=== PATIENT | female | born 1955 | race Caucasian/White ===

== ENCOUNTER → 2016-12-02 | Day surgery (SDC) | payer MEDICARE ==
[~2016-12-02] VITALS: Ht 160 cm; Wt 137.0 kg
[~2016-12-02] MED LIST: AMPICILLIN SOD 2 GM in D5W MINI-BAG PLUS 100 ML IV ONE; ASPI81TA85 PO; CARV12.5 PO; D5W IV ONE; DESFLURANE 240 ML INHALANT As Ordered ONE; DRIS50002 PO; FURO40TA2 PO; GENTAMICIN SULFATE IV ONE; HYDR200T3 PO; LEVO112T2 PO; LIDOCAINE 2% INJ 100 MG/5 ML SDV (FOR ANES.) As Ordered ONE; LOSA50TA20 PO; LR 1,000 ML IV SCH; MAGN1TAB25 PO; METF1000 PO; METOCLOPRAMIDE INJ 10MG/2ML VIAL (J2765) As Ordered ONE; MIDAZOLAM INJ 2 MG/2 ML VIAL (J2250) As Ordered ONE; NOVO70IN SC; ONDANSETRON 4MG/2ML VIAL (J2405) As Ordered ONE; ONDANSETRON 4MG/2ML VIAL (J2405) IV PRN; PERCOCET 5MG/325MG TAB PO PRN; PROPOFOL 200 MG/20 ML VIAL As Ordered ONE; SEVOFLURANE INHAL SOLN 250 ML BTL As Ordered ONE; SPIR25TA2 PO; TRAM50TA2 PO; TYLE500T78 PO; ZOCO20TA PO; fentaNYL 100 MCG/2 ML INJECTION (J3010) As Ordered ONE; fentaNYL 100 MCG/2 ML INJECTION (J3010) IV PRN
--- NOTE | 2016-12-02 09:10 | RO ---
DATE OF PROCEDURE: 12/02/2016 PREOPERATIVE DIAGNOSIS: Postmenopausal bleeding with thickened endometrium by ultrasound. POSTOPERATIVE DIAGNOSIS: Postmenopausal bleeding with thickened endometrium by ultrasound. Several endometrial polyps. PROCEDURE: Dilation and curettage (D and C), hysteroscopy, MyoSure. SURGEON: Dr. Gabbie Carrasco CAMP MANAGER: ANESTHESIA: Spinal. BRIEF DESCRIPTION OF PROCEDURE AND FINDINGS: Cori was brought to the operating room where sufficient spinal anesthesia was induced and she was prepped, draped and positioned in the usual sterile fashion. The Geovanna retractor was used, not the weighted, in this patient with somewhat fragile postmenopausal atrophic tissues. It was difficult to visualize the cervix due to the patient's anatomy and so the cervix was grasped using the single tooth tenaculum under palpation and then brought down adequately so that we could then readjust the tenaculum and see the cervix well. There were no cervical lesions. The cervix was carefully dilated and the hysteroscope placed. Using the hysteroscope as documented in the pictures, we were able to see several endometrial polyps, the largest of which was still under a centimeter in size. Using the MyoSure LITE, we were able to completely resect these and resect the endometrial wall and some of the endocervical wall as well. After resecting in a circumferential fashion as is documented on the operative photos, we then also curettaged and both samples were sent together and the procedure was then ended. Estimated blood loss for the procedure was less than 5 mL. Fluid replacement was crystalloid. Complications: None. Condition and Disposition: Cori tolerated the procedure well and was recovering in the recovery room in good condition.
[2016-12-02 10:38] VITALS: BP 182/82
== END | disposition home or self-care (01) ==
LOC: M SDC 06:21
PROVIDERS: ATTEND Obstetrics & Gynecology
DX: N85.00 Endometrial hyperplasia, unspecified (principal); N85.8 Other specified noninflammatory disorders of uterus; N95.0 Postmenopausal bleeding; I11.0 Hypertensive heart disease with heart failure; E11.9 Type 2 diabetes mellitus without complications; G47.33 Obstructive sleep apnea (adult) (pediatric); Z95.3 Presence of xenogenic heart valve; I35.0 Nonrheumatic aortic (valve) stenosis; I50.32 Chronic diastolic (congestive) heart failure; E78.00 Pure hypercholesterolemia, unspecified; I87.2 Venous insufficiency (chronic) (peripheral); E03.9 Hypothyroidism, unspecified; I25.10 Atherosclerotic heart disease of native coronary artery without angina pectoris; Z95.5 Presence of coronary angioplasty implant and graft; I25.2 Old myocardial infarction; K44.9 Diaphragmatic hernia without obstruction or gangrene; R06.02 Shortness of breath; F32.9 Major depressive disorder, single episode, unspecified; F41.9 Anxiety disorder, unspecified; R60.9 Edema, unspecified; E66.8 Other obesity; I45.0 Right fascicular block; R94.31 Abnormal electrocardiogram [ECG] [EKG]; I31.8 Other specified diseases of pericardium; M19.90 Unspecified osteoarthritis, unspecified site; Z79.899 Other long term (current) drug therapy; Z79.82 Long term (current) use of aspirin; Z79.84 Long term (current) use of oral hypoglycemic drugs; Z79.4 Long term (current) use of insulin
CPT/HCPCS: 58558; 88304; J1580; J2250; J2405; J2765; J3010

== ENCOUNTER → 2017-03-10 | Outpatient (REF) | payer MEDICARE ==
[~2017-03-10] MED LIST changes: -AMPICILLIN SOD 2 GM in D5W MINI-BAG PLUS 100 ML IV ONE; -D5W IV ONE; -DESFLURANE 240 ML INHALANT As Ordered ONE; -GENTAMICIN SULFATE IV ONE; -LIDOCAINE 2% INJ 100 MG/5 ML SDV (FOR ANES.) As Ordered ONE; -LR 1,000 ML IV SCH; -METOCLOPRAMIDE INJ 10MG/2ML VIAL (J2765) As Ordered ONE; -MIDAZOLAM INJ 2 MG/2 ML VIAL (J2250) As Ordered ONE; -ONDANSETRON 4MG/2ML VIAL (J2405) As Ordered ONE; -ONDANSETRON 4MG/2ML VIAL (J2405) IV PRN; -PERCOCET 5MG/325MG TAB PO PRN; -PROPOFOL 200 MG/20 ML VIAL As Ordered ONE; -SEVOFLURANE INHAL SOLN 250 ML BTL As Ordered ONE; -fentaNYL 100 MCG/2 ML INJECTION (J3010) As Ordered ONE; -fentaNYL 100 MCG/2 ML INJECTION (J3010) IV PRN
== END ==
LOC: M LAB REF 16:36
PROVIDERS: ATTEND Internal Medicine
DX: Z01.89 Encounter for other specified special examinations (principal)

== ENCOUNTER → 2018-04-08 | Outpatient (REF) | payer MEDICARE ==
[2018-04-08 19:01] LABS: C REACTIVE PROTEIN QUANTITATIV 1.35 MG/DL (0.00-0.30)
== END ==
LOC: M LAB REF 17:02
DX: Z79.899 Other long term (current) drug therapy (principal)
CPT/HCPCS: 86140

== ENCOUNTER → 2018-11-12 | Outpatient (REF) | payer MEDICARE ==
[~2018-11-12] MED LIST changes: -DRIS50002 PO; +DRIS50003 PO; -LOSA50TA20 PO; +LOSA50TA88 PO; -METF1000 PO; +METF10004 PO; +NOVO1INJ4 SC; -NOVO70IN SC; +SPIR-10 PO; -SPIR25TA2 PO
== END ==
LOC: M LAB REF 15:54
PROVIDERS: ATTEND Internal Medicine
DX: I48.1 Persistent atrial fibrillation (principal)

== ENCOUNTER 2019-01-01 14:28 | Inpatient (IN) | payer MEDICARE ==
[~2019-01-01] VITALS: Ht 160 cm; Wt 125.0 kg
[2019-01-01] MEDS ORDERED: CHLO125TA PO (14:44)
[2019-01-01] MEDS ORDERED: DIGO0.25 PO (14:44)
[2019-01-01] MEDS ORDERED: ASPI325T25 PO (14:44)
[2019-01-01 17:03] LABS: BASO # 0.1 10^3/uL (0.0-0.2); BASO % 0.7 % (0.0-1.0); EOS # 0.1 10^3/uL (0.0-0.50); EOS % 0.9 % (0.0-3.0); HEMATOCRIT 40.1 % (36.0-47.0); LYMPH # 2.4 10^3/uL (1.5-4.5); LYMPH % 20.4 % (24.0-44.0); MEAN CORPUSCULAR HEMOGLOBIN 28.1 pg (27.0-33.0); MEAN CORPUSCULAR HGB CONC 32.4 g/dl (32.0-36.5); MEAN CORPUSCULAR VOLUME 86.6 fl (80.0-96.0); MONO # 0.6 10^3/uL (0.0-0.8); MONO % 5.4 % (0.0-5.0); NEUTROPHILS # 8.4 10^3/uL (1.8-7.7); NEUTROPHILS % 71.8 % (36.0-66.0); PLATELET COUNT, AUTOMATED 238 10^3/uL (150-450); RED BLOOD COUNT 4.63 10^6/uL (4.00-5.40); WHITE BLOOD COUNT 11.7 10^3/uL (4.0-10.0)
[2019-01-01 17:33] LABS: CALCIUM LEVEL 9.2 MG/DL (8.8-10.2); CREATININE FOR GFR 1.2 MG/DL (0.55-1.30); GLOMERULAR FILTRATION RATE 48.3 (>45)
[2019-01-01] MEDS ORDERED: PHENYLEPHRINE 2.5% OPHTH SOL 2ML OU ONE (20:00)
[2019-01-01] MEDS ORDERED: TETRACAINE 0.5% OPHTH SOLN 4ML OU ONE (20:00)
[2019-01-01] MEDS ORDERED: TROPICAMIDE 1% OPHTH SOLN 2ML OU ONE (20:00)
[2019-01-01 20:05] LABS: INR 0.97
[2019-01-01] MEDS ORDERED: methylPREDNISolone 1,000 MG, VIAL MATE ADAPTER 1 EACH in D5W 250 ML IV ONE (21:15)
[2019-01-01 21:25] LABS: C REACTIVE PROTEIN QUANTITATIV 2.19 MG/DL (0.00-0.30)
[2019-01-01] MEDS ORDERED: CHLO25TA PO (21:34)
[2019-01-01] MEDS ORDERED: VITA100066 PO (21:39)
[2019-01-01] MEDS ORDERED: TRAM50TA2 PO (21:39)
[2019-01-01] MEDS ORDERED: MAGN500T14 PO (21:39)
[2019-01-01] MEDS ORDERED: CARV25TA PO (21:39)
[2019-01-01] MEDS ORDERED: NITR4TASL SL (21:40)
[2019-01-01 21:48] LABS: ERYTHROCYTE SEDIMENTATION RATE 24 mm/hr (0-30)
[2019-01-01] MEDS ORDERED: niCARdipine IV 40 MG in APPROPRIATE DILUENT 1 EA IV SCH (22:00)
[2019-01-01] MEDS ORDERED: GLUCOSE 4 GM CHEW TABLET PO PRN (22:15)
[2019-01-01] MEDS ORDERED: GLUCAGON FOR INJ 1 MG VIAL (J1610) SC PRN (22:15)
[2019-01-01] MEDS ORDERED: NITROGLYCERIN 0.4 MG SUBL TABLET SL PRN (22:15)
[2019-01-01] MEDS ORDERED: DEXTROSE 50% 50 ML SYRINGE IV PRN (22:15)
[2019-01-01] MEDS: ENOXAPARIN 150 MG/ML SYR (J1650) SC SCH (22:34)
[2019-01-01] MEDS: LEVOTHYROXINE 112MCG TABLET (0.112MG) PO SCH (22:34)
[2019-01-01 23:38] VITALS: BP 143/63
[2019-01-01] MEDS: MAGNESIUM OXIDE 400 MG TAB (MAG-OX) PO SCH (23:40)
[2019-01-01] MEDS: SIMVASTATIN 20 MG TAB PO SCH (23:40)
[2019-01-02] VITALS (23 sets, daily range): BP systolic 136–168; BP diastolic 62–109
--- NOTE | 2019-01-02 00:15 | REPVR ---
EXAM: US Bilateral Duplex Bilateral Extracranial Arteries EXAM DATE/TIME: 01/01/2019 11:05 PM CLINICAL HISTORY: 63 years old, female; Signs and symptoms; Other: Vision loss; Additional info: Vision loss mono-occular TECHNIQUE: Bilateral Real-time Duplex ultrasound scan of the carotid and vertebral arteries combining de luna scale, color Doppler and spectral waveform analysis. COMPARISON: No relevant prior studies available. FINDINGS: Waveforms: There are intermittent arrhythmia on waveforms. Right common carotid artery: No occlusion or stenosis. PSV is 94 cm/s. Right internal carotid artery: No occlusion or stenosis. PSV is 59 cm/s. Tortuous ICA. Right ICA/CCA ratio: Right ICA/CCA ratio is 0.63. Right external carotid artery: No stenosis in the origin. Right vertebral artery: Unremarkable. Antegrade flow Left common carotid artery: No occlusion or stenosis. PSV is 105 cm/s. Left internal carotid artery: No occlusion or stenosis. PSV is 73 cm/s. Tortuous ICA. Left ICA/CCA ratio: Left ICA/CCA ratio 0.70. Left external carotid artery: No stenosis in the origin. Left vertebral artery: Unremarkable. Antegrade flow. IMPRESSION: No carotid artery stenosis. COMMENT: Carotid Stenosis Reference using SRU criteria: Mild: <50% stenosis. ICA PSV is less than 125 cm/second and plaque or intimal thickening is visible. Moderate: 50-69% stenosis. ICA PSV is 125 to 230 cm/second and plaque is visible. Severe: 70-94% stenosis. ICA PSV is more than 230 cm/second and visible plaque and lumen narrowing are seen. Near occlusion: 95-99% stenosis. ICA PSV is variable and significant plaque and luminal narrowing are seen. Occluded: 100% stenosis. No flow identified. Electronically signed by: Cris Plata On 01/02/2019 00:15:20 AM
[2019-01-02] MEDS: LOSARTAN 50 MG TAB PO SCH ×2 (04:50→21:29)
[2019-01-02 06:58] LABS: HEMOGLOBIN 13.1 g/dl (12.0-15.5); MEAN CORPUSCULAR HEMOGLOBIN 27.6 pg (27.0-33.0); MEAN CORPUSCULAR VOLUME 86.5 fl (80.0-96.0); PLATELET COUNT, AUTOMATED 222 10^3/uL (150-450); RED BLOOD COUNT 4.74 10^6/uL (4.00-5.40); WHITE BLOOD COUNT 9.9 10^3/uL (4.0-10.0)
[2019-01-02 07:43] LABS: C REACTIVE PROTEIN QUANTITATIV 2.09 MG/DL (0.00-0.30); CALCIUM LEVEL 8.9 MG/DL (8.8-10.2); CREATININE FOR GFR 1.26 MG/DL (0.55-1.30); GLOMERULAR FILTRATION RATE 45.7 (>45); POTASSIUM SERUM 4.9 MEQ/L (3.5-5.1); THYROID STIMULATING HORMONE 0.645 uIU/ML (0.358-3.740)
[2019-01-02] MEDS: VITAMIN D 1,000 INTERNATIONAL UNITS TABLET PO SCH (07:58)
[2019-01-02] MEDS: MAGNESIUM OXIDE 400 MG TAB (MAG-OX) PO SCH ×2 (07:58→21:31)
[2019-01-02] MEDS: HumaLOG INSULIN (NovoLOG) PER UNIT SC SCH ×4 (07:58→21:32)
[2019-01-02] MEDS: traMADol 50 MG TAB PO PRN ×2 (07:59→23:43)
[2019-01-02] MEDS: DIGOXIN 0.25 MG TAB PO SCH (08:00)
--- NOTE | 2019-01-02 08:10 | REP ---
CT BRAIN WITHOUT CONTRAST: 01/01/2019. CLINICAL HISTORY: Rule out CVA. FINDINGS: There are no prior studies. Soft tissue and bone windows reviewed for each slice level. Lateral ventricles are midline symmetric, mildly dilated but in proportion to the diffuse cerebral atrophy. That atrophy is slightly greater than I would expect but is proportionate to ventricular size. Third and fourth ventricles also proportionate. Basal ganglia symmetric and normal. Wang white junction differentiation is maintained, but there is some heterogeneous low attenuation white matter change bilaterally suggesting some mild small vessel ischemic disease. Cortical stripe is preserved though atrophic. There is no vascular territory infarct, intracranial hemorrhage, mass, mass effect, or edema. No extra-axial fluid collection. Atrophy greatest in the temporal and frontal lobes. The brainstem is intact. The cerebellum shows some atrophy in a symmetric fashion. No posterior fossa hemorrhage. Bone windows show the mastoids and visualized sinuses at the skull base intact. Skull base and calvarium show no fracture or focal lesion. There were a few calcifications in the carotid siphons. IMPRESSION: 1. Mild ventriculomegaly with proportionate cerebral atrophy, this is greater than I would expect for age. Some cerebellar atrophy noted as well. 2. No intracranial hemorrhage or acute infarct. No mass, mass effect, or edema. 3. Some chronic small vessel white matter ischemic changes are noted. The skull base, calvarium, sinuses, and mastoids clear. Electronically Signed by Norman Chaidez MD 01/02/2019 08:25 A
[2019-01-02] MEDS ORDERED: methylPREDNISolone 1,000 MG, VIAL MATE ADAPTER 1 EACH in D5W 250 ML IV SCH (09:00)
[2019-01-02] MEDS ORDERED: LEVEMIR (INSULIN DETEMIR) 1 UNITS/0.01ML SC SCH ×3 (09:00→21:00)
[2019-01-02] MEDS: ASPIRIN 81 MG ENTERIC TAB PO SCH (09:00)
--- NOTE | 2019-01-02 09:06 | ECGEPIP ---
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
[2019-01-02] MEDS ORDERED: methylPREDNISolone INJ 125 MG/2 ML VIAL (J2930) IV SCH (10:00)
[2019-01-02] MEDS ORDERED: PROHANCE 279.3MG/ML 15ML VIAL (A9576) As Ordered ONE (10:19)
[2019-01-02] MEDS: ENOXAPARIN 150 MG/ML SYR (J1650) SC SCH ×2 (13:43→22:49)
--- NOTE | 2019-01-02 14:29 | REP ---
MRI BRAIN WITHOUT AND WITH CONTRAST: 01/02/2019. CLINICAL HISTORY: Monocular vision loss. Pressure when moving left eye. She states she only sees de luna with that eye. Technique: Precontrast axial T1, fat-suppressed T2, FLAIR, gradient-echo, diffusion-weighted images and ADC mapping sequences, sagittal T1 images and following infusion of 12 mL of ProHance (one-half dose), axial and coronal T1 postinjection sequences provided. COMPARISON: CT brain 10/31/2019. FINDINGS: Lateral ventricles are midline, symmetric, mildly prominent and proportionate to the mild diffuse cerebral atrophy. Third and fourth ventricles are unremarkable. Basal ganglia appear symmetric and intact. There are a few dilated spaces of Virchow as a benign normal finding seen on both sides. In the periventricular and centrum semiovale adjacent to the lateral ventricles in the posterior frontal and anterior parietal lobe on the left and in the anterior parietal lobe on the right, there are punctate hyperintense signal foci. There are other periventricular changes in the white matter tracts adjacent to the atria of the lateral ventricles. I do not see subcortical white matter changes. On the gradient-echo images, I see no evidence of hemorrhage. The diffusion-weighted images and the ADC mapping sequences show no restricted water diffusion or acute ischemia. Brainstem, cerebellum, and white matter tracts in the cerebral hemispheres show no acute finding. There is no vascular territory infarct, intracranial hemorrhage, mass, or mass effect. No extra-axial fluid collection. The corpus callosum, optic chiasm, and pituitary are intact. There is no cerebellar tonsillar ectopia. Ample subarachnoid space is noted at the craniocervical junction. Visualized sinuses show only minor anterior ethmoid sinus mucosal thickening in a few air cells, and these are otherwise clear. The orbits and contents show conjugate gaze with the optic nerves symmetric in size, and the extraocular muscles show no acute finding. Seventh/eighth cranial nerve complexes and mastoids are grossly intact. After infusion of gadolinium, there was no evidence of abnormal enhancement of the meninges, in the areas in the brain including the white matter tracts nor the brainstem. Please see the MRI orbits report for discussion of that area. IMPRESSION: 1. Some chronic small vessel ischemic changes in the white matter tracts of the periventricular and centrum semiovale deep white matter in the posterior frontal lobe on the right and anterior parietal lobes bilaterally extending also back to the periatrial region of both lateral ventricles. This is a nonspecific finding that may be gliosis or chronic small vessel ischemic change. 2. No abnormal enhancement in the brainstem or white matter tracts. The globes and orbits are grossly symmetric without abnormal enhancement. Please see the dedicated MRI orbit study for discussion of that area. 3. There is no evidence of acute ischemia, intracranial bleed or other acute finding. Electronically Signed by Norman Chaidez MD 01/02/2019 07:18 P
--- NOTE | 2019-01-02 14:35 | REP ---
MRI OF THE ORBITS WITHOUT AND WITH CONTRAST: 01/02/2019. CLINICAL HISTORY: Monocular vision loss. States she sees all de luna in that eye and pain when moving the eye on the left side. Feels pressure deep to the eye. TECHNIQUE: Precontrast whole brain T2, coronal thin section fat-suppressed T2 through the orbits and high-resolution axial T1 and T2 images through the orbits obtained. After infusion of 12 mL of ProHance (one-half dose), fat suppressed T1 sagittal, axial, and coronal images were obtained through the orbits. COMPARISON: MRI brain this date, CT brain without contrast 01/01/2019. FINDINGS: The whole brain images demonstrate periventricular and centrum semiovale deep white matter tract hyperintense foci in both hemispheres and extending into the periatrial regions as well. There is no vascular territory infarct, hemorrhage, mass, or mass effect. Some mild ventriculomegaly with proportionate atrophy. Dedicated orbit images show globes symmetric. There is conjugate gaze and no evidence of fluid-fluid level in either orbit. The optic nerves are symmetric and without signal abnormality on the precontrast images. The extraocular muscles are also symmetric in appearance and without abnormal thickening. I see no proptosis. There is no evidence of intraconal mass or edema on either side. The brainstem and white matter tracts anteriorly are unremarkable. Basal ganglia unremarkable. That portion of corpus callosum included, pituitary, and infundibulum are unremarkable. Optic chiasm also intact. It is better seen on the T2 precontrast images with slight motion artifact on the post gadolinium coronal images. There is no abnormal signal within the cavernous sinuses on pre- or postcontrast images. After contrast administration, the optic nerves show symmetric, normal pattern of enhancement. There is no abnormal enhancement of the intraconal fat. Optic pathways show no mass or abnormal enhancement. IMPRESSION: 1. Negative pre- and postcontrast MRI of the orbits for any acute finding. There is no evidence of intraconal mass, abnormal enhancement or edema of the optic nerves, hyphema or other abnormalities of the globe. 2. There is some periventricular and centrum semiovale white matter hyperintense signal change in the bilateral anterior to posterior parietal lobes and the posterior left frontal lobe. This does not appear acute, and there is no enhancement of the visible white matter lesions on this study. Brainstem images are all unremarkable. Electronically Signed by Norman Chaidez MD 01/02/2019 07:19 P
[2019-01-02] MEDS: CARVedilol 12.5 MG TAB PO SCH ×2 (14:47→21:32)
--- NOTE | 2019-01-02 16:36 | ECGEPIP ---
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
--- NOTE | 2019-01-02 17:22 | IPNPDOC ---
Text Note Date of Service The patient was seen on 01/02/19. NOTE Subjective: Patient is a 63-year-old female with a PMHx of A. fib (on ASA), HTN, IDDM2, DLP, Hypothyroidism who presented to the ER with platelets of complete vision loss in the left eye. Patient was seen by ophthalmology, Dr. Romero, in the emergency room. Patient was suspected of having optic neuritis and was started on Solu-Medrol. . She was admitted to the hospitalist service for further evaluation and treatment. Patient was seen and examined at the bedside. Patient notes that she is now seeing shadows out of her left eye. . He denies chest pain, shortness of breath or palpitations. Denies nausea, vomiting, abdominal pain, constipation, diarrhea or discomfort with urination. 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 Romero - CRP mildly elevated; ESR not significantly elevated - MRI orbit 01/02: 1. Negative pre- and postcontrast MRI of the orbits for any acute finding. There is no evidence of intraconal mass, abnormal enhancement, or edema of the optic nerves, hyphema, or other abnormalities of the globe. 2. There is some periventricular and centrum semiovale white matter hyperintense si gnal change in the bilateral anterior to posterior parietal lobes and the posterior left frontal lobe. This does not appear acute, and there is no enhancement of the visible white matter lesions on this study. Brainstem images are all unremarkable. - MRI brain 01/02: 1. Some chronic small vessel ischemic changes in the white matter tracts of the periventricular and centrum semiovale deep white matter in the posterior parietal frontal lobe on the right and anterior parietal bilaterally extending also back to the periatrial region of both lateral ventricles. This is a nonspecific finding that may be gliosis or chronic small vessel ischemic change. 2. No abnormal enhancement in the brainstem or white matter tracts. The globes and orbits are grossly symmetric without abnormal enhancement. Please see the dedicated MRI orbit study for discussion of that area. 3. There is no evidence of acute ischemia, intracranial bleed, or other acute finding. - c/w Solumedrol; will reduce to [id number] - Discussed cause with Ophthalmology; Dr. Romero; Reported imaging findings; Advised to continue Solumedrol 1000mg q24h for 3 days; then taper to steroids and have outpatient follow up HTN s/p Urgency / Emergency - Blood pressure has improved over last 24 hours - s/p Nicardipine drip - Resumed oral medications; c/w Carvedilol A. fib - Patient has been advised to be on full anticoagulation in the past, however, was reluctant to start it given her hemorrhoids - c/w rate / rhythm control with Digoxin - c/w full anticoagulation with Lovenox; will likely transition to Warfarin - Dose of Aspirin has been reduced to 81 IDDM2 with Hyperglycemia - c/w ISS and increase Levemir from 5 BID to 15 BID - Will likely have to increase dose of Levemir while on corticosteroids DLP - c/w Simvastatin Hypothyroidism - c/w Levothyroxine Hx of Hemorrhoids GI prophylaxis - Will start Protonix DVT prophylaxis - Currently on full anticoagulation with Lovenox VS,Fishbone, I+O VS, Fishbone, I+O Laboratory Tests 01/02/19 05:30 Red Blood Count 4.74, Mean Corpuscular Volume 86.5, Mean Corpuscular Hemoglobin 27.6, Mean Corpuscular Hemoglobin Concent 32.0, Red Cell Distribution Width 13.3 Vital Signs Date Time Temp Pulse Resp B/P (MAP) Pulse Ox O2 Delivery O2 Flow Rate FiO2 01/02/19 14:47 144/70 01/02/19 12:00 99 01/02/19 08:58 16 01/02/19 04:00 98.7 98 01/01/19 23:00 Room Air I&O- Last 24 Hours up to 6 AM 01/02/19 06:00 Intake Total 366 ml Output Total 1000 ml Balance -634 ml ELIDA DICKSON MD Jan 02, 2019 17:22
[2019-01-02] MEDS: PANTOPRAZOLE 40MG TAB (PROTONIX) PO ONE ×2 (17:30→18:01)
[2019-01-02] MEDS ORDERED: HumaLOG INSULIN (NovoLOG) PER UNIT SC ONE ×2 (18:00→23:15)
--- NOTE | 2019-01-02 21:06 | HPE ---
DATE OF ADMISSION: 01/01/2019 CHIEF COMPLAINT: Monolocular loss of vision for the past 36 hours. HISTORY OF PRESENT ILLNESS: The patient is a 63-year-old female. She has a significant past medical history of hypertension, rheumatoid arthritis (RA) was previously on Plaquenil, which was recently discontinued about a month and a half ago, insulin-dependent diabetes, hypothyroidism, hyperlipidemia and atrial fibrillation, not on anticoagulation. She uses aspirin 326 mg despite she has a CHADs-VASc greater than 2. She actually has a CHADs-VASc score of 3. However, she choose aspirin 325 mg because of fear cause she has internal and external hemorrhoid. She presents to the emergency room with 36 hour painless monolocular visual loss that started around noon yesterday. The patient states she woke up and she felt as though a de luna curtain was over her eyes. There is no pain. She has no headache. She has no other focal deficits. No weakness, numbness, paresthesias. No cough, chest pain, shortness of breath, urinary symptoms, abdominal pain, constipation or diarrhea. On presentation to the emergency room, systolic blood pressures in the 200s. When I evaluated the patient, it was high as 213 to 230. Denies any scalp tenderness. She was evaluated by the field crop farmer, Dr. Romero in the emergency room, who I believe performed a funduscopic exam and does not believe that this is retinal vein or artery occlusion, do not believe this is retinal detachment, believes that the patient has optic neuritis and believes that she should ruled out for multiple sclerosis (MS) and placed on high dose Solu-Medrol with a Magnetic Resonance Imaging (MRI) of the brain with and without gadolinium to assess for any demyelinating plaques. PAST MEDICAL HISTORY: See history of present illness. PAST SURGICAL HISTORY: She has vein ablation, cholecystectomy, mitral valve repair with a porcine valve, tubal ligation and eye corrective surgery for presbyopia. PAST MEDICATIONS INCLUDE: - vitamin D - Zocor - magnesium - Synthroid - digoxin - aspirin 325 mg - Coreg - chlortalidone - insulin sliding scale - losartan - metformin - spironolactone. SOCIAL HISTORY: Denies tobacco, alcohol or illicit drug use. FAMILY HISTORY: Heart disease REVIEW OF SYSTEMS: A 12-point review of systems was completed, all of which were except those listed in the history of present illness. VITAL SIGNS ON ADMISSION: Temperature 99.6, pulse of 69, respirations of 18, blood pressure 187/90, saturating at 95% on room air. When I did see the patient, her blood pressure systolic was in the 200s. She states her blood pressures usually were not controlled at home. PHYSICAL EXAMINATION: GENERAL: She is well nourished, in no apparent distress. Head is normocephalic, atraumatic. Eyes: The extraocular movements are actually intact. Pupils are reactive to light. Visual acuity is diminished in the left eye. Neck is supple. No jugular venous pressure. Cardiovascular appears to be regular rate and rhythm. Grade 2 out of 6 systolic murmur heard best in the right second intercostal space. It appears to be normal sinus rhythm. She does not appear to be in atrial fibrillation, though the electrocardiogram (EKG) at baseline may be a coarse atrial fibrillation. Abdomen: Soft, nontender, nondistended, positive bowel sounds. No rebound or guarding. Lungs are clear to auscultation. Extremities: Multiple abrasions. Trace edema. No calf tenderness. Neurological exam: She is alert and oriented times 3. No focal deficits. Power, sensation, coordination all are intact. LABORATORY AND IMAGING COMPLETED IN THE EMERGENCY ROOM: White count 11, hemoglobin and hematocrit of 13/40, platelet count of 238. Coags within normal limits. Chemistry shows a BUN, creatinine of 18/1.2. CT of the head showed no acute disease. ASSESSMENT AND PLAN: 1. Monolocular visual loss. Again, the patient has been seen by opthalmology in the emergency room, evaluated by Dr. Romero, who does not believe that this is retinal vein or retinal artery occlusion, no retinal detachment on the funduscopic exam, believe this is due to optic neuritis, to rule out demyelinating disease. So, differential diagnosis includes optic neuritis primary on the list, rule out demyelinating disease versus embolic phenomenon, stroke, retinal vein, retinal artery occlusion very less likely, versus hypertensive emergency in the setting of possible cerebrovascular accident (CVA), with this type of blood pressure systolic in the 200s and very less likely to be PRES syndrome, as it is unilocular and not biocular visual loss. However, will admit the patient to the intensive care unit (ICU). Will treat as hypertensive emergency with nicardipine; the goal is drop the MAP by 15 go 20% in the first few hours and 25% in the first 24 hours. Will get a Magnetic Resonance Imaging (MRI) of the head with and without to assess demyelinating disease, as well as to assess for cerebrovascular accident (CVA) stroke. Will get Magnetic Resonance Imaging (MRI) of the orbits with and without as well. Will also get echocardiogram and carotid Dopplers to complete the stroke work up. Erythrocyte sedimentation rate and C-reactive protein (CRP) sent to also rule out giant cell arteritis, which is very unlikely in this case with no scalp tenderness and no headaches, which would also improved with steroids. As per opthalmology recommendations, Solu-Medrol 1 gram daily for three to five days, insulin sliding with high dose steroids. Will look hard for steroid-induced psychosis, as well as neuropathy and elevation of sugars while on high dose steroids. 2. For atrial fibrillation, the patient appears to be in sinus at this point. Continue with digoxin, Coreg would be held if the patient is on nicardipine drip. She is CHADs-VASc 3. The aspirin 325 would be held and she will be placed on anticoagulation, starting with Lovenox. She likely can be discharged on Coumadin. She is not a candidate for NOACS_because she has underlying valvular disorder. 3. For mitral repair with porcine valve, stable, echocardiogram to be completed. 4. Hypertension. All antihypertensives held while the patient is on nicardipine drip. 5. Hyperlipidemia. Continue Zocor for now. She may need high intensity statin. This is shown to be an embolic event. 6. Hypothyroidism. Continue Synthroid. Check thyroid simulating hormone (TSH). 7. Rheumatoid arthritis. No longer on Plaquenil, Tylenol as needed. Also continue with digoxin for the atrial fibrillation. 8. Supportive deep vein thrombosis (DVT) prophylaxis, she is on Lovenox therapeutically. 9. Gastrointestinal (GI) prophylaxis, Protonix while on high dose steroids. 10. Diet: Cardiac diabetic diet. The patient to be admitted to the intensive care unit (ICU). 11. Will also perform neuro checks every 4 hours. MTDD
[2019-01-02] MEDS: LEVOTHYROXINE 112MCG TABLET (0.112MG) PO SCH (21:29)
[2019-01-02] MEDS: SIMVASTATIN 20 MG TAB PO SCH (21:30)
[2019-01-02] MEDS: ACETAMINOPHEN 500 MG TAB PO PRN (23:43)
[2019-01-03] VITALS (8 sets, daily range): BP systolic 138–158; BP diastolic 72–96
[2019-01-03] MEDS: traMADol 50 MG TAB PO PRN ×4 (00:13→22:08)
[2019-01-03 04:17] LABS: HEMATOCRIT 35.7 % (36.0-47.0); HEMOGLOBIN 11.7 g/dl (12.0-15.5); MEAN CORPUSCULAR HEMOGLOBIN 27.7 pg (27.0-33.0); MEAN CORPUSCULAR HGB CONC 32.8 g/dl (32.0-36.5); MEAN CORPUSCULAR VOLUME 84.4 fl (80.0-96.0); PLATELET COUNT, AUTOMATED 221 10^3/uL (150-450); RED BLOOD COUNT 4.23 10^6/uL (4.00-5.40); WHITE BLOOD COUNT 12.5 10^3/uL (4.0-10.0)
[2019-01-03 04:41] LABS: C REACTIVE PROTEIN QUANTITATIV 2.39 MG/DL (0.00-0.30); CALCIUM LEVEL 8.2 MG/DL (8.8-10.2); CREATININE FOR GFR 1.3 MG/DL (0.55-1.30); POTASSIUM SERUM 4.3 MEQ/L (3.5-5.1)
[2019-01-03] MEDS ORDERED: LEVEMIR (INSULIN DETEMIR) 1 UNITS/0.01ML SC SCH (09:00)
[2019-01-03] MEDS ORDERED: methylPREDNISolone 1,000 MG, VIAL MATE ADAPTER 1 EACH in D5W 250 ML IV SCH (09:00)
[2019-01-03] MEDS: PANTOPRAZOLE 40MG TAB (PROTONIX) PO SCH ×2 (09:00→09:13)
[2019-01-03] MEDS: HumaLOG INSULIN (NovoLOG) PER UNIT SC SCH ×4 (09:12→21:12)
[2019-01-03] MEDS: MAGNESIUM OXIDE 400 MG TAB (MAG-OX) PO SCH ×2 (09:13→21:00)
[2019-01-03] MEDS: CARVedilol 12.5 MG TAB PO SCH ×2 (09:13→21:01)
[2019-01-03] MEDS: LOSARTAN 50 MG TAB PO SCH ×2 (09:14→21:00)
[2019-01-03] MEDS: ASPIRIN 81 MG ENTERIC TAB PO SCH (09:14)
[2019-01-03] MEDS: DIGOXIN 0.25 MG TAB PO SCH (09:14)
[2019-01-03] MEDS: VITAMIN D 1,000 INTERNATIONAL UNITS TABLET PO SCH (09:15)
[2019-01-03] MEDS: ACETAMINOPHEN 500 MG TAB PO PRN ×2 (09:19→21:01)
--- NOTE | 2019-01-03 10:11 | IPNPDOC ---
Text Note Date of Service The patient was seen on 01/03/19. NOTE Subjective: Patient is a 63-year-old female with a PMHx of A. fib (on ASA), HTN, IDDM2, DLP, Hypothyroidism who presented to the ER with platelets of complete vision loss in the left eye. Patient was seen by ophthalmology, Dr. Romero, in the emergency room. Patient was suspected of having optic neuritis and was started on Solu-Medrol. She was admitted to the hospitalist service for further evaluation and treatment. Patient was seen and examined at the bedside in the ICU. She states that her eyesight is about the same as it was yesterday. She states that she can see parts of her TV and her family and with her left eye, however it is more like s eeing puzzle pieces instead of the whole image. She denies chest pain, shortness of breath or palpitations. Denies nausea, vomiting, abdominal pain, constipation, diarrhea or discomfort with urination. Objective: Vitals (See below) General: Middle-aged, female, sitting in bed in the ICU. No acute distress, comfortable. HEENT: Atraumatic, normocephalic. Pupils are equal round and reactive to light. Visual acuity is diminished in the left eye. Mucous membranes are moist. HEART: Irregular rhythm, rate controlled. Holosystolic murmur heard best at the right second intercostal space. Lungs: Clear to auscultation bilaterally; no wheezes, rhonchi, or rales Abdomen: Normoactive bowel sounds, soft, no pain to palpation Extremities: No lower extremity edema bilaterally. Assessment and plan: 1. Visual loss of left - possibly 2/2 anterior ischemic optic neuropathy, no evidence of acute cerebrovascular accident or multiple sclerosis - Presented to emergency room with complete loss of vision for left eye - Was evaluated by ophthalmology the emergency room; has been discussed with Dr. Romero - CRP mildly elevated; ESR not significantly elevated - MRI orbit 01/02: 1. Negative pre- and postcontrast MRI of the orbits for any acute finding. There is no evidence of intraconal mass, abnormal enhancement, or edema of the optic nerves, hyphema, or other abnormalities of the globe. 2. There is some periventricular and centrum semiovale white matter hyperintense signal change in the bilateral anterior to posterior parietal lobes and the posterior left frontal lobe. This does not appear acute, and there is no enhancement of the visible white matter lesions on this study. Brainstem images are all unremarkable. - MRI brain 01/02: 1. Some chronic small vessel ischemic changes in the white matter tracts of the periventricular and centrum semiovale deep white matter in the posterior parietal frontal lobe on the right and anterior parietal bilaterally extending also back to the periatrial region of both lateral ventricles. This is a nonspecific finding that may be gliosis or chronic small vessel ischemic change. 2. No abnormal enhancement in the brainstem or white matter tracts. The globes and orbits are grossly symmetric without abnormal enhancement. Please see the dedicated MRI orbit study for discussion of that area. 3. There is no evidence of acute ischemia, intracranial bleed, or other acute finding. - Discussed cause with Ophthalmology; Dr. Romero; Reported imaging findings; Advised to continue Solumedrol 1000mg q24h for 3 days; then taper to steroids and have outpatient follow up - Day #2 of steroids, patient will receive her third dose of Solumedrol tonight; will start taper tomorrow, Dr. Romero had recommended Prednisone 60mg, 40mg, then 20mg per day/rapid taper. - OT evaluation pending 2. HTN s/p Urgency / Emergency - s/p Nicardipine drip (dc'ed 01/02/19) - Currently on home doses of losartan 50 mg twice a day, Coreg 25 mg twice a day, and today we will resume home dose of chlorthalidone 12.5 mg twice a day 3. A. fib - Patient has been advised to be on full anticoagulation in the past, however, was reluctant to start it given her hemorrhoids - c/w rate / rhythm control with Digoxin - c/w full anticoagulation with Lovenox; will likely transition to Warfarin - Dose of Aspirin has been reduced to 81 4. IDDM2 with Hyperglycemia - c/w ISS, Levemir has been increased to 40 units BID - Will likely have to adjust dose of Levemir while on corticosteroids 5. DLP - c/w Simvastatin 6. Hypothyroidism - c/w Levothyroxine 7. Hx of Hemorrhoids 8. GI prophylaxis - On Protonix 9. DVT prophylaxis - Currently on Lovenox DISPOSITION: Pending clinical improvement, potential discharge tomorrow pending OT recommendations, control of HTN with outpatient meds. VS,Fishbone, I+O VS, [place], I+O Laboratory Tests 01/03/19 04:02 Red Blood Count 4.23, Mean Corpuscular Volume 84.4, Mean Corpuscular Hemoglobin 27.7, Mean Corpuscular Hemoglobin Concent 32.8, Red Cell Distribution Width 13.2, Calcium Level 8.2 L Vital Signs Date Time Temp Pulse Resp B/P (MAP) Pulse Ox O2 Delivery O2 Flow Rate FiO2 01/03/19 09:18 15 01/03/19 09:14 66 01/03/19 09:13 158/96 01/03/19 08:00 98.1 96 01/01/19 23:00 Room Air I&O- Last 24 Hours up to 6 AM 01/03/19 06:00 Intake Total 1560 ml Output Total 2800 ml Balance -1240 ml GME ATTESTATION GME ATTESTATION My faculty preceptor for this patient encounter was physically present during the encounter and was fully available. All aspects of the patient interview, exa mination, medical decision making process, and medical care plan development were reviewed and approved by the faculty preceptor. The faculty preceptor is aware and concurs with the plan as stated in the body of this note and will attest to such by his/her cosignature. ATTENDING NOTE I, Lance Dickson, have both independently examined this patient as well as reviewed the documentation. I have discussed in detail with the resident the findings and plan of treatment as documented in the residents documentation. I will continue to follow the patient and offer further guidance to the patients care as necessary during this hospital stay. DOREEN SHELTON DO Jan 03, 2019 10:11 LANCE DICKSON MD Jan 03, 2019 11:58
[2019-01-03] MEDS: CHLORTHALIDONE 12.5MG PER 1/2 TABLET PO SCH ×2 (12:14→18:26)
[2019-01-03] MEDS: ENOXAPARIN 150 MG/ML SYR (J1650) SC SCH ×2 (12:14→21:02)
[2019-01-03] MEDS ORDERED: HumaLOG INSULIN (NovoLOG) PER UNIT SC ONE ×2 (12:45→17:30)
--- NOTE | 2019-01-03 17:37 | REP ---
MRA BRAIN WITHOUT CONTRAST: HISTORY: Optic neuritis. 3D [id number] MR angiography was performed at the level of the [place]. There is no aneurysm or arteriovenous malformation. Mild atherosclerotic disease involves the cavernous internal carotid arteries. The A1 segment of the right anterior cerebral artery is hypoplastic. Major intracranial vessels are patent. The vertebral arteries are equal in size. IMPRESSION: 1. There is no aneurysm or arteriovenous malformation. 2. Atherosclerotic disease as described above. Electronically Signed by Ap Faustin MD 01/03/2019 05:40 P
[2019-01-03] MEDS: SIMVASTATIN 20 MG TAB PO SCH (20:59)
[2019-01-03] MEDS: LEVOTHYROXINE 112MCG TABLET (0.112MG) PO SCH (21:00)
[2019-01-03] MEDS: LEVEMIR (INSULIN DETEMIR) 1 UNITS/0.01ML SC SCH (21:13)
[2019-01-04 04:00] VITALS: BP 124/86
[2019-01-04 05:45] LABS: HEMATOCRIT 35.4 % (36.0-47.0); HEMOGLOBIN 11.6 g/dl (12.0-15.5); MEAN CORPUSCULAR HEMOGLOBIN 27.8 pg (27.0-33.0); MEAN CORPUSCULAR HGB CONC 32.8 g/dl (32.0-36.5); MEAN CORPUSCULAR VOLUME 84.7 fl (80.0-96.0); PLATELET COUNT, AUTOMATED 212 10^3/uL (150-450); RED BLOOD COUNT 4.18 10^6/uL (4.00-5.40); WHITE BLOOD COUNT 11.8 10^3/uL (4.0-10.0)
[2019-01-04 05:57] LABS: C REACTIVE PROTEIN QUANTITATIV 1.34 MG/DL (0.00-0.30); CALCIUM LEVEL 7.9 MG/DL (8.8-10.2); CREATININE FOR GFR 1.24 MG/DL (0.55-1.30); GLOMERULAR FILTRATION RATE 46.5 (>45)
[2019-01-04 08:00] VITALS: BP 144/80
[2019-01-04] MEDS: CARVedilol 12.5 MG TAB PO SCH ×2 (08:45→20:58)
[2019-01-04] MEDS: PANTOPRAZOLE 40MG TAB (PROTONIX) PO SCH (08:48)
[2019-01-04] MEDS: CHLORTHALIDONE 12.5MG PER 1/2 TABLET PO SCH ×2 (08:48→17:36)
[2019-01-04] MEDS: LOSARTAN 50 MG TAB PO SCH ×2 (08:48→20:59)
[2019-01-04] MEDS: VITAMIN D 1,000 INTERNATIONAL UNITS TABLET PO SCH (08:49)
[2019-01-04] MEDS: MAGNESIUM OXIDE 400 MG TAB (MAG-OX) PO SCH ×2 (08:49→20:59)
[2019-01-04] MEDS: ASPIRIN 81 MG ENTERIC TAB PO SCH (08:49)
[2019-01-04] MEDS: DIGOXIN 0.25 MG TAB PO SCH (08:49)
[2019-01-04] MEDS: HumaLOG INSULIN (NovoLOG) PER UNIT SC SCH ×4 (08:50→21:00)
[2019-01-04] MEDS: LEVEMIR (INSULIN DETEMIR) 1 UNITS/0.01ML SC SCH ×2 (08:51→21:15)
[2019-01-04] MEDS ORDERED: predniSONE 20 MG TAB PO SCH (09:00)
[2019-01-04] MEDS: traMADol 50 MG TAB PO PRN (09:02)
[2019-01-04] MEDS: ACETAMINOPHEN 500 MG TAB PO PRN (09:02)
[2019-01-04] MEDS ORDERED: ENOXAPARIN 120 MG/0.8 ML SYR (J1650) SC SCH (10:00)
[2019-01-04] MEDS: SPIRONOLACTONE 25 MG TAB PO SCH (10:12)
[2019-01-04] MEDS ORDERED: ELIQ2.5T PO (10:46)
[2019-01-04 12:00] VITALS: BP 124/64
[2019-01-04] MEDS ORDERED: SLF 3 ML SYR IV PRN (12:15)
--- NOTE | 2019-01-04 12:27 | IPNPDOC ---
Text Note Date of Service The patient was seen on 01/04/19. NOTE Subjective: Patient is a 63-year-old female with a PMHx of A. fib (on ASA), HTN, IDDM2, DLP, Hypothyroidism who presented to the ER with platelets of complete vision loss in the left eye. Patient was seen by ophthalmology, Dr. Romero, in the emergency room. Patient was suspected of having optic neuritis and was started on Solu-Medrol. She was admitted to the hospitalist service for further evaluation and treatment. Patient was seen and examined at the bedside in the PCU. She states that her eyesight is about the same as it was yesterday. She denies chest pain, shortness of breath or palpitations. Denies nausea, vomiting, abdominal pain, consti pation, diarrhea or discomfort with urination. She is concerned about her diabetes being uncontrolled with steroids. Objective: Vitals (See below) General: Middle-aged, female, sitting upright on the edge of her bed. No acute distress, comfortable. HEENT: Atraumatic, normocephalic. Pupils are equal round and reactive to light. Visual acuity is diminished in the left eye. Mucous membranes are moist. HEART: Irregular rhythm, rate controlled. Holosystolic murmur heard best at the right second intercostal space. Lungs: Clear to auscultation bilaterally; no wheezes, rhonchi, or rales Abdomen: Normoactive bowel sounds, soft, no pain to palpation Extremities: No lower extremity edema bilaterally. Assessment and plan: 1. Visual loss of left - possibly 2/2 anterior ischemic optic neuropathy, no evidence of acute cerebrovascular accident or multiple sclerosis - Presented to emergency room with complete loss of vision for left eye - Was evaluated by ophthalmology the emergency room; has been discussed with Dr. Romero - CRP mildly elevated; ESR not significantly elevated - MRI orbit 01/02: 1. Negative pre- and postcontrast MRI of the orbits for any acute finding. There is no evidence of intraconal mass, abnormal enhancement, or edema of the optic nerves, hyphema, or other abnormalities of the globe. 2. There is some periventricular and centrum semiovale white matter hyperintense signal change in the bilateral anterior to posterior parietal lobes and the posterior left frontal lobe. This does not appear acute, and there is no enhancement of the visible white matter lesions on this study. Brainstem images are all unremarkable. - MRI brain 01/02: 1. Some chronic small vessel ischemic changes in the white matter tracts of the periventricular and centrum semiovale deep white matter in the posterior parietal frontal lobe on the right and anterior parietal bilaterally extending also back to the periatrial region of both lateral ventricles. This is a nonspecific finding that may be gliosis or chronic small vessel ischemic change. 2. No abnormal enhancement in the brainstem or white matter tracts. The globes and orbits are grossly symmetric without abnormal enhancement. Please see the dedicated MRI orbit study for discussion of that area. 3. There is no evidence of acute ischemia, intracranial bleed, or other acute finding. - Discussed cause with Ophthalmology; Dr. Romero; Reported imaging findings; Advised to continue Solumedrol 1000mg q24h for 3 days; then taper to steroids and have outpatient follow up - Day #4 of steroids, patient 3 doses of high-dose IV Solumedrol; will start taper recommended by Dr. Romero Prednisone 60mg, 40mg, then 20mg per day/rapid taper. 60 mg given today. - PT/OT evaluation pending 2. HTN s/p Urgency / Emergency - s/p Nicardipine drip (dc'ed 01/02/19) - Currently on home doses of losartan 50 mg twice a day, Coreg 25 mg twice a day, and chlorthalidone 12.5 mg twice a day. Resuming her home dose of spironolactone today to make sure that she is controlled on her home doses of blood pressure medications. 3. A. fib - Patient has been advised to be on full anticoagulation in the past, however, was reluctant to start it given her hemorrhoids - c/w rate / rhythm control with Digoxin - c/w full anticoagulation with Lovenox; will likely transition to Eliquis. PFS consultation for prior authorization. - Dose of Aspirin has been reduced to 81 4. IDDM2 with Hyperglycemia - c/w ISS, Levemir has been increased to 60 units BID - Will likely have to adjust dose of Levemir while on corticosteroids 5. DLP - c/w Simvastatin 6. Hypothyroidism - c/w Levothyroxine 7. Hx of Hemorrhoids 8. GI prophylaxis - On Protonix 9. DVT prophylaxis - Currently on Lovenox, will likely transition to Eliquis if covered by insurance DISPOSITION: Pending clinical improvement, tentative discharge in the next 24-48 hours pending PT/OT recommendations, control of HTN with outpatient meds. VS,Fishbone, I+O VS, Fishbone, I+O Laboratory Tests 01/04/19 05:13 Red Blood Count 4.18, Mean Corpuscular Volume 84.7, Mean Corpuscular Hemoglobin 27.8, Mean Corpuscular Hemoglobin Concent 32.8, Red Cell Distribution Width 13.3, Calcium Level 7.9 L Vital Signs Date Time Temp Pulse Resp B/P (MAP) Pulse Ox O2 Delivery O2 Flow Rate FiO2 01/04/19 12:00 97.4 62 18 124/64 (84) 95 01/01/19 23:00 Room Air I&O- Last 24 Hours up to 6 AM 01/04/19 05:59 Intake Total 1526 ml Output Total 2240 ml Balance -714 ml GME ATTESTATION GME ATTESTATION My faculty preceptor for this patient encounter was physically present during the encounter and was fully available. All aspects of the patient interview, examination, medical decision making process, and medical care plan development were reviewed and approved by the faculty preceptor. The faculty preceptor is aware and concurs with the plan as stated in the body of this note and will attest to such by his/her cosignature. DOREEN SHELTON DO Jan 04, 2019 12:27
[2019-01-04] MEDS: SLF 3 ML SYR IV SCH ×2 (13:02→21:30)
[2019-01-04] MEDS: ENOXAPARIN 150 MG/ML SYR (J1650) SC SCH (14:15)
[2019-01-04 16:00] VITALS: BP 142/70
[2019-01-04 20:00] VITALS: BP 162/76
[2019-01-04] MEDS ORDERED: predniSONE 20 MG TAB PO ONE (20:00)
[2019-01-04] MEDS: LEVOTHYROXINE 112MCG TABLET (0.112MG) PO SCH (20:58)
[2019-01-04] MEDS: SIMVASTATIN 20 MG TAB PO SCH (20:58)
[2019-01-04] MEDS ORDERED: HumaLOG INSULIN (NovoLOG) PER UNIT SC ONE (22:00)
[2019-01-04] MEDS ORDERED: MIRALAX *UNIT DOSE* 17GM PACKET PO PRN (23:00)
[2019-01-05] VITALS: BP 152/78
[2019-01-05] MEDS: ENOXAPARIN 150 MG/ML SYR (J1650) SC SCH ×2 (03:46→12:25)
[2019-01-05] MEDS: SLF 3 ML SYR IV SCH ×2 (03:48→12:26)
[2019-01-05 04:00] VITALS: BP 164/88
[2019-01-05] MEDS: traMADol 50 MG TAB PO PRN (04:35)
[2019-01-05] MEDS: ACETAMINOPHEN 500 MG TAB PO PRN (04:35)
[2019-01-05 05:09] LABS: HEMATOCRIT 37.5 % (36.0-47.0); HEMOGLOBIN 12.4 g/dl (12.0-15.5); MEAN CORPUSCULAR HEMOGLOBIN 27.6 pg (27.0-33.0); MEAN CORPUSCULAR HGB CONC 33.1 g/dl (32.0-36.5); MEAN CORPUSCULAR VOLUME 83.5 fl (80.0-96.0); PLATELET COUNT, AUTOMATED 224 10^3/uL (150-450); RED BLOOD COUNT 4.49 10^6/uL (4.00-5.40)
[2019-01-05 05:34] LABS: C REACTIVE PROTEIN QUANTITATIV 0.77 MG/DL (0.00-0.30); CALCIUM LEVEL 8.3 MG/DL (8.8-10.2); CREATININE FOR GFR 1.16 MG/DL (0.55-1.30); GLOMERULAR FILTRATION RATE 50.2 (>45); POTASSIUM SERUM 3.7 MEQ/L (3.5-5.1)
[2019-01-05] MEDS: CHLORTHALIDONE 12.5MG PER 1/2 TABLET PO SCH (08:01)
[2019-01-05] MEDS: CARVedilol 12.5 MG TAB PO SCH (08:01)
[2019-01-05 08:02] VITALS: BP 158/90
[2019-01-05] MEDS: LOSARTAN 50 MG TAB PO SCH (08:02)
[2019-01-05] MEDS: VITAMIN D 1,000 INTERNATIONAL UNITS TABLET PO SCH (08:02)
[2019-01-05] MEDS: MAGNESIUM OXIDE 400 MG TAB (MAG-OX) PO SCH (08:03)
[2019-01-05] MEDS: PANTOPRAZOLE 40MG TAB (PROTONIX) PO SCH (08:03)
[2019-01-05] MEDS: SPIRONOLACTONE 25 MG TAB PO SCH (08:03)
[2019-01-05] MEDS: ASPIRIN 81 MG ENTERIC TAB PO SCH (08:03)
[2019-01-05] MEDS: LEVEMIR (INSULIN DETEMIR) 1 UNITS/0.01ML SC SCH (08:04)
[2019-01-05] MEDS: HumaLOG INSULIN (NovoLOG) PER UNIT SC SCH ×2 (08:04→12:26)
[2019-01-05] MEDS: DIGOXIN 0.25 MG TAB PO SCH (08:05)
[2019-01-05 08:08] VITALS: BP 158/90
[2019-01-05] MEDS ORDERED: predniSONE 20 MG TAB PO SCH (09:00)
[2019-01-05] MEDS ORDERED: PRED20TA PO (11:00)
[2019-01-05] MEDS ORDERED: BLOOKIT21 XX (11:01)
[2019-01-05] MEDS ORDERED: LANC30MI XX (11:01)
[2019-01-05] MEDS ORDERED: ALCOPAD17 TOP (11:01)
[2019-01-05] MEDS ORDERED: GLUC1TES2 XX (11:01)
[2019-01-05 12:10] VITALS: BP 130/72
--- NOTE | 2019-01-06 10:45 | DSES ---
DATE OF ADMISSION: 01/01/2019 DATE OF DISCHARGE: 01/05/2019 DISCHARGE DIAGNOSIS: Anterior ischemic optic neuropathy. SECONDARY DIAGNOSES: 1. Steroid induced hyperglycemia. 2. Hypertension. 3. Atrial fibrillation. 4. Insulin-dependent diabetes mellitus. 5. Dyslipidemia. 6. Hypothyroidism. 7. History of hemorrhoids. HOSPITAL COURSE: The patient is a 63-year-old female who presented with left sided visual loss and was seen by ophthalmology, Dr. Romero, who felt that it was either acute CVA or multiple sclerosis. MRI was unrevealing for either of these etiologies and so it was felt to be related to acute anterior ischemic optic neuropathy. She was treated with 3 days of Solu-Medrol 1 gram and then a quick taper of 60 mg to 40 mg and is being discharged home to complete 20 mg, last dose tomorrow. During this time, her fingersticks were fairly poorly controlled secondary to the steroids. During her stay, we did have a lengthy discussion with her over numerous days regarding her atrial fibrillation and her lack of anticoagulation despite her hypertension and diabetes. She did elect for anticoagulation with Eliquis after lengthy discussions and all of her questions answered to her satisfaction and doing her own very thorough research regarding risks and benefits of it, including bleeding, intracranial bleeding, and compared with the risk of stroke. She did have significant concerns regarding the [place] of medications and her insurance. Rakesh Atkinson from patient and family services ([facility]) was of great service in terms of getting her medications at an affordable rate. SUBJECTIVE: This morning the patient tells me that she feels well. She has been cleared by physical therapy (PT) and occupational therapy (OT) at this time. She has no complaints. OBJECTIVE: VITAL SIGNS: Temperature 97.8, pulse 55, respiratory rate 18, blood pressure 158/99, oxygen saturation 97% on room air. GENERAL: She is a morbidly obese, female sitting up in her bed. She is in no distress. HEENT: Moist mucous membranes. No elevation in central venous pressure. CARDIOVASCULAR EXAM: S1, S2 regular. RESPIRATORY EXAM: Clear. ABDOMINAL EXAM: Obese. EXTREMITIES: No clubbing, cyanosis or edema. LABORATORY STUDIES: WBC 13.0, hemoglobin 12.4, platelet count 224. Chemistry panel: Sodium 136, potassium 3.7, chloride 100, bicarbonate 29, BUN 39, creatinine 1.1. Her C-reactive protein is 0.77 and was most elevated at 2.39. She had a TSH within normal limits. She had an ESR within normal limits as well. MRA of the brain revealed no aneurysm, AV malformation. The A1 segment of the right anterior cerebral artery was hypoplastic with mild atherosclerotic disease involving the cavernous internal carotid arteries. She also did have a MRI of the brain that revealed some chronic small vessel ischemic changes in the white matter. She has findings nonspecific for gliosis. No abnormal enhancements. No evidence of acute ischemia. She also had a head, face, and neck MRI but negative pre and post contrast MRI of the orbits. She did have a carotic duplex that revealed no carotid artery stenosis, there was severe 70 to 94% stenosis, 100% occluded. ASSESSMENT AND PLAN: This is a 63-year-old female with left sided vision loss secondary to anterior ischemic optic neuropathy. 1. Anterior ischemic optic neuropathy, status post high dose Solu-Medrol with taper, finishing up tomorrow. Her vision does appear to be improving at this time. Opthalmology help is greatly appreciated. She will require close followup with Dr. Romero in the outpatient setting as well. Physical therapy (PT) and occupational therapy (OT) have seen and evaluated the patient, who feel that she is safe for discharge home. 2. Hypertensive urgency. She was briefly on nicardipine drip. She is on her home medications at this time and appears to be doing quite well and has her blood pressure controlled on this regimen. She is on a fairly significant regimen of spironolactone, chlorthalidone, Carvedilol. I suspect that she may have some secondary causes for her hypertension. Given her body habitus, she could certainly have sleep apnea. I recommend further workup and evaluation in the outpatient setting with her primary care provider. 3. Insulin-dependent diabetes mellitus. We will continue with sliding scale, as I advised her that her fingersticks may be difficult to control and she may require additional dosing over the next 2 to 3 days while the steroids metabolize through her body when she completes her taper. She did demonstrate good understanding of this. I have ensured that she will be able to get new Glucometer, lancets and strips, as she had not been checking her blood sugar previously due to the lack of the ability to get equipment. 4. Dyslipidemia. She was continued on simvastatin. 5. Hypothyroidism. She was continued on levothyroxine. She had a TSH within normal limits during this stay. 6. History of hemorrhoids. No active bleeding. 7. 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 She does not require anticoagulation for this, but I feel she would tolerate Eliquis quite well. The only indication for her anticoagulation is her atrial fibrillation. 8. Atrial fibrillation. We have started her on anticoagulation during this hospitalization. Authorizations have been obtained. She is rate controlled with Coreg and digoxin. We are discontinuing her aspirin. 9. Deep vein thrombosis (DVT) prophylaxis. Therapeutic Lovenox at this time. DISPOSITION: She is being discharged home. She is independent of her activities of daily living. She is at her functional baseline. She has been cleared by physical therapy (PT) and occupational therapy (OT). She is to followup with her primary care provider within 7 days, Dr. Romero within 2 weeks. Her diet is as prior to admission. Her activity is as tolerated. MEDICATIONS: At the time of discharge: - Eliquis 2.5 mg twice a day - glucose test strips - prednisone 20 mg for one more day - extra strength Tylenol 1 gram twice a day as needed for pain - Carvedilol 25 mg twice a day - chlorthalidone 12.5 mg twice a day - vitamin D 1000 units daily - digoxin 250 mcg daily - insulin 70/30, 74 units subcutaneously twice a day - levothyroxine 112 mcg at night - losartan 50 mg twice a day - magnesium oxide 1000 mg twice a day - metformin 1000 mg twice a day - Nitrostat 0.4 mg sublingually every 5 minutes as needed for chest pain - simvastatin 20 mg at night - spironolactone 25 mg daily - tramadol 50 mg every morning and 100 mg at bedtime Greater than 30 minutes was spent organizing disposition.
== END 2019-01-05 16:03 | disposition home or self-care (01) | DRG 123 ==
LOC: M ED 14:28 → M ED INP 22:07 → M ICU 23:27 → M PCU 01-03 21:20
PROVIDERS: ADMIT Internal Medicine; ATTEND Internal Medicine
DX: H47.012 Ischemic optic neuropathy, left eye (principal); I16.0 Hypertensive urgency; I10 Essential (primary) hypertension; M06.9 Rheumatoid arthritis, unspecified; E11.65 Type 2 diabetes mellitus with hyperglycemia; E66.01 Morbid (severe) obesity due to excess calories; E03.9 Hypothyroidism, unspecified; E78.5 Hyperlipidemia, unspecified; I48.91 Unspecified atrial fibrillation; Z90.49 Acquired absence of other specified parts of digestive tract; Z95.3 Presence of xenogenic heart valve; Z79.4 Long term (current) use of insulin; Z79.82 Long term (current) use of aspirin; Z79.899 Other long term (current) drug therapy

== ENCOUNTER → 2019-05-11 | Outpatient (REF) | payer MEDICARE ==
[~2019-05-11] MED LIST changes: +ALCOPAD17 TOP; +ASPI-255 PO; +BLOOKIT21 XX; +CARV25TA PO; +CHLO125TA PO; +CHLO25TA PO; +DIGO0.25 PO; +ELIQ2.5T PO; +GLUC1TES2 XX; +LANC30MI XX; -MAGN1TAB25 PO; +MAGN1TAB26 PO; +MAGN500T14 PO; +NITR4TASL SL; +PRED20TA PO; +VITA100066 PO
== END ==
LOC: M LAB REF 12:29
PROVIDERS: ATTEND Internal Medicine
DX: I48.1 Persistent atrial fibrillation (principal)

== ENCOUNTER → 2019-08-11 | Outpatient (REF) | payer MEDICARE | LOC: M LAB REF 16:59 | PROVIDERS: ATTEND Internal Medicine | DX: I48.1 Persistent atrial fibrillation (principal) ==

== ENCOUNTER → 2019-09-15 | Outpatient (REF) | payer MEDICARE | LOC: M LAB REF 17:18 | PROVIDERS: ATTEND Registered Nurse | DX: L03.116 Cellulitis of left lower limb (principal) ==

== ENCOUNTER → 2019-12-06 | Outpatient (REF) | payer MEDICARE ==
[~2019-12-06] MED LIST changes: -DIGO0.25 PO; +DIGO0.253 PO
[2019-12-07 13:08] LABS: PERCENT SATURATION 9.9 % (13.2-45.0)
== END ==
LOC: M LAB REF 12:18
PROVIDERS: ATTEND Internal Medicine
DX: D64.9 Anemia, unspecified (principal)

== ENCOUNTER → 2019-12-06 | Outpatient (REF) | payer MEDICARE | LOC: M LAB REF 16:45 | PROVIDERS: ATTEND Internal Medicine | DX: I48.0 Paroxysmal atrial fibrillation (principal) ==

== ENCOUNTER → 2020-06-27 | Outpatient (REF) | payer MEDICARE ==
[~2020-06-27] MED LIST changes: -ASPI81TA85 PO; +ASPI81TA86 PO
[2020-08-11 07:05] LABS: C REACTIVE PROTEIN QUANTITATIV 1.58 MG/DL (0.00-0.30); DIGOXIN LEVEL 1.3 NG/ML (0.5-2.0)
== END ==
LOC: M LAB REF 17:17
PROVIDERS: ATTEND Internal Medicine
DX: M06.09 Rheumatoid arthritis without rheumatoid factor, multiple sites (principal); I48.0 Paroxysmal atrial fibrillation

== ENCOUNTER → 2021-01-03 | Outpatient (REF) | payer MEDICARE | LOC: M LAB REF 16:26 | PROVIDERS: ATTEND Internal Medicine | DX: I48.0 Paroxysmal atrial fibrillation (principal) ==

== ENCOUNTER → 2021-04-18 | Outpatient (CLI) | payer MEDICARE ==
--- NOTE | 2021-04-18 13:20 | REP ---
INDICATION: PAIN IN RIGHT COMPARISON: None. TECHNIQUE: Internal rotation, external rotation, and Y view right and left shoulder. FINDINGS: Right shoulder demonstrates cortical irregularity and inferior osteophyte formation at the acromioclavicular joint and distal acromion. There is increased sclerosis and blunting to the ossified glenoid rim with subtle inferior small osteophyte formation. No acute fracture or dislocation. Left shoulder demonstrates cortical irregularity and inferior osteophyte formation at the acromioclavicular joint and distal acromion. There is increased sclerosis and blunting to the ossified glenoid rim. IMPRESSION: Mild bilateral degenerative changes (right greater than left). <Electronically signed by Jefferson Mccord > 04/18/21 [id number]
== END ==
LOC: M RAD 12:29
PROVIDERS: ATTEND Internal Medicine Rheumatology
DX: M19.011 Primary osteoarthritis, right shoulder (principal); M19.012 Primary osteoarthritis, left shoulder; N80.9 Endometriosis, unspecified

== ENCOUNTER → 2021-04-18 | Outpatient (CLI) | payer MEDICARE ==
--- NOTE | 2021-04-18 13:12 | REP ---
INDICATION: ENDOMETRIAL THICKENING/XRAY AFTER (DIFF ACCT) COMPARISON: 12/09/2019 TECHNIQUE: Transabdominal pelvic ultrasound followed by transvaginal examination for better evaluation of the endometrium and adnexa with color Doppler evaluation of the ovaries. FINDINGS: Bladder is unremarkable and measures 12.6 x 8.1 x 5.8 cm. Heterogeneous anteverted uterus measures 8.2 x 4.4 x 3.6 cm. The endometrial complex measures 9 mm thickness. There is a complex structure in the cervix measuring 2.1 x 2.0 x 1.7 cm which cannot be further characterized by ultrasound. Bilateral ovaries are not identified due to excessive pelvic bowel gas. No pelvic fluid or adnexal mass lesion. IMPRESSION: Endometrial complex measures 9 mm thickness. Complex lesion in the cervix measuring 2.1 cm maximal diameter cannot be further characterized by ultrasound. Consider pelvic MRI for further investigation. <Electronically signed by Jefferson Mccord > 04/18/21 [id number]
== END ==
LOC: M RAD 12:33
PROVIDERS: ATTEND Internal Medicine
DX: N80.9 Endometriosis, unspecified (principal)

== ENCOUNTER → 2021-04-19 | Outpatient (CLI) | payer MEDICARE | LOC: M LABSMTC 12:33 | PROVIDERS: ATTEND Anesthesiology | DX: Z01.812 Encounter for preprocedural laboratory examination (principal); Z20.822 Contact with and (suspected) exposure to COVID-19 ==

== ENCOUNTER 2021-04-24 11:22 | Day surgery (SDC) | payer MEDICARE ==
[~2021-04-24] VITALS: Ht 157.5 cm; Wt 109.3 kg
[~2021-04-24 11:22] MED LIST changes: +NS 1,000 ML IV SCH
[2021-04-24] MEDS ORDERED: propofoL 200 MG/20 ML VIAL As Ordered ONE (12:01)
[2021-04-24] MEDS ORDERED: LIDOCAINE 2% 100MG/5ML SDV (FOR ANES.) As Ordered ONE (12:02)
--- NOTE | 2021-04-24 13:46 | ROOR ---
Patient Name: Cori oH Procedure Date: 04/24/2021 1:26 PM Date of : 1955 Age: 65 Room: [facility] Gender: Female Note Status: Finalized Procedure: Total Colonoscopy to Cecum + Cold Snare Polypectomy + Hemoclip Indications: Screening for colorectal malignant neoplasm Providers: Keyshawn Ramsey MD Referring MD: Gabriella RESENDEZ MD Requesting Provider: Medicines: Monitored Anesthesia Care Complications: No immediate complications. Procedure: Pre-Anesthesia Assessment: - The heart rate, respiratory rate, oxygen saturations, blood pressure, adequacy of pulmonary ventilation, and response to care were monitored throughout the procedure. The Colonoscope was introduced through the anus and advanced to the cecum, identified by appendiceal orifice and ileocecal valve. The colonoscopy was performed without difficulty. The patient tolerated the procedure well. The quality of the bowel preparation was excellent. Findings: The perianal and digital rectal examinations were normal. Non-bleeding internal hemorrhoids were found during retroflexion. The hemorrhoids were small and Grade I (internal hemorrhoids that do not prolapse). Scattered small-mouthed diverticula were found in the recto-sigmoid colon, sigmoid colon and descending colon. A small polyp was found in the cecum. The polyp was carpet-like. The polyp was removed with a cold snare. Resection and retrieval were complete. To prevent bleeding after the polypectomy, one hemostatic clip was successfully placed. There was no bleeding at the end of the procedure. The exam was otherwise without abnormality on direct and retroflexion views. Impression: - Non-bleeding internal hemorrhoids. - Diverticulosis in the recto-sigmoid colon, in the sigmoid colon and in the descending colon. - One small polyp in the cecum, removed with a cold snare. Resected and retrieved. Clip was placed. - The examination was otherwise normal on direct and retroflexion views. - The exam was otherwise normal to the cecum. Recommendation: - Patient has a contact number available for emergencies. The signs and symptoms of potential delayed complications were discussed with the patient. Return to normal activities tomorrow. Written discharge instructions were provided to the patient. - High fiber diet. - Discharge patient to home. - Continue present medications. - Await pathology results. - Telephone GI clinic for pathology results in 1 week. - Repeat colonoscopy in 5 years for surveillance based on pathology results. - Return to referring physician. - The findings and recommendations were discussed with the patient's family. Procedure Code(s): --- Professional --- 17479, Colonoscopy, flexible; with removal of tumor(s), polyp(s), or other lesion(s) by snare technique Diagnosis Code(s): --- Professional --- Z12.11, Encounter for screening for malignant neoplasm of colon K64.0, First degree hemorrhoids K63.5, Polyp of colon K57.30, Diverticulosis of large intestine without perforation or abscess without bleeding CPT copyright 2019 [employer]. All rights reserved. The codes documented in this report are preliminary and upon showroom sales assistant review may be revised to meet current compliance requirements. Keyshawn Ramsey MD Keyshawn Ramsey MD 04/24/2021 1:46:18 PM Electronically signed by Keyshawn Ramsey MD Number of Addenda: 0 Note Initiated On: 04/24/2021 1:26 PM Estimated Blood Loss: Estimated blood loss: none.
[2021-04-24 14:25] VITALS: BP 190/78
== END 2021-04-24 14:40 | disposition home or self-care (01) ==
LOC: M OPP 11:22
PROVIDERS: ATTEND Internal Medicine Gastroenterology
DX: Z12.11 Encounter for screening for malignant neoplasm of colon (principal); D12.0 Benign neoplasm of cecum; K57.30 Diverticulosis of large intestine without perforation or abscess without bleeding; K64.0 First degree hemorrhoids; I48.91 Unspecified atrial fibrillation; E11.9 Type 2 diabetes mellitus without complications; I50.9 Heart failure, unspecified; Z79.4 Long term (current) use of insulin; Z79.82 Long term (current) use of aspirin; Z79.891 Long term (current) use of opiate analgesic; Z79.899 Other long term (current) drug therapy

== ENCOUNTER → 2021-06-03 | Outpatient (CLI) | payer MEDICARE ==
[~2021-06-03] MED LIST changes: -NS 1,000 ML IV SCH; +PROHANCE 279.3MG/ML 5ML VIAL As Ordered ONE
--- NOTE | 2021-06-03 12:16 | REP ---
INDICATION: CERVICAL LESION SEEN ON PELVIC U/S. COMPARISON: Ultrasound 04/18/2021. TECHNIQUE: Multiple sequences obtained in the axial, coronal and sagittal planes prior to and following the intravenous administration of 10 cc ProHance. FINDINGS: Uterine length is approximately 9.3 cm. The endometrial thickness is approximately 7 mm. The junctional zone is ill-defined with diffuse heterogeneous mildly increased signal on T2 weighted images. No focal myometrial abnormality is seen. Scattered cystic structures are seen in the cervix. The largest is 1 cm in diameter. In addition, there are scattered nodular areas of more intermediate increased signal on T2 weighted images in the cervical stroma suggestive of cervical carcinoma. This is fairly circumferential but is seen more so the right side. The largest area of nodular abnormal signal is approximately 2 cm in diameter inferiorly and anteriorly on the right. There is no extension into the vagina. The peripheral rim is intact. The ovaries are normal in appearance. There is no adnexal mass or free fluid. No adenopathy is seen in the pelvis. IMPRESSION: Nodular signal abnormality in the cervix as discussed above most compatible with cervical carcinoma. This is fairly circumferential but is seen predominantly anteriorly and inferiorly on the right. At that location the maximum diameter is 2 cm. The peripheral rim is intact and there is no extension into the vagina. Somewhat prominent endometrial thickness at 7 mm. Endometrial hyperplasia or neoplasm cannot be excluded. The junctional zone is increased in signal and not well-defined. This could indicate adenomyosis. No adenopathy or adnexal mass. <Electronically signed by Elmer Wang > 06/03/21 0728
== END ==
LOC: M RAD 09:11
PROVIDERS: ATTEND Internal Medicine
DX: D48.5 Neoplasm of uncertain behavior of skin (principal)
CPT/HCPCS: 72197; A9576

== ENCOUNTER → 2021-07-15 | Outpatient (REF) | payer MEDICARE ==
[~2021-07-15] MED LIST changes: -PROHANCE 279.3MG/ML 5ML VIAL As Ordered ONE
[2021-07-15 13:00] LABS: DIGOXIN LEVEL 1.2 NG/ML (0.5-2.0)
[2021-07-16 13:01] LABS: PERCENT SATURATION 6.9 % (13.2-45.0)
== END ==
LOC: M LAB REF 11:16
PROVIDERS: ATTEND Internal Medicine
DX: I48.0 Paroxysmal atrial fibrillation (principal)

== ENCOUNTER → 2021-08-20 | Outpatient (REF) | payer MEDICARE | LOC: M LAB REF 16:48 | PROVIDERS: ATTEND Internal Medicine | DX: I48.0 Paroxysmal atrial fibrillation (principal) ==

== ENCOUNTER → 2021-09-25 | Outpatient (REF) | payer MEDICARE ==
[~2021-09-25] MED LIST changes: +ASPI81TA26 PO; +ELIQ5TAB PO; +ROSU10TA6 PO
== END ==
LOC: M LAB REF 12:06
PROVIDERS: ATTEND Internal Medicine
DX: I48.0 Paroxysmal atrial fibrillation (principal)

== ENCOUNTER → 2021-09-28 | Outpatient (CLI) | payer MEDICARE | LOC: M LABSMTC 10:24 | PROVIDERS: ATTEND Anesthesiology | DX: Z01.818 Encounter for other preprocedural examination (principal); Z11.52 Encounter for screening for COVID-19 ==

== ENCOUNTER 2021-10-03 12:29 | Day surgery (SDC) | payer MEDICARE ==
[~2021-10-03] VITALS: Ht 160 cm; Wt 108.0 kg
[~2021-10-03 12:29] MED LIST changes: +LR 1,000 ML IV ONE; +ceFAZolin SOD 2 GM in IV 1 EA IV ONE
--- OUTSIDE RECORDS SUMMARY | 2021-10-03 12:36 | CCD | Continuity of Care Document ---
Author Author Cori [place] Organization Unknown Address [address] [place] [id number] Phone [phone] Care Team Providers Care Tax Associate Attorney Name Role Phone Gabriella Schaefer MD AUTM [phone] Armando Paulino MD - Comprehensive Car Worker pc AUTM [phone] Problems Active Problems Provider Date Hypertensive disorder Gabbie Ny MD Onset: 07/03/2016 Social History Type Date Description Comments Sex Unknown Tobacco Use Start: Unknown Non-smoker, Non-drinker, Non-eyad g User Tobacco Use Start: Unknown Patient has never smoked Smoking Status Reviewed: 09/09/21 Patient has never smoked Exercise Type/Frequency Does not exercise Allergies and adverse reactions Active Allergies Criticality Reaction | Severity Comments Date Environmental Unable to assess criticality 08/20/2007 Medications Active Medications SIG Qnty Indications Ordering Provide r Date Diflucan 150mg Tablets sig 1 tab by mouth a day x2 days 2tabs B37.3 Gabbie Ny MD 06/10/2021 Amoxicillin 500mg Tablets 4 tabs po prior to procedure 8tabs Gabbie Ny MD 08/06/2020 Synthroid 112mcg Tablets 1 PO qd Svetlana Arredondo WHNP 08/24/2009 Metformin 1,000mg Tablets 1 P O bid Svetlana Arredondo WHNP 08/24/2009 Tramadol 50mg Tablets prn Art hritis Svetlana Arredondo WHNP 08/24/2009 Tylenol 500mg Tablets prn Svetlana Arredondo WHNP 08/24/2009 Aspirin 81mg Chewtabs Gabbie Ny MD 08/20/2007 Plaquenil 200mg Tablets Take Twice Daily Gabbie Ny MD 08/20/2007 Novolog Mix 70/30 (7 0-30)100Unit/ML Suspension 74 Units Unknown Losartan Potassium 50mg Tablets Unknown Carvedilol 12.5mg Tablets Unknown Spironolactone 25mg Tablets Unknown Simvastatin 20mg Tablets Unknown Vitamin D (Cholecalciferol) 5000Unit Tablets Unknown Magnesium 500mg Capsules Unknown Immunizations Description No Information Available Vital Signs Date Vital Result Comment 09/09/2021 9:45am Weight 247.00 lb 07/24/2020 10:56am BP Systolic 166 mmHg BP Diastolic 84 mmHg Height 61.75 inches 5'1.75" Weight 233.00 lb BMI (Body Mass Index) 43.0 kg/m2 BSA (Body Surface Area) 2.03 m2 Results Test Acquired Date Facility Test Result H/L Range Note Gynecologic Biopsy 06/10/2021 [facility] Gynecologic Biopsy See Results 1 Gynecologic Biopsy SEE IMAGE 1 SPECIME N PART A. 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 Cervix, biopsy: - Benign endometrium with cystic atrophy . - Benign transformation zone mucosa with acute and chronic inflammation and reactive changes. MICRO DIAGNOSIS---- A. The stain quality is adequate. The microscopic findings are reflected in the diagnosis. GROSS DESCRIPTION-- A. Received in formalin; Designated: "Cervical (per requisition)" Inventory: Tissue fragments, hemorrhagic mucus Aggregate dimensions: 1.2 x 1.2 x 0.2 cm The specimen is submitted entirely as (A1). Procedures Date Code Description Status 09/09/2021 75106 Office/Outpatient Established Lo w MDM 20-29 Min Completed 08/01/2021 06110 Hysteroscopy, With Biopsy With/O r Without D&C Completed 06/10/2021 29403 Office/Outpatient Established Mo d MDM 30-39 Min Completed 06/10/2021 37878 Curettage Endocervical Completed 05/03/2018 [id number] Mammogram Completed 02/19/2017 [id number] Mammogram Completed Medical Devices Description No Information Available Encounters Type Date Location Provider Dx Diagnosis Office Visit 09/09/2021 9:15a [facility] Gabbie Ny MD D3 9.0 Neoplasm of uncertain behavior of uterus R93.89 Abnormal findings on dx imag ing of oth body structures N95.0 Postmenopausal bleeding Office Visit 06/10/2021 8:30a [facility] consultant Gabbie Ny MD D3 9.0 Neoplasm of uncertain behavior of uterus R93.89 Abnormal findings on dx imag ing of oth body structures B37.3 Candidiasis of vulva and vag corine Assessments Date Code Description Provider 09/09/2021 D39.0 Neoplasm of uncertain behavior o f uterus Gabbie Ny MD 09/09/2021 R93.89 Abnormal findings on diagnostic imaging of other specified body structures Gabbie Ny MD 09/09/2021 N95.0 Postmenopausal bleeding Gabbie Ny MD 06/10/2021 D39.0 Neoplasm of uncertain behavior o f uterus Gabbie Ny MD 06/10/2021 R93.89 Abnormal findings on diagnostic imaging of other specified body structures Gabbie Ny MD 06/10/2021 B37.3 Candidiasis of vulva and vagina Gabbie Ny MD Plan of Treatment Future Appointment(s):* 10/16/2021 12:00 pm - Gabbie Ny MD at [facility] cisco consultant * 10/03/2021 10:00 am - Gabbie Ny MD at [facility] Or 09/09/2021 - Gabbie Ny MD* 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
--- OUTSIDE RECORDS SUMMARY | 2021-10-03 12:36 | CCD | Continuity of Care Document ---
Author Organization Unknown Address Unknown Phone Unavailable Care Team Providers Care Crusher Foreman Name Role Phone Gabriella Schaefer MD AUTM [phone] Leanne Lyon RN ANP AUTM [phone] Nuvia Guzman RNC ANP AUTM [phone] Gabbie Carrasco MD AUTM [phone] Problems Active Problems Provider Date Coronary arteriosclerosis EARNESTINE Kaur Onset: 01/09/2012 Chronic diastolic heart failure EARNESTINE Kaur Onset: 01/09/2012 Benign hypertensive heart disease with congestive hear t failure EARNESTINE Kaur Onset: 01/09/2012 Aortic valve disorder EARNESTINE Kaur Onset: Transplantation of heart valve Deann Perez PA-C Onset: 0 06/26/2014 Electrocardiogram abnormal EARNESTINE Kaur Onset : 01/09/2012 Right bundle branch block EARNESTINE Kaur Onset: 01/09/2012 Pure hypercholesterolemia EARNESTINE Kaur Onset: 01/09/2012 Obesity ERIN Arreola-C Onset: 06/26/2014 Obstructive sleep apnea syndrome ERIN Arreola-C Onset: 06/26/2014 Patient post percutaneous transluminal coronary angiop lasty RICHARD ArreolaC Onset: 06/26/2014 Disorder of pericardium ERIN Arreola-C Onset: 12/28/19 15 Dietary management surveillance RICHARD ArreolaC Onset: 06/26/2017 Chronic atrial fibrillation Deann Perez PA-C Onset: 02/14 Mitral valve disorder Deann Perez PA-C Onset: 03/01/2019 Permanent atrial fibrillation Deann Perez PA-C Onset: Paroxysmal atrial fibrillation Deann Perez PA-C Onset: 0 05/10/2020 Hypertensive heart disease with congestive heart failure Frances Perez PA-C Onset: 05/10/2020 Ascending aorta dilatation Deann Perez PA-C Onset: 11/01 Social History Type Date Description Comments Sex Unknown Tobacco Use Start: Unknown Never Smoked Cigarettes exposed to secondhand smoke all her life ETOH Use Does not consume alcohol Tobacco Use Start: Unknown Patient has never smoked Smoking Status Reviewed: 08/07/21 Patient has never smoked Exercise Type/Frequency Does housework sporadica lly Exercise Limitations Joint Pain RA & OA Exercise Limitations Orthopedic Problem left leg pain due to venous insufficiency Exercise Limitations Vision Impairment Left eye Allergies and adverse reactions Description No Known Drug Allergies Medications Active Medications SIG Qnty Indications Ordering Provide r Date Rosuvastatin Calcium 10mg Tablets 1 by mouth every night at bedtime Unknown Furosemide 40mg Tablets 1 by mouth twice a day Unknown 08/06/2021 Eliquis 5mg Tablets 1 by mouth twice a day Unknown 08/06/2021 Loratadine 10mg Capsules 1 by mouth every day Unknown 08/06/2021 Shingrix 50mcg/0.5ML Suspension Re c administer 0.5 milliliters intramuscular, repeat in 2 to 6 months Unknown 08/06/[address] 1 by mouth every day Unknown 08/06/2021 Folic Acid 400mcg Tablets 1 by mouth every day Unknown 05/09/2020 Senna Plus 8.6-50mg Tablets 1 by mouth twice a day as needed Unknown 05/09/2020 Iron 325(65Fe) mg Tablets 1 by mouth every day Unknown 05/09/2020 Magnesium 500mg Tablets 1 by mouth tid Unknown 09/01/2019 Plaquenil 200mg Tablets 1 by mouth twice a day Unknown 09/01/2019 Carvedilol 25mg Tablets 1 by mouth twice a day Gabriella Schaefer MD 11/19/2018 Digoxin 250mcg Tablets 1 by mouth every day 90tabs I48.0 Wood Bailey MD 09/16/2018 Losartan Potassium 50mg Tablets 1 by mouth twice every day Nuvia Guzman, MIGUELC ANP 016 Novolog Mix 70/30 (7 0-30)100Unit/ML Suspension as directed Gabriella Schaefer MD 12/27/19 15 Amoxicillin 500mg Capsules 4 capsules by mouth 1 hour prior to dental procedures (sbe) and GI/ surgery 4caps Z95.3 Wood Bailey MD 06/26/2014 Humalog Mix 75/25 (7 5-25)100Unit/ML Suspension as directed Gabriella Schaefer MD 06/25/20 14 Tylenol Extra Strength 500mg Table ts 2 po bid Unknown 09/08/2013 Tramadol HCL 50mg Tablets 1-2 po q6h prn, as directed Gabriella Schaefer MD 01/09/2012 Metformin HCL 1000mg Tablets 1 po bid Gabriella Schaefer MD 11/05/2010 Nitrostat 0.4mg Tablets Sub place 1 tablet under the tongue every 5 minutes up to 3 doses as needed for chest pain 25tabs I25.10 Gurpreet Delong MD 12/20/2009 I25.118 Levothroid 112mcg Tablets 1 p o daily Gabriella Schaefer MD 11/28/[address] 1 by mouth every day I48.2 Unknown I25.10 Immunizations Description No Information Available Vital Signs Date Vital Result Comment 08/07/2021 8:04am Weight 236.00 lb Home Weight 241lb Height 63 inches 5'3" BMI (Body Mass Index) 41.8 kg/m2 Heart Rate 72 /min Regular Respiratory Rate 16 /min BP Systolic Right Arm 136 mmHg sitting, large cuf f BP Diastolic Right Arm 76 mmHg sitting, large cu ff 05/02/2021 1:09pm Weight 245.00 lb Height 63 inches 5'3" BMI (Body Mass Index) 43.4 kg/m2 Heart Rate 76 /min Irregular Respiratory Rate 16 /min BP Systolic Right Arm 136 mmHg sitting, large cuf f BP Diastolic Right Arm 88 mmHg sitting, large cu ff BP Systolic Left Arm 136 mmHg sitting BP Diastolic Left Arm 86 mmHg sitting Results Test Acquired Date Facility Test Result H/L Range Note Laboratory test finding 08/20/2021 N2N[facility] Thyroid Stimulating Hormone 1.02 uIU/mL 0.36-3.74 Laboratory test finding 08/20/2021 [facility] Magnesium 2.0 mg/dL 1.8-2.4 Basic Metabolic Panel 08/20/2021 N2N/[facility] Imp ort Glucose 312 mg/dL High 74-99 1 BUN 24 mg/dL High 7-18 Creatinine 1.5 mg/dL High 0.6-1.3 Sodium 139 mEq/L 136-145 Potassium 4.8 mEq/L 3.5-5.1 Chloride 100 mEq/L 98-107 Carbon Dioxide 31 mEq/L 21-32 Calcium 9.4 mg/dL 8.5-10.1 GFR 35 mL/min Low GFR 42 mL/min Low 2 Laboratory test finding 08/20/2021 [facility]2N[facility] Digoxin Level 2.2 ng/mL High 0.5-2.0 Complete Blood Count 07/25/2021 N2N/[facility] Impo rt WBC 11.2 x10*3/UL High 4.1-10.9 3 RBC 4.03 x10*6/UL Low 4.20-6.30 Hemoglobin 10.9 g/dL Low 12.0-18.0 Hematocrit 32.2 % Low 37.0-51.0 MCV 80.0 fL 80.0-97.0 MCH 27.0 pg 26.0-32.0 MCHC 33.8 g/dL 31.0-38.0 RDW 13.6 % 11.6-13.7 PLT 284 x10*3/UL 140-440 MPV 7.9 FL 7.8-11.0 Lymph % 18.0 % 10.0-58.5 Mid % 5.4 % 1.7-9.3 Neut % 76.6 % 37.0-92.0 Lymph # 2.0 x10*3/UL 0.6-4.1 Mid # 0.7 x10*3/UL High 0.1-0.6 Neut # 8.5 x10*3/UL High 2.0-7.8 Laboratory test finding 07/18/2021 N2N[facility] Magnesium 1.7 mg/dL Low 1.8-2.4 Basic Metabolic Panel 07/18/2021 N2N/[facility] Imp ort Glucose 203 mg/dL High 74-99 4 BUN 26 mg/dL High 7-18 Creatinine 1.6 mg/dL High 0.6-1.3 Sodium 141 mEq/L 136-145 Potassium 5.0 mEq/L 3.5-5.1 Chloride 103 mEq/L 98-107 Carbon Dioxide 33 mEq/L High 21-32 Calcium 9.4 mg/dL 8.5-10.1 GFR 32 mL/min Low GFR 39 mL/min Low 5 Complete Blood Count 07/18/2021 N2N/[facility] Impo rt WBC 10.9 x10*3/UL 4.1-10.9 6 RBC 3.91 x10*6/UL Low 4.20-6.30 Hemoglobin 10.3 g/dL Low 12.0-18.0 Hematocrit 31.1 % Low 37.0-51.0 MCV 79.5 fL Low 80.0-97.0 MCH 26.4 pg 26.0-32.0 MCHC 33.2 g/dL 31.0-38.0 RDW 13.6 % 11.6-13.7 PLT 316 x10*3/UL 140-440 MPV 8.4 FL 7.8-11.0 Lymph % 20.4 % 10.0-58.5 Mid % 5.3 % 1.7-9.3 Neut % 74.3 % 37.0-92.0 Lymph # 2.2 x10*3/UL 0.6-4.1 Mid # 0.6 x10*3/UL 0.1-0.6 Neut # 8.1 x10*3/UL High 2.0-7.8 Laboratory test finding 07/15/2021 N2N[facility] Digoxin Level 1.2 ng/mL 0.5-2.0 A1c 07/15/2021 N2N/[facility] Impor t Hba1c 8.9 % High 7 Est Avg Glucose 209 mg/dL High 60-110 Laboratory test finding 07/15/2021 N2N/[facility] Magnesium 1.6 mg/dL Low 1.8-2.4 Comprehensive Chem Profile 07/15/2021 N2N/Direct CC D Import Glucose 154 mg/dL High 74-99 8 BUN 23 mg/dL High 7-18 Creatinine 1.4 mg/dL High 0.6-1.3 Sodium 140 mEq/L 136-145 Potassium 6.3 mEq/L Critical high 3.5-5.1 9 Chloride 106 mEq/L 98-107 Carbon Dioxide 25 mEq/L 21-32 Calcium 8.9 mg/dL 8.5-10.1 Alk. Phosphatase 93 mg/dL 46-116 Total Bilirubin 0.4 mg/dL 0.2-1.0 Ast (Sgot) 9 U/L Low 15-37 Alt (SGPT) 21 U/L 12-78 Albumin 3.4 g/dL 3.4-5.0 Total Protein 6.1 g/dL Low 6.4-8.2 A/G Ratio 1.26 CALC 1.00-1.90 GFR 38 mL/min Low GFR 46 mL/min Low 10 Complete Blood Count 07/15/2021 N2N/Direct [facility] Impo rt WBC 13.9 x10*3/UL High 4.1-10.9 11 RBC 3.69 x10*6/UL Low 4.20-6.30 Hemoglobin 9.9 g/dL Low 12.0-18.0 Hematocrit 29.6 % Low 37.0-51.0 MCV 80.3 fL 80.0-97.0 MCH 26.9 pg 26.0-32.0 MCHC 33.5 g/dL 31.0-38.0 RDW 14.1 % High 11.6-13.7 PLT 285 x10*3/UL 140-440 MPV 8.6 FL 7.8-11.0 Lymph % 15.8 % 10.0-58.5 Mid % 5.4 % 1.7-9.3 Neut % 78.8 % 37.0-92.0 Lymph # 2.2 x10*3/UL 0.6-4.1 Mid # 0.7 x10*3/UL High 0.1-0.6 Neut # 11.0 x10*3/UL High 2.0-7.8 CBC without Differential 04/08/2021 [facility] ([facility])- - White Blood Count 12.4 High 4.3-10.9 Red Blood Count 4.18 Low 4.70-6.20 Platelets 254 140-440 Hemoglobin 11.4 Low 12.0-18.0 Hematocrit 33.5 Low 37.0-51.0 Hemoglobin A1c 04/08/2021 [facility] ([facility])- - Hemoglobin A1c 8.4 CMP 04/08/2021 [facility] ([facility])- - Albumin Serum/Plasma 4.0 Alt - SGPT 18 Calcium Ser/Plasma Mass/Vol 9.0 Carbon Dioxide Ser/Plasm 30 Chloride Serum/Plasma 101 Alkaline Phosphatase 89 Potassium 5.0 Protein Total 6.5 Sodium 138 Ast - Sgot 15 BUN - Urea Nitrogen 20 Glucose 234 High 70-100 Creatinine For GFR 1.3 Laboratory test finding 04/08/2021 [facility] ([facility])- - Thyroid Stimulating Hormone 1.09 1 100-125 mg/dL PRE-DIABET ES/FASTING >126 mg/dL DIABETES/FASTING 2 CHRONIC KIDNEY DISEASE STAGI NG PER NKF STAGE I & II GFR >= 60 NORMAL TO MILDLY DECREASED STAGE III GFR 30-59 MODERATELY DECREASED STAGE IV GFR 15-29 SEVERELY DECREASED STAGE V GFR <15 VERY LITTLE GFR LEFT ESRD GFR <15 ON LAMP CLEANER 3 NOTE: CBC VERIFIED 4 100-125 mg/dL PRE-DIABET ES/FASTING >126 mg/dL DIABETES/FASTING 5 CHRONIC KIDNEY DISEASE STAGI NG PER NKF STAGE I & II GFR >= 60 NORMAL TO MILDLY DECREASED STAGE III GFR 30-59 MODERATELY DECREASED STAGE IV GFR 15-29 SEVERELY DECREASED STAGE V GFR <15 VERY LITTLE GFR LEFT ESRD GFR <15 ON LAMP CLEANER 6 NOTE: CBC VERIFIED 7 Lab Result Notes: Pre-Diabetes 5.7 - 6.4 % Diabetes = or > 6.5% 8 100-125 mg/dL PRE-DIABET ES/FASTING >126 mg/dL DIABETES/FASTING 9 CRITICAL: DR SCHAEFER NOTIFIED NOTE: RESULT VERIFIED. NO VISIBLE HEMOLYSIS. 10 CHRONIC KIDNEY DISEASE STAGI NG PER NKF STAGE I & II GFR >= 60 NORMAL TO MILDLY DECREASED STAGE III GFR 30-59 MODERATELY DECREASED STAGE IV GFR 15-29 SEVERELY DECREASED STAGE V GFR <15 VERY LITTLE GFR LEFT ESRD GFR <15 ON LAMP CLEANER 11 NOTE: CBC VERIFIED Procedures Date Code Description Status 08/07/2021 98572 Office/Outpatient Established Lo w MDM 20-29 Min Completed 07/24/2021 36516 Echocardiogram 2-D Doppler Color Completed 05/02/2021 28102 Office/Outpatient Established Mo d MDM 30-39 Min Completed 05/02/2021 96678 ECG 12-Lead Completed Medical Devices Description No Information Available Encounters Type Date Location Provider Dx Diagnosis Office Visit 08/07/2021 8:00a Main Office Deann Perez PA-C I50.3 2 Chronic diastolic (congestive) heart failure I42.8 Other cardiomyopathies I48.0 Paroxysmal atrial fibrillati on G47.33 Obstructive sleep apnea (denis lt) (pediatric) Office Visit 05/02/2021 1:00p Main Office Deann Perez PA-C I25.1 0 Athscl heart disease of [place] coronary artery w/o ang pctrs Z95.5 Presence of coronary angiopl asty implant and graft I50.32 Chronic diastolic (congestiv e) heart failure I11.0 Hypertensive heart disease w ith heart failure I48.0 Paroxysmal atrial fibrillati on I35.0 Nonrheumatic aortic (valve) stenosis Z95.3 Presence of xenogenic heart valve I34.8 Other nonrheumatic mitral va lve disorders I77.810 Thoracic aortic ectasia R94.31 Abnormal electrocardiogram [ ECG] [EKG] I45.0 Right fascicular block E78.00 Pure hypercholesterolemia, u nspecified G47.33 Obstructive sleep apnea (denis lt) (pediatric) Z71.3 Dietary counseling and surve illance Assessments Date Code Description Provider 08/07/2021 I50.32 Chronic diastolic (congestive) h eart failure RICHARD ArreolaC 08/07/2021 I42.8 Other cardiomyopathies RICHARD CarusoC 08/07/2021 I48.0 Paroxysmal atrial fibrillation K RICHARD BeckettC 08/07/2021 G47.33 Obstructive sleep apnea (adult) (pediatric) RICHARD ArreolaC 07/24/2021 I42.8 Other cardiomyopathies ECHO 05/02/2021 I25.10 Atherosclerotic heart disease of [place] coronary artery with RICHARD ArreolaC 05/02/2021 Z95.5 Presence of coronary angioplasty implant and graft RICHARD ArreolaC 05/02/2021 I50.32 Chronic diastolic (congestive) h eart failure RICHARD ArreolaC 05/02/2021 I11.0 Hypertensive heart disease with heart failure RICHARD ArreolaC 05/02/2021 I48.0 Paroxysmal atrial fibrillation K chandrakant Broussardcy, PA-C 05/02/2021 I35.0 Nonrheumatic aortic (valve) sten osis Deann Judith Perez, PA-C 05/02/2021 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 Deann Broussardcy, PA-C 05/02/2021 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 Deann Broussardcy, ERIN-C 05/02/2021 I77.810 Thoracic aortic ectasia Deann franciscy, PA-C 05/02/2021 R94.31 Abnormal electrocardiogram [ECG] [EKG] Deann Judith Perez, ERIN-C 05/02/2021 I45.0 Right fascicular block Deann Judith thompson, PA-C 05/02/2021 E78.00 Pure hypercholesterolemia, unspe cified ERIN Arreola-C 05/02/2021 G47.33 Obstructive sleep apnea (adult) (pediatric) RICHARD ArreolaC 05/02/2021 Z71.3 Dietary counseling and surveilla nce Deann Perez PA-C Plan of Treatment Future Appointment(s):* 11/04/2021 1:00 pm - Deann Perez PA-C at Main Office 08/07/2021 - Deann Perez PA-C* I50.32 Chronic diastolic (congestive) heart failure* Recommendations:* Follow a 2 grams sodium diet and 50 ounces fluid restriction per 24 hour and do daily weights. Call the office for weight gain of 3 lbs or more. * I42.8 Other cardiomyopathies * I48.0 Paroxysmal atrial fibrillation * G47.33 Obstructive sleep apnea (adult) (pediatric) * All * Follow up:* As scheduled in October. Functional Status Functional Condition Comment Date Status Independent with all ADL's Activ e Mental Status Description No Information Available Referrals Description No Information Available
--- OUTSIDE RECORDS SUMMARY | 2021-10-03 12:36 | CCD | Continuity of Care Document ---
Author Organization Unknown Address Unknown Phone Unavailable Care Team Providers Care Allergy And Immunology Specialist Name Role Phone Gabriella Schaefer MD AUTM [phone] Leanne Lyon RN ANP AUTM [phone] Nuvia Guzman RNC ANP AUTM [phone] Gabbie Carrasco MD AUTM [phone] Problems Active Problems Provider Date Coronary arteriosclerosis [...] LITTLE GFR LEFT ESRD GFR <15 ON [employer] 3 NOTE: CBC VERIFIED 4 100-125 mg/dL PRE-DIABET ES/FASTING >126 mg/dL DIABETES/FASTING 5 CHRONIC KIDNEY DISEASE STAGI NG PER NKF STAGE I & II GFR >= 60 NORMAL TO MILDLY DECREASED STAGE III GFR 30-59 MODERATELY DECREASED STAGE IV GFR 15-29 SEVERELY DECREASED STAGE V GFR <15 VERY LITTLE GFR LEFT ESRD GFR <15 ON [employer] 6 NOTE: CBC VERIFIED 7 Lab Result [...] LITTLE GFR LEFT ESRD GFR <15 ON [employer] 11 NOTE: CBC VERIFIED Procedures Date Code Description Status 08/07/2021 09917 Office/Outpatient Established Lo w MDM 20-29 Min Completed 07/24/2021 70619 Echocardiogram 2-D Doppler Color Completed 05/02/2021 67106 Office/Outpatient Established Mo d MDM 30-39 Min Completed 05/02/2021 53638 ECG 12-Lead Completed Medical Devices Description No Information Available Encounters Type Date Location Provider Dx Diagnosis Office Visit 08/07/2021 8:00a Main Office Deann Perez PA-C I50.3 2 Chronic diastolic (congestive) heart failure I42.8 Other cardiomyopathies I48.0 Paroxysmal atrial fibrillati on G47.33 Obstructive sleep apnea (denis lt) (pediatric) Office Visit 05/02/2021 1:00p Main Office Deann Perez PA-C I25.1 0 Athscl heart disease of [place] coronary artery w/o ang pctrs Z95.5 Presence [...] ECHO 05/02/2021 I25.10 Atherosclerotic heart disease of [place] coronary artery with RICHARD ArreolaC 05/02/2021 Z95.5 [...] ERIN-C 05/02/2021 I77.810 Thoracic aortic ectasia Deann francisyc, PA-C 05/02/2021 R94.31 Abnormal electrocardiogram [ECG] [EKG] Deann Judith ePrez, ERIN-C 05/02/2021 I45.0 Right fascicular block Deann [...]
--- OUTSIDE RECORDS SUMMARY | 2021-10-03 12:36 | CCD | Continuity of Care Document ---
Author Author [place] Organization Unknown Address [address] [place] [id number] Phone [phone] Care Team Providers Care Business Technology Analyst Name Role Phone Gabriella Schaefer MD AUTM [phone] Armando Paulino MD - [employer] AUTM [phone] Problems Active Problems Provider Date Hypertensive disorder Gabbie Ny MD Onset: 07/03/2016 Social History Type Date Description Comments Sex Unknown Tobacco Use Start: Unknown Non-smoker, Non-drinker, Non-eyad g User Tobacco Use Start: Unknown Patient has never smoked Smoking Status Reviewed: 06/10/21 Patient has never smoked Exercise Type/Frequency Does [...] as (A1). 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 Or Functional Status Description No Information Available Mental Status Description No Information Available Referrals Description No Information Available
--- OUTSIDE RECORDS SUMMARY | 2021-10-03 12:36 | CCD | Continuity of Care Document ---
Author Author Cori Resendez M.D. Organization Unknown Address [address] [facility] [address] [place] [address] Phone [phone] Care Team Providers Care Manager New Product Name Role Phone [facility] AUTM Gabriella Resendez MD AUTM [phone] Gabbie Ny MD AUTM [phone] Deann Perez AUTM Unavailable Keyshawn Ramsey MD AUTM [phone] [facility] Fax # [phone] [phone] [facility] AUTM [phone] [facility] AUTM [phone] Bandar Caro MD AUTM [phone] Gurpreet Delong MD AUTM Unavailable Problems Active Problems Provider Date Coronary arteriosclerosis Gabriella Resendez M.D. Onset: 06/2011 Benign essential hypertension Gabriella Resendez M.D. Onset: 06/23/2011 Disorder of nervous system due to diabetes mellitus Gabriella Resendez M.D. Onset: 06/23/2011 Polyneuropathy due to diabetes mellitus Za Cornejo Onset: 06/23/2011 Vitamin D deficiency Gabriella Resendez M.D. Onset: 06/23/20 11 Rheumatoid arthritis Gabriella Resendez M.D. Onset: 06/23/20 11 Pure hypercholesterolemia Gabriella Resendez M.D. Onset: 06/2011 Essential hypertension Gabirella Resendez M.D. Onset: 2014 Hypomagnesemia Gabriella Resendez M.D. 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 Onset: 01/07/2019 Social History Type Date Description Comments Sex Unknown ETOH Use Denies alcohol use Tobacco Use Start: Unknown Patient has never smoked Allergies and adverse reactions Description No Known Drug Allergies Medications Active Medications SIG Qnty Indications Ordering Provide r Date Tramadol HCL 50mg Tablets 1 po qid as needed for back pain 90tabs Gabriella Resendez M.D. 08/2021 Xarelto 15mg Tablets samples if no eliquis take one tablet by mouth every day with food Sarwat Resendez M.D. 09/25/2021 Ferrous Sulfate 324(65Fe) mg Table ts DR 1 by mouth every other day 45tabs Gabriella Resendez M.D. 07/18/2021 Rosuvastatin Calcium 10mg Tablets 1 by mouth every day 30tabs Gabriella Resendez M.D. 07/15/20 21 Furosemide 40mg Tablets 1 by mouth twice a day 60tabs Gabriella Resendez M.D. 07/15/20 21 Freestyle Lite Test Strips test four times a day and as needed test strips 200units E11.65 Gabriella collazo M.D. 07/15/2021 [address] 1x/d w/ food Gabrielal Resendez M.D. 07/11/2021 Eliquis 5mg Tablets take one tablet by mouth twice a day 60tabs Gabriella Resendez M.D. 2020 Senna 8.6mg Capsules 2 by mouth every night at bedtime Gabriella Resendez M.D. 020 Hydroxychloroquine Sulfate 200mg T ablets 1 by mouth every day 30tabs Gabriella Resendez M.D. 05/11 Loratadine 10mg Capsules 1 by mouth every day Gabriella Resendez M.D. 05/11/20 19 Magnesium 500mg Tablets 2 qd Gabriella Resendez M.D. 11/15/2018 Carvedilol 25mg Tablets take one tablet by mouth twice a day 180tabs Gabriella Resendez M.D. 2017 Amoxicillin 500mg Capsules 4 Caps 1 Hour Before Dental Procedure. 4caps Gabriella Resendez M.D. 05/05/2018 Shingrix 50mcg Suspension Rec administer 0.5 milliliters intramuscular, repeat in 2 to 6 months 2units Gabriella Resendez M.D. 04/13/2018 Novolin 70/30 (70-30 )100Unit/ML Suspension 50-74 units sq am and check 2 hour postp randial increase by 2 units until 2 hour post prandial < 160 continue 74 units in pm 40units Annie Resendez M.D. 10/31/2016 Onetouch Verio Strips Test bid And prn 100units E11.65 Gabriella Resendez M.D. 02/18/2016 Losartan Potassium 50mg Tablets take one tablet by mouth twice a day 180tabs Za Cornejo 03/15/2015 Acetaminophen 325mg Tablets 2 tabs by mouth tid 180tabs Gabriella Resendez M.D. 07/13/20 14 Insulin Syringe/1ML/28G X 1/2" 28G X 1/2" 1 ML Misc use as directed 100units 250.00 Gabriella Resendez M.D. 0 02/15/2014 BD Pen Needle/Mini/Ultrafine/31G X 3/16" 31G X 5 mm Misc 1 po qd 300units Gabriella Resendez M.D. 03/2013 Metformin HCL 1000mg Tablets Take One Tablet By Mouth Twice A Day 180tabs Za Cornejo 06/17/2011 Levothyroxine Sodium 112mcg Tablet s take one tablet by mouth every day 90tabs Gabriella Resendez M.D. 02/26/2009 Support Knee-Hi Joaquin Large as directed dg 459.81 2Pair Gabriella johns M.D. 10/17/2008 Digoxin 250mcg Tablets Take One Tablet By Mouth Every Day Unknown Folic Acid 400mcg Tablets 1 by mouth every day Unknown Nitrostat 0.4mg Tablets Sub one under tongue every 5 minutes x 3 as needed for chest discomfort Unknown History Medications Xarelto 20mg Tablets samples if no eliquis take one tablet by mouth every day with food Sarwat Resendez M.D. 09/25/2021 - 09/25/[address] 1 by mouth every day 90caps Gabriella Resendez M.D. 07/18/20 - 09/25/2021 Freestyle Lite Test Strips test 4 times a day 200units E11.65 Gabriella Resendez M.D. 07/15/2021 - 07/15/2021 Medications Administered in Office Medication SIG Qnty Indications Ordering Provider Date Administration Of Flu Vaccine Inj pauly Resendez M.D. 08/20/20 21 Administration Of Flu Vaccine Inj pauly Resendez M.D. 10/01/20 20 Administration Of Flu Vaccine Inj pauly Resendez M.D. 09/08/20 19 Administration Of Flu Vaccine Inj pauly Resendez M.D. 09/30/20 18 Administration Of Flu Vaccine Shawna Resendez M.D. 09/24/20 17 Administration Of Flu Vaccine Inj pauly Resendez M.D. 08/20/20 16 Administration Of Flu Vaccine Inj pauly Resendez M.D. 10/01/20 15 Administration Of Flu Vaccine Inj pauly Resendez M.D. 09/05/20 14 Administration Of Flu Vaccine Inj pauly Resendez M.D. 10/29/20 04 Immunizations CPT Code Status Date Vaccine Lot # [id number] Given 08/20/2021 Influenza Vaccin e Quadrivalent Preser/Antibiotic Free Im Use [id number] 68593 Given 10/01/2020 Influenza Vaccin e Quadrivalent Preser/Antibiotic Free Im Use [id number] 39672 Given 09/08/2019 Influenza Vaccin e Quadrivalent Preser/Antibiotic Free Im Use 271600 62203 Given 09/30/2018 Influenza Virus Vaccine, Quadrivalent ([id number]), Derived From 8 Given 09/24/2017 Influenza Vaccin e Quadrivalent Preser/Antibiotic Free Im Use [id number] Q2037 Given 08/20/2016 Fluvirin Virus Vaccine [id number] 01 Q2037 Given 10/01/2015 Fluvirin Virus Vaccine 41302 01 Q2037 Given 09/05/2014 Fluvirin Virus Vaccine 38679 21 Q2037 Given 09/22/2013 Fluvirin Virus Vaccine Q2037 Given 08/11/2011 Fluvirin Virus Vaccine 63846 Given 08/22/2010 Influenza Virus Vaccine 47845 Given 08/15/2009 Influenza Virus Vaccine 47512 Given 09/07/2008 Influenza Virus Vaccine 53192 Given 11/19/2006 Influenza Virus Vaccine 18196 Given 10/29/2004 Influenza Virus Vaccine Vital Signs Date Vital Result Comment 09/25/2021 8:07am BP Systolic 104 mmHg RT Arm BP Diastolic 60 mmHg RT Arm Heart Rate 50 /min ekg Height 63 inches 5'3" Weight 242.12 lb O2 % BldC Oximetry 96 % BMI (Body Mass Index) 42.9 kg/m2 08/20/2021 2:05pm BP Systolic 122 mmHg RT Arm BP Diastolic 52 mmHg RT Arm Heart Rate 48 /min Height 63 inches 5'3" Weight 239.50 lb BMI (Body Mass Index) 42.4 kg/m2 Results Test Acquired Date Facility Test Result H/L Range Note Coronavirus 2019 Nasopharygeal 09/28/[address] [id number] [phone] Coronavirus 2019 Nasopharygeal ASSAY INFORMATIO <SEE N OTE> 1 Laboratory test finding 09/25/2021 [facility] [address] [place] [address] [phone] Digoxin Level 1.5 NG/ML Normal 0.5-2.0 Complete Blood Count 09/25/2021 [facility] Bsa/Aml Compliance Officer: Dr Chung [place], [place] [id number] [phone] WBC 14.4 x10*3/UL High 4.1 - 10.9 RBC 3.97 x10*6/UL Low 4.20 - 6.30 Hemoglobin 11.1 g/dL Low 12.0 - 18.0 Hematocrit 31.2 % Low 37.0 - 51.0 MCV 78.6 fL Low 80.0 - 97.0 MCH 27.9 pg 26.0 - 32.0 MCHC 35.5 g/dL 31.0 - 38.0 RDW 13.9 % High 11.6 - 13.7 PLT 276 x10*3/UL 140 - 440 MPV 7.4 FL Low 7.8 - 11.0 Lymph % 14.2 % 10.0 - 58.5 Mid % 4.5 % 1.7 - 9.3 Neut % 81.3 % 37.0 - 92.0 Lymph # 2.0 x10*3/UL 0.6 - 4.1 Mid # 0.7 x10*3/UL High 0.1 - 0.6 Neut # 11.7 x10*3/UL High 2.0 - 7.8 A1c 09/25/2021 [facility] , Bsa/Aml Compliance Officer: Dr Chung [place], [place] [id number] [phone] Hba1c 8.3 % High <5.7 2 Est Avg Glucose 192 mg/dL High 60 - 110 Laboratory test finding 09/25/2021 [facility], Bsa/Aml Compliance Officer: Dr Chung [place], [place] [id number] [phone] Magnesium 1.9 mg/dL 1.8 - 2.4 Comprehensive Chem Profile 09/25/2021 [facility], Bsa/Aml Compliance Officer: Dr Chung [place], [place] [id number] [phone] Glucose 158 mg/dL High 74 - 99 3 BUN 29 mg/dL High 7 - 18 Creatinine 1.5 mg/dL High 0.6 - 1.3 Sodium 141 mEq/L 136 - 145 Potassium 4.4 mEq/L 3.5 - 5.1 Chloride 101 mEq/L 98 - 107 Carbon Dioxide 32 mEq/L 21 - 32 Calcium 9.3 mg/dL 8.5 - 10.1 Alk. Phosphatase 81 mg/dL 46 - 116 Total Bilirubin 0.3 mg/dL 0.2 - 1.0 Ast (Sgot) 13 U/L Low 15 - 37 Alt (SGPT) 20 U/L 12 - 78 Albumin 3.7 g/dL 3.4 - 5.0 Total Protein 6.6 g/dL 6.4 - 8.2 A/G Ratio 1.28 CALC 1.00 - 1.90 GFR 35 mL/min Low >60 GFR 42 mL/min Low >60 4 Laboratory test finding 09/25/2021 [facility] Bsa/Aml Compliance Officer: Dr Chung [place], [place] [id number] [phone] Thyroid Stimulating Hormone 1.80 uIU/mL 0.3 6 - 3.74 Laboratory test finding 08/20/2021 [place] [facility] [id number] [place] [address] [phone] Digoxin Level 2.2 NG/ML High 0.5-2.0 Complete Blood Count 08/20/2021 [facility] Bsa/Aml Compliance Officer: Dr Chung [address] [place], [place] [id number] [phone] WBC 10.9 x10*3/UL 4.1 - 10.9 RBC 4.22 x10*6/UL 4.20 - 6.30 Hemoglobin 11.2 g/dL Low 12.0 - 18.0 5 Hematocrit 34.0 % Low 37.0 - 51.0 MCV 80.5 fL 80.0 - 97.0 MCH 26.6 pg 26.0 - 32.0 MCHC 33.0 g/dL 31.0 - 38.0 RDW 14.1 % High 11.6 - 13.7 PLT 270 x10*3/UL 140 - 440 MPV 8.2 FL 7.8 - 11.0 Lymph % 16.2 % 10.0 - 58.5 Mid % 4.3 % 1.7 - 9.3 Neut % 79.5 % 37.0 - 92.0 Lymph # 1.7 x10*3/UL 0.6 - 4.1 Mid # 0.6 x10*3/UL 0.1 - 0.6 Neut # 8.6 x10*3/UL High 2.0 - 7.8 Laboratory test finding 08/20/2021 [facility] Bsa/Aml Compliance Officer: [place] [address] [phone] Magnesium 2.0 mg/dL 1.8 - 2.4 Basic Metabolic Panel 08/20/2021 [facility] Bsa/Aml Compliance Officer: [place] [address] [phone] Glucose 312 mg/dL High 74 - 99 6 BUN 24 mg/dL High 7 - 18 Creatinine 1.5 mg/dL High 0.6 - 1.3 Sodium 139 mEq/L 136 - 145 Potassium 4.8 mEq/L 3.5 - 5.1 Chloride 100 mEq/L 98 - 107 Carbon Dioxide 31 mEq/L 21 - 32 Calcium 9.4 mg/dL 8.5 - 10.1 GFR 35 mL/min Low >60 GFR 42 mL/min Low >60 7 Laboratory test finding 08/20/2021 [facility], Bsa/Aml Compliance Officer: [place] [address] [phone] Thyroid Stimulating Hormone 1.02 uIU/mL 0.3 6 - 3.74 Complete Blood Count 07/25/2021 [facility] Bsa/Aml Compliance Officer: [place] [address] [phone] WBC 11.2 x10*3/UL High 4.1 - 10.9 8 RBC 4.03 x10*6/UL Low 4.20 - 6.30 Hemoglobin 10.9 g/dL Low 12.0 - 18.0 Hematocrit 32.2 % Low 37.0 - 51.0 MCV 80.0 fL 80.0 - 97.0 MCH 27.0 pg 26.0 - 32.0 MCHC 33.8 g/dL 31.0 - 38.0 RDW 13.6 % 11.6 - 13.7 PLT 284 x10*3/UL 140 - 440 MPV 7.9 FL 7.8 - 11.0 Lymph % 18.0 % 10.0 - 58.5 Mid % 5.4 % 1.7 - 9.3 Neut % 76.6 % 37.0 - 92.0 Lymph # 2.0 x10*3/UL 0.6 - 4.1 Mid # 0.7 x10*3/UL High 0.1 - 0.6 Neut # 8.5 x10*3/UL High 2.0 - 7.8 Basic Metabolic Panel 07/25/2021 [facility] Bsa/Aml Compliance Officer: [place] [address] [phone] Glucose 240 mg/dL High 74 - 99 9 BUN 30 mg/dL High 7 - 18 Creatinine 1.5 mg/dL High 0.6 - 1.3 Sodium 141 mEq/L 136 - 145 Potassium 4.7 mEq/L 3.5 - 5.1 Chloride 100 mEq/L 98 - 107 Carbon Dioxide 35 mEq/L High 21 - 32 Calcium 9.1 mg/dL 8.5 - 10.1 GFR 35 mL/min Low >60 GFR 42 mL/min Low >60 10 Basic Metabolic Panel [facility]/18[facility]iance [facility]: [place] [address] [phone] Glucose 203 mg/dL High 74 - 99 11 BUN 26 mg/dL High 7 - 18 Creatinine 1.6 mg/dL High 0.6 - 1.3 Sodium 141 mEq/L 136 - 145 Potassium 5.0 mEq/L 3.5 - 5.1 Chloride 103 mEq/L 98 - 107 Carbon Dioxide 33 mEq/L High 21 - 32 Calcium 9.4 mg/dL 8.5 - 10.1 GFR 32 mL/min Low >60 GFR 39 mL/min Low >60 12 Complete Blood Count 07/18/2021 [facility] Bsa/Aml Compliance Officer: [place] [address] [phone] WBC 10.9 x10*3/UL 4.1 - 10.9 13 RBC 3.91 x10*6/UL Low 4.20 - 6.30 Hemoglobin 10.3 g/dL Low 12.0 - 18.0 Hematocrit 31.1 % Low 37.0 - 51.0 MCV 79.5 fL Low 80.0 - 97.0 MCH 26.4 pg 26.0 - 32.0 MCHC 33.2 g/dL 31.0 - 38.0 RDW 13.6 % 11.6 - 13.7 PLT 316 x10*3/UL 140 - 440 MPV 8.4 FL 7.8 - 11.0 Lymph % 20.4 % 10.0 - 58.5 Mid % 5.3 % 1.7 - 9.3 Neut % 74.3 % 37.0 - 92.0 Lymph # 2.2 x10*3/UL 0.6 - 4.1 Mid # 0.6 x10*3/UL 0.1 - 0.6 Neut # 8.1 x10*3/UL High 2.0 - 7.8 Laboratory test finding 07/18/2021 [facility] Bsa/Aml Compliance Officer: Dr Chung Smith [place] [id number] [phone] Magnesium 1.7 mg/dL Low 1.8 - 2.4 Laboratory test finding 07/15/2021 [place] [address] [phone] Digoxin Level 1.2 NG/ML Normal 0.5-2.0 Total Iron Binding Capacit 07/15/2021 [place] [id number] [phone] Iron (Fe) 27 g/dL Low 50-170 Total Iron Binding Capacity 394 g/dL Normal 250-450 Percent Saturation 6.9 % Low 13.2-45.0 Laboratory test finding 07/15/[address] [address] [phone] Ferritin 33 NG/ML Normal 8-252 Complete Blood Count 07/15/2021 [facility] Bsa/Aml Compliance Officer: [place] [address] [phone] WBC 13.9 x10*3/UL High 4.1 - 10.9 14 RBC 3.69 x10*6/UL Low 4.20 - 6.30 Hemoglobin 9.9 g/dL Low 12.0 - 18.0 Hematocrit 29.6 % Low 37.0 - 51.0 MCV 80.3 fL 80.0 - 97.0 MCH 26.9 pg 26.0 - 32.0 MCHC 33.5 g/dL 31.0 - 38.0 RDW 14.1 % High 11.6 - 13.7 PLT 285 x10*3/UL 140 - 440 MPV 8.6 FL 7.8 - 11.0 Lymph % 15.8 % 10.0 - 58.5 Mid % 5.4 % 1.7 - 9.3 Neut % 78.8 % 37.0 - 92.0 Lymph # 2.2 x10*3/UL 0.6 - 4.1 Mid # 0.7 x10*3/UL High 0.1 - 0.6 Neut # 11.0 x10*3/UL High 2.0 - 7.8 A1c 07/15/2021 [facility] Bsa/Aml Compliance Officer: Dr Chung [address] [place], [place] [id number] [phone] Hba1c 8.9 % High <5.7 15 Est Avg Glucose 209 mg/dL High 60 - 110 Laboratory test finding 07/15/2021 [facility] Bsa/Aml Compliance Officer: Dr Chung [place], [place] [id number] [phone] Magnesium 1.6 mg/dL Low 1.8 - 2.4 Comprehensive Chem Profile 07/15/2021 [facility] Bsa/Aml Compliance Officer: [place] [address] [phone] Glucose 154 mg/dL High 74 - 99 16 BUN 23 mg/dL High 7 - 18 Creatinine 1.4 mg/dL High 0.6 - 1.3 Sodium 140 mEq/L 136 - 145 Potassium 6.3 mEq/L Critical high 3.5 - 5.1 17 Chloride 106 mEq/L 98 - 107 Carbon Dioxide 25 mEq/L 21 - 32 Calcium 8.9 mg/dL 8.5 - 10.1 Alk. Phosphatase 93 mg/dL 46 - 116 Total Bilirubin 0.4 mg/dL 0.2 - 1.0 Ast (Sgot) 9 U/L Low 15 - 37 Alt (SGPT) 21 U/L 12 - 78 Albumin 3.4 g/dL 3.4 - 5.0 Total Protein 6.1 g/dL Low 6.4 - 8.2 A/G Ratio 1.26 CALC 1.00 - 1.90 GFR 38 mL/min Low >60 GFR 46 mL/min Low >60 18 Basic Metabolic Panel 05/13/2021 [facility] Bsa/Aml Compliance Officer: [place] [address] [phone] Glucose 168 mg/dL High 74 - 99 19 BUN 20 mg/dL High 7 - 18 Creatinine 1.2 mg/dL 0.6 - 1.3 Sodium 140 mEq/L 136 - 145 Potassium 5.0 mEq/L 3.5 - 5.1 Chloride 102 mEq/L 98 - 107 Carbon Dioxide 28 mEq/L 21 - 32 Calcium 9.0 mg/dL 8.5 - 10.1 GFR 45 mL/min Low >60 GFR 55 mL/min Low >60 20 Laboratory test finding 04/24/2021 [facility] [address] [place] [address] [phone] Bedside Glucose 198 mg/dL High 80-115 Complete Blood Count 04/08/2021 [facility] Bsa/Aml Compliance Officer: [place] [address] [phone] WBC 12.4 x10*3/UL High 4.1 - 10.9 RBC 4.18 x10*6/UL Low 4.20 - 6.30 Hemoglobin 11.4 g/dL Low 12.0 - 18.0 Hematocrit 33.5 % Low 37.0 - 51.0 MCV 80.3 fL 80.0 - 97.0 MCH 27.4 pg 26.0 - 32.0 MCHC 34.2 g/dL 31.0 - 38.0 RDW 13.5 % 11.6 - 13.7 PLT 254 x10*3/UL 140 - 440 MPV 8.8 FL 7.8 - 11.0 Lymph % 17.5 % 10.0 - 58.5 Mid % 5.1 % 1.7 - 9.3 Neut % 77.4 % 37.0 - 92.0 Lymph # 2.1 x10*3/UL 0.6 - 4.1 Mid # 0.7 x10*3/UL High 0.1 - 0.6 Neut # 9.6 x10*3/UL High 2.0 - 7.8 A1c 04/08/2021 [facility] Bsa/Aml Compliance Officer: [place] [address] [phone] Hba1c 8.4 % High <5.7 21 Est Avg Glucose 194 mg/dL High 60 - 110 Laboratory test finding 04/08/2021 [facility] Bsa/Aml Compliance Officer: Dr Chung [place], [place] [id number] [phone] Magnesium 1.9 mg/dL 1.8 - 2.4 Comprehensive Chem Profile 04/08/2021 [facility]/Aml Compliance Officer: Dr Chung [place], [place] [address] [phone] Glucose 234 mg/dL High 74 - 99 22 BUN 20 mg/dL High 7 - 18 Creatinine 1.3 mg/dL 0.6 - 1.3 Sodium 138 mEq/L 136 - 145 Potassium 5.0 mEq/L 3.5 - 5.1 Chloride 101 mEq/L 98 - 107 Carbon Dioxide 30 mEq/L 21 - 32 Calcium 9.0 mg/dL 8.5 - 10.1 Alk. Phosphatase 89 mg/dL 46 - 116 Total Bilirubin 0.3 mg/dL 0.2 - 1.0 Ast (Sgot) 15 U/L 15 - 37 Alt (SGPT) 18 U/L 12 - 78 Albumin 4.0 g/dL 3.4 - 5.0 Total Protein 6.5 g/dL 6.4 - 8.2 A/G Ratio 1.60 CALC 1.00 - 1.90 GFR 41 mL/min Low >60 GFR 50 mL/min Low >60 23 Laboratory test finding 04/08/2021 [facility] Bsa/Aml Compliance Officer: [place] [address] [phone] Thyroid Stimulating Hormone 1.09 uIU/mL 0.3 6 - 3.74 1 ASSAY INFORMATION: Real Time RT-PCR NOTE: The COVID-19 assay has been cleared by the U.S. Food and Drug Administration under the Emergency Use Authorization (EUA). [employer] and [employer] are designated as high complexity laboratories by the Clinical Laboratory Improvement Amendments of 1988(CLIA) and are qualified to perform this test. Not Detected 2 Lab Result Notes: Pre-Diabetes 5.7 - 6.4 % Diabetes = or > 6.5% 3 100-125 mg/dL PRE-DIABET ES/FASTING >126 mg/dL DIABETES/FASTING 4 CHRONIC KIDNEY DISEASE STAGI NG PER NKF STAGE I & II GFR >= 60 NORMAL TO MILDLY DECREASED STAGE III GFR 30-59 MODERATELY DECREASED STAGE IV GFR 15-29 SEVERELY DECREASED STAGE V GFR <15 VERY LITTLE GFR LEFT ESRD GFR <15 ON UTILIZATION REVIEW COORDINATOR 5 NOTE: RESULT VERIFIED. 6 100-125 mg/dL PRE-DIABET ES/FASTING >126 mg/dL DIABETES/FASTING 7 CHRONIC KIDNEY DISEASE STAGI NG PER NKF STAGE I & II GFR >= 60 NORMAL TO MILDLY DECREASED STAGE III GFR 30-59 MODERATELY DECREASED STAGE IV GFR 15-29 SEVERELY DECREASED STAGE V GFR <15 VERY LITTLE GFR LEFT ESRD GFR <15 ON UTILIZATION REVIEW COORDINATOR 8 NOTE: CBC VERIFIED 9 100-125 mg/dL PRE-DIABET ES/FASTING >126 mg/dL DIABETES/FASTING 10 CHRONIC KIDNEY DISEASE STAGI NG PER NKF STAGE I & II GFR >= 60 NORMAL TO MILDLY DECREASED STAGE III GFR 30-59 MODERATELY DECREASED STAGE IV GFR 15-29 SEVERELY DECREASED STAGE V GFR <15 VERY LITTLE GFR LEFT ESRD GFR <15 ON UTILIZATION REVIEW COORDINATOR 11 100-125 mg/dL PRE-DIABET ES/FASTING >126 mg/dL DIABETES/FASTING 12 CHRONIC KIDNEY DISEASE STAGI NG PER NKF STAGE I & II GFR >= 60 NORMAL TO MILDLY DECREASED STAGE III GFR 30-59 MODERATELY DECREASED STAGE IV GFR 15-29 SEVERELY DECREASED STAGE V GFR <15 VERY LITTLE GFR LEFT ESRD GFR <15 ON UTILIZATION REVIEW COORDINATOR 13 NOTE: CBC VERIFIED 14 NOTE: CBC VERIFIED 15 Lab Result Notes: Pre-Diabetes 5.7 - 6.4 % Diabetes = or > 6.5% 16 100-125 mg/dL PRE-DIABET ES/FASTING >126 mg/dL DIABETES/FASTING 17 CRITICAL: DR RESENDEZ NOTIFIED NOTE: RESULT VERIFIED. NO VISIBLE HEMOLYSIS. 18 CHRONIC KIDNEY DISEASE STAGI NG PER NKF STAGE I & II GFR >= 60 NORMAL TO MILDLY DECREASED STAGE III GFR 30-59 MODERATELY DECREASED STAGE IV GFR 15-29 SEVERELY DECREASED STAGE V GFR <15 VERY LITTLE GFR LEFT ESRD GFR <15 ON UTILIZATION REVIEW COORDINATOR 19 100-125 mg/dL PRE-DIABET ES/FASTING >126 mg/dL DIABETES/FASTING 20 CHRONIC KIDNEY DISEASE STAGI NG PER NKF STAGE I & II GFR >= 60 NORMAL TO MILDLY DECREASED STAGE III GFR 30-59 MODERATELY DECREASED STAGE IV GFR 15-29 SEVERELY DECREASED STAGE V GFR <15 VERY LITTLE GFR LEFT ESRD GFR <15 ON UTILIZATION REVIEW COORDINATOR 21 Lab Result Notes: Pre-Diabetes 5.7 - 6.4 % Diabetes = or > 6.5% 22 100-125 mg/dL PRE-DIABET ES/FASTING >126 mg/dL DIABETES/FASTING 23 CHRONIC KIDNEY DISEASE STAGI NG PER NKF STAGE I & II GFR >= 60 NORMAL TO MILDLY DECREASED STAGE III GFR 30-59 MODERATELY DECREASED STAGE IV GFR 15-29 SEVERELY DECREASED STAGE V GFR <15 VERY LITTLE GFR LEFT ESRD GFR <15 ON UTILIZATION REVIEW COORDINATOR Procedures Date Code Description Status 08/20/2021 27028 Office/Outpatient Established Mo d MDM 30-39 Min Completed 07/18/2021 97183 Office/Outpatient Established Mo d MDM 30-39 Min Completed 07/15/2021 77232 Angela Cre SRV W/I 7 Days Of DC, C omm W/I 2 Dys Med Rec Completed 04/24/2021 [id number] Colonoscopy Completed 04/08/2021 03410 Office/Outpatient Established Mo d MDM 30-39 Min Completed 03/04/2021 [id number] Mammogram Completed 08/09/2019 [id number] Mammogram Completed 06/29/2018 [id number] Diabetic Retinal Eye Exam [facility] 05/03/2018 [id number] Mammogram Completed 02/20/2017 [id number] Mammogram Completed 04/29/2016 [id number] Diabetic Retinal Eye Exam [facility] 02/26/2016 [id number] Diabetic Retinal Eye Exam [facility] 12/14/2015 [id number] Mammogram Completed 06/09/2012 [id number] Mammogram Completed 05/16/2008 [id number] Mammogram Completed 10/27/2007 [id number] Colonoscopy Completed Medical Devices Description No Information Available Encounters Type Date Location Provider Dx Diagnosis Office Visit 08/20/2021 1[facility]p [facility] 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 08/20/2021 I50.42 Chronic combined sys tolic (congestive) and diastolic (congestive) heart failure Gabriella Resendez M.D. 08/20/2021 N18.32 Chronic kidney disease, stage 3b Gabriella Resendez M.D. 08/20/2021 E11.65 Type 2 diabetes mellitus with hy perglycemia Gabriella Resendez M.D. 08/20/2021 Z79.4 skilled nursing (current) use of insul in Gabriella Resendez M.D. 08/20/2021 D50.9 Iron deficiency anemia, unspecif ied Gabriella Resendez M.D. 08/20/2021 N85.00 Endometrial hyperplasia, unspeci fied Gabriella Resendez M.D. 08/20/2021 E78.00 Pure hypercholesterolemia, unspe cified Gabriella Resendez M.D. 08/20/2021 I25.10 Atherosclerotic hear t disease of inupiat coronary artery without angina pectoris Gabriella Resendez M.D. 08/20/2021 I48.0 Paroxysmal atrial fibrillation J catrachito Resendez M.D. 08/20/2021 Z79.01 skilled nursing (current) use of antic oagulants Gabriella Resendez M.D. 08/20/2021 Z23 Encounter for immunization Gabriella Resendez M.D. 08/20/2021 E66.01 Morbid (severe) obesity due to e xcess calories Gabriella Resendez M.D. 07/25/2021 I48.0 Paroxysmal atrial fibrillation Codi Resendez M.D. 07/25/2021 I48.0 Paroxysmal atrial fibrillation L ab Schedule 07/25/2021 Z79.01 skilled nursing (current) use of antic oagulants Gabriella Resendez M.D. 07/25/2021 Z79.01 skilled nursing (current) use of antic oagulants Lab Schedule 07/25/2021 E87.5 Hyperkalemia Gabriella hassan M.D. 07/25/2021 E87.5 Hyperkalemia Lab Schedule 07/18/2021 I63.9 Cerebral infarction, unspecified Gabriella Resendez M.D. 07/18/2021 I48.0 Paroxysmal atrial fibrillation Codi Resendez M.D. 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 07/18/2021 E87.5 Hyperkalemia Gabriella hassan M.D. 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 07/18/2021 N18.32 Chronic kidney disease, stage 3b Gabriella Resendez M.D. 07/18/2021 Z79.4 skilled nursing (current) use of insul in Gabriella Resendez M.D. 07/18/2021 E11.65 Type 2 diabetes mellitus with hy perglycemia Gabriella Resendez M.D. 07/18/2021 D50.9 Iron deficiency anemia, unspecif ied Gabriella Resendez M.D. 07/18/2021 N85.00 Endometrial hyperplasia, unspeci fied Gabriella Resendez M.D. 07/18/2021 E78.00 Pure hypercholesterolemia, unspe cified Gabriella Resendez M.D. 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 07/15/2021 I63.9 Cerebral infarction, unspecified Gabriella Resendez M.D. 07/15/2021 I48.0 Paroxysmal atrial fibrillation J catrachito Resendez M.D. 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 07/15/2021 D64.9 Anemia, unspecified Gabriella young M.D. 07/15/2021 I25.10 Atherosclerotic hear t disease of inup[place] coronary artery without angina pectoris Gabriella Resendez M.D. 07/15/2021 E78.00 Pure hypercholesterolemia, unspe cified Gabriella Resendez M.D. 07/15/2021 E11.65 Type 2 diabetes mellitus with hy perglycemia Gabriella Resendez M.D. 07/15/2021 E11.22 Type 2 diabetes mellitus with di abetic chronic kidney disease Gabriella Resendez M.D. 07/15/2021 E87.5 Hyperkalemia Gabriella hassan M.D. 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 07/15/2021 Z68.42 Body mass index [BMI] 45.0-49.9, adult Gabriella Resendez M.D. 07/15/2021 E66.01 Morbid (severe) obesity due to e xcess calories Gabriella Resendez M.D. 07/15/2021 I50.42 Chronic combined sys tolic (congestive) and diastolic (congestive) heart failure Gabriella Resendez M.D. 05/13/2021 Z01.812 Encounter for preprocedural labo ratory examination Gabriella Resendez M.D. 05/13/2021 Z01.812 Encounter for preprocedural labo ratory examination Lab Schedule 05/13/2021 R93.5 Abnormal findings on diagnostic imaging of other abdominal regions, including retroperitoneum Gabriella Resendez M.D. 05/13/2021 R93.5 Abnormal findings on diagnostic imaging of other abdominal regions, including retroperitoneum Lab Schedule 04/08/2021 E11.65 Type 2 diabetes mellitus with hy perglycemia Gabriella Resendez M.D. 04/08/2021 I12.9 Hypertensive chronic kidney disease with stage 1 through stage 4 chronic kidney disease, or unspecified chronic kidney disease Gabriella Resendez M.D. 04/08/2021 N18.32 Chronic kidney disease, stage 3b Gabriella Resendez M.D. 04/08/2021 D50.9 Iron deficiency anemia, unspecif ied Gabriella Resendez M.D. 04/08/2021 N95.0 Postmenopausal bleeding Gabriella Resendez M.D. 04/08/2021 I87.2 Venous insufficiency (chronic) ( peripheral) Gabriella Resendez M.D. 04/08/2021 M06.4 Inflammatory polyarthropathy Sarwat Resendez M.D. 04/08/2021 E78.00 Pure hypercholesterolemia, unspe cified Gabriella Resendez M.D. 04/08/2021 E03.9 Hypothyroidism, unspecified Annie Resendez M.D. 04/08/2021 I48.0 Paroxysmal atrial fibrillation Codi Resendez M.D. 04/08/2021 I25.10 Atherosclerotic hear t disease of in[place] coronary artery without angina pectoris Gabriella Resendez M.D. 04/08/2021 E83.42 Hypomagnesemia Gabriella hsasan M.D. Plan of Treatment Future Appointment(s):* 10/24/2021 10:45 am - Gabriella Resendez M.D. at [facility] 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 * D50.9 Iron deficiency anemia, unspecified * N85.00 Endometrial hyperplasia, unspecified * E78.00 Pure hypercholesterolemia, unspecified * I25.10 Atherosclerotic heart disease of [place] coronary artery without angina pectoris * I48.0 Paroxysmal atrial fibrillation * Z79.01 skilled nursing (current) use of anticoagulants * Z23 Encounter for immunization * E66.01 Morbid (severe) obesity due to excess calories Functional Status Description No Information Available Mental Status Description No Information Available Referrals Refer to Dr Reason for Referral Status Appt Date Gabbie Ny MD CONSULT FOR ABNORMAL PELVIC U/S PT SCHEDULED FOR PELVIC MRI AT [facility] ON 06/03/21 06/06/21- PLEASE MOVE UP APPT SAMANTHA DUE TO ABNORMAL PELVIC MRI- SUSPICIOUS FOR OVARIAN CANCER PLEASE LET OFFICE KNOW. DR RESENDEZ WILL SPEAK WITH DR NY. Patient Notified 06/10/2021 [facility] [address] [place], [place] [address] [phone]
--- OUTSIDE RECORDS SUMMARY | 2021-10-03 12:37 | CCD | Continuity of Care Document ---
Author Author Cori Resendez M.D. Organization Unknown Address [address] [facility] [address] [place] [address] Phone [phone] Care Team Providers Care Nursing Administrator Name Role Phone [facility] AUTM [phone] Gabriella Resendez MD AUTM [phone] Gabbie Ny MD AUTM [phone] Deann Perez AUTM Unavailable Keyshawn Ramsey MD AUTM [phone] [facility] Fax # [phone] [phone] [facility] AUTM [phone] Bandar Caro MD AUTM [phone] Gurpreet Delong MD AUTM Unavailable Problems Active [...] Gabriella Resendez M.D. Onset: 06/2011 Essential hypertension Gabriella Resendez M.D. Onset: 2014 Hypomagnesemia Gabriella Resendez M.D. 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 Onset: 01/07/2019 Social History Type Date Description Comments Sex Unknown ETOH Use Denies alcohol use Tobacco Use Start: Unknown Patient has never smoked Allergies and adverse reactions Description No Known Drug Allergies Medications Active Medications SIG Qnty Indications Ordering Provide r Date Omeprazole 20mg Capsules 1 by mouth every day 90caps Gabriella Resendez M.D. 07/18/20 21 Ferrous Sulfate 324(65Fe) mg Table ts 1 by mouth every other day 45tabs Gabriella Resendez M.D. 07/18/2021 Rosuvastatin Calcium 10mg Tablets 1 by mouth every day 30tabs Gabriella Resendez M.D. 07/15/20 21 Furosemide 40mg Tablets 1 by mouth bid 60tabs Gabriella Resendez M.D. 07/15/2021 Freestyle Lite Test Strips test four times a day and as needed test strips 200units E11.65 Gabriella collazo M.D. 07/15/2021 Aspirin 81 81mg Tablets 1x/d w/ food Gabriella Resendez M.D. 07/11/2021 Eliquis 5mg Tablets take one tablet by mouth twice a day 60tabs Gabriella Resendez M.D. 2020 Senna 8.6mg Capsules 2 by mouth every night at bedtime Gabriella Resendez M.D. 020 Hydroxychloroquine Sulfate 200mg T ablets 1 by mouth qd Gabriella Resendez M.D. 05/11/20 19 Loratadine 10mg Capsules 1 by mouth every [...] twice a day 180tabs Za Cornejo 03/15/2015 Tramadol HCL 50mg Tablets 2 tabs three times a day as needed pain 180tabs Evan Cornejo 07/13/2014 Acetaminophen 325mg Tablets 2 tabs by mouth [...] 90tabs Gabriella Resendez M.D. 02/26/2009 Support Knee-Hi Hose Large as directed dg 459.81 2Pair Gabriella johns M.D. 10/17/2008 Digoxin 250mcg Tablets Take One Tablet By Mouth Every Day Unknown Folic Acid 400mcg Tablets 1 by mouth every day Unknown Nitrostat 0.4mg Tablets Sub one under tongue every 5 minutes x 3 as needed for chest discomfort Unknown History Medications Freestyle Lite Test Strips test 4 times a day 200units E11.65 Gabriella Resendez M.D. 07/15/2021 - 07/15/2021 Medications Administered in Office Medication SIG Qnty Indications Ordering Provider Date Administration Of Flu Vaccine Inj pauly Resendez M.D. 10/01/20 20 Administration Of Flu Vaccine Inj pauly Resendez M.D. 09/08/20 19 Administration Of Flu Vaccine Inj pauly Resendez M.D. 09/30/20 18 Administration Of Flu Vaccine Inj pauly Resendez M.D. 09/24/20 17 Administration Of Flu Vaccine Inj pauly Resendez M.D. 08/20/20 16 Administration Of Flu Vaccine Inj pauly Resendez M.D. 10/01/20 15 Administration Of Flu Vaccine Inj pauly Resendez M.D. 09/05/20 14 Administration Of Flu Vaccine Inj apuly Resendez M.D. 10/29/20 04 Immunizations CPT Code Status Date Vaccine Lot # [id number] Given 08/20/2021 Influenza Vaccin e Quadrivalent Preser/Antibiotic Free Im Use [id number] 11671 Given 10/01/2020 Influenza Vaccin e Quadrivalent Preser/Antibiotic Free Im Use 098399 35187 Given 09/08/2019 Influenza Vaccin e Quadrivalent Preser/Antibiotic Free Im Use [id number] 71268 Given 09/30/2018 Influenza Virus Vaccine, Quadrivalent ([id number]), Derived From 7 Given 09/24/2017 Influenza Vaccin e Quadrivalent Preser/Antibiotic Free Im Use [id number] Q2037 Given 08/20/2016 Fluvirin Virus Vaccine 50407 01 Q2037 Given 10/01/2015 Fluvirin Virus Vaccine 90334 01 Q2037 Given 09/05/2014 Fluvirin Virus Vaccine 62130 21 Q2037 Given 09/22/2013 Fluvirin Virus Vaccine Q2037 Given 08/11/2011 Fluvirin Virus Vaccine 17177 Given 08/22/2010 Influenza Virus Vaccine 44119 Given 08/15/2009 Influenza Virus Vaccine 40039 Given 09/07/2008 Influenza Virus Vaccine 40649 Given 11/19/2006 Influenza Virus Vaccine 81814 Given 10/29/2004 Influenza Virus Vaccine Vital Signs Date Vital Result Comment 08/20/2021 2:05pm BP Systolic 122 mmHg RT Arm BP Diastolic 52 mmHg RT Arm Heart Rate 48 /min Height 63 inches 5'3" Weight 239.50 lb BMI (Body Mass Index) 42.4 kg/m2 07/18/2021 9:02am BP Systolic 116 mmHg RT Arm BP Diastolic 64 mmHg RT Arm Heart Rate 52 /min Height 63 inches 5'3" Weight 244.25 lb O2 Saturation Level with Exercise 89 % RM Air BMI (Body Mass Index) 43.3 kg/m2 Results Test Acquired Date Facility Test Result H/L Range Note Laboratory test finding 08/20/2021 [facility] Team Member: [place] [address] [phone] Magnesium, Serum <pending> Laboratory test finding 08/20/2021 [facility] [employer] Team Member: [place] [address] [phone] TSH <pending> Laboratory test finding 08/20/2021 [facility] [address] [place] [address] [phone] Digoxin Level <pending> Complete Blood Count 07/25/2021 [facility] [employer] Team Member: [place] [address] [phone] WBC 11.2 x10*3/UL High 4.1 - 10.9 1 RBC 4.03 x10*6/UL Low 4.20 - 6.30 [...] 2.0 - 7.8 Basic Metabolic Panel 07/25/2021 [facility] Se[facility] Team Member: [place] [address] [phone] Glucose 240 mg/dL High 74 - 99 2 BUN 30 mg/dL High 7 - 18 Creatinine 1.5 mg/dL High 0.6 - 1.3 Sodium 141 mEq/L 136 - 145 Potassium 4.7 mEq/L 3.5 - 5.1 Chloride 100 mEq/L 98 - 107 Carbon Dioxide 35 mEq/L High 21 - 32 Calcium 9.1 mg/dL 8.5 - 10.1 GFR 35 mL/min Low >60 GFR 42 mL/min Low >60 3 Complete Blood Count 07/18/2021 [facility] Seafood Team Member: [place] [address] [phone] WBC 10.9 x10*3/UL 4.1 - 10.9 4 RBC 3.91 x10*6/UL Low 4.20 - 6.30 [...] 2.0 - 7.8 Laboratory test finding 07/18/2021 [facility] Se[employer] Team Member: Dr Chung Smith [place], [place] [id number] [phone] Magnesium 1.7 mg/dL Low 1.8 - 2.4 Basic Metabolic Panel 07/18/2021 [facility] Se[facility] Team Member: [place] [address] [phone] Glucose 203 mg/dL High 74 - 99 5 BUN 26 mg/dL High 7 - 18 Creatinine 1.6 mg/dL High 0.6 - 1.3 Sodium 141 mEq/L 136 - 145 Potassium 5.0 mEq/L 3.5 - 5.1 Chloride 103 mEq/L 98 - 107 Carbon Dioxide 33 mEq/L High 21 - 32 Calcium 9.4 mg/dL 8.5 - 10.1 GFR 32 mL/min Low >60 GFR 39 mL/min Low >60 6 Complete Blood Count 07/15/2021 [facility] Seafood Team Member: [place] [address] [phone] WBC 13.9 x10*3/UL High 4.1 - 10.9 7 RBC 3.69 x10*6/UL Low 4.20 - 6.30 [...] # 11.0 x10*3/UL High 2.0 - 7.8 Comprehensive Chem Profile 07/15/2021 [facility] Team Member: Dr Chung [address] [place], [place] [id number] [phone] Glucose 154 mg/dL High 74 - 99 8 BUN 23 mg/dL High 7 - 18 Creatinine 1.4 mg/dL High 0.6 - 1.3 Sodium 140 mEq/L 136 - 145 Potassium 6.3 mEq/L Critical high 3.5 - 5.1 9 Chloride 106 mEq/L 98 - 107 Carbon [...] Low >60 GFR 46 mL/min Low >60 10 Laboratory test finding 07/15/2021 [facility] Se[employer] Team Member: [place] [address] [phone] Magnesium 1.6 mg/dL Low 1.8 - 2.4 A1c 07/15/2021 [facility] Seafood Team Member: [place] [address] [phone] Hba1c 8.9 % High <5.7 11 Est Avg Glucose 209 mg/dL High 60 - 110 Laboratory test finding 07/15/2021 [facility] [address] [place] [address] [phone] Ferritin 33 NG/ML Normal 8-252 Total Iron Binding Capacit 07/15/2021 [facility] [address] [place] [address] [phone] Iron (Fe) 27 g/dL Low 50-170 Total Iron Binding Capacity 394 g/dL Normal 250-450 Percent Saturation 6.9 % Low 13.2-45.0 Laboratory test finding 07/15/2021 [facility] [address] [place] [address] [phone] Digoxin Level 1.2 NG/ML Normal 0.5-2.0 Basic Metabolic Panel 05/13/2021 [facility] Team Member: Dr Chung Smith [place] [id number] [phone] Glucose 168 mg/dL High 74 - 99 12 BUN 20 mg/dL High 7 - 18 Creatinine 1.2 mg/dL 0.6 - 1.3 Sodium 140 mEq/L 136 - 145 Potassium 5.0 mEq/L 3.5 - 5.1 Chloride 102 mEq/L 98 - 107 Carbon Dioxide 28 mEq/L 21 - 32 Calcium 9.0 mg/dL 8.5 - 10.1 GFR 45 mL/min Low >60 GFR 55 mL/min Low >60 13 Laboratory test finding 04/24/2021 [facility] [address] [place] [address] [phone] Bedside Glucose 198 mg/dL High 80-115 Complete Blood Count 04/08/2021 [facility] Seafood Team Member: [place] [address] [phone] WBC 12.4 x10*3/UL High 4.1 - 10.9 [...] x10*3/UL High 2.0 - 7.8 A1c 04/08/2021 [facility] , Seafood Team Member: [place] [address] [phone] Hba1c 8.4 % High <5.7 14 Est Avg Glucose 194 mg/dL High 60 - 110 Laboratory test finding 04/08/2021 [facility], Seafood Team Member: [place] [address] [phone] Magnesium 1.9 mg/dL 1.8 - 2.4 Comprehensive Chem Profile 04/08/2021 [facility], Se[facility] Team Member: [place] [address] [phone] Glucose 234 mg/dL High 74 - 99 15 BUN 20 mg/dL High 7 - 18 [...] Low >60 GFR 50 mL/min Low >60 16 Laboratory test finding 04/08/2021 [facility], Seafood Team Member: [place] [address] [phone] Thyroid Stimulating Hormone 1.09 uIU/mL 0.3 6 - 3.74 1 NOTE: CBC VERIFIED 2 100-125 mg/dL PRE-DIABET ES/FASTING >126 mg/dL DIABETES/FASTING 3 CHRONIC KIDNEY DISEASE STAGI NG PER NKF STAGE I & II GFR >= 60 NORMAL TO MILDLY DECREASED STAGE III GFR 30-59 MODERATELY DECREASED STAGE IV GFR 15-29 SEVERELY DECREASED STAGE V GFR <15 VERY LITTLE GFR LEFT ESRD GFR <15 ON PRECISION LENS CENTERER AND EDGER 4 NOTE: CBC VERIFIED 5 100-125 mg/dL PRE-DIABET ES/FASTING >126 mg/dL DIABETES/FASTING 6 CHRONIC KIDNEY DISEASE STAGI NG PER NKF STAGE I & II GFR >= 60 NORMAL TO MILDLY DECREASED STAGE III GFR 30-59 MODERATELY DECREASED STAGE IV GFR 15-29 SEVERELY DECREASED STAGE V GFR <15 VERY LITTLE GFR LEFT ESRD GFR <15 ON PRECISION LENS CENTERER AND EDGER 7 NOTE: CBC VERIFIED 8 100-125 mg/dL PRE-DIABET ES/FASTING >126 mg/dL DIABETES/FASTING 9 CRITICAL: DR RESENDEZ NOTIFIED NOTE: RESULT VERIFIED. NO VISIBLE HEMOLYSIS. 10 CHRONIC KIDNEY DISEASE STAGI NG PER NKF STAGE I & II GFR >= 60 NORMAL TO MILDLY DECREASED STAGE III GFR 30-59 MODERATELY DECREASED STAGE IV GFR 15-29 SEVERELY DECREASED STAGE V GFR <15 VERY LITTLE GFR LEFT ESRD GFR <15 ON PRECISION LENS CENTERER AND EDGER 11 Lab Result Notes: Pre-Diabetes 5.7 - 6.4 % Diabetes = or > 6.5% 12 100-125 mg/dL PRE-DIABET ES/FASTING >126 mg/dL DIABETES/FASTING 13 CHRONIC KIDNEY DISEASE STAGI NG PER NKF STAGE I & II GFR >= 60 NORMAL TO MILDLY DECREASED STAGE III GFR 30-59 MODERATELY DECREASED STAGE IV GFR 15-29 SEVERELY DECREASED STAGE V GFR <15 VERY LITTLE GFR LEFT ESRD GFR <15 ON PRECISION LENS CENTERER AND EDGER 14 Lab Result Notes: Pre-Diabetes 5.7 - 6.4 % Diabetes = or > 6.5% 15 100-125 mg/dL PRE-DIABET ES/FASTING >126 mg/dL DIABETES/FASTING 16 CHRONIC KIDNEY DISEASE STAGI NG PER NKF STAGE I & II GFR >= 60 NORMAL TO MILDLY DECREASED STAGE III GFR 30-59 MODERATELY DECREASED STAGE IV GFR 15-29 SEVERELY DECREASED STAGE V GFR <15 VERY LITTLE GFR LEFT ESRD GFR <15 ON PRECISION LENS CENTERER AND EDGER Procedures Date Code Description Status 07/18/2021 18942 Office/Outpatient Established Mo d MDM 30-39 Min Completed 07/15/2021 42583 Angela Cre SRV W/I 7 Days Of DC, C omm W/I 2 Dys Med Rec Completed 04/24/2021 [id number] Colonoscopy Completed 04/08/2021 96462 Office/Outpatient Established Mo d MDM 30-39 Min Completed 03/04/2021 [id number] Mammogram Completed 08/09/2019 [id number] Mammogram Completed 06/29/2018 [id number] Diabetic Retinal Eye Exam Comple laci 05/03/2018 [id number] Mammogram Completed 02/20/2017 [id number] Mammogram Completed 04/29/2016 [id number] Diabetic Retinal Eye Exam Comple laci 02/26/2016 [id number] Diabetic Retinal Eye Exam Comple [facility] [employer] 12/14/2015 [id number] Mammogram Completed 06/09/2012 [id number] Mammogram Completed 05/16/2008 [id number] Mammogram Completed 10/27/2007 [id number] Colonoscopy Completed Medical Devices Description No Information Available Encounters Type Date Location Provider Dx Diagnosis Office Visit 07/18/2021 9:00a [facility] P[facility] Resendez M.D. I63.9 Cerebral infarction, unspeci fied I48.0 Paroxysmal atrial fibrillati on Z79.01 [facility] (current) use of a nticoagulants E87.5 Hyperkalemia I50.42 Chronic combined systolic an d diastolic hrt fail N18.32 Chronic kidney disease, stag e 3b Z79.4 [facility] (current) use of i nsulin E11.65 Type 2 diabetes mellitus wit h hyperglycemia D50.9 Iron deficiency anemia, unsp ecified N85.00 Endometrial hyperplasia, uns pecified E78.00 Pure hypercholesterolemia, u nspecified I25.10 Athscl heart disease of rosa ve coronary artery w/o ang pctrs Office Visit 07/15/2021 [facility] I63.9 Cerebral infarction, unspeci fied I48.0 Paroxysmal atrial fibrillati on Z79.01 [facility] (current) use of a nticoagulants D64.9 Anemia, [...] diastolic hrt fail Office Visit 04/08/2021 10:45a [facility] Sarwat Resendez M.D. E11.65 Type 2 diabetes mellitus wit [...] E83.42 Hypomagnesemia Assessments Date Code Description Provider 07/25/2021 I48.0 Paroxysmal atrial fibrillation Codi Resendez M.D. 07/25/2021 I48.0 Paroxysmal atrial fibrillation L ab Schedule 07/25/2021 Z79.01 [facility] (current) use of antic oagulants Gabriella Resendez M.D. 07/25/2021 Z79.01 [facility] (current) use of antic oagulants Lab Schedule 07/25/2021 E87.5 Hyperkalemia Gabriella hassan M.D. 07/25/2021 E87.5 Hyperkalemia Lab Schedule 07/18/2021 I63.9 Cerebral infarction, unspecified Gabriella Resendez M.D. 07/18/2021 I48.0 Paroxysmal atrial fibrillation Codi Resendez M.D. 07/18/2021 Z79.01 [facility] (current) use of antic oagulants Gabriella Resendez M.D. 07/18/2021 E87.5 Hyperkalemia Gabriella hassan M.D. 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 07/18/2021 N18.32 Chronic kidney disease, stage 3b Gabriella Resendez M.D. 07/18/2021 Z79.4 [employer] (current) use of insul in Gbariella Resendez M.D. 07/18/2021 E11.65 Type 2 diabetes mellitus with hy perglycemia Gabriella Resendez M.D. 07/18/2021 D50.9 Iron deficiency anemia, unspecif ied Gabriella Resendez M.D. 07/18/2021 N85.00 Endometrial hyperplasia, unspeci fied Gabriella Resendez M.D. 07/18/2021 E78.00 Pure hypercholesterolemia, unspe cimallory Resendez M.D. 07/18/2021 I25.10 Atherosclerotic hear t disease of [place] coronary artery without angina pectoris Gabriella Resendez M.D. 07/15/2021 I63.9 Cerebral infarction, radhaified Gabriella Resendez M.D. 07/15/2021 I48.0 Paroxysmal atrial fibrillation J catrachito Resendez M.D. 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 07/15/2021 D64.9 Anemia, unspecified Gabriella young M.D. 07/15/2021 I25.10 Atherosclerotic hear t disease of [place] coronary artery without angina pectoris Gabriella Resendez [...] Resendez M.D. 04/08/2021 I48.0 Paroxysmal atrial fibrillation J catrachito Resendez M.D. 04/08/2021 I25.10 Atherosclerotic hear t disease of [place] coronary artery without angina pectoris Gabriella Resendez M.D. 04/08/2021 E83.42 Hypomagnesemia Gabriella hassan M.D. Plan of Treatment 07/18/2021 - Gabriella Resendez M.D.* I63.9 Cerebral infarction, unspecified * I48.0 Paroxysmal atrial fibrillation * Z79.01 [facility] (current) use of anticoagulants * E87.5 Hyperkalemia * I50.42 Chronic combined systolic (congestive) and diastolic (congestive) heart failure * N18.32 Chronic kidney disease, stage 3b * Z79.4 [facility] (current) use of insulin * E11.65 Type 2 diabetes mellitus with hyperglycemia * D50.9 Iron deficiency anemia, unspecified * N85.00 Endometrial hyperplasia, unspecified * E78.00 Pure hypercholesterolemia, unspecified * I25.10 Atherosclerotic heart disease of [place] coronary artery without angina pectoris * All * New Medication:* Ferrous Sulfate 324(65 Fe) mg - 1 by mouth every other day * Omeprazole 20 mg - 1 by mouth every day Functional Status Description No Information Available Mental Status Description No Information Available Referrals Refer to Dr Reason for Referral Status Appt Date Gabbie Ny MD CONSULT FOR ABNORMAL PELVIC U/S PT SCHEDULED FOR PELVIC MRI AT [facility] ON 06/03/21 06/06/21- PLEASE MOVE UP APPT SAMANTHA DUE TO ABNORMAL PELVIC MRI- SUSPICIOUS FOR OVARIAN CANCER PLEASE LET OFFICE KNOW. DR RESENDEZ WILL SPEAK WITH DR [place]. Patient Notified 06/10/2021 [facility] [address] [place], [place] [id number] [phone]
--- OUTSIDE RECORDS SUMMARY | 2021-10-03 12:37 | CCD | Continuity of Care Document ---
Author Author Cori Resendez M.D. Organization Unknown Address [address] [facility] [address] [place] [address] Phone [phone] Care Team Providers Care Printing Plate Clerk Name Role Phone [facility] AUTM Gabriella Resendez MD AUTM [phone] Gabbie Ny MD AUTM [phone] Deann Perez AUTM Unavailable Keyshawn Ramsey MD AUTM [phone] [facility] F[facility] AUTM [phone] [facility] AUTM [phone] Bandar Caro MD AUTM [phone] Gurpreet Delong MD AUTM Unavailable Problems Active [...] Date Administration Of Flu Vaccine Inj pauly Resednez M.D. 08/20/20 21 Administration Of Flu Vaccine [...] CPT Code Status Date Vaccine Lot # [id number] Given 08/20/2021 Influenza Vaccin e Quadrivalent Preser/Antibiotic Free Im Use [id number] 54218 Given 10/01/2020 Influenza Vaccin e Quadrivalent Preser/Antibiotic Free Im Use [id number] 80644 Given 09/08/2019 Influenza Vaccin e Quadrivalent Preser/Antibiotic Free Im Use [id number] 45037 Given 09/30/2018 Influenza Virus Vaccine, Quadrivalent ([id number]), Derived From 1 Given 09/24/2017 Influenza Vaccin e Quadrivalent Preser/Antibiotic Free Im Use [id number] Given 08/20/2016 Fluvirin Virus Vaccine 67648 01 Q2037 Given 10/01/2015 Fluvirin Virus Vaccine 37861 01 Q2037 Given 09/05/2014 Fluvirin Virus Vaccine 11912 21 Q2037 Given 09/22/2013 Fluvirin Virus Vaccine Q2037 Given 08/11/2011 Fluvirin Virus Vaccine 65369 Given 08/22/2010 Influenza Virus Vaccine 64996 Given 08/15/2009 Influenza Virus Vaccine 61113 Given 09/07/2008 Influenza Virus Vaccine 03667 Given 11/19/2006 Influenza Virus Vaccine 76128 Given 10/29/2004 Influenza Virus Vaccine Vital Signs [...] Date Facility Test Result H/L Range Note Complete Blood Count 08/20/2021 [facility] Clinical Nursing Assistant: Dr Chung Smith [place], [place] [id number] [phone] WBC 10.9 x10*3/UL 4.1 - 10.9 RBC 4.22 x10*6/UL 4.20 - 6.30 Hemoglobin 11.2 g/dL Low 12.0 - 18.0 1 Hematocrit 34.0 % Low 37.0 - 51.0 [...] 2.0 - 7.8 Laboratory test finding 08/20/2021 [facility] Clinical Nursing Assistant: [place] [address] [phone] Magnesium 2.0 mg/dL 1.8 - 2.4 Basic Metabolic Panel 08/20/2021 [facility] Clinical Nursing Assistant: Dr Chung Smith [place], [place] [id number] [phone] Glucose 312 mg/dL High 74 - 99 2 BUN 24 mg/dL High 7 - 18 Creatinine 1.5 mg/dL High 0.6 - 1.3 Sodium 139 mEq/L 136 - 145 Potassium 4.8 mEq/L 3.5 - 5.1 Chloride 100 mEq/L 98 - 107 Carbon Dioxide 31 mEq/L 21 - 32 Calcium 9.4 mg/dL 8.5 - 10.1 GFR 35 mL/min Low >60 GFR 42 mL/min Low >60 3 Laboratory test finding 08/20/2021 [facility] Clinical Nursing Assistant: [place] [address] [phone] Thyroid Stimulating Hormone 1.02 uIU/mL 0.3 6 - 3.74 Laboratory test finding 08/20/2021 [facility] [address] [place] [address] [phone] Digoxin Level 2.2 NG/ML High 0.5-2.0 Complete Blood Count 07/25/2021 [facility] Clinical Nursing Assistant: Dr Chung Smith [place], [place] [id number] [phone] WBC 11.2 x10*3/UL High 4.1 - 10.9 4 RBC 4.03 x10*6/UL Low 4.20 - 6.30 [...] 2.0 - 7.8 Basic Metabolic Panel 07/25/2021 [facility] Clinical Nursing Assistant: [place] [address] [phone] Glucose 240 mg/dL High 74 - 99 5 BUN 30 mg/dL High 7 - 18 Creatinine 1.5 mg/dL High 0.6 - 1.3 Sodium 141 mEq/L 136 - 145 Potassium 4.7 mEq/L 3.5 - 5.1 Chloride 100 mEq/L 98 - 107 Carbon Dioxide 35 mEq/L High 21 - 32 Calcium 9.1 mg/dL 8.5 - 10.1 GFR 35 mL/min Low >60 GFR 42 mL/min Low >60 6 Complete Blood Count 07/18/2021 [facility] Clinical Nursing Assistant: [place] [address] [phone] WBC 10.9 x10*3/UL 4.1 - 10.9 7 RBC 3.91 x10*6/UL Low 4.20 - 6.30 [...] 2.0 - 7.8 Laboratory test finding 07/18/2021 [facility] Clinical Nursing Assistant: Dr Chung Smith [place], [place] [id number] [phone] Magnesium 1.7 mg/dL Low 1.8 - 2.4 Basic Metabolic Panel 07/18/2021 [facility] Clinical Nursing Assistant: Dr Chung Smith [place], [place] [id number] [phone] Glucose 203 mg/dL High 74 - 99 8 BUN 26 mg/dL High 7 - 18 Creatinine 1.6 mg/dL High 0.6 - 1.3 Sodium 141 mEq/L 136 - 145 Potassium 5.0 mEq/L 3.5 - 5.1 Chloride 103 mEq/L 98 - 107 Carbon Dioxide 33 mEq/L High 21 - 32 Calcium 9.4 mg/dL 8.5 - 10.1 GFR 32 mL/min Low >60 GFR 39 mL/min Low >60 9 Complete Blood Count 07/15/2021 [facility] Clinical Nursing Assistant: [place] [address] [phone] WBC 13.9 x10*3/UL High 4.1 - 10.9 10 RBC 3.69 x10*6/UL Low 4.20 - 6.30 [...] 2.0 - 7.8 Comprehensive Chem Profile 07/15/2021 [facility] Clinical Nursing Assistant: [place] [address] [phone] Glucose 154 mg/dL High 74 - 99 11 BUN 23 mg/dL High 7 - 18 Creatinine 1.4 mg/dL High 0.6 - 1.3 Sodium 140 mEq/L 136 - 145 Potassium 6.3 mEq/L Critical high 3.5 - 5.1 12 Chloride 106 mEq/L 98 - 107 Carbon [...] Low >60 GFR 46 mL/min Low >60 13 Laboratory test finding 07/15/2021 [facility] Clinical Nursing Assistant: Dr Chung Smith [place], [place] [id number] [phone] Magnesium 1.6 mg/dL Low 1.8 - 2.4 A1c 07/15/2021 [facility] Clinical Nursing Assistant: [place] [address] [phone] Hba1c 8.9 % High <5.7 14 Est Avg Glucose 209 mg/dL High 60 - 110 Laboratory test finding [facility] [address] [place] [address] [phone] Ferritin 33 NG/ML Normal 8-252 Total Iron Binding Capacit 07/15/2021 [facility] [address] [place] [address] [phone] Iron (Fe) 27 g/dL Low 50-170 Total Iron Binding Capacity 394 g/dL Normal 250-450 Percent Saturation 6.9 % Low 13.2-45.0 Laboratory test finding 07/15/2021 [facility] [address] [place] [address] [phone] Digoxin Level 1.2 NG/ML Normal 0.5-2.0 Basic Metabolic Panel 05/13/2021 [facility] Clinical Nursing Assistant: [place] [address] [phone] Glucose 168 mg/dL High 74 - 99 15 BUN 20 mg/dL High 7 - 18 Creatinine 1.2 mg/dL 0.6 - 1.3 Sodium 140 mEq/L 136 - 145 Potassium 5.0 mEq/L 3.5 - 5.1 Chloride 102 mEq/L 98 - 107 Carbon Dioxide 28 mEq/L 21 - 32 Calcium 9.0 mg/dL 8.5 - 10.1 GFR 45 mL/min Low >60 GFR 55 mL/min Low >60 16 Laboratory test finding 04/24/2021 [facility] [address] [place] [id number] [phone] Bedside Glucose 198 mg/dL High 80-115 Complete Blood Count 04/08/2021 [facility] Clinical Nursing Assistant: [place] [address] [phone] WBC 12.4 x10*3/UL High 4.1 - 10.9 [...] x10*3/UL High 2.0 - 7.8 A1c 04/08/2021 [facility] , Clinical Nursing Assistant: [place] [address] [phone] Hba1c 8.4 % High <5.7 17 Est Avg Glucose 194 mg/dL High 60 - 110 Laboratory test finding 04/08/2021 [facility], Clinical Nursing Assistant: [place] [address] [phone] Magnesium 1.9 mg/dL 1.8 - 2.4 Comprehensive Chem Profile 04/08/2021 [facility], Clinical Nursing Assistant: [place] [address] [phone] Glucose 234 mg/dL High 74 - 99 18 BUN 20 mg/dL High 7 - 18 [...] Low >60 GFR 50 mL/min Low >60 19 Laboratory test finding 04/08/2021 [facility], Clinical Nursing Assistant: [place] [address] [phone] Thyroid Stimulating Hormone 1.09 uIU/mL 0.3 6 - 3.74 1 NOTE: RESULT VERIFIED. 2 100-125 mg/dL PRE-DIABET ES/FASTING >126 mg/dL DIABETES/FASTING 3 CHRONIC KIDNEY DISEASE STAGI NG PER NKF STAGE I & II GFR >= 60 NORMAL TO MILDLY DECREASED STAGE III GFR 30-59 MODERATELY DECREASED STAGE IV GFR 15-29 SEVERELY DECREASED STAGE V GFR <15 VERY LITTLE GFR LEFT ESRD GFR <15 ON MANAGER SHAREPOINT 4 NOTE: CBC VERIFIED 5 100-125 mg/dL PRE-DIABET ES/FASTING >126 mg/dL DIABETES/FASTING 6 CHRONIC KIDNEY DISEASE STAGI NG PER NKF STAGE I & II GFR >= 60 NORMAL TO MILDLY DECREASED STAGE III GFR 30-59 MODERATELY DECREASED STAGE IV GFR 15-29 SEVERELY DECREASED STAGE V GFR <15 VERY LITTLE GFR LEFT ESRD GFR <15 ON MANAGER SHAREPOINT 7 NOTE: CBC VERIFIED 8 100-125 mg/dL PRE-DIABET ES/FASTING >126 mg/dL DIABETES/FASTING 9 CHRONIC KIDNEY DISEASE STAGI NG PER NKF STAGE I & II GFR >= 60 NORMAL TO MILDLY DECREASED STAGE III GFR 30-59 MODERATELY DECREASED STAGE IV GFR 15-29 SEVERELY DECREASED STAGE V GFR <15 VERY LITTLE GFR LEFT ESRD GFR <15 ON MANAGER SHAREPOINT 10 NOTE: CBC VERIFIED 11 100-125 mg/dL PRE-DIABET ES/FASTING >126 mg/dL DIABETES/FASTING 12 CRITICAL: DR RESENDEZ NOTIFIED NOTE: RESULT VERIFIED. NO VISIBLE HEMOLYSIS. 13 CHRONIC KIDNEY DISEASE STAGI NG PER NKF STAGE I & II GFR >= 60 NORMAL TO MILDLY DECREASED STAGE III GFR 30-59 MODERATELY DECREASED STAGE IV GFR 15-29 SEVERELY DECREASED STAGE V GFR <15 VERY LITTLE GFR LEFT ESRD GFR <15 ON MANAGER SHAREPOINT 14 Lab Result Notes: Pre-Diabetes 5.7 - [...] LITTLE GFR LEFT ESRD GFR <15 ON MANAGER SHAREPOINT 17 Lab Result Notes: Pre-Diabetes 5.7 - 6.4 % Diabetes = or > 6.5% 18 100-125 mg/dL PRE-DIABET ES/FASTING >126 mg/dL DIABETES/FASTING 19 CHRONIC KIDNEY DISEASE STAGI NG PER NKF STAGE I & II GFR >= 60 NORMAL TO MILDLY DECREASED STAGE III GFR 30-59 MODERATELY DECREASED STAGE IV GFR 15-29 SEVERELY DECREASED STAGE V GFR <15 VERY LITTLE GFR LEFT ESRD GFR <15 ON MANAGER SHAREPOINT Procedures Date Code Description Status 08/20/2021 17283 Office/Outpatient Established Mo d MDM 30-39 Min Completed 07/18/2021 67805 Office/Outpatient Established Mo d MDM 30-39 Min Completed 07/15/2021 41682 Angela Cre SRV W/I 7 Days Of DC, C omm W/I 2 Dys Med Rec Completed 04/24/2021 [id number] Colonoscopy Completed 04/08/2021 18420 Office/Outpatient Established Mo d MDM 30-39 Min Completed 03/04/2021 [id number] Mammogram Completed 08/09/2019 [id number] Mammogram Completed 06/29/2018 [id number] Diabetic Retinal Eye Exam Comple laci 05/03/2018 [id number] Mammogram Completed 02/20/2017 [id number] Mammogram Completed 04/29/2016 [id number] Diabetic Retinal Eye Exam Comple laci 02/26/2016 [id number] Diabetic Retinal Eye Exam Comple laci 12/14/2015 [id number] Mammogram Completed 06/09/2012 [id number] Mammogram Completed 05/16/2008 [id number] Mammogram Completed 10/27/2007 [id number] Colonoscopy Completed Medical Devices Description No Information Available Encounters Type Date Location Provider Dx Diagnosis Office Visit 08/20/2021 1:45p [facility] 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 I63.9 Cerebral infarction, unspeci fied I48.0 [...] w/o ang pctrs Office Visit 07/15/2021 8:00a [facility] PSmith Resendez M.D. I63.9 Cerebral infarction, unspeci fied I48.0 Paroxysmal atrial fibrillati on Z79.01 MCFP (current) use of a nticoagulants D64.9 Anemia, [...] diastolic hrt fail Office Visit 04/08/2021 10:45a [facility] PSmith Resendez M.D. E11.65 Type 2 diabetes mellitus [...] hy perglycemia Gabriella Resendez M.D. 08/20/2021 Z79.4 MCFP (current) use of insul in Gabriella Resendez M.D. 08/20/2021 D50.9 Iron deficiency anemia, unspecif ied Gabriella Resendez M.D. 08/20/2021 N85.00 Endometrial hyperplasia, unspeci fied Gabriella Resendez M.D. 08/20/2021 E78.00 Pure hypercholesterolemia, unspe cified Gabriella Resendez M.D. 08/20/2021 I25.10 Atherosclerotic hear t disease of [place] coronary artery without angina pectoris Gabriella Resendez M.D. 08/20/2021 I48.0 Paroxysmal atrial fibrillation Codi Resendez M.D. 08/20/2021 Z79.01 moth exterminator (current) use of antic oagulants Gabriella Resendez M.D. 08/20/2021 Z23 Encounter for immunization Gabriella Resendez M.D. 08/20/2021 E66.01 Morbid (severe) obesity due to e xcess calories Gabriella Resendez M.D. 07/25/2021 I48.0 Paroxysmal atrial fibrillation Codi Resendez M.D. 07/25/2021 I48.0 Paroxysmal atrial fibrillation L ab Schedule 07/25/2021 Z79.01 MCFP (current) use of antic oagulants Gabriella Resendez M.D. 07/25/2021 Z79.01 MCFP (current) use of antic oagulants Lab Schedule [...] stage 3b Gabriella Resendez M.D. 07/18/2021 Z79.4 moth exterminator (current) use of insul in Gabriella Resendez M.D. 07/18/2021 E11.65 Type 2 diabetes mellitus with hy perglycemia Gabriella Resendez M.D. 07/18/2021 D50.9 Iron deficiency anemia, unspecif ied Gabriella Resendez M.D. 07/18/2021 N85.00 Endometrial hyperplasia, unspeci fied Gabriella Resendez M.D. 07/18/2021 E78.00 Pure hypercholesterolemia, unspe cified Gabriella Resendez M.D. 07/18/2021 I25.10 Atherosclerotic hear t disease of [place] coronary artery without angina pectoris Gabriella Resendez M.D. 07/15/2021 I63.9 Cerebral infarction, unspecified Gabriella Resendez M.D. 07/15/2021 I48.0 Paroxysmal atrial fibrillation Codi Resendez M.D. 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 07/15/2021 D64.9 Anemia, unspecified Gabriella young M.D. 07/15/2021 I25.10 Atherosclerotic hear t disease of [place] coronary artery without angina pectoris Gabriella Resendez [...] 04/08/2021 I25.10 Atherosclerotic hear t disease of [place] coronary artery without angina pectoris Gabriella Resendez M.D. 04/08/2021 E83.42 Hypomagnesemia Gabriella hassan M.D. Plan of Treatment Future Appointment(s):* 10/24/2021 10:45 am - [facility] 08/20/2021 - Gabriella Resendez M.D.* I63.9 Cerebral infarction, unspecified * I50.42 Chronic combined systolic (congestive) and diastolic (congestive) heart failure * N18.32 Chronic kidney disease, stage 3b * E11.65 Type 2 diabetes mellitus with hyperglycemia * Z79.4 MCFP (current) use of insulin * D50.9 Iron deficiency anemia, unspecified * N85.00 Endometrial hyperplasia, unspecified * E78.00 Pure hypercholesterolemia, unspecified * I25.10 Atherosclerotic heart disease of [place] coronary artery without angina pectoris * I48.0 Paroxysmal atrial fibrillation * Z79.01 moth exterminator (current) use of anticoagulants * Z23 Encounter for immunization * E66.01 Morbid (severe) obesity due to excess calories Functional Status Description No Information Available Mental Status Description No Information Available Referrals Refer to Reason for Referral Status Appt Date Gabbie Ny MD CONSULT FOR ABNORMAL PELVIC U/S PT SCHEDULED FOR PELVIC MRI AT [facility] ON 06/03/21 06/06/21- PLEASE MOVE UP APPT SAMANTHA DUE TO ABNORMAL PELVIC MRI- SUSPICIOUS FOR OVARIAN CANCER PLEASE LET OFFICE KNOW. DR RESENDEZ WILL SPEAK WITH DR [place]. Patient Notified 06/10/2021 [facility] [address] [id number] [phone]
--- OUTSIDE RECORDS SUMMARY | 2021-10-03 12:37 | CCD | Continuity of Care Document ---
Author Author Cori Schaefer M.D. Organization Unknown Address [address] [facility] [address] [place] [address] Phone [phone] Care Team Providers Care Operational Trainer Name Role Phone [facility] AUTM Gabriella Schaefer MD AUTM [phone] Gabbie Ny MD AUTM [phone] Deann Perez AUTM Unavailable Keyshawn Ramsey MD AUTM [phone] [facility] F[facility] # [phone] AUTM [phone] [facility] AUTM [phone] Bandar Caro MD AUTM [phone] Gurpreet Delong MD AUTM Unavailable Problems Active Problems Provider Date Coronary arteriosclerosis Gabriella Schaefer M.D. Onset: 06/2011 Benign essential hypertension Gabriella Schaefer M.D. Onset: 06/23/2011 Disorder of nervous system due to diabetes mellitus Gabriella Schaefer M.D. Onset: 06/23/2011 Polyneuropathy due to diabetes mellitus Za Cornejo Onset: 06/23/2011 Vitamin D deficiency Gabriella Schaefer M.D. Onset: 06/23/20 11 Rheumatoid arthritis Gabriella Schaefer M.D. Onset: 06/23/20 11 Pure hypercholesterolemia Gabriella Schaefer M.D. Onset: 06/2011 Essential hypertension Gabriella Schaefer M.D. Onset: 2014 Hypomagnesemia Gabriella Schaefer M.D. Onset: 6 Anterior ischemic optic neuropathy [...] 1 by mouth every day 90caps Gabriella Schaefer M.D. 07/18/20 21 Ferrous Sulfate 324(65Fe) mg Table ts 1 by mouth every other day 45tabs Gabriella Schaefer M.D. 07/18/2021 Rosuvastatin Calcium 10mg Tablets 1 by mouth every day 30tabs Gabriella Schaefer M.D. 07/15/20 21 Furosemide 40mg Tablets 1 by mouth bid 60tabs Gabriella Schaefer M.D. 07/15/2021 Freestyle Lite Test Strips test four times a day and as needed test strips 200units E11.65 Gabriella collazo M.D. 07/15/2021 Aspirin 81 81mg Tablets 1x/d w/ food Gabriella Schaefer M.D. 07/11/2021 Eliquis 5mg Tablets take one tablet by mouth twice a day 60tabs Gabriella Schaefer M.D. 2020 Senna 8.6mg Capsules 2 by mouth every night at bedtime Gabriella Schaefer M.D. 020 Hydroxychloroquine Sulfate 200mg T ablets 1 by mouth qd Gabriella Schaefer M.D. 05/11/20 19 Loratadine 10mg Capsules 1 by mouth every day Gabriella Schaefer M.D. 05/11/20 19 Magnesium 500mg Tablets 2 qd Gabriella Schaefer M.D. 11/15/2018 Carvedilol 25mg Tablets take one tablet by mouth twice a day 180tabs Gabriella Schaefer M.D. 2017 Amoxicillin 500mg Capsules 4 Caps 1 Hour Before Dental Procedure. 4caps Gabriella Schaefer M.D. 05/05/2018 Shingrix 50mcg Suspension Rec administer 0.5 milliliters intramuscular, repeat in 2 to 6 months 2units Gabriella Schaefer M.D. 04/13/2018 Novolin 70/30 (70-30 )100Unit/ML Suspension 50-74 units sq am and check 2 hour postp randial increase by 2 units until 2 hour post prandial < 160 continue 74 units in pm 40units Annie Schaefer M.D. 10/31/2016 Onetouch Verio Strips Test bid And prn 100units E11.65 Gabriella Schaefer M.D. 02/18/2016 Losartan Potassium 50mg Tablets take one tablet by mouth twice a day 180tabs Za Cornejo 03/15/2015 Tramadol HCL 50mg Tablets 2 tabs three times a day as needed pain 180tabs Evan Cornejo 07/13/2014 Acetaminophen 325mg Tablets 2 tabs by mouth tid 180tabs Gabriella Schaefer M.D. 07/13/20 14 Insulin Syringe/1ML/28G X 1/2" 28G X 1/2" 1 ML Misc use as directed 100units 250.00 Gabriella Schaefer M.D. 0 02/15/2014 BD Pen Needle/Mini/Ultrafine/31G X 3/16" 31G X 5 mm Misc 1 po qd 300units Gabriella Schaefer M.D. 03/2013 Metformin HCL 1000mg Tablets Take One Tablet By Mouth Twice A Day 180tabs Za Cornejo 06/17/2011 Levothyroxine Sodium 112mcg Tablet s take one tablet by mouth every day 90tabs Gabriella Schaefer M.D. 02/26/2009 Support Knee-Hi Hose Large as [...] 4 times a day 200units E11.65 Gabriella Schaefer M.D. 07/15/2021 - 07/15/2021 Medications Administered in Office Medication SIG Qnty Indications Ordering Provider Date Administration Of Flu Vaccine Inj pauly Schaefer M.D. 10/01/20 20 Administration Of Flu Vaccine Inj pauly Schaefer M.D. 09/08/20 19 Administration Of Flu Vaccine Inj pauly Schaefer M.D. 09/30/20 18 Administration Of Flu Vaccine Inj pauly Schaefer M.D. 09/24/20 17 Administration Of Flu Vaccine Inj pauly Schaefer M.D. 08/20/20 16 Administration Of Flu Vaccine Inj pauly Schaefer M.D. 10/01/20 15 Administration Of Flu Vaccine Inj pauly Schaefer M.D. 09/05/20 14 Administration Of Flu Vaccine Inj pauly Schaefer M.D. 10/29/20 04 Immunizations CPT Code Status Date Vaccine Lot # [id number] Given 08/20/2021 Influenza Vaccin e Quadrivalent Preser/Antibiotic Free Im Use [id number] 75717 Given 10/01/2020 Influenza Vaccin e Quadrivalent Preser/Antibiotic Free Im Use [id number] 69471 Given 09/08/2019 Influenza Vaccin e Quadrivalent Preser/Antibiotic Free Im Use [id number] 28120 Given 09/30/2018 Influenza Virus Vaccine, Quadrivalent ([id number]), Derived From 1 Given 09/24/2017 Influenza Vaccin e Quadrivalent Preser/Antibiotic Free Im Use [id number] Q2037 Given 08/20/2016 Fluvirin Virus Vaccine 49465 01 Q2037 Given 10/01/2015 Fluvirin Virus Vaccine 70764 01 Q2037 Given 09/05/2014 Fluvirin Virus Vaccine 28966 21 Q2037 Given 09/22/2013 Fluvirin Virus Vaccine Q2037 Given 08/11/2011 Fluvirin Virus Vaccine 61026 Given 08/22/2010 Influenza Virus Vaccine 21963 Given 08/15/2009 Influenza Virus Vaccine 66617 Given 09/07/2008 Influenza Virus Vaccine 18389 Given 11/19/2006 Influenza Virus Vaccine 41519 Given 10/29/2004 Influenza Virus Vaccine Vital Signs [...] H/L Range Note Complete Blood Count 08/20/2021 [facility] Field Representative: Dr Chung Smith [place], [place] [id number] [phone] WBC 10.9 x10*3/UL 4.1 - 10.9 RBC [...] 2.0 - 7.8 Laboratory test finding 08/20/2021 [facility] Field Representative: [place] [address] [phone] Magnesium 2.0 mg/dL 1.8 - 2.4 Basic Metabolic Panel 08/20/2021 [facility] Field Representative: Dr Chung Smith [place], [place] [id number] [phone] Glucose 312 mg/dL High 74 - 99 [...] Low >60 3 Laboratory test finding 08/20/2021 [facility] Field Representative: [place] [address] [phone] Thyroid Stimulating Hormone 1.02 uIU/mL 0.3 6 - 3.74 Laboratory test finding 08/20/2021 [facility] [address] [place] [address] [phone] Digoxin Level 2.2 NG/ML High 0.5-2.0 Complete Blood Count 07/25/2021 [facility] Field Representative: Dr Chung Smith [place], [place] [id number] [phone] WBC 11.2 x10*3/UL High 4.1 - 10.9 [...] 2.0 - 7.8 Basic Metabolic Panel 07/25/2021 [facility] Field Representative: Dr Chung Smith [place], [place] [id number] [phone] Glucose 240 mg/dL High 74 - 99 [...] Low >60 6 Complete Blood Count 07/18/2021 [facility] Field Representative: Dr Chung Smith [place], [place] [id number] [phone] WBC 10.9 x10*3/UL 4.1 - 10.9 7 [...] 2.0 - 7.8 Laboratory test finding 07/18/2021 [facility] Field Representative: [place] [address] [phone] Magnesium 1.7 mg/dL Low 1.8 - 2.4 Basic Metabolic Panel 07/18/2021 [facility] Field Representative: [place] [address] [phone] Glucose 203 mg/dL High 74 - 99 [...] Low >60 9 Complete Blood Count 07/15/2021 [facility] Field Representative: [place] [address] [phone] WBC 13.9 x10*3/UL High 4.1 - 10.9 [...] 2.0 - 7.8 Comprehensive Chem Profile 07/15/2021 [facility] Field Representative: [place] [address] [phone] Glucose 154 mg/dL High 74 - 99 [...] Low >60 13 Laboratory test finding 07/15/2021 [facility] Field Representative: [place] [address] [phone] Magnesium 1.6 mg/dL Low 1.8 - 2.4 A1c 07/15/2021 [facility] Field Representative: [place] [address] [phone] Hba1c 8.9 % High <5.7 14 Est Avg Glucose 209 mg/dL High 60 - 110 Laboratory test finding 07/15/2021 [facility] [address] [place] [address] [phone] Ferritin 33 NG/ML Normal 8-252 Total Iron Binding Capacit 07/15/2021 [facility] [address] [place] [address] [phone] Iron (Fe) 27 g/dL Low 50-170 Total Iron Binding Capacity 394 g/dL Normal 250-450 Percent Saturation 6.9 % Low 13.2-45.0 Laboratory test finding 07/15/2021 [facility] [address] [place] [address] [phone] Digoxin Level 1.2 NG/ML Normal 0.5-2.0 Basic Metabolic Panel 05/13/2021 [facility] Field Representative: Dr Chung Smith [place], [place] [id number] [phone] Glucose 168 mg/dL High 74 - 99 [...] Low >60 16 Laboratory test finding 04/24/2021 [facility] [address] [place] [address] [phone] Bedside Glucose 198 mg/dL High 80-115 Complete Blood Count 04/08/2021 [facility] Field Representative: [place] [address] [phone] WBC 12.4 x10*3/UL High 4.1 - 10.9 [...] x10*3/UL High 2.0 - 7.8 A1c 04/08/2021 [facility] , Field Representative: [place] [address] [phone] Hba1c 8.4 % High <5.7 17 Est Avg Glucose 194 mg/dL High 60 - 110 Laboratory test finding 04/08/2021 [facility], Field Representative: [place] [address] [phone] Magnesium 1.9 mg/dL 1.8 - 2.4 Comprehensive Chem Profile 04/08/2021 [facility] Field Representative: [place] [address] [phone] Glucose 234 mg/dL High 74 - 99 [...] Low >60 19 Laboratory test finding 04/08/2021 [facility], Field Representative: [place] [address] [phone] Thyroid Stimulating Hormone 1.09 uIU/mL 0.3 6 [...] LITTLE GFR LEFT ESRD GFR <15 ON WEB MACHINE TENDER 4 NOTE: CBC VERIFIED 5 100-125 mg/dL PRE-DIABET ES/FASTING >126 mg/dL DIABETES/FASTING 6 CHRONIC KIDNEY DISEASE STAGI NG PER NKF STAGE I & II GFR >= 60 NORMAL TO MILDLY DECREASED STAGE III GFR 30-59 MODERATELY DECREASED STAGE IV GFR 15-29 SEVERELY DECREASED STAGE V GFR <15 VERY LITTLE GFR LEFT ESRD GFR <15 ON WEB MACHINE TENDER 7 NOTE: CBC VERIFIED 8 100-125 mg/dL PRE-DIABET ES/FASTING >126 mg/dL DIABETES/FASTING 9 CHRONIC KIDNEY DISEASE STAGI NG PER NKF STAGE I & II GFR >= 60 NORMAL TO MILDLY DECREASED STAGE III GFR 30-59 MODERATELY DECREASED STAGE IV GFR 15-29 SEVERELY DECREASED STAGE V GFR <15 VERY LITTLE GFR LEFT ESRD GFR <15 ON WEB MACHINE TENDER 10 NOTE: CBC VERIFIED 11 100-125 mg/dL PRE-DIABET ES/FASTING >126 mg/dL DIABETES/FASTING 12 CRITICAL: DR SCHAEFER NOTIFIED NOTE: RESULT VERIFIED. NO VISIBLE HEMOLYSIS. 13 CHRONIC KIDNEY DISEASE STAGI NG PER NKF STAGE I & II GFR >= 60 NORMAL TO MILDLY DECREASED STAGE III GFR 30-59 MODERATELY DECREASED STAGE IV GFR 15-29 SEVERELY DECREASED STAGE V GFR <15 VERY LITTLE GFR LEFT ESRD GFR <15 ON WEB MACHINE TENDER 14 Lab Result Notes: Pre-Diabetes 5.7 - [...] LITTLE GFR LEFT ESRD GFR <15 ON WEB MACHINE TENDER 17 Lab Result Notes: Pre-Diabetes 5.7 - [...] LITTLE GFR LEFT ESRD GFR <15 ON WEB MACHINE TENDER Procedures Date Code Description Status 07/18/2021 59972 Office/Outpatient Established Mo d MDM 30-39 Min Completed 07/15/2021 35976 Angela Cre SRV W/I 7 Days Of DC, C omm W/I 2 Dys Med Rec Completed 04/24/2021 [id number] Colonoscopy Completed 04/08/2021 80932 Office/Outpatient Established Mo d MDM 30-39 Min Completed 03/04/2021 [id number] Mammogram Completed 08/09/2019 [id number] Mammogram Completed 06/29/2018 [id number] Diabetic Retinal Eye Exam Comple laci 05/03/2018 [id number] Mammogram Completed 02/20/2017 [id number] Mammogram Completed 04/29/2016 [id number] Diabetic Retinal Eye Exam Comple laci 02/26/2016 [id number] Diabetic Retinal Eye Exam Comple laci 12/14/2015 [id number] Mammogram Completed 06/09/2012 [id number] Mammogram Completed 05/16/2008 [id number] Mammogram Completed 10/27/2007 [id number] Colonoscopy Completed Medical Devices Description No Information Available Encounters Type Date Location Provider Dx Diagnosis [facility] Visit 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 I63.9 Cerebral infarction, unspeci fied I48.0 Paroxysmal atrial fibrillati on Z79.01 residential (current) use of a nticoagulants D64.9 Anemia, [...] diastolic hrt fail Office Visit 04/08/2021 10:45a [facility] Sarwat Schaefer M.D. E11.65 Type 2 diabetes mellitus wit [...] Provider 08/20/2021 I63.9 Cerebral infarction, unspecified Gabriella Schaefer M.D. 08/20/2021 I50.42 Chronic combined sys tolic (congestive) and diastolic (congestive) heart failure Gabriella Schaefer M.D. 08/20/2021 N18.32 Chronic kidney disease, stage 3b Gabriella Schaefer M.D. 08/20/2021 E11.65 Type 2 diabetes mellitus with hy perglycemia Gabriella Schaefer M.D. 08/20/2021 Z79.4 residential (current) use of insul in Gabriella Schaefer M.D. 08/20/2021 D50.9 Iron deficiency anemia, unspecif ied Gabriella Schaefer M.D. 08/20/2021 N85.00 Endometrial hyperplasia, unspeci fied Gabriella Schaefer M.D. 08/20/2021 E78.00 Pure hypercholesterolemia, unspe cified Gabriella Schaefer M.D. 08/20/2021 I25.10 Atherosclerotic hear t disease of [place] coronary artery without angina pectoris Gabriella Schaefer M.D. 08/20/2021 I48.0 Paroxysmal atrial fibrillation Codi Schaefer M.D. 08/20/2021 Z79.01 supervisor intermediates (current) use of antic oagulants Gabriella Schaefer M.D. 08/20/2021 E66.01 Morbid (severe) obesity due to e xcess calories Gabriella Schaefer M.D. 07/25/2021 I48.0 Paroxysmal atrial fibrillation Codi Schaefer M.D. 07/25/2021 I48.0 Paroxysmal atrial fibrillation L ab Schedule 07/25/2021 Z79.01 residential (current) use of antic oagulants Gabriella Schaefer M.D. 07/25/2021 Z79.01 supervisor intermediates (current) use of antic oagulants Lab Schedule 07/25/2021 E87.5 Hyperkalemia Gabriella hassan M.D. 07/25/2021 E87.5 Hyperkalemia Lab Schedule 07/18/2021 I63.9 Cerebral infarction, unspecified Gabriella Schaefer M.D. 07/18/2021 I48.0 Paroxysmal atrial fibrillation Codi Schaefer M.D. 07/18/2021 Z79.01 residential (current) use of antic oagulants Gabriella Schaefer M.D. 07/18/2021 E87.5 Hyperkalemia Gabriella hassan M.D. 07/18/2021 I50.42 Chronic combined sys tolic (congestive) and diastolic (congestive) heart failure Gabriella Schaefer M.D. 07/18/2021 N18.32 Chronic kidney disease, stage 3b Gabriella Schaefer M.D. 07/18/2021 Z79.4 residential (current) use of insul in Gabriella Schaefer M.D. 07/18/2021 E11.65 Type 2 diabetes mellitus with hy perglycemia Gabriella Schaefer M.D. 07/18/2021 D50.9 Iron deficiency anemia, unspecif ied Gabriella Schaefer M.D. 07/18/2021 N85.00 Endometrial hyperplasia, unspeci fied Gabriella Schaefer M.D. 07/18/2021 E78.00 Pure hypercholesterolemia, unspe cified Gabriella Schaefer M.D. 07/18/2021 I25.10 Atherosclerotic hear t disease of [place] coronary artery without angina pectoris Gabriella Schaefer M.D. 07/15/2021 I63.9 Cerebral infarction, unspecified Gabriella Schaefer M.D. 07/15/2021 I48.0 Paroxysmal atrial fibrillation J catrachito Schaefer M.D. 07/15/2021 Z79.01 supervisor intermediates (current) use of antic oagulants Gabriella Schaefer M.D. 07/15/2021 D64.9 Anemia, unspecified Gabriella young M.D. 07/15/2021 I25.10 Atherosclerotic hear t disease of [place] coronary artery without angina pectoris Gabriella Schaefer M.D. 07/15/2021 E78.00 Pure hypercholesterolemia, unspe cimallory Schaefer M.D. 07/15/2021 E11.65 Type 2 diabetes mellitus with hy perglycemia Gabriella Schaefer M.D. 07/15/2021 E11.22 Type 2 diabetes mellitus with di abetic chronic kidney disease Gabriella Schaefer M.D. 07/15/2021 E87.5 Hyperkalemia Gabriella hassan M.D. 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 07/15/2021 Z68.42 Body mass index [BMI] 45.0-49.9, adult Gabriella Schaefer M.D. 07/15/2021 E66.01 Morbid (severe) obesity due to e xcess calories Gabriella Schaefer M.D. 07/15/2021 I50.42 Chronic combined sys tolic (congestive) and diastolic (congestive) heart failure Gabriella Schaefer M.D. 05/13/2021 Z01.812 Encounter for preprocedural labo ratory examination Gabriella Schaefer M.D. 05/13/2021 Z01.812 Encounter for preprocedural labo ratory examination Lab Schedule 05/13/2021 R93.5 Abnormal findings on diagnostic imaging of other abdominal regions, including retroperitoneum Gabriella Schaefer M.D. 05/13/2021 R93.5 Abnormal findings on diagnostic imaging of other abdominal regions, including retroperitoneum Lab Schedule 04/08/2021 E11.65 Type 2 diabetes mellitus with hy perglycemia Gabriella Schaefer M.D. 04/08/2021 I12.9 Hypertensive chronic kidney disease with stage 1 through stage 4 chronic kidney disease, or unspecified chronic kidney disease Gabriella Schaefer M.D. 04/08/2021 N18.32 Chronic kidney disease, stage 3b Gabriella Schaefer M.D. 04/08/2021 D50.9 Iron deficiency anemia, unspecif ied Gabriella Schaefer M.D. 04/08/2021 N95.0 Postmenopausal bleeding Gabriella Schaefer M.D. 04/08/2021 I87.2 Venous insufficiency (chronic) ( peripheral) Gabriella Schaefer M.D. 04/08/2021 M06.4 Inflammatory polyarthropathy Sarwat Schaefer M.D. 04/08/2021 E78.00 Pure hypercholesterolemia, unspe cified Gabriella Schaefer M.D. 04/08/2021 E03.9 Hypothyroidism, unspecified Annie Schaefer M.D. 04/08/2021 I48.0 Paroxysmal atrial fibrillation Codi Schaefer M.D. 04/08/2021 I25.10 Atherosclerotic hear t disease of [place] coronary artery without angina pectoris Gabriella Schaefer M.D. 04/08/2021 E83.42 Hypomagnesemia Gabriella hassan M.D. Plan of Treatment Future Appointment(s):* 10/24/2021 10:45 am - Gabriella Schaefer M.D. at [facility] 08/20/2021 - Gabriella Schaefer M.D.* I63.9 Cerebral infarction, unspecified * I50.42 Chronic combined systolic (congestive) and diastolic (congestive) heart failure * N18.32 Chronic kidney disease, stage 3b * E11.65 Type 2 diabetes mellitus with hyperglycemia * Z79.4 supervisor intermediates (current) use of insulin * D50.9 Iron deficiency anemia, unspecified * N85.00 Endometrial hyperplasia, unspecified * E78.00 Pure hypercholesterolemia, unspecified * I25.10 Atherosclerotic heart disease of [place] coronary artery without angina pectoris * I48.0 Paroxysmal atrial fibrillation * Z79.01 residential (current) use of anticoagulants * E66.01 Morbid (severe) obesity due to excess calories Functional Status Description No Information Available Mental Status Description No Information Available Referrals Refer to Reason for Referral Status Appt Date Gabbie Ny MD CONSULT FOR ABNORMAL PELVIC U/S PT SCHEDULED FOR PELVIC MRI AT [facility] ON 06/03/21 06/06/21- PLEASE MOVE UP APPT SAMANTHA DUE TO ABNORMAL PELVIC MRI- SUSPICIOUS FOR OVARIAN CANCER PLEASE LET OFFICE KNOW. DR SCHAEFER WILL SPEAK WITH DR [place]. Patient Notified 06/10/2021 [facility] [address], [place] [address] [phone]
--- OUTSIDE RECORDS SUMMARY | 2021-10-03 12:37 | CCD | Continuity of Care Document ---
Author Author Cori [facility] Organization Unknown Address [address] [place] [address], [place] [address] Phone [phone] Care Team Providers Care Mechanical Research Engineer Name Role Phone Gabriella Schaefer MD AUTM [phone] Leanne Lyon RN ANP AUTM [phone] Nuvia Guzman RNC ANP AUTM [phone] Gabbie Carrasco MD AUTM [phone] Problems Active Problems Provider Date Coronary arteriosclerosis EARNESTINE Kaur Onset: 01/09/2012 Chronic diastolic heart failure EARNESTINE Kaur Onset: 01/09/2012 Benign hypertensive heart disease with congestive hear t failure EARNESTINE Kaur Onset: 01/09/2012 Aortic valve disorder EARNESTINE Kaur Onset: Transplantation of heart valve Deann Mak PA-C Onset: 0 06/26/2014 Electrocardiogram abnormal EARNESTINE Kaur Onset : 01/09/2012 Right bundle branch block EARNESTINE Kaur Onset: 01/09/2012 Pure hypercholesterolemia EARNESTINE Kaur Onset: 01/09/2012 Obesity Deann Mak PA-C Onset: 06/26/2014 Obstructive sleep apnea syndrome Deann Mak PA-C Onset: 06/26/2014 Patient post percutaneous transluminal coronary angiop lasty Deann Mak PA-C Onset: 06/26/2014 Disorder of pericardium Deann Mak PA-C Onset: 12/28/19 15 Dietary management surveillance Deann Mak PA-C Onset: 06/26/2017 Chronic atrial fibrillation Deann Mak PA-C Onset: 02/14 Mitral valve disorder Deann Mak PA-C Onset: 03/01/2019 Permanent atrial fibrillation Deann Mak PA-C Onset: Paroxysmal atrial fibrillation Deann Mak PA-C Onset: 0 05/10/2020 Hypertensive heart disease with congestive heart failure Frances Mak PA-C Onset: 05/10/2020 Ascending aorta dilatation Deann Mak PA-C Onset: 11/01 Social History Type Date [...] insufficiency Exercise Limitations Vision Impairment Left eye Allergies, Adverse Reactions, Alerts Description No Known Drug Allergies Medications Active [...] by mouth twice every day Nuvia Guzman, RNC ANP 016 Novolog Mix 70/30 (7 0-30)100Unit/ML [...] Result H/L Range Note Complete Blood Count 07/25/2021 N2N/Direct CCD Impo rt WBC 11.2 x10*3/UL High 4.1-10.9 1 RBC 4.03 x10*6/UL Low 4.20-6.30 Hemoglobin 10.9 [...] 0.1-0.6 Neut # 8.5 x10*3/UL High 2.0-7.8 Complete Blood Count 07/18/2021 N2N/Direct CCD Impo rt WBC 10.9 x10*3/UL 4.1-10.9 2 RBC 3.91 x10*6/UL Low 4.20-6.30 Hemoglobin 10.3 [...] 8.1 x10*3/UL High 2.0-7.8 Laboratory test finding 07/18/2021 N2N/Direct CCD [place] Magnesium 1.7 mg/dL Low 1.8-2.4 Basic Metabolic Panel 07/18/2021 N2N/Direct CCD Imp ort Glucose 203 mg/dL High 74-99 3 BUN 26 mg/dL High 7-18 Creatinine 1.6 mg/dL High 0.6-1.3 Sodium 141 mEq/L 136-145 Potassium 5.0 mEq/L 3.5-5.1 Chloride 103 mEq/L 98-107 Carbon Dioxide 33 mEq/L High 21-32 Calcium 9.4 mg/dL 8.5-10.1 GFR 32 mL/min Low GFR 39 mL/min Low 4 Laboratory test finding 07/15/2021 N2N/Direct CCD [place] Digoxin Level 1.2 ng/mL 0.5-2.0 A1c 07/15/2021 N2N/Direct CCD Impor t Hba1c 8.9 % High 5 Est Avg Glucose 209 mg/dL High 60-110 Laboratory test finding 07/15/2021 N2N/Direct CCD [place] Magnesium 1.6 mg/dL Low 1.8-2.4 Comprehensive Chem Profile 07/15/2021 N2N/Direct CC D Import Glucose 154 mg/dL High 74-99 6 BUN 23 mg/dL High 7-18 Creatinine 1.4 mg/dL High 0.6-1.3 Sodium 140 mEq/L 136-145 Potassium 6.3 mEq/L Critical high 3.5-5.1 7 Chloride 106 mEq/L 98-107 Carbon Dioxide 25 mEq/L 21-32 Calcium 8.9 mg/dL 8.5-10.1 Alk. Phosphatase 93 mg/dL 46-116 Total Bilirubin 0.4 mg/dL 0.2-1.0 Ast (Sgot) 9 U/L Low 15-37 Alt (SGPT) 21 U/L 12-78 Albumin 3.4 g/dL 3.4-5.0 Total Protein 6.1 g/dL Low 6.4-8.2 A/G Ratio 1.26 CALC 1.00-1.90 GFR 38 mL/min Low GFR 46 mL/min Low 8 Complete Blood Count 07/15/2021 N2N/Direct CCD Impo rt WBC 13.9 x10*3/UL High 4.1-10.9 9 RBC 3.69 x10*6/UL Low 4.20-6.30 Hemoglobin 9.9 [...] (315)- - Thyroid Stimulating Hormone 1.09 1 NOTE: CBC VERIFIED 2 NOTE: CBC VERIFIED 3 100-125 mg/dL PRE-DIABET ES/FASTING >126 mg/dL DIABETES/FASTING 4 CHRONIC KIDNEY DISEASE STAGI NG PER NKF STAGE I & II GFR >= 60 NORMAL TO MILDLY DECREASED STAGE III GFR 30-59 MODERATELY DECREASED STAGE IV GFR 15-29 SEVERELY DECREASED STAGE V GFR <15 VERY LITTLE GFR LEFT ESRD GFR <15 ON TASSEL MAKER 5 Lab Result Notes: Pre-Diabetes 5.7 - 6.4 % Diabetes = or > 6.5% 6 100-125 mg/dL PRE-DIABET ES/FASTING >126 mg/dL DIABETES/FASTING 7 CRITICAL: DR SCHAEFER NOTIFIED NOTE: RESULT VERIFIED. NO VISIBLE HEMOLYSIS. 8 CHRONIC KIDNEY DISEASE STAGI NG PER NKF STAGE I & II GFR >= 60 NORMAL TO MILDLY DECREASED STAGE III GFR 30-59 MODERATELY DECREASED STAGE IV GFR 15-29 SEVERELY DECREASED STAGE V GFR <15 VERY LITTLE GFR LEFT ESRD GFR <15 ON TASSEL MAKER 9 NOTE: CBC VERIFIED Procedures Date Code Description Status 08/07/2021 08001 Office/Outpatient Established Lo w MDM 20-29 Min Completed 07/24/2021 03536 Echocardiogram 2-D Doppler Color Completed 05/02/2021 60261 Office/Outpatient Established Mo d MDM 30-39 Min Completed 05/02/2021 09748 ECG 12-Lead Completed Medical Devices Description No Information Available Encounters Type Date Location Provider Dx Diagnosis Office Visit 08/07/2021 8:00a Main Office Deann Mak PA-C I50.3 2 Chronic diastolic (congestive) heart failure I42.8 Other cardiomyopathies I48.0 Paroxysmal atrial fibrillati on G47.33 Obstructive sleep apnea (denis lt) (pediatric) Office Visit 05/02/2021 1:00p Main Office Deann Mak PA-C I25.1 0 Athscl heart disease of [place] coronary artery w/o ang pctrs Z95.5 Presence [...] I50.32 Chronic diastolic (congestive) h eart failure Deann Mak, PA-C 08/07/2021 I42.8 Other cardiomyopathies Deann thompson, PA-C 08/07/2021 I48.0 Paroxysmal atrial fibrillation K ate E Patriciaw, PA-C 08/07/2021 G47.33 Obstructive sleep apnea (adult) (pediatric) Deann Gomezw, PA-C 07/24/2021 I42.8 Other cardiomyopathies ECHO 05/02/2021 I25.10 Atherosclerotic heart disease of [place] coronary artery with Deann Gomezw, PA-C 05/02/2021 Z95.5 Presence of coronary angioplasty implant and graft Deann Mak, PA-C 05/02/2021 I50.32 Chronic diastolic (congestive) h eart failure Deann Gomezw, PA-C 05/02/2021 I11.0 Hypertensive heart disease with heart failure Deann Gomezw, PA-C 05/02/2021 I48.0 Paroxysmal atrial fibrillation K ate Judith Gomezw, PA-C 05/02/2021 I35.0 Nonrheumatic aortic (valve) sten osis Deann Gomezw, PA-C 05/02/2021 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 Deann Gomezw, PA-C 05/02/2021 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 Deann Gomezw, PA-C 05/02/2021 I77.810 Thoracic aortic ectasia Deann Wong S ymenow, PA-C 05/02/2021 R94.31 Abnormal electrocardiogram [ECG] [EKG] Deann E Patriciaw, PA-C 05/02/2021 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
--- OUTSIDE RECORDS SUMMARY | 2021-10-03 12:37 | CCD | Continuity of Care Document ---
Author Organization Unknown Address Unknown Phone Unavailable Care Team Providers Care Councilman Name Role Phone Gabriella Schaefer MD AUTM [phone] Leanne Lyon RN ANP AUTM [phone] Nuvia Guzman RNC ANP AUTM [phone] Gabbie Carrasco MD AUTM [phone] Problems Active Problems Provider Date Coronary arteriosclerosis EARNESTINE Kaur Onset: 01/09/2012 Chronic diastolic heart failure EARNESTINE Kaur Onset: 01/09/2012 Benign hypertensive heart disease with congestive hear t failure EARNESTINE Kaur Onset: 01/09/2012 Aortic valve disorder EARNESTINE Kaur Onset: Transplantation of heart valve Deann Perez PA-C Onset: 0 06/26/2014 Electrocardiogram abnormal EARNESTINE Karu Onset : 01/09/2012 Right bundle branch block [...] Perez PA-C Onset: 02/14 Mitral valve disorder RICHARD ArreolaC Onset: 03/01/2019 Permanent atrial fibrillation RICHARD ArreolaC Onset: Paroxysmal atrial fibrillation RICHARD ArreolaC Onset: 0 05/10/2020 Hypertensive heart disease with congestive heart failure Frances Perez PA-C Onset: 05/10/2020 Ascending aorta dilatation Deann Perez PA-C Onset: 11/01 Social History Type Date Description Comments Sex Unknown Tobacco Use Start: Unknown Never Smoked Cigarettes exposed to secondhand smoke all her life ETOH Use Does not consume alcohol Tobacco Use Start: Unknown Patient has never smoked Smoking Status Reviewed: 05/02/21 Patient has never smoked Exercise Type/Frequency Does housework sporadica lly Exercise Limitations Joint Pain RA & OA Exercise Limitations Orthopedic Problem left leg pain due to venous insufficiency Exercise Limitations Vision Impairment Left eye Allergies, Adverse Reactions, Alerts Description No Known Drug Allergies Medications Active Medications SIG Qnty Indications Ordering Provide r Date Senna Plus 8.6-50mg Tablets 1 by mouth twice a day as needed Unknown 05/09/2020 Iron 325(65Fe) mg Tablets 1 by mouth every day Unknown 05/09/2020 Folic Acid 400mcg Tablets 1 by mouth every day Unknown 05/09/2020 Magnesium 500mg Tablets 1 by mouth tid Unknown 09/01/2019 Plaquenil 200mg Tablets 1 by mouth twice a day Unknown 09/01/2019 Carvedilol 25mg Tablets 1 by mouth twice a day Gabriella Schaefer MD 11/19/2018 Digoxin 250mcg Tablets 1 by mouth every day 90tabs I48.0 Wood Bailey MD 09/16/2018 Chlorthalidone 25mg Tablets 1/2 by mouth every day Gabriella Schaefer MD 03/14/2018 Voltaren 1% Gel apply as d irected daily Unknown 06/25/2017 Losartan Potassium 50mg Tablets 1 by mouth [...] 1 po bid Gabriella Schaefer MD 11/05/2010 Simvastatin 20mg Tablets Take 1 Tablet By Mouth Once Daily 90tabs Wood Bailey MD 05/10/2010 Spironolactone 25mg Tablets 1 tab by mouth daily 90tabs Wood Bailey MD 12/20/2009 Nitrostat 0.4mg Tablets Sub place 1 tablet under the tongue every 5 minutes up to 3 doses as needed for chest pain 25tabs I25.10 Gurpreet Delong MD 12/20/2009 I25.118 Levothroid 112mcg Tablets 1 p o daily Gabriella Schaefer MD 11/28/[address] 1 by mouth every day I48.2 Unknown I25.10 Immunizations Description No Information Available Vital Signs Date Vital Result Comment 05/02/2021 1:09pm Weight 245.00 lb Height 63 inches 5'3" BMI (Body Mass Index) 43.4 kg/m2 Heart Rate 76 /min Irregular Respiratory Rate 16 /min BP Systolic Right Arm 136 mmHg sitting, large cuf f BP Diastolic Right Arm 88 mmHg sitting, large cu ff BP Systolic Left Arm 136 mmHg sitting BP Diastolic Left Arm 86 mmHg sitting 11/01/2020 9:42am Weight 245.00 lb Height 63 inches 5'3" BMI (Body Mass Index) 43.4 kg/m2 Heart Rate 76 /min Regular Respiratory Rate 16 /min BP Systolic Right Arm 136 mmHg sitting, large cuf f BP Diastolic Right Arm 80 mmHg sitting, large cu ff BP Systolic Left Arm 136 mmHg sitting BP Diastolic Left Arm 84 mmHg sitting Results Test Acquired Date Facility [...] LITTLE GFR LEFT ESRD GFR <15 ON CORE LAYING MACHINE OPERATOR 5 Lab Result Notes: Pre-Diabetes 5.7 - [...] LITTLE GFR LEFT ESRD GFR <15 ON CORE LAYING MACHINE OPERATOR 9 NOTE: CBC VERIFIED Procedures Date Code Description Status 07/24/2021 27808 Echocardiogram 2-D Doppler Color Completed 05/02/2021 00146 Office/Outpatient Established Mo d MDM 30-39 Min Completed 05/02/2021 60720 ECG 12-Lead Completed Medical Devices Description No Information Available Encounters Type Date Location Provider Dx Diagnosis Office Visit 05/02/2021 1:00p Main Office Deann Perez PA-C I25.1 0 Athscl heart disease of [place] coronary artery w/o ang pctrs Z95.5 Presence [...] surve illance Assessments Date Code Description Provider 07/24/2021 I42.8 Other cardiomyopathies ECHO 05/02/2021 I25.10 Atherosclerotic heart disease of [place] coronary artery with Deann Perez PA-C 05/02/2021 Z95.5 Presence of coronary angioplasty implant and graft Deann Perez PA-C 05/02/2021 I50.32 Chronic diastolic (congestive) h eart failure Deann Perez PA-C 05/02/2021 I11.0 Hypertensive heart disease with heart failure Deann Perez PA-C 05/02/2021 I48.0 Paroxysmal atrial fibrillation K ate E RICHARD PerezC 05/02/2021 I35.0 Nonrheumatic aortic (valve) sten osis DeannERIN Randle-C 05/02/2021 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 Deann Judith Perez PA-C 05/02/2021 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 DeannERIN Randle-C 05/02/2021 I77.810 Thoracic aortic ectasia Deann Judith Lopez titocy PA-C 05/02/2021 R94.31 Abnormal electrocardiogram [ECG] [EKG] RICHARD ArreolaC 05/02/2021 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 RICHARD CarusoC 05/02/2021 E78.00 Pure hypercholesterolemia, unspe cified ERIN Arreola-C 05/02/2021 G47.33 Obstructive sleep apnea (adult) (pediatric) RICHARD ArreolaC 05/02/2021 Z71.3 Dietary counseling and surveilla nce Deann Perez PA-C Plan of Treatment Future Appointment(s):* 08/07/2021 8:00 am - Deann Perez PA-C at Main Office * 11/04/2021 1:00 pm - Deann Perez PA-C at Main Office 05/02/2021 - Deann Perez PA-C* I25.10 Atherosclerotic heart disease of [place] coronary artery with* Recommendations:* Discuss SGLT-2 inhibitor (Jardiance or Farxiga) with your PCP at your next appointment, as these medications have been shown to reduce cardiovascular risk in patients with coronary artery disease and diabetes. * Z95.5 Presence of coronary angioplasty implant and graft * I50.32 Chronic diastolic (congestive) heart failure* Recommendations:* Follow a 2 grams sodium diet and 50 ounces fluid restriction per 24 hour and do daily weights. Call the office for weight gain of 3 lbs or more. * I11.0 Hypertensive heart disease with heart failure * I48.0 Paroxysmal atrial fibrillation * I35.0 Nonrheumatic aortic (valve) stenosis * Z95.3 Presence of xenogenic heart valve* Recommendations:* You require antibiotics prior to any dental work and some surgical procedures. * 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 * I77.810 Thoracic aortic ectasia * R94.31 Abnormal electrocardiogram [ECG] [EKG] * I45.0 Right fascicular block * E78.00 Pure hypercholesterolemia, unspecified * G47.33 Obstructive sleep apnea (adult) (pediatric) * Z71.3 Dietary counseling and surveillance* Recommendations:* Follow a low fat/low cholesterol diet and do as much aerobic exercise as you can tolerate. * All * Follow up:* 6 month follow up. Request last lipids from PCP. Functional Status Functional Condition Comment Date Status Independent with all ADL's Activ e Mental Status Description No Information Available Referrals Description No Information Available
--- OUTSIDE RECORDS SUMMARY | 2021-10-03 12:37 | CCD | Continuity of Care Document ---
Author Author Cori Schaefer M.D. Organization Unknown Address [address] [facility] [address] [place] [address] Phone [phone] Care Team Providers Care Forensics Team Director Name Role Phone [facility] AUTM [phone] Gabriella Schaefer MD AUTM [phone] Gabbie Ny MD AUTM [phone] Deann Perez AUTM Unavailable Keyshawn Ramsey MD AUTM [phone] [facility] Fax # AUTM [phone] [facility] AUTM [phone] [facility] AUTM [phone] Bandar Caro MD AUTM [phone] Gurpreet Delong MD AUTM Unavailable Problems Active [...] and as needed test strips 200units E11.65 Gabirella collazo M.D. 07/15/2021 Aspirin 81 81mg Tablets 1x/d w/ food Gabriella Schaeefr M.D. 07/11/2021 Eliquis 5mg Tablets take one [...] CPT Code Status Date Vaccine Lot # 13052 Given 08/20/2021 Influenza Vaccin e Quadrivalent Preser/Antibiotic Free Im Use [id number] 91395 Given 10/01/2020 Influenza Vaccin e Quadrivalent Preser/Antibiotic Free Im Use 523109 07903 Given 09/08/2019 Influenza Vaccin e Quadrivalent Preser/Antibiotic Free Im Use 236853 28340 Given 09/30/2018 Influenza Virus Vaccine, Quadrivalent ([id number]), Derived From 8 Given 09/24/2017 Influenza Vaccin e Quadrivalent Preser/Antibiotic Free Im Use [id number] Q2037 Given 08/20/2016 Fluvirin Virus Vaccine 07100 01 Q2037 Given 10/01/2015 Fluvirin Virus Vaccine 54627 01 Q2037 Given 09/05/2014 Fluvirin Virus Vaccine 46555 21 Q2037 Given 09/22/2013 Fluvirin Virus Vaccine Q2037 Given 08/11/2011 Fluvirin Virus Vaccine 88573 Given 08/22/2010 Influenza Virus Vaccine 54494 Given 08/15/2009 Influenza Virus Vaccine 49026 Given 09/07/2008 Influenza Virus Vaccine 09792 Given 11/19/2006 Influenza Virus Vaccine 23811 Given 10/29/2004 Influenza Virus Vaccine Vital Signs [...] H/L Range Note Complete Blood Count 08/20/2021 [facility] [employer]amer: Dr Chung Smith [place], [place] [id number] [phone] WBC 10.9 x10*3/UL 4.1 - 10.9 RBC [...] 2.0 - 7.8 Laboratory test finding 08/20/2021 [facility] [facility] [employer] Framer: Dr Chung Smith [place], [place] [id number] [phone] Magnesium 2.0 mg/dL 1.8 - 2.4 Basic Metabolic Panel 08/20/2021 [facility] [employer] Framer: Dr Chung Smith [place], [place] [id number] [phone] Glucose 312 mg/dL High 74 - 99 [...] Low >60 3 Laboratory test finding 08/20/2021 [place] [facility] Metal Stud Framer: [place] [address] [phone] Thyroid Stimulating Hormone 1.02 uIU/mL 0.3 6 - 3.74 Laboratory test finding 08/20/2021 [facility] [address] [id number] [phone] Digoxin Level <pending> Complete Blood Count 07/25/2021 [facility] [employer] Framer: [place] [address] [phone] WBC 11.2 x10*3/UL High 4.1 - 10.9 [...] 2.0 - 7.8 Basic Metabolic Panel 07/25/2021 [facility] [employer] Framer: Dr Chung Smith [place], [place] [id number] [phone] Glucose 240 mg/dL High 74 - 99 [...] Low >60 6 Complete Blood Count 07/18/2021 [facility] [employer] Framer: [place] [address] [phone] WBC 10.9 x10*3/UL 4.1 - 10.9 7 [...] 2.0 - 7.8 Laboratory test finding 07/18/2021 [facility] [facility] Metal Stud Framer: [place] [address] [phone] Magnesium 1.7 mg/dL Low 1.8 - 2.4 Basic Metabolic Panel 07/18/2021 [facility] Metal Stud Framer: [place] [address] [phone] Glucose 203 mg/dL High 74 - 99 [...] Low >60 9 Complete Blood Count 07/15/2021 [facility] [employer]amer: Dr [place]ung [place], [place] [id number] [phone] WBC 13.9 x10*3/UL High 4.1 - 10.9 [...] 2.0 - 7.8 Comprehensive Chem Profile 07/15/2021 [place] [facility] [employer] Framer: Dr Chung Smith [place], [place] [id number] [phone] Glucose 154 mg/dL High 74 - 99 [...] Low >60 13 Laboratory test finding 07/15/2021 [place] [facility] [employer] Framer: Dr Chung Smith [place], [place] [id number] [phone] Magnesium 1.6 mg/dL Low 1.8 - 2.4 A1c 07/15/2021 [facility] Metal Stud Framer: [place] [address] [phone] Hba1c 8.9 % High <5.7 14 Est Avg Glucose 209 mg/dL High 60 - 110 Laboratory test finding 07/15/[address] [address] [phone] Ferritin 33 NG/ML Normal 8-252 Total Iron Binding Capacit 07/15/[address] [address] [phone] Iron (Fe) 27 g/dL Low 50-170 Total Iron Binding Capacity 394 g/dL Normal 250-450 Percent Saturation 6.9 % Low 13.2-45.0 Laboratory test finding 07/15/[address] [place] [address] [phone] Digoxin Level 1.2 NG/ML Normal 0.5-2.0 Basic Metabolic Panel 05/13/2021 [facility] [employer] Framer: Dr Chung Smith [place] [id number] [phone] Glucose 168 mg/dL High 74 - 99 [...] Low >60 16 Laboratory test finding 04/24/2021 [address] [place] [address] [phone] Bedside Glucose 198 mg/dL High 80-115 Complete Blood Count 04/08/2021 [facility] [employer] Framer: [place] [address] [phone] WBC 12.4 x10*3/UL High 4.1 - 10.9 [...] x10*3/UL High 2.0 - 7.8 A1c 04/08/2021 [facility] Metal Stud Framer: [place] [address] [phone] Hba1c 8.4 % High <5.7 17 Est Avg Glucose 194 mg/dL High 60 - 110 Laboratory test finding 04/08/2021 [facility], Metal Stud Framer: [place] [address] [phone] Magnesium 1.9 mg/dL 1.8 - 2.4 Comprehensive Chem Profile 04/08/2021 [facility] [employer] Stud Framer: [place] [address] [phone] Glucose 234 mg/dL High 74 - 99 [...] Low >60 19 Laboratory test finding 04/08/2021 [facility], Metal Stud Framer: [place] [address] [phone] Thyroid Stimulating Hormone 1.09 uIU/mL 0.3 6 [...] LITTLE GFR LEFT ESRD GFR <15 ON COSMETIC MAKER 4 NOTE: CBC VERIFIED 5 100-125 mg/dL PRE-DIABET ES/FASTING >126 mg/dL DIABETES/FASTING 6 CHRONIC KIDNEY DISEASE STAGI NG PER NKF STAGE I & II GFR >= 60 NORMAL TO MILDLY DECREASED STAGE III GFR 30-59 MODERATELY DECREASED STAGE IV GFR 15-29 SEVERELY DECREASED STAGE V GFR <15 VERY LITTLE GFR LEFT ESRD GFR <15 ON COSMETIC MAKER 7 NOTE: CBC VERIFIED 8 100-125 mg/dL PRE-DIABET ES/FASTING >126 mg/dL DIABETES/FASTING 9 CHRONIC KIDNEY DISEASE STAGI NG PER NKF STAGE I & II GFR >= 60 NORMAL TO MILDLY DECREASED STAGE III GFR 30-59 MODERATELY DECREASED STAGE IV GFR 15-29 SEVERELY DECREASED STAGE V GFR <15 VERY LITTLE GFR LEFT ESRD GFR <15 ON COSMETIC MAKER 10 NOTE: CBC VERIFIED 11 100-125 mg/dL [...] LITTLE GFR LEFT ESRD GFR <15 ON COSMETIC MAKER 14 Lab Result Notes: Pre-Diabetes 5.7 - [...] LITTLE GFR LEFT ESRD GFR <15 ON COSMETIC MAKER 17 Lab Result Notes: Pre-Diabetes 5.7 - [...] LITTLE GFR LEFT ESRD GFR <15 ON COSMETIC MAKER Procedures Date Code Description Status 07/18/2021 82585 Office/Outpatient Established Mo d MDM 30-39 Min Completed 07/15/2021 96266 Angela Cre SRV W/I 7 Days Of DC, C omm W/I 2 Dys Med Rec Completed 04/24/2021 [id number] Colonoscopy Completed 04/08/2021 53417 Office/Outpatient Established Mo d MDM 30-39 Min Completed 03/04/2021 [id number] Mammogram Completed 08/09/2019 [id number] Mammogram Completed 06/29/2018 [id number] Diabetic Retinal Eye Exam Comple laci 05/03/2018 [id number] Mammogram Completed 02/20/2017 [id number] Mammogram Completed 04/29/2016 [id number] Diabetic Retinal Eye Exam Comple laci 02/26/2016 [id number] Diabetic Retinal Eye Exam Comple laci 12/14/2015 [id number] Mammogram Completed 06/09/2012 [id number] Mammogram Completed 05/16/2008 [id number] Mammogram Completed 10/27/2007 [id number] Colonoscopy Completed Medical Devices Description No Information Available Encounters Type Date Location Provider Dx Diagnosis Office Visit 07[facility] 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 Sarwat Schaefer M.D. E11.65 Type [...] Provider 07/25/2021 I48.0 Paroxysmal atrial fibrillation Codi Schaefer M.D. 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 07/25/2021 Z79.01 anthropology faculty member (current) use of antic oagulants Lab Schedule 07/25/2021 E87.5 Hyperkalemia Gabriella hassan M.D. 07/25/2021 E87.5 Hyperkalemia Lab Schedule 07/18/2021 I63.9 Cerebral infarction, unspecified Gabriella Schaefer M.D. 07/18/2021 I48.0 Paroxysmal atrial fibrillation Codi Schaefer M.D. 07/18/2021 Z79.01 alf (current) use of antic oagulants Gabriella Schaefer M.D. 07/18/2021 E87.5 Hyperkalemia Gabriella hassan M.D. 07/18/2021 I50.42 Chronic combined sys tolic (congestive) and diastolic (congestive) heart failure Gabriella Schaefer M.D. 07/18/2021 N18.32 Chronic kidney disease, stage 3b Gabriella Schaefer M.D. 07/18/2021 Z79.4 anthropology faculty member (current) use of insul in Gabriella Schaefer M.D. 07/18/2021 E11.65 Type 2 diabetes mellitus with hy perglycemia Gabriella Schaefer M.D. 07/18/2021 D50.9 Iron deficiency anemia, unspecif ied Gabriella Schaefer M.D. 07/18/2021 N85.00 Endometrial hyperplasia, unspeci fied Gabriella Schaefer M.D. 07/18/2021 E78.00 Pure hypercholesterolemia, unspe cimallory Schaefer M.D. 07/18/2021 I25.10 Atherosclerotic hear t disease of [place] coronary artery without angina pectoris Gabriella Schaefer M.D. 07/15/2021 I63.9 Cerebral infarction, unspecified Gabriella Schaefer M.D. 07/15/2021 I48.0 Paroxysmal atrial fibrillation J catrachito Schaefer M.D. 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 07/15/2021 D64.9 Anemia, unspecified Gabriella young M.D. 07/15/2021 I25.10 Atherosclerotic hear t disease of [place] coronary artery without angina pectoris Gabriella Schaefer M.D. 07/15/2021 E78.00 Pure hypercholesterolemia, unspe cified Gabriella Schaefer M.D. 07/15/2021 E11.65 Type 2 diabetes [...] 04/08/2021 I25.10 Atherosclerotic hear t disease of [place] coronary artery without angina pectoris Gabriella Schaefer M.D. 04/08/2021 E83.42 Hypomagnesemia Gabriella hassan M.D. Plan of Treatment Future Appointment(s):* 10/24/2021 10:45 am - [facility] 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 * E87.5 Hyperkalemia * I50.42 Chronic combined systolic (congestive) and diastolic (congestive) heart failure * N18.32 Chronic kidney disease, stage 3b * Z79.4 anthropology faculty member (current) use of insulin * E11.65 Type 2 diabetes mellitus with hyperglycemia * D50.9 Iron deficiency anemia, unspecified * N85.00 Endometrial hyperplasia, unspecified * E78.00 Pure hypercholesterolemia, unspecified * I25.10 Atherosclerotic heart disease of [place] coronary artery without angina pectoris * All [...] U/S PT SCHEDULED FOR PELVIC MRI AT [facility] ON 06/03/21 06/06/21- PLEASE MOVE UP APPT SAMANTHA DUE TO ABNORMAL PELVIC MRI- SUSPICIOUS FOR OVARIAN CANCER PLEASE LET OFFICE KNOW. DR SCHAEFER WILL SPEAK WITH DR [place]. Patient Notified 06/10/2021 [facility] [address] [place], [place] [address] [phone]
--- OUTSIDE RECORDS SUMMARY | 2021-10-03 12:38 | CCD | Continuity of Care Document ---
Author Organization Unknown Address Unknown Phone Unavailable Care Team Providers Care Student Advisor Name Role Phone Gabriella Schaefer MD AUTM [phone] Leanne Lyon RN ANP AUTM [phone] Nuvia Guzman RNC ANP AUTM [phone] Gabbie Carrasco MD AUTM [phone] Problems Active Problems Provider Date Coronary arteriosclerosis [...] LITTLE GFR LEFT ESRD GFR <15 ON DIRECTOR OF LABOR AND DELIVERY 5 Lab Result Notes: Pre-Diabetes 5.7 - [...] LITTLE GFR LEFT ESRD GFR <15 ON DIRECTOR OF LABOR AND DELIVERY 9 NOTE: CBC VERIFIED Procedures Date Code Description Status 07/24/2021 92117 Echocardiogram 2-D Doppler Color Completed 05/02/2021 57909 Office/Outpatient Established Mo d MDM 30-39 Min Completed 05/02/2021 14251 ECG 12-Lead Completed Medical Devices Description No Information Available Encounters Type Date Location Provider Dx Diagnosis Office Visit 05/02/2021 1:00p Main Office Deann Perez PA-C I25.1 0 Athscl heart disease of [place] coronary artery w/o ang pctrs Z95.5 Presence [...] ECHO 05/02/2021 I25.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
--- OUTSIDE RECORDS SUMMARY | 2021-10-03 12:38 | CCD | Continuity of Care Document ---
Author Author Lab Schedule, Cori Latia Organization Unknown Address [address] [address] Phone Unavailable Care Team Providers Care Shooter Helper Name Role Phone [facility] AUTM [phone] Gabriella Resendez MD AUTM [phone] Gabbie Ny MD AUTM [phone] Deann Perez AUTM Unavailable Keyshawn Ramsey MD AUTM [phone] [facility] - Med Recs Fax # [phone] AUTM [phone] [facility] AUTM [phone] Bandar Caro MD AUTM [phone] Problems Active Problems Provider Date Coronary arteriosclerosis [...] Use Start: Unknown Patient has never smoked Allergies, Adverse Reactions, Alerts Description No Known [...] Resendez M.D. 03/2013 Metformin HCL 1000mg Tablets take one tablet by mouth twice a day 180tabs Za Cornejo 06/17/2011 Levothyroxine Sodium 112mcg Tablet s take one tablet by mouth every day 90tabs Gabriella Resendez M.D. 02/26/2009 Support Peter Suarez as directed jose 459.81 2Pair Gabriella johns M.D. 10/17/2008 Digoxin [...] CPT Code Status Date Vaccine Lot # 57552 Given 10/01/2020 Influenza Vaccin e Quadrivalent Preser/Antibiotic Free Im Use [id number] 46817 Given 09/08/2019 Influenza Vaccin e Quadrivalent Preser/Antibiotic Free Im Use [id number] 69690 Given 09/30/2018 Influenza Virus Vaccine, Quadrivalent ([id number]), Derived From 4 Given 09/24/2017 Influenza Vaccin e Quadrivalent Preser/Antibiotic Free Im Use 510379 Q2037 Given 08/20/2016 Fluvirin Virus Vaccine 12016 01 Q2037 Given 10/01/2015 Fluvirin Virus Vaccine 19512 01 Q2037 Given 09/05/2014 Fluvirin Virus Vaccine 86600 21 Q2037 Given 09/22/2013 Fluvirin Virus Vaccine Q2037 Given 08/11/2011 Fluvirin Virus Vaccine 13997 Given 08/22/2010 Influenza Virus Vaccine 29023 Given 08/15/2009 Influenza Virus Vaccine 59622 Given 09/07/2008 Influenza Virus Vaccine 02527 Given 11/19/2006 Influenza Virus Vaccine 39283 Given 10/29/2004 Influenza Virus Vaccine Vital Signs Date Vital Result Comment 07/18/2021 9:02am BP Systolic 116 mmHg RT Arm BP Diastolic 64 mmHg RT Arm Heart Rate 52 /min Height 63 inches 5'3" Weight 244.25 lb O2 Saturation Level with Exercise 89 % RM Air BMI (Body Mass Index) 43.3 kg/m2 07/15/2021 8:03am BP Systolic 142 mmHg RT Arm BP Diastolic 70 mmHg RT Arm Heart Rate 64 /min Height 63 inches 5'3" Weight 257.38 lb O2 Saturation Level with Exercise 97 % RM Air BMI (Body Mass Index) 45.6 kg/m2 Results Test Acquired Date Facility Test Result H/L Range Note Basic Metabolic Panel 07/25/2021 [facility] Fluid Dynamicist: [place] [address] [phone] Glucose 240 mg/dL High 74 - 99 1 BUN 30 mg/dL High 7 - 18 Creatinine 1.5 mg/dL High 0.6 - 1.3 Sodium 141 mEq/L 136 - 145 Potassium 4.7 mEq/L 3.5 - 5.1 Chloride 100 mEq/L 98 - 107 Carbon Dioxide 35 mEq/L High 21 - 32 Calcium 9.1 mg/dL 8.5 - 10.1 GFR 35 mL/min Low >60 GFR 42 mL/min Low >60 2 Complete Blood Count 07/25/2021 [facility] Fluid Dynamicist: [place] [address] [phone] WBC 11.2 x10*3/UL High 4.1 - 10.9 3 RBC 4.03 x10*6/UL Low 4.20 - 6.30 [...] # 8.5 x10*3/UL High 2.0 - 7.8 Complete Blood Count 07/18/2021 [facility] Fluid Dynamicist: [place] [address] [phone] WBC 10.9 x10*3/UL 4.1 - 10.9 4 [...] 2.0 - 7.8 Laboratory test finding 07/18/2021 [facility] Fluid Dynamicist: [place] [address] [phone] Magnesium 1.7 mg/dL Low 1.8 - 2.4 Basic Metabolic Panel 07/18/2021 [facility] Fluid Dynamicist: [place] [address] [phone] Glucose 203 mg/dL High 74 - 99 [...] >60 GFR 39 mL/min Low >60 6 Laboratory test finding 07/15/2021 [facility] [address] [place], [place] [id number] [phone] Ferritin <pending> Comprehensive Chem Profile 07/15/2021 [facility] Fluid Dynamicist: [place] [address] [phone] Glucose 154 mg/dL High 74 - 99 7 BUN 23 mg/dL High 7 - 18 Creatinine 1.4 mg/dL High 0.6 - 1.3 Sodium 140 mEq/L 136 - 145 Potassium 6.3 mEq/L Critical high 3.5 - 5.1 8 Chloride 106 mEq/L 98 - 107 Carbon [...] Low >60 GFR 46 mL/min Low >60 9 Laboratory test finding 07/15/2021 [facility] Fluid Dynamicist: [place] [address] [phone] Magnesium 1.6 mg/dL Low 1.8 - 2.4 A1c 07/15/2021 [facility] Fluid Dynamicist: [place] [address] [phone] Hba1c 8.9 % High <5.7 10 Est Avg Glucose 209 mg/dL High 60 - 110 Complete Blood Count 07/15/2021 [facility] Fluid Dynamicist: [place] [address] [phone] WBC 13.9 x10*3/UL High 4.1 - 10.9 11 RBC 3.69 x10*6/UL Low 4.20 - 6.30 [...] # 11.0 x10*3/UL High 2.0 - 7.8 Laboratory test finding 07/15/[address] [address] [phone] Ferritin 33 NG/ML Normal 8-252 Total Iron Binding Capacit 07/15/[address] [address] [phone] Iron (Fe) 27 g/dL Low 50-170 Total Iron Binding Capacity 394 g/dL Normal 250-450 Percent Saturation 6.9 % Low 13.2-45.0 Laboratory test finding 07/15/[address] [address] [phone] Digoxin Level 1.2 NG/ML Normal 0.5-2.0 Basic Metabolic Panel 05/13/2021 [facility] Fluid Dynamicist: [place] [address] [phone] Glucose 168 mg/dL High 74 - 99 [...] Low >60 13 Laboratory test finding 04/24/2021 [facility] [address] [id number] [phone] Bedside Glucose 198 mg/dL High 80-115 Complete Blood Count 04/08/2021 [facility] Fluid Dynamicist: [place] [address] [phone] WBC 12.4 x10*3/UL High 4.1 - 10.9 [...] x10*3/UL High 2.0 - 7.8 A1c 04/08/2021 [facility] Fluid Dynamicist: [place] [address] [phone] Hba1c 8.4 % High <5.7 14 Est Avg Glucose 194 mg/dL High 60 - 110 Laboratory test finding 04/08/2021 [facility] Fluid Dynamicist: [place] [address] [phone] Magnesium 1.9 mg/dL 1.8 - 2.4 Comprehensive Chem Profile 04/08/2021 [facility] Fluid Dynamicist: Dr Chung Smith [place], [place] [id number] [phone] Glucose 234 mg/dL High 74 - 99 [...] Low >60 16 Laboratory test finding 04/08/2021 [facility] Fluid Dynamicist: Dr Chung [place], [place] [id number] [phone] Thyroid Stimulating Hormone 1.09 uIU/mL 0.3 6 - 3.74 1 100-125 mg/dL PRE-DIABET ES/FASTING >126 mg/dL DIABETES/FASTING 2 CHRONIC KIDNEY DISEASE STAGI NG PER NKF STAGE I & II GFR >= 60 NORMAL TO MILDLY DECREASED STAGE III GFR 30-59 MODERATELY DECREASED STAGE IV GFR 15-29 SEVERELY DECREASED STAGE V GFR <15 VERY LITTLE GFR LEFT ESRD GFR <15 ON COMPLIANCE ENGINEER PRODUCTS 3 NOTE: CBC VERIFIED 4 NOTE: CBC VERIFIED 5 100-125 mg/dL PRE-DIABET ES/FASTING >126 mg/dL DIABETES/FASTING 6 CHRONIC KIDNEY DISEASE STAGI NG PER NKF STAGE I & II GFR >= 60 NORMAL TO MILDLY DECREASED STAGE III GFR 30-59 MODERATELY DECREASED STAGE IV GFR 15-29 SEVERELY DECREASED STAGE V GFR <15 VERY LITTLE GFR LEFT ESRD GFR <15 ON COMPLIANCE ENGINEER [employer]ODUCTS 7 100-125 mg/dL PRE-DIABET ES/FASTING >126 mg/dL DIABETES/FASTING 8 CRITICAL: DR RESENDEZ NOTIFIED NOTE: RESULT VERIFIED. NO VISIBLE HEMOLYSIS. 9 CHRONIC KIDNEY DISEASE STAGI NG PER NKF STAGE I & II GFR >= 60 NORMAL TO MILDLY DECREASED STAGE III GFR 30-59 MODERATELY DECREASED STAGE IV GFR 15-29 SEVERELY DECREASED STAGE V GFR <15 VERY LITTLE GFR LEFT ESRD GFR <15 ON COMPLIANCE ENGINEER [employer]ODU[employer] 10 Lab Result Notes: Pre-Diabetes 5.7 - 6.4 % Diabetes = or > 6.5% 11 NOTE: CBC VERIFIED 12 100-125 mg/dL PRE-DIABET ES/FASTING >126 mg/dL DIABETES/FASTING 13 CHRONIC KIDNEY DISEASE STAGI NG PER NKF STAGE I & II GFR >= 60 NORMAL TO MILDLY DECREASED STAGE III GFR 30-59 MODERATELY DECREASED STAGE IV GFR 15-29 SEVERELY DECREASED STAGE V GFR <15 VERY LITTLE GFR LEFT ESRD GFR <15 ON COMPLIANCE ENGINEER [employer]ODU[employer] 14 Lab Result Notes: Pre-Diabetes 5.7 - [...] LITTLE GFR LEFT ESRD GFR <15 ON COMPLIANCE ENGINEER [employer] Procedures Date Code Description Status 07/18/2021 27746 Office/Outpatient Established Mo d MDM 30-39 Min Completed 07/15/2021 47887 Angela Cre SRV W/I 7 Days Of DC, C omm W/I 2 Dys Med Rec Completed 04/24/2021 [id number] Colonoscopy Completed 04/08/2021 43763 Office/Outpatient Established Mo d MDM 30-39 Min Completed 03/04/2021 [id number] Mammogram Completed 08/09/2019 [id number] Mammogram Completed 06/29/2018 [id number] Diabetic Retinal Eye Exam Comple [facility] 05/03/2018 [id number] Mammogram Completed 02/20/2017 [id number] Mammogram Completed 04/29/2016 [id number] Diabetic Retinal Eye Exam Comple [facility] 02/26/2016 [id number] Diabetic Retinal Eye Exam Comple [facility] 12/14/2015 [id number] Mammogram Completed 06/09/2012 [id number] Mammogram Completed 05/16/2008 [id number] Mammogram Completed 10/27/2007 [id number] Colonoscopy Completed Medical Devices Description No Information Available Encounters Type Date Location Provider Dx Diagnosis Office Visit 07/18/2021 9:00a [facility] 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 I63.9 Cerebral infarction, unspeci fied I48.0 Paroxysmal atrial fibrillati on Z79.01 nursing home (current) use of a nticoagulants D64.9 Anemia, [...] diastolic hrt fail Office Visit 04/08/2021 10:45a [facility] M.[facility] E11.65 Type 2 diabetes mellitus wit [...] E83.42 Hypomagnesemia Assessments Date Code Description Provider 07/18/2021 I63.9 Cerebral infarction, unspecified Gabriella Resendez M.D. 07/18/2021 I48.0 Paroxysmal atrial fibrillation J catrachito Resendez M.D. 07/18/2021 Z79.01 nursing home (current) use of antic oagulants Gabriella Resendez M.D. 07/18/2021 E87.5 Hyperkalemia Gabriella hassan M.D. 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 07/18/2021 N18.32 Chronic kidney disease, stage 3b Gabriella Resendez M.D. 07/18/2021 Z79.4 computer terminal operator (current) use of insul in Gabriella Resendez M.D. 07/18/2021 E11.65 Type 2 diabetes mellitus with hy perglycemia Gabriella Resendez M.D. 07/18/2021 D50.9 Iron deficiency anemia, unspecif ied Gabriella Resendez M.D. 07/18/2021 N85.00 Endometrial hyperplasia, unspeci fied Gabriella Resendez M.D. 07/18/2021 E78.00 Pure hypercholesterolemia, unspe cified Gabriella Resendez M.D. 07/18/2021 I25.10 Atherosclerotic hear t disease of [place] coronary artery without angina pectoris Gabriella Resendez M.D. 07/15/2021 I63.9 Cerebral infarction, unspecified Gabriella Resendez M.D. 07/15/2021 I48.0 Paroxysmal atrial fibrillation J catrachito Resendez M.D. 07/15/2021 Z79.01 nursing home (current) use of antic oagulants Gabriella Resendez M.D. 07/15/2021 D64.9 Anemia, unspecified Gabriella young M.D. 07/15/2021 I25.10 Atherosclerotic hear t disease of [place] coronary artery without angina pectoris Gabriella Resendez [...] 04/08/2021 I25.10 Atherosclerotic hear t disease of [place] coronary artery without angina pectoris Gabriella Resendez M.D. 04/08/2021 E83.42 Hypomagnesemia Gabriella hassan M.D. Plan of Treatment Future Appointment(s):* 08/20/2021 1:45 pm - Gabriella Resendez M.D. at [facility] 07/18/2021 - Gabriella Resendez M.D.* I63.9 Cerebral infarction, unspecified * I48.0 Paroxysmal atrial fibrillation * Z79.01 nursing home (current) use of anticoagulants * E87.5 Hyperkalemia * I50.42 Chronic combined systolic (congestive) and diastolic (congestive) heart failure * N18.32 Chronic kidney disease, stage 3b * Z79.4 nursing home (current) use of insulin * E11.65 Type 2 diabetes mellitus with hyperglycemia * D50.9 Iron deficiency anemia, unspecified * N85.00 Endometrial hyperplasia, unspecified * E78.00 Pure hypercholesterolemia, unspecified * I25.10 Atherosclerotic heart disease of [place] coronary artery without angina pectoris * All [...] U/S PT SCHEDULED FOR PELVIC MRI AT [facility] ON 06/03/21 06/06/21- PLEASE MOVE UP APPT SAMANTHA DUE TO ABNORMAL PELVIC MRI- SUSPICIOUS FOR OVARIAN CANCER PLEASE LET OFFICE KNOW. DR RESENDEZ WILL SPEAK WITH DR [place]. Patient Notified 06/10/2021 [facility] [address] [place], [place] [address] [phone] Keyshawn Ramsey MD CONSULT FOR SCREENING COLONOSCOPY Patien t Notified 04/09/[address] [place] [address] [phone]
--- OUTSIDE RECORDS SUMMARY | 2021-10-03 12:38 | CCD | Continuity of Care Document ---
Author Author Cori JOHNSON Organization Unknown Address [address] [place] [address], [facility] [place] [address] Phone [phone] Care Team Providers Care Commercial Real Estate Sales Manager Name Role Phone Gabriella Schaefer MD AUTM [phone] Bay Small MD AUTM [phone] Leanne Lyon RN ANP AUTM [phone] Nuvia Guzman RNC ANP AUTM [phone] Gabbie Carrasco MD AUTM [phone] Problems Active Problems Provider Date Coronary arteriosclerosis [...] hypercholesterolemia EARNESTINE Kaur Onset: 01/09/2012 Obesity Deann Perez PA-C Onset: 06/26/2014 Obstructive sleep apnea syndrome Deann Perez PA-C Onset: 06/26/2014 Patient post percutaneous transluminal coronary angiop lasty Deann Perez PA-C Onset: 06/26/2014 Disorder of pericardium Deann Perez PA-C Onset: 12/28/19 15 Dietary management surveillance Deann Perez PA-C Onset: 06/26/2017 Chronic atrial fibrillation Deann Perez [...] by mouth twice every day Nuvia Guzman, MARGARET ANP 016 Novolog Mix 70/30 (7 0-30)100Unit/ML [...] Result H/L Range Note Laboratory test finding 07/15/2021 N2N/Direct CCD [place] Digoxin Level 1.2 ng/mL 0.5-2.0 A1c 07/15/2021 N2N/Direct CCD Impor t Hba1c 8.9 % High 1 Est Avg Glucose 209 mg/dL High 60-110 Laboratory test finding 07/15/2021 N2N/Direct [facility] [place] [facility] Magnesium 1.6 mg/dL Low 1.8-2.4 Comprehensive Chem Profile 07/15/2021 N2N/Direct CC D Import Glucose 154 mg/dL High 74-99 2 BUN 23 mg/dL High 7-18 Creatinine 1.4 mg/dL High 0.6-1.3 Sodium 140 mEq/L 136-145 Potassium 6.3 mEq/L Critical high 3.5-5.1 3 Chloride 106 mEq/L 98-107 Carbon Dioxide 25 mEq/L 21-32 Calcium 8.9 mg/dL 8.5-10.1 Alk. Phosphatase 93 mg/dL 46-116 Total Bilirubin 0.4 mg/dL 0.2-1.0 Ast (Sgot) 9 U/L Low 15-37 Alt (SGPT) 21 U/L 12-78 Albumin 3.4 g/dL 3.4-5.0 Total Protein 6.1 g/dL Low 6.4-8.2 A/G Ratio 1.26 CALC 1.00-1.90 GFR 38 mL/min Low GFR 46 mL/min Low 4 Complete Blood Count 07/15/2021 N2N/Direct CCD Impo rt WBC 13.9 x10*3/UL High 4.1-10.9 5 RBC 3.69 x10*6/UL Low 4.20-6.30 Hemoglobin 9.9 [...] (315)- - Thyroid Stimulating Hormone 1.09 1 Lab Result Notes: Pre-Diabetes 5.7 - 6.4 % Diabetes = or > 6.5% 2 100-125 mg/dL PRE-DIABET ES/FASTING >126 mg/dL DIABETES/FASTING 3 CRITICAL: DR SCHAEFER NOTIFIED NOTE: RESULT VERIFIED. NO VISIBLE HEMOLYSIS. 4 CHRONIC KIDNEY DISEASE STAGI NG PER NKF STAGE I & II GFR >= 60 NORMAL TO MILDLY DECREASED STAGE III GFR 30-59 MODERATELY DECREASED STAGE IV GFR 15-29 SEVERELY DECREASED STAGE V GFR <15 VERY LITTLE GFR LEFT ESRD GFR <15 ON WREATH MAKER 5 NOTE: CBC VERIFIED Procedures Date Code Description Status 05/02/2021 62590 Office/Outpatient Established Mo d MDM 30-39 Min Completed 05/02/2021 67395 ECG 12-Lead Completed Medical Devices Description No Information Available Encounters Type Date Location Provider Dx Diagnosis Office Visit 05/02/2021 1:00p Main Office Deann Perez PA-C I25.1 0 Athscl heart disease of [place] coronary artery w/o ang pctrs Z95.5 Presence [...] surve illance Assessments Date Code Description Provider 05/02/2021 I25.10 Atherosclerotic heart disease of [place] coronary artery with Deann Perez, PA-C 05/02/2021 Z95.5 Presence of coronary angioplasty implant and graft Deann Perez, PA-C 05/02/2021 I50.32 Chronic diastolic (congestive) h eart failure Deann Perez, PA-C 05/02/2021 I11.0 Hypertensive heart disease with heart failure Deann Perez, PA-C 05/02/2021 I48.0 Paroxysmal atrial fibrillation K ate Judith Perez, PA-C 05/02/2021 I35.0 Nonrheumatic aortic (valve) sten osis Deann Perez, PA-C 05/02/2021 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 Deann Perez, PA-C 05/02/2021 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 Deann E Symelainew, PA-C 05/02/2021 I77.810 Thoracic aortic ectasia Deann Wong S ymcy, PA-C 05/02/2021 R94.31 Abnormal electrocardiogram [ECG] [EKG] Deann Perez, PA-C 05/02/2021 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
--- OUTSIDE RECORDS SUMMARY | 2021-10-03 12:38 | CCD | Continuity of Care Document ---
Author Author Cori Resendez M.D. Organization Unknown Address [address] [facility] [address] [place] [address] Phone [phone] Care Team Providers Care Hazardous Materials Waste Technician Name Role Phone [facility] AUTM Gabriella Resendez MD AUTM [phone] Gabbie Ny MD AUTM [phone] Deann Perez AUTM Unavailable Keyshawn Ramsey MD AUTM [phone] CoryYuliya Nd - Med Recs Fax # [facility] AUTM [phone] [facility] AUTM [phone] Bandar Caro MD AUTM [phone] Problems Active Problems Provider Date Coronary arteriosclerosis [...] 21 Ferrous Sulfate 324(65Fe) mg Table ts DR [...] Gabriella Resendez M.D. 02/26/2009 Support Knee-Hi Joaquin Suarez as directed dg 459.81 2Pair Gabriella johns [...] CPT Code Status Date Vaccine Lot # [id number] Given 10/01/2020 Influenza Vaccin e Quadrivalent Preser/Antibiotic Free Im Use [id number] 66138 Given 09/08/2019 Influenza Vaccin e Quadrivalent Preser/Antibiotic Free Im Use 054683 51050 Given 09/30/2018 Influenza Virus Vaccine, Quadrivalent ([id number]), Derived From 9 Given 09/24/2017 Influenza Vaccin e Quadrivalent Preser/Antibiotic Free Im Use 333659 Q2037 Given 08/20/2016 Fluvirin Virus Vaccine 89565 01 Q2037 Given 10/01/2015 Fluvirin Virus Vaccine 75130 01 Q2037 Given 09/05/2014 Fluvirin Virus Vaccine 07811 21 Q2037 Given 09/22/2013 Fluvirin Virus Vaccine Q2037 Given 08/11/2011 Fluvirin Virus Vaccine 78015 Given 08/22/2010 Influenza Virus Vaccine 50032 Given 08/15/2009 Influenza Virus Vaccine 92241 Given 09/07/2008 Influenza Virus Vaccine 43918 Given 11/19/2006 Influenza Virus Vaccine 11636 Given 10/29/2004 Influenza Virus Vaccine Vital Signs [...] Result H/L Range Note Laboratory test finding 07/18/2021 [facility] Full Charge Bookkeeper: [place] [address] [phone] Magnesium 1.7 mg/dL Low 1.8 - 2.4 Basic Metabolic Panel 07/18/2021 [facility] Full Charge Bookkeeper: [place] [address] [phone] Glucose 203 mg/dL High 74 - 99 1 BUN 26 mg/dL High 7 - 18 Creatinine 1.6 mg/dL High 0.6 - 1.3 Sodium 141 mEq/L 136 - 145 Potassium 5.0 mEq/L 3.5 - 5.1 Chloride 103 mEq/L 98 - 107 Carbon Dioxide 33 mEq/L High 21 - 32 Calcium 9.4 mg/dL 8.5 - 10.1 GFR 32 mL/min Low >60 GFR 39 mL/min Low >60 2 Complete Blood Count 07/18/2021 [facility] Full Charge Bookkeeper: [place] [address] [phone] WBC 10.9 x10*3/UL 4.1 - 10.9 3 RBC 3.91 x10*6/UL Low 4.20 - 6.30 [...] 2.0 - 7.8 Laboratory test finding 07/15/2021 [facility] [address] [id number] [phone] Ferritin <pending> Comprehensive Chem Profile 07/15/2021 [facility] Full Charge Bookkeeper: [place] [address] [phone] Glucose 154 mg/dL High 74 - 99 4 BUN 23 mg/dL High 7 - 18 Creatinine 1.4 mg/dL High 0.6 - 1.3 Sodium 140 mEq/L 136 - 145 Potassium 6.3 mEq/L Critical high 3.5 - 5.1 5 Chloride 106 mEq/L 98 - 107 Carbon [...] Low >60 GFR 46 mL/min Low >60 6 Laboratory test finding 07/15/2021 [facility] Full Charge Bookkeeper: [place] [address] [phone] Magnesium 1.6 mg/dL Low 1.8 - 2.4 A1c 07/15/2021 [facility] Full Charge Bookkeeper: [place] [address] [phone] Hba1c 8.9 % High <5.7 7 Est Avg Glucose 209 mg/dL High 60 - 110 Complete Blood Count 07/15/2021 [facility] Full Charge Bookkeeper: [place] [address] [phone] WBC 13.9 x10*3/UL High 4.1 - 10.9 8 RBC 3.69 x10*6/UL Low 4.20 - 6.30 [...] - 7.8 Laboratory test finding 07/15/[address] [address] [phone] Ferritin 33 NG/ML Normal 8-252 Total Iron Binding Capacit 07/15/[address] [address] [phone] Iron (Fe) 27 g/dL Low 50-170 Total Iron Binding Capacity 394 g/dL Normal 250-450 Percent Saturation 6.9 % Low 13.2-45.0 Laboratory test finding 07/15/[address] [place], [place] [address] [phone] Digoxin Level 1.2 NG/ML Normal 0.5-2.0 Basic Metabolic Panel 05/13/2021 [facility] Full Charge Bookkeeper: Dr Chung Smith [address] [id number] [phone] Glucose 168 mg/dL High 74 - 99 9 BUN 20 mg/dL High 7 - 18 Creatinine 1.2 mg/dL 0.6 - 1.3 Sodium 140 mEq/L 136 - 145 Potassium 5.0 mEq/L 3.5 - 5.1 Chloride 102 mEq/L 98 - 107 Carbon Dioxide 28 mEq/L 21 - 32 Calcium 9.0 mg/dL 8.5 - 10.1 GFR 45 mL/min Low >60 GFR 55 mL/min Low >60 10 Laboratory test finding 04/24/2021 [address] [place] [address] [phone] Bedside Glucose 198 mg/dL High 80-115 Complete Blood Count 04/08/2021 [facility] Full Charge Bookkeeper: [place] [address] [phone] WBC 12.4 x10*3/UL High 4.1 - 10.9 [...] x10*3/UL High 2.0 - 7.8 A1c 04/08/2021 [facility] Full Charge Bookkeeper: [place] [address] [phone] Hba1c 8.4 % High <5.7 11 Est Avg Glucose 194 mg/dL High 60 - 110 Laboratory test finding 04/08/2021 [facility] Full Charge Bookkeeper: [place] [address] [phone] Magnesium 1.9 mg/dL 1.8 - 2.4 Comprehensive Chem Profile 04/08/2021 [facility] Full Charge Bookkeeper: [place] [address] [phone] Glucose 234 mg/dL High 74 - 99 12 BUN [...] Low >60 GFR 50 mL/min Low >60 13 Laboratory test finding 04/08/2021 [facility] Full Charge Bookkeeper: [place] [address] [phone] Thyroid Stimulating Hormone 1.09 uIU/mL 0.3 6 - 3.74 1 100-125 mg/dL PRE-DIABET ES/FASTING >126 mg/dL DIABETES/FASTING 2 CHRONIC KIDNEY DISEASE STAGI NG PER NKF STAGE I & II GFR >= 60 NORMAL TO MILDLY DECREASED STAGE III GFR 30-59 MODERATELY DECREASED STAGE IV GFR 15-29 SEVERELY DECREASED STAGE V GFR <15 VERY LITTLE GFR LEFT ESRD GFR <15 ON CENTER [employer]LE REAMER 3 NOTE: CBC VERIFIED 4 100-125 mg/dL PRE-DIABET ES/FASTING >126 mg/dL DIABETES/FASTING 5 CRITICAL: DR RESENDEZ NOTIFIED NOTE: RESULT VERIFIED. NO VISIBLE HEMOLYSIS. 6 CHRONIC KIDNEY DISEASE STAGI NG PER NKF STAGE I & II GFR >= 60 NORMAL TO MILDLY DECREASED STAGE III GFR 30-59 MODERATELY DECREASED STAGE IV GFR 15-29 SEVERELY DECREASED STAGE V GFR <15 VERY LITTLE GFR LEFT ESRD GFR <15 ON CENTER HOLE REAMER 7 Lab Result Notes: Pre-Diabetes 5.7 - 6.4 % Diabetes = or > 6.5% 8 NOTE: CBC VERIFIED 9 100-125 mg/dL PRE-DIABET ES/FASTING >126 mg/dL DIABETES/FASTING 10 CHRONIC KIDNEY DISEASE STAGI NG PER NKF STAGE I & II GFR >= 60 NORMAL TO MILDLY DECREASED STAGE III GFR 30-59 MODERATELY DECREASED STAGE IV GFR 15-29 SEVERELY DECREASED STAGE V GFR <15 VERY LITTLE GFR LEFT ESRD GFR <15 ON C[facility]AMER 11 Lab Result Notes: Pre-Diabetes 5.7 - [...] LITTLE GFR LEFT ESRD GFR <15 ON CENTER [employer] REAMER Procedures Date Code Description Status 07/18/2021 29690 Office/Outpatient Established Mo d MDM 30-39 Min Completed 07/15/2021 31327 Angela Cre SRV W/I 7 Days Of DC, C omm W/I 2 Dys Med Rec Completed 04/24/2021 [id number] Colonoscopy Completed 04/08/2021 29338 Office/Outpatient Established Mo d MDM 30-39 Min Completed 03/04/2021 [id number] Mammogram Completed 08/09/2019 [id number] Mammogram Completed 06/29/2018 [id number] Diabetic Retinal Eye Exam Comple [facility] 05/03/2018 [id number] Mammogram Completed 02/20/2017 [id number] Mammogram Completed 04/29/2016 [id number] Diabetic Retinal Eye Exam Comple [facility] 02/26/2016 [id number] Diabetic Retinal Eye Exam Comple [facility] 12/14/2015 [id number] Mammogram Completed 06/09/2012 [id number] Mammogram Completed 05/16/2008 [id number] Mammogram Completed 10/27/2007 [id number] Colonoscopy Completed Medical Devices Description No Information Available Encounters Type Date Location Provider Dx Diagnosis Office Visit 07/18/2021 9:00a [place] [facility] M.[facility] 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 I63.9 Cerebral infarction, unspeci fied [...] diastolic hrt fail Office Visit 04/08/2021 10:45a [place] [facility] M.D. E11.65 Type 2 diabetes [...] fibrillation J catrachito Resendez M.D. 07/18/2021 Z79.01 skilled nursing (current) use of antic oagulants Gabriella Resendez M.D. 07/18/2021 E87.5 Hyperkalemia Gabriella hassan M.D. 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 07/18/2021 N18.32 Chronic kidney disease, stage 3b Gabriella Resendez M.D. 07/18/2021 Z79.4 intermediate project manager (current) use of insul in Gabriella Resendez M.D. 07/18/2021 E11.65 Type 2 diabetes mellitus with hy perglycemia Gabriella Resendez M.D. 07/18/2021 D50.9 Iron deficiency anemia, unspecif ied Gabriella Resendez M.D. 07/18/2021 N85.00 Endometrial hyperplasia, unspeci fied Gabriella Resendez M.D. 07/18/2021 E78.00 Pure hypercholesterolemia, unspe cified Gabriella Resendez M.D. 07/18/2021 I25.10 Atherosclerotic hear t disease of [place] coronary artery without angina pectoris Gabriella Resendez M.D. 07/15/2021 I63.9 Cerebral infarction, unspecified Gabriella Resendez M.D. 07/15/2021 I48.0 Paroxysmal atrial fibrillation J catrachito Resendez M.D. 07/15/2021 Z79.01 intermediate project manager (current) use of antic oagulants Gabriella Resendez M.D. 07/15/2021 D64.9 Anemia, unspecified Gabriella young M.D. 07/15/2021 I25.10 Atherosclerotic hear t disease of [place] coronary artery without angina pectoris Gabriella Resendez [...] 04/08/2021 I25.10 Atherosclerotic hear t disease of [place] coronary artery without angina pectoris Gabriella Resendez M.D. 04/08/2021 E83.42 Hypomagnesemia Gabriella hassan M.D. Plan of Treatment Future Appointment(s):* 08/20/2021 1:45 pm - Gabriella Resendez M.D. at [facility] 07/18/2021 - Gabriella Resendez M.D.* I63.9 Cerebral infarction, unspecified * I48.0 Paroxysmal atrial fibrillation * Z79.01 intermediate project manager (current) use of anticoagulants * E87.5 Hyperkalemia * I50.42 Chronic combined systolic (congestive) and diastolic (congestive) heart failure * N18.32 Chronic kidney disease, stage 3b * Z79.4 skilled nursing (current) use of insulin * E11.65 Type 2 diabetes mellitus with hyperglycemia * D50.9 Iron deficiency anemia, unspecified * N85.00 Endometrial hyperplasia, unspecified * E78.00 Pure hypercholesterolemia, unspecified * I25.10 Atherosclerotic heart disease of [place] coronary artery without angina pectoris * All [...] U/S PT SCHEDULED FOR PELVIC MRI AT [facility] ON 06/03/21 06/06/21- PLEASE MOVE UP APPT SAMANTHA DUE TO ABNORMAL PELVIC MRI- SUSPICIOUS FOR OVARIAN CANCER PLEASE LET OFFICE KNOW. DR RESENDEZ WILL SPEAK WITH DR [place]. Patient Notified 06/10/2021 [facility] [address] [place], [place] [address] [phone] Keyshawn Ramsey MD CONSULT FOR SCREENING COLONOSCOPY Patien t Notified 04/09/2021 [address] [facility] [address] [phone]
--- OUTSIDE RECORDS SUMMARY | 2021-10-03 12:38 | CCD | Continuity of Care Document ---
Author Author Lab Schedule, Cori Latia Organization Unknown Address [address] [address] Phone Unavailable Care Team Providers Care Tank Operator Name Role Phone [facility] AUTM [phone] Gabriella Resendez MD AUTM [phone] Gabbie Ny MD AUTM [phone] Deann Perez AUTM Unavailable Keyshawn Ramsey MD AUTM [phone] [facility]in[facility] Dc - Med Recs Fax # AUTM [facility] AUTM [phone] [facility] AUTM [phone] Bandar Caro MD AUTM [phone] Gurpreet Delong MD AUTM Unavailable Problems Active [...] day 90tabs Gabriella Resendez M.D. 02/26/2009 Support Debbie-Hi Joaquin Suarez as directed jose 459.81 2Pair Gabriella johns M.D. 10/17/2008 Digoxin 250mcg Tablets Take One Tablet By Mouth Every Day Unknown Folic Acid 400mcg Tablets 1 by mouth every day Unknown Nitrostat 0.4mg Tablets Sub one under tongue every 5 minutes x 3 as needed for chest discomfort Unknown History Medications Freestyle Lite Test Strips test 4 times a day 200units E11.65 aGbriella Resendez M.D. 07/15/2021 - 07/15/2021 Medications Administered [...] CPT Code Status Date Vaccine Lot # 87899 Given 10/01/2020 Influenza Vaccin e Quadrivalent Preser/Antibiotic Free Im Use [id number] 53785 Given 09/08/2019 Influenza Vaccin e Quadrivalent Preser/Antibiotic Free Im Use [id number] 00522 Given 09/30/2018 Influenza Virus Vaccine, Quadrivalent (Cciiv4), Derived From 0 Given 09/24/2017 Influenza Vaccin e Quadrivalent Preser/Antibiotic Free Im Use [id number] Q2037 Given 08/20/2016 Fluvirin Virus Vaccine 15799 01 Q2037 Given 10/01/2015 Fluvirin Virus Vaccine 28964 01 Q2037 Given 09/05/2014 Fluvirin Virus Vaccine 80899 21 Q2037 Given 09/22/2013 Fluvirin Virus Vaccine Q2037 Given 08/11/2011 Fluvirin Virus Vaccine 88601 Given 08/22/2010 Influenza Virus Vaccine 75473 Given 08/15/2009 Influenza Virus Vaccine 41601 Given 09/07/2008 Influenza Virus Vaccine 41800 Given 11/19/2006 Influenza Virus Vaccine 68563 Given 10/29/2004 Influenza Virus Vaccine Vital Signs [...] H/L Range Note Basic Metabolic Panel 07/25/2021 [facility] Spray Painter: [place] [address] [phone] Glucose 240 mg/dL High 74 - 99 [...] Low >60 2 Complete Blood Count 07/25/2021 [facility] Spray Painter: [place] [address] [phone] WBC 11.2 x10*3/UL High 4.1 - 10.9 [...] 2.0 - 7.8 Complete Blood Count 07/18/2021 [facility] Spray Painter: [place] [address] [phone] WBC 10.9 x10*3/UL 4.1 - 10.9 4 [...] 2.0 - 7.8 Laboratory test finding 07/18/2021 [facility] Spray Painter: [place] [address] [phone] Magnesium 1.7 mg/dL Low 1.8 - 2.4 Basic Metabolic Panel 07/18/2021 [facility] Spray Painter: [place] [address] [phone] Glucose 203 mg/dL High 74 - 99 [...] Low >60 6 Laboratory test finding 07/15/2021 [facility] [address] [place] [address] [phone] Ferritin <pending> Comprehensive Chem Profile 07/15/2021 [facility] Spray Painter: [place] [address] [phone] Glucose 154 mg/dL High 74 - 99 [...] Low >60 9 Laboratory test finding 07/15/2021 [facility] Spray Painter: [place] [address] [phone] Magnesium 1.6 mg/dL Low 1.8 - 2.4 A1c 07/15/2021 [facility] Spray Painter: [place] [address] [phone] Hba1c 8.9 % High <5.7 10 Est Avg Glucose 209 mg/dL High 60 - 110 Complete Blood Count 07/15/2021 [facility] Spray Painter: Dr Chung [address] [place], [place] [address] [phone] WBC 13.9 x10*3/UL High 4.1 - 10.9 [...] 2.0 - 7.8 Laboratory test finding 07/15/[address] [address] [phone] Ferritin 33 NG/ML Normal 8-252 Total Iron Binding Capacit 07/15/[address] [address] [phone] Iron (Fe) 27 g/dL Low 50-170 Total Iron Binding Capacity 394 g/dL Normal 250-450 Percent Saturation 6.9 % Low 13.2-45.0 Laboratory test finding 07/15/[address] [address] [phone] Digoxin Level 1.2 NG/ML Normal 0.5-2.0 Basic Metabolic Panel 05/13/2021 [facility] Spray Painter: [place] [address] [phone] Glucose 168 mg/dL High 74 - 99 [...] Low >60 13 Laboratory test finding 04/24/2021 [facility] [address] [address] [phone] Bedside Glucose 198 mg/dL High 80-115 Complete Blood Count 04/08/2021 [facility] Spray Painter: [place] [address] [phone] WBC 12.4 x10*3/UL High 4.1 - 10.9 [...] x10*3/UL High 2.0 - 7.8 A1c 04/08/2021 [facility] Spray Painter: [place] [address] [phone] Hba1c 8.4 % High <5.7 14 Est Avg Glucose 194 mg/dL High 60 - 110 Laboratory test finding 04/08/2021 [facility] Spray Painter: Dr Chung [address] [place], [place] [address] [phone] Magnesium 1.9 mg/dL 1.8 - 2.4 Comprehensive Chem Profile 04/08/2021 [facility] Spray Painter: [place] [address] [phone] Glucose 234 mg/dL High 74 - 99 [...] Low >60 16 Laboratory test finding 04/08/2021 [facility] Spray Painter: [place] [address] [phone] Thyroid Stimulating Hormone 1.09 uIU/mL 0.3 6 - 3.74 1 100-125 mg/dL PRE-DIABET ES/FASTING >126 mg/dL DIABETES/FASTING 2 CHRONIC KIDNEY DISEASE STAGI NG PER NKF STAGE I & II GFR >= 60 NORMAL TO MILDLY DECREASED STAGE III GFR 30-59 MODERATELY DECREASED STAGE IV GFR 15-29 SEVERELY DECREASED STAGE V GFR <15 VERY LITTLE GFR LEFT ESRD GFR <15 ON [employer]KER 3 NOTE: CBC VERIFIED 4 NOTE: CBC VERIFIED 5 100-125 mg/dL PRE-DIABET ES/FASTING >126 mg/dL DIABETES/FASTING 6 CHRONIC KIDNEY DISEASE STAGI NG PER NKF STAGE I & II GFR >= 60 NORMAL TO MILDLY DECREASED STAGE III GFR 30-59 MODERATELY DECREASED STAGE IV GFR 15-29 SEVERELY DECREASED STAGE V GFR <15 VERY LITTLE GFR LEFT ESRD GFR <15 ON [employer]KER 7 100-125 mg/dL PRE-DIABET ES/FASTING >126 mg/dL DIABETES/FASTING 8 CRITICAL: DR RESENDEZ NOTIFIED NOTE: RESULT VERIFIED. NO VISIBLE HEMOLYSIS. 9 CHRONIC KIDNEY DISEASE STAGI NG PER NKF STAGE I & II GFR >= 60 NORMAL TO MILDLY DECREASED STAGE III GFR 30-59 MODERATELY DECREASED STAGE IV GFR 15-29 SEVERELY DECREASED STAGE V GFR <15 VERY LITTLE GFR LEFT ESRD GFR <15 ON [employer] 10 Lab Result Notes: Pre-Diabetes 5.7 - [...] LITTLE GFR LEFT ESRD GFR <15 ON [employer] 14 Lab Result Notes: Pre-Diabetes 5.7 [...] LITTLE GFR LEFT ESRD GFR <15 ON [employer] Procedures Date Code Description Status 07/18/2021 69610 Office/Outpatient Established Mo d MDM 30-39 Min Completed 07/15/2021 52734 Angela Cre SRV W/I 7 Days Of DC, C omm W/I 2 Dys Med Rec Completed 04/24/2021 [id number] Colonoscopy Completed 04/08/2021 15621 Office/Outpatient Established Mo d MDM 30-39 Min Completed 03/04/2021 [id number] Mammogram Completed 08/09/2019 [id number] Mammogram Completed 06/29/2018 [id number] Diabetic Retinal Eye Exam Comple [facility] 05/03/2018 [id number] Mammogram Completed 02/20/2017 [id number] Mammogram Completed 04/29/2016 [id number] Diabetic Retinal Eye Exam Comple [facility] 02/26/2016 [id number] Diabetic Retinal Eye Exam Comple [facility] 12/14/2015 [id number] Mammogram Completed 06/09/2012 [id number] Mammogram Completed 05/16/2008 [id number] Mammogram Completed 10/27/2007 [id number] Colonoscopy Completed Medical Devices Description No Information Available Encounters Type Date Location Provider Dx Diagnosis Office Visit 07/18/2021 9:00a [facility] M.[facility]. 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 I63.9 Cerebral infarction, unspeci fied I48.0 Paroxysmal atrial fibrillati on Z79.01 exterminator helper (current) use of a nticoagulants D64.9 Anemia, [...] diastolic hrt fail Office Visit 04/08/2021 10:45a [facility] M.[facility] E11.65 Type 2 diabetes [...] fibrillati on I25.10 Athscl heart disease of [place] coronary artery w/o ang pctrs E83.42 Hypomagnesemia Assessments Date Code Description Provider 07/25/2021 I48.0 Paroxysmal atrial fibrillation Codi Resendez M.D. 07/25/2021 I48.0 Paroxysmal atrial fibrillation L ab Schedule 07/25/2021 Z79.01 exterminator helper (current) use of antic oagulants Gabriella Resendez M.D. 07/25/2021 Z79.01 assisted (current) use of antic oagulants Lab Schedule 07/25/2021 E87.5 Hyperkalemia Gabriella hassan M.D. 07/25/2021 E87.5 Hyperkalemia Lab Schedule 07/18/2021 I63.9 Cerebral infarction, unspecified Gabriella Resendez M.D. 07/18/2021 I48.0 Paroxysmal atrial fibrillation Codi Resendez M.D. 07/18/2021 Z79.01 exterminator helper (current) use of antic oagulants Gabriella Resendez M.D. 07/18/2021 E87.5 Hyperkalemia Gabriella hassan M.D. 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 07/18/2021 N18.32 Chronic kidney disease, stage 3b Gabriella Resendez M.D. 07/18/2021 Z79.4 assisted (current) use of insul in Gabriella Resendez M.D. 07/18/2021 E11.65 Type 2 diabetes mellitus with hy perglycemia Gabriella Resendez M.D. 07/18/2021 D50.9 Iron deficiency anemia, unspecif ied Gabriella Resendez M.D. 07/18/2021 N85.00 Endometrial hyperplasia, unspeci fied Gabriella Resendez M.D. 07/18/2021 E78.00 Pure hypercholesterolemia, unspe cified Gabriella Resendez M.D. 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 07/15/2021 I63.9 Cerebral infarction, unspecified Gabriella Resendez M.D. 07/15/2021 I48.0 Paroxysmal atrial fibrillation J catrachito Resendez M.D. 07/15/2021 Z79.01 assisted (current) use of antic oagulants Gabriella Resendez M.D. 07/15/2021 D64.9 Anemia, unspecified Gabriella young M.D. 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 04/08/2021 I25.10 Atherosclerotic hear t disease of [place] coronary artery without angina pectoris Gabriella Resendez M.D. 04/08/2021 E83.42 Hypomagnesemia Gabriella hassan M.D. Plan of Treatment Future Appointment(s):* 08/20/2021 1:45 pm - Gabriella Resendez M.D. at [facility]. 07/18/2021 - Gabriella Resendez M.D.* I63.9 Cerebral infarction, unspecified * I48.0 Paroxysmal atrial fibrillation * Z79.01 exterminator helper (current) use of anticoagulants * E87.5 Hyperkalemia * I50.42 Chronic combined systolic (congestive) and diastolic (congestive) heart failure * N18.32 Chronic kidney disease, stage 3b * Z79.4 exterminator helper (current) use of insulin * E11.65 Type 2 diabetes mellitus with hyperglycemia * D50.9 Iron deficiency anemia, unspecified * N85.00 Endometrial hyperplasia, unspecified * E78.00 Pure hypercholesterolemia, unspecified * I25.10 Atherosclerotic heart disease of [place] coronary artery without angina pectoris * All [...] U/S PT SCHEDULED FOR PELVIC MRI AT [facility] ON 06/03/21 06/06/21- PLEASE MOVE UP APPT SAMANTHA DUE TO ABNORMAL PELVIC MRI- SUSPICIOUS FOR OVARIAN CANCER PLEASE LET OFFICE KNOW. DR RESENDEZ WILL SPEAK WITH DR [place]. Patient Notified 06/10/2021 [facility] [address] [place], [place] [address] [phone] Keyshawn Ramsey MD CONSULT FOR SCREENING COLONOSCOPY Patien t Notified 04/09/[address] [place] [address] [phone]
--- OUTSIDE RECORDS SUMMARY | 2021-10-03 12:38 | CCD ---
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 02/20/2021 - 12:00AM Gurpreet Chao MD, FACS Active Macular Degeneration Nonexudative Bilateral Early Dry Stage 02/20/2021 - 12:00AM Gurpreet Chao MD, FACS Active Cataract Senile Cortical 02/20/2021 - 12:00AM Gurpreet Chao MD, FACS Active Essential Hypertension 02/20/2021 - 12:00AM Gurpreet Nguyen MD, FACS Active Retinopathy Hypertensive Both Eyes 02/20/2021 - 12:00AM Gurpreet Chao MD, FACS Active Ischemic Optic Neuropathy Arteritic 02/20/2021 - 12:00AM Gurpreet Chao MD, FACS Active 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 02/20/2021 - 12:00AM Gurpreet Chao MD, FACS Active Taking Medication For Diabetes Long-term Use of Insulin 02/21/20 21 - 12:00AM Gurpreet Chao MD, FACS Active Cataract Senile Posterior Subcapsular Polar 02/20/2021 - 12:00AM Gurpreet Chao MD, FACS Active Rheumatoid Arthritis Rf Negative 02/20/2021 - 12:00AM Gurpreet Chao MD, FACS Active Cataract Senile Nuclear 02/20/2021 - 12:00AM Gurpreet Chao MD, FACS Active Vitreous Disorders Degeneration 02/20/2021 - 12:00AM Gurpreet Chao MD, FACS Active Plan of Treatment Future Appointments Date Time Location Provider 6 Month follow up with testing 09/23/2021 2:35PM Gurpreet Barros MD [facility] Gurpreet Chao MD, FACS Assessments Includes: Assessments for all patient encounters Findings Encounter Date buttermaker helper use of other medications VISUAL FIELD 10-2 w ith Gurpreet Chao MD, FACS 06/12/2021 Rheumatoid arthritis RF negative VISUAL FIELD 10-2 wit h Gurpreet Chao MD, FACS 06/12/2021 Arteritic ischemic optic neuropathy NEW PATIENT WITH R EFERRAL with Gurpreet Chao MD, FACS 02/20/2021 Cortical senile cataract NEW PATIENT WITH REFERRAL [facility] Gurpreet Chao MD, FACS 02/20/2021 Early dry stage nonexudative macular degeneration of b oth eyes NEW PATIENT WITH REFERRAL with Gurpreet Chao MD, FACS 02/20/2021 Essential hypertension NEW PATIENT WITH REFERRAL [facility] Gurpreet Chao MD, FACS 02/20/2021 Hypertensive retinopathy of both eyes NEW PATIENT WITH REFERRAL with Gurpreet Chao MD, FACS 02/20/2021 intermediate use of other medications NEW PATIENT WITH RE FERRAL with Gurpreet Chao MD, FACS 02/20/2021 Long-term use of insulin NEW PATIENT WITH REFERRAL [facility] Gurpreet Chao MD, FACS 02/20/2021 Nuclear senile cataract NEW PATIENT WITH REFERRAL [facility] Gurpreet Chao MD, FACS 02/20/2021 Posterior subcapsular polar senile cataract NEW PATIEN T WITH REFERRAL with Gurpreet Chao MD, FACS 02/20/2021 Rheumatoid arthritis RF negative NEW PATIENT WITH REFE RRAL with Gurpreet Goodson MD, FACS 02/20/2021 Type 2 diabetes with mild nonproliferative diabetic re tinopathy NEW PATIENT WITH REFERRAL with Gurpreet Chao MD, FACS 02/20/2021 Vitreous degeneration NEW PATIENT WITH REFERRAL [facility] Gurpreet Chao MD, FACS 02/20/2021 Instructions Instructions not supported for this document typeNo Instructions Recorded Medical Equipment - Implanted Devices Includes: Current and historical DevicesNo Medical Equipment Recorded Medications Includes: Current and historical Medications Current Medications (continue as prescribed) Digoxin 250 MCG Oral Tablet 02/20/2021 Provider: Diagnosis: Amoxicillin 500 MG Oral Capsule 02/20/2021 Provider : Diagnosis: Before Dental appointments Spironolactone 25 MG Oral Tablet 02/20/2021 Provide r: Diagnosis: Nitrostat 0.4 MG Sublingual Tablet Sublingual 02/20/2021 Provider: Diagnosis: Simvastatin 20 MG Oral Tablet 02/20/2021 Provider: Diagnosis: Carvedilol 25 MG Oral Tablet 02/20/2021 Provider: Diagnosis: Chlorthalidone 25 MG Oral Tablet 02/20/2021 Provide r: Diagnosis: 1/2 Tablet NovoLOG Mix 70/30 (70-30) 100 UNIT/ML Subcutaneous Suspensio n 02/20/2021 Provider: Diagnosis: as directed HumaLOG Mix 75/25 (75-25) 100 UNIT/ML Subcutaneous Suspensio n 02/20/2021 Provider: Diagnosis: as directed Tramadol HCI 50 MG Oral Tablet 02/20/2021 Provider: Diagnosis: metFORMIN HCl 1000 MG Oral Tablet 02/20/2021 Provid er: Diagnosis: Levothyroxine Sodium 112 MCG Oral Tablet 02/20/2021 Provider: Diagnosis: Losartan Potassium 50 MG Oral Tablet 02/20/2021 Pro vider: Diagnosis: Folic Acid 400 MCG Oral Tablet 02/20/2021 Provider: Diagnosis: Senna-Plus 8.6-50 MG Oral Tablet 02/20/2021 Provide r: Diagnosis: Iron 325 (65 Fe) MG Oral Tablet 02/20/2021 Provider : Diagnosis: Magnesium 500 MG Oral Tablet 02/20/2021 Provider: Diagnosis: Plaquenil 200 MG Oral Tablet 02/20/2021 Provider: Diagnosis: Voltaren 1% External Gel 02/20/2021 Provider: Diagnosis: Tylenol 500 MG Oral Capsule 02/20/2021 Provider: Diagnosis: Aspirin 325 MG Oral Tablet 02/20/2021 Provider: Diagnosis: Medications Administered Includes: Administered Medications in patient's chartNo Administered Medications Recorded Vital Signs Includes: Vital Signs from 07/24/2020 through 07/24/2021No Vital Signs Recorded For Specified Dates Results Includes: Results from 07/24/2020 through 07/24/2021No Results Recorded For Specified Dates History of Present Illness History of Present Illness not supported for this document typeNo History of Present Illness Recorded Social History Description Last Updated Not using alcohol 02/20/2021 No tobacco use 02/20/2021 Not using drugs 02/20/2021 Smoking status : Never smoker 02/20/2021 Tobacco non-user 02/20/2021 Procedures and Surgical History Includes: Procedures from 07/24/2020 through 07/24/2021 Procedures Code Diagnosis Performing Provider Service Location Service Date Scodi Retina, with interpretation and re port (WAIVER OF LIABILITY ON FILE (ABN)) 23912 Rheumatoid arthritis w/o rhe umatoid factor, multiple sites, Other 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 & Man.) 69444 Type 2 diab with mild nonp rtnop without mclr edema, r eye, intermediate (current) use of insulin, Rheumatoid arthritis w/o rheumatoid factor, multiple sites, Other correction (current) drug therapy Gurpreet Chao MD, FACS Gurpreet Chao MD [facility] 2020 Surgical History Last Updated Surgical / procedural history Aortic Va lve Replacement 2012, 2 heart stents 2012, Gall Bladder 1999, Hernia 1999, Optic Nerve Damage OS 2019 02/20/2021 Medical History Includes: Medical History in patient's chart Description Last Updated History of diabetes mellitus Type II Dx : 2009, A1c: 8.[address] Schaefer FBS: does not check 02/20/2021 History of hypothyroidism 02/20/2021 Currently wearing eyeglasses 02/20/2021 Reported medical history A-FIB, Coronar y Arteriosclerosis, meningitis 195, Anemia 02/20/2021 History of hypertension 02/20/2021 History of rheumatoid arthritis 02/20/2021 Family History Includes: Family History in patient's chart Description Last Updated Fraternal history of diabetes mellitus 02/20/2021 Fraternal history of heart disease 02/20/2021 Fraternal history of hypertension 02/20/2021 Maternal history of arthritis 02/20/2021 Maternal history of cataract 02/20/2021 Maternal history of diabetes mellitus 02/20/2021 Maternal history of heart disease 02/20/2021 Maternal history of hypertension 02/20/2021 Paternal history of hypertension 02/20/2021 Paternal history of thyroid disorder 02/20/2021 Son's history of diabetes mellitus 02/20/2021 Son's history of hypertension 02/20/2021 Sororal history of arthritis 02/20/2021 Sororal history of heart disease 02/20/2021 Sororal history of hypertension 02/20/2021 Review of Systems Review of Systems not supported for this document typeNo Review of Systems Recorded Mental Status Mental Status not supported for this document typeNo Mental Status Recorded Functional Status Functional Status not supported for this document typeNo Functional Status Recorded Physical Exam Physical Exam not supported for this document typeNo Physical Exam Recorded Immunizations Includes: Immunizations in patient's chartNo Immunizations Recorded Allergies Includes: Active, inactive, and resolved AllergiesNo Known Allergies Encounters Includes: Encounters from 07/24/2020 through 07/24/2021 Encounter Provider Location Date Check-In Time Check-Out Time D iagnosis VISUAL FIELD 10-2 Gurpreet Chao MD, FACS Gurpreet Chao MD [facility] 06/12/2021 2:11PM 3:09PM Rheumatoid Arthritis Rf Negative, Prison Use of Other Medications NEW PATIENT WITH REFERRAL Gurpreet Chao MD, FACS Gurpreet Puente MD [facility] 02/20/2021 9:32AM 12:50PM Taking Medication Fo r Diabetes Long-term Use of Insulin, 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, Cataract Senile Posterior Subcapsular Polar, Cataract Senile Cortical, Cataract Senile Nuclear, Retinopathy Hypertensive Both Eyes, Ischemic Optic Neuropathy Arteritic, Vitreous Disorders Degeneration, Rheumatoid Arthritis Rf Negative, Prison Use of Other Medications, Macular Degeneration Nonexudative Bilateral Early Dry Stage, Essential Hypertension Insurance Includes: Active Insurance Policies Plan Name Member ID Group # Subscriber Relationship Effective Da iva 1 - Medicare Part B [facility] ([facility]) [id number] Cori Ho Self 2 - [facility] [id number] Cori Ho Self Advance Directives Includes: Current Advance DirectivesNo Advance Directives Recorded Health Concerns Includes: Active Health ConcernsNo Active Health Concerns Recorded Goals Includes: Active GoalsNo Active Goals Recorded Interventions Includes: Interventions for active GoalsNo Interventions Recorded Evaluations & Outcomes Includes: Evaluations & Outcomes for active GoalsNo Outcomes Recorded
--- OUTSIDE RECORDS SUMMARY | 2021-10-03 12:38 | CCD | Continuity of Care Document ---
Author Author Lab Schedule, [facility] Organization Unknown Address [address] [address] Phone Unavailable Care Team Providers Care Forestry Contractor Name Role Phone [facility] AUTM [phone] Gabriella Resendez MD [facility] [phone] Gabbie Ny MD [facility] [phone] Deann Perez [facility] Unavailable Keyshawn Ramsey MD [facility] [phone] [place] - Med Recs Fax # AUTM [phone] [facility] [phone] [facility] AUTM [phone] Bandar Caro MD [facility] [phone] Problems Active Problems Provider Date Coronary arteriosclerosis [...] M.D. 02/26/2009 Support Peter Suarez as directed ojse 459.81 2Pair Gabriella johns M.D. 10/17/2008 Digoxin [...] CPT Code Status Date Vaccine Lot # [id number] Given 10/01/2020 Influenza Vaccin e Quadrivalent Preser/Antibiotic Free Im Use [id number] 60888 Given 09/08/2019 Influenza Vaccin e Quadrivalent Preser/Antibiotic Free Im Use [id number] 15240 Given 09/30/2018 Influenza Virus Vaccine, Quadrivalent ([id number]), Derived From 9 Given 09/24/2017 Influenza Vaccin e Quadrivalent Preser/Antibiotic Free Im Use [id number] Q2037 Given 08/20/2016 Fluvirin Virus Vaccine 82182 01 [id number] Given 10/01/2015 Fluvirin Virus Vaccine 24915 01 Q2037 Given 09/05/2014 Fluvirin Virus Vaccine 16981 21 Q2037 Given 09/22/2013 Fluvirin Virus Vaccine Q2037 Given 08/11/2011 Fluvirin Virus Vaccine 37172 Given 08/22/2010 Influenza Virus Vaccine 86343 Given 08/15/2009 Influenza Virus Vaccine 45858 Given 09/07/2008 Influenza Virus Vaccine 54395 Given 11/19/2006 Influenza Virus Vaccine 75077 Given 10/29/2004 Influenza Virus Vaccine Vital Signs [...] H/L Range Note Laboratory test finding 07/18/2021 [facility] Supervisor Dumping: [place] [address] [phone] Magnesium 1.7 mg/dL Low 1.8 - 2.4 Basic Metabolic Panel 07/18/2021 [facility] Supervisor Dumping: [place] [address] [phone] Glucose 203 mg/dL High 74 - 99 [...] Low >60 2 Complete Blood Count 07/18/2021 [facility] Supervisor Dumping: [place] [address] [phone] WBC 10.9 x10*3/UL 4.1 - 10.9 3 [...] 2.0 - 7.8 Laboratory test finding 07/15/2021 [facility] [address] [place] [address] [phone] Ferritin <pending> Comprehensive Chem Profile 07/15/2021 [facility] Supervisor Dumping: [place] [address] [phone] Glucose 154 mg/dL High 74 - 99 [...] Low >60 6 Laboratory test finding 07/15/2021 [facility] Supervisor Dumping: [place] [address] [phone] Magnesium 1.6 mg/dL Low 1.8 - 2.4 A1c 07/15/2021 [facility] Supervisor Dumping: [place] [address] [phone] Hba1c 8.9 % High <5.7 7 Est Avg Glucose 209 mg/dL High 60 - 110 Complete Blood Count 07/15/2021 [facility] Supervisor Dumping: [place] [address] [phone] WBC 13.9 x10*3/UL High 4.1 - 10.9 [...] 2.0 - 7.8 Laboratory test finding 07/15/[address] [address] [phone] Ferritin 33 NG/ML Normal 8-252 Total Iron Binding Capacit 07/15/[address] [address] [phone] Iron (Fe) 27 g/dL Low 50-170 Total Iron Binding Capacity 394 g/dL Normal 250-450 Percent Saturation 6.9 % Low 13.2-45.0 Laboratory test finding 07/15/2021 [place] [place] [address] [phone] Digoxin Level 1.2 NG/ML Normal 0.5-2.0 Basic Metabolic Panel 05/13/2021 [facility] Supervisor Dumping: [place] [address] [phone] Glucose 168 mg/dL High 74 - 99 [...] Low >60 10 Laboratory test finding 04/24/2021 [facility] [address] [place] [address] [phone] Bedside Glucose 198 mg/dL High 80-115 Complete Blood Count 04/08/2021 [facility] Supervisor Dumping: Dr Chung Smith [place], [place] [id number] [phone] WBC 12.4 x10*3/UL High 4.1 - 10.9 [...] x10*3/UL High 2.0 - 7.8 A1c 04/08/2021 [facility] , Supervisor Dumping: [place] [address] [phone] Hba1c 8.4 % High <5.7 11 Est Avg Glucose 194 mg/dL High 60 - 110 Laboratory test finding 04/08/2021 [facility], Supervisor Dumping: [place] [address] [phone] Magnesium 1.9 mg/dL 1.8 - 2.4 Comprehensive Chem Profile 04/08/2021 [facility], Supervisor Dumping: [place] [address] [phone] Glucose 234 mg/dL High 74 - 99 [...] Low >60 13 Laboratory test finding 04/08/2021 [facility], Supervisor Dumping: Dr Chung Smith [place], [place] [id number] [phone] Thyroid Stimulating Hormone 1.09 uIU/mL 0.3 6 - 3.74 1 100-125 mg/dL PRE-DIABET ES/FASTING >126 mg/dL DIABETES/FASTING 2 CHRONIC KIDNEY DISEASE STAGI NG PER NKF STAGE I & II GFR >= 60 NORMAL TO MILDLY DECREASED STAGE III GFR 30-59 MODERATELY DECREASED STAGE IV GFR 15-29 SEVERELY DECREASED STAGE V GFR <15 VERY LITTLE GFR LEFT ESRD GFR <15 ON CRIMINAL JUSTICE LAWYER 3 NOTE: CBC VERIFIED 4 100-125 mg/dL [...] LITTLE GFR LEFT ESRD GFR <15 ON CRIMINAL JUSTICE LAWYER 7 Lab Result Notes: Pre-Diabetes 5.7 - [...] LITTLE GFR LEFT ESRD GFR <15 ON CRIMINAL JUSTICE LAWYER 11 Lab Result Notes: Pre-Diabetes 5.7 - [...] LITTLE GFR LEFT ESRD GFR <15 ON CRIMINAL JUSTICE LAWYER Procedures Date Code Description Status 07/18/2021 48563 Office/Outpatient Established Mo d MDM 30-39 Min Completed 07/15/2021 75668 Angela Cre SRV W/I 7 Days Of DC, C omm W/I 2 Dys Med Rec Completed 04/24/2021 [id number] Colonoscopy Completed 04/08/2021 41543 Office/Outpatient Established Mo d MDM 30-39 Min Completed 03/04/2021 [id number] Mammogram Completed 08/09/2019 [id number] Mammogram Completed 06/29/2018 [id number] Diabetic Retinal Eye Exam [facility] 05/03/2018 [id number] Mammogram Completed 02/20/2017 [id number] Mammogram Completed 04/29/2016 [id number] Diabetic Retinal Eye Exam [facility] 02/26/2016 [id number] Diabetic Retinal Eye Exam [facility] 12/14/2015 [id number] Mammogram Completed 06/09/2012 [id number] Mammogram Completed 05/16/2008 [id number] Mammogram Completed 10/27/2007 [id number] Colonoscopy Completed Medical Devices Description No Information Available Encounters Type Date Location Provider Dx Diagnosis Office Visit 07/18/2021 9:00a [facility] Crystal Walsh M.D. 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 I63.9 Cerebral infarction, unspeci fied I48.0 Paroxysmal atrial fibrillati on Z79.01 rodent exterminator (current) use of a nticoagulants D64.9 Anemia, [...] diastolic hrt fail Office Visit 04/08/2021 10:45a [facility] Crystal Walsh M.D. E11.65 Type 2 diabetes mellitus wit [...] atrial fibrillation Codi Resendez M.D. 07/18/2021 Z79.01 penitentiary (current) use of antic oagulants Gabriella Resendez M.D. 07/18/2021 E87.5 Hyperkalemia Gabriella hassan M.D. 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 07/18/2021 N18.32 Chronic kidney disease, stage 3b Gabriella Resendez M.D. 07/18/2021 Z79.4 penitentiary (current) use of insul in Gabriella Resendez M.D. 07/18/2021 E11.65 Type 2 diabetes mellitus with hy perglycemia Gabriella Resendez M.D. 07/18/2021 D50.9 Iron deficiency anemia, unspecif ied Gabriella Resendez M.D. 07/18/2021 N85.00 Endometrial hyperplasia, unspeci fied Gabriella Resendez M.D. 07/18/2021 E78.00 Pure hypercholesterolemia, unspe cified Gabriella Resendez M.D. 07/18/2021 I25.10 Atherosclerotic hear t disease of [place] coronary artery without angina pectoris Gabriella Resendez M.D. 07/15/2021 I63.9 Cerebral infarction, unspecified Gabriella Resendez M.D. 07/15/2021 I48.0 Paroxysmal atrial fibrillation J catrachito Resendez M.D. 07/15/2021 Z79.01 penitentiary (current) use of antic oagulants Gabriella Resendez M.D. 07/15/2021 D64.9 Anemia, unspecified Gabriella young M.D. 07/15/2021 I25.10 Atherosclerotic hear t disease of [place] coronary artery without angina pectoris Gabriella Resendez [...] 04/08/2021 I25.10 Atherosclerotic hear t disease of [place] coronary artery without angina pectoris Gabriella Resendez M.D. 04/08/2021 E83.42 Hypomagnesemia Gabriella hassan M.D. Plan of Treatment Future Appointment(s):* 08/20/2021 1:45 pm - Gabriella Resendez M.D. at [facility] 07/18/2021 - Gabriella Resendez M.D.* I63.9 Cerebral infarction, unspecified * I48.0 Paroxysmal atrial fibrillation * Z79.01 penitentiary (current) use of anticoagulants * E87.5 Hyperkalemia * I50.42 Chronic combined systolic (congestive) and diastolic (congestive) heart failure * N18.32 Chronic kidney disease, stage 3b * Z79.4 rodent exterminator (current) use of insulin * E11.65 Type 2 diabetes mellitus with hyperglycemia * D50.9 Iron deficiency anemia, unspecified * N85.00 Endometrial hyperplasia, unspecified * E78.00 Pure hypercholesterolemia, unspecified * I25.10 Atherosclerotic heart disease of [place] coronary artery without angina pectoris * All [...] U/S PT SCHEDULED FOR PELVIC MRI AT [facility] ON 06/03/21 06/06/21- PLEASE MOVE UP APPT SAMANTHA DUE TO ABNORMAL PELVIC MRI- SUSPICIOUS FOR OVARIAN CANCER PLEASE LET OFFICE KNOW. DR RESENDEZ WILL SPEAK WITH DR [place]. Patient Notified 06/10/2021 [facility] [address] [place], [place] [id number] [phone] Keyshawn Ramsey MD CONSULT FOR SCREENING COLONOSCOPY Patien t Notified 04/09/2021 [address] [facility] [address] [phone]
--- OUTSIDE RECORDS SUMMARY | 2021-10-03 12:39 | CCD | Continuity of Care Document ---
Author Author Cori Resendez M.D. Organization Unknown Address [address] [facility] [address] [place] [address] Phone [phone] Care Team Providers Care Rn Appeals Name Role Phone [facility] AUTM [phone] Gabriella Resendez MD AUTM [phone] Gabbie Ny MD AUTM [phone] Deann Perez AUTM Unavailable Keyshawn Ramsey MD AUTM [phone] CoryYuliya Mi - Med Recs Fax # [facility] AUTM [phone] [facility] AUTM [phone] Bandar Caro MD AUTM [phone] Problems Active Problems Provider Date Coronary arteriosclerosis [...] 17 Administration Of Flu Vaccine Inj pauly Resednez M.D. 08/20/20 16 Administration Of Flu Vaccine Inj pauly Resendez M.D. 10/01/20 15 Administration Of Flu Vaccine Inj pauly Resendez M.D. 09/05/20 14 Administration Of Flu Vaccine Inj pauly Resendez M.D. 10/29/20 04 Immunizations CPT Code Status Date Vaccine Lot # [id number] Given 10/01/2020 Influenza Vaccin e Quadrivalent Preser/Antibiotic Free Im Use [id number] 61656 Given 09/08/2019 Influenza Vaccin e Quadrivalent Preser/Antibiotic Free Im Use [id number] 97679 Given 09/30/2018 Influenza Virus Vaccine, Quadrivalent (Cciiv4), Derived From 8 Given 09/24/2017 Influenza Vaccin e Quadrivalent Preser/Antibiotic Free Im Use [id number] Q2037 Given 08/20/2016 Fluvirin Virus Vaccine 14192 01 Q2037 Given 10/01/2015 Fluvirin Virus Vaccine 50021 01 Q2037 Given 09/05/2014 Fluvirin Virus Vaccine 45432 21 Q2037 Given 09/22/2013 Fluvirin Virus Vaccine Q2037 Given 08/11/2011 Fluvirin Virus Vaccine 17738 Given 08/22/2010 Influenza Virus Vaccine 12769 Given 08/15/2009 Influenza Virus Vaccine 48055 Given 09/07/2008 Influenza Virus Vaccine 88741 Given 11/19/2006 Influenza Virus Vaccine 21776 Given 10/29/2004 Influenza Virus Vaccine Vital Signs [...] H/L Range Note Laboratory test finding 07/18/2021 [place] [employer] [facility] Manager Employee Relations: [place] [address] [phone] Magnesium 1.7 mg/dL Low 1.8 - 2.4 Basic Metabolic Panel 07/18/2021 [facility] Manager Employee Relations: [place] [address] [phone] Glucose 203 mg/dL High 74 - 99 [...] Low >60 2 Complete Blood Count 07/18/2021 [place] [employer] [employer] Manager Employee Relations: [place] [address] [phone] WBC 10.9 x10*3/UL 4.1 - 10.9 3 [...] 2.0 - 7.8 Laboratory test finding 07/15/2021 [facility] [address] [id number] [phone] Ferritin <pending> Comprehensive Chem Profile 07/15/2021 [facility] [facility] Manager Employee Relations: [place] [address] [phone] Glucose 154 mg/dL High 74 - 99 [...] Low >60 6 Laboratory test finding 07/15/2021 [facility] [employer] [facility] Manager Employee Relations: [place] [address] [phone] Magnesium 1.6 mg/dL Low 1.8 - 2.4 A1c 07/15/2021 [facility] Manager Employee Relations: [place] [address] [phone] Hba1c 8.9 % High <5.7 7 Est Avg Glucose 209 mg/dL High 60 - 110 Complete Blood Count 07/15/2021 [place] [employer] Manager Employee Relations: [place] [address] [phone] WBC 13.9 x10*3/UL High 4.1 - 10.9 [...] 2.0 - 7.8 Laboratory test finding 07/15/[address] [address] [phone] Ferritin 33 NG/ML Normal 8-252 Total Iron Binding Capacit 07/15/[address] [address] [phone] Iron (Fe) 27 g/dL Low 50-170 Total Iron Binding Capacity 394 g/dL Normal 250-450 Percent Saturation 6.9 % Low 13.2-45.0 Laboratory test finding 07/15/[address] [place], [place] [address] [phone] Digoxin Level 1.2 NG/ML Normal 0.5-2.0 Basic Metabolic Panel 05/13/2021 [facility] Manager Employee Relations: Dr Chung Smith [place] [id number] [phone] Glucose 168 mg/dL High 74 - 99 [...] Low >60 10 Laboratory test finding 04/24/2021 [address] [place] [address] [phone] Bedside Glucose 198 mg/dL High 80-115 Complete Blood Count 04/08/2021 [place] [employer] Manager Employee Relations: [place] [address] [phone] WBC 12.4 x10*3/UL High 4.1 - 10.9 [...] x10*3/UL High 2.0 - 7.8 A1c 04/08/2021 [facility] , Manager Employee Relations: [place] [address] [phone] Hba1c 8.4 % High <5.7 11 Est Avg Glucose 194 mg/dL High 60 - 110 Laboratory test finding 04/08/2021 [place] [employer], [employer] Manager Employee Relations: [place] [address] [phone] Magnesium 1.9 mg/dL 1.8 - 2.4 Comprehensive Chem Profile 04/08/2021 [facility], Manager Employee Relations: [place] [address] [phone] Glucose 234 mg/dL High 74 - 99 [...] Low >60 13 Laboratory test finding 04/08/2021 [place] [employer], Manager Employee Relations: [place] [address] [phone] Thyroid Stimulating Hormone 1.09 uIU/mL 0.3 6 - 3.74 1 100-125 mg/dL PRE-DIABET ES/FASTING >126 mg/dL DIABETES/FASTING 2 CHRONIC KIDNEY DISEASE STAGI NG PER NKF STAGE I & II GFR >= 60 NORMAL TO MILDLY DECREASED STAGE III GFR 30-59 MODERATELY DECREASED STAGE IV GFR 15-29 SEVERELY DECREASED STAGE V GFR <15 VERY LITTLE GFR LEFT ESRD GFR <15 ON GAS OPERATIONS ANALYST 3 NOTE: CBC VERIFIED 4 100-125 mg/dL [...] LITTLE GFR LEFT ESRD GFR <15 ON GAS OPERATIONS ANALYST 7 Lab Result Notes: Pre-Diabetes 5.7 - [...] LITTLE GFR LEFT ESRD GFR <15 ON GAS OPERATIONS ANALYST 11 Lab Result Notes: Pre-Diabetes 5.7 - [...] LITTLE GFR LEFT ESRD GFR <15 ON GAS OPERATIONS ANALYST Procedures Date Code Description Status 07/15/2021 36873 Angela Cre SRV W/I 7 Days Of DC, C omm W/I 2 Dys Med Rec Completed 04/24/2021 [id number] Colonoscopy Completed 04/08/2021 68392 Office/Outpatient Established Mo d MDM 30-39 Min Completed 03/04/2021 [id number] Mammogram Completed 08/09/2019 [id number] Mammogram Completed 06/29/2018 [id number] Diabetic Retinal Eye Exam Comple [facility] 05/03/2018 [id number] Mammogram Completed 02/20/2017 [id number] Mammogram Completed 04/29/2016 [id number] Diabetic Retinal Eye Exam Comple [facility] 02/26/2016 [id number] Diabetic Retinal Eye Exam Comple [facility] 12/14/2015 [id number] Mammogram Completed 06/09/2012 [id number] Mammogram Completed 05/16/2008 [id number] Mammogram Completed 10/27/2007 [id number] Colonoscopy Completed Medical Devices Description No Information Available Encounters Type Date Location Provider Dx Diagnosis Office Visit 07/15/2021 8:00a [place] Intern[facility] hood M.D. 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 E11.65 Type 2 diabetes [...] Cerebral infarction, unspecified Gabriella Resendez M.D. 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 07/18/2021 N18.32 Chronic kidney disease, stage 3b Gabriella Resendez M.D. 07/18/2021 E11.65 Type 2 diabetes mellitus with hy perglycemia Gabriella Resendez M.D. 07/18/2021 D50.9 Iron deficiency anemia, unspecif ied Gabriella Resendez M.D. 07/18/2021 N85.00 Endometrial hyperplasia, unspeci fied Gabriella Resendez M.D. 07/18/2021 E78.00 Pure hypercholesterolemia, unspe cified Gabriella Resendez M.D. 07/18/2021 I25.10 Atherosclerotic hear t disease of [place] coronary artery without angina pectoris Gabriella Resendez M.D. 07/18/2021 I48.0 Paroxysmal atrial fibrillation Codi Resendez M.D. 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 07/18/2021 E87.5 Hyperkalemia Gabriella hassan M.D. 07/15/2021 I63.9 Cerebral infarction, unspecified Gabriella Resendez M.D. 07/15/2021 I48.0 Paroxysmal atrial fibrillation Codi Resendez M.D. 07/15/2021 Z79.01 longterm (current) use of antic oagulanpatrice Resendez M.D. 07/15/2021 D64.9 Anemia, unspecified Gabriella young M.D. 07/15/2021 I25.10 Atherosclerotic hear t disease of [place] coronary artery without angina pectoris Gabriella Resendez M.D. 07/15/2021 E78.00 Pure hypercholesterolemia, unspe cimallory Resendez M.D. 07/15/2021 E11.65 Type 2 diabetes [...] 04/08/2021 I25.10 Atherosclerotic hear t disease of [place] coronary artery without angina pectoris Gabriella Resendez M.D. 04/08/2021 E83.42 Hypomagnesemia Gabriella hassan M.D. Plan of Treatment Future Appointment(s):* 07/25/2021 1:00 pm - [facility] * 08/20/2021 1:45 pm - Gabriella Resendez M.D. at [facility] 07/18/2021 - Gabriella Resendez M.D.* I63.9 Cerebral infarction, unspecified * I50.42 Chronic combined systolic (congestive) and diastolic (congestive) heart failure * N18.32 Chronic kidney disease, stage 3b * E11.65 Type 2 diabetes mellitus with hyperglycemia * D50.9 Iron deficiency anemia, unspecified * N85.00 Endometrial hyperplasia, unspecified * E78.00 Pure hypercholesterolemia, unspecified * I25.10 Atherosclerotic heart disease of [place] coronary artery without angina pectoris * I48.0 Paroxysmal atrial fibrillation * Z79.01 longterm (current) use of anticoagulants * E87.5 Hyperkalemia * All * New Medication:* Ferrous Sulfate 324(65 Fe) mg - 1 by mouth every other day * Omeprazole 20 mg - 1 by mouth every day Functional Status Description No Information Available Mental Status Description No Information Available Referrals Refer to Reason for Referral Status Appt Date Gabbie Ny MD CONSULT FOR ABNORMAL PELVIC U/S PT SCHEDULED FOR PELVIC MRI AT [facility] ON 06/03/21 06/06/21- PLEASE MOVE UP APPT SAMANTHA DUE TO ABNORMAL PELVIC MRI- SUSPICIOUS FOR OVARIAN CANCER PLEASE LET OFFICE KNOW. DR RESENDEZ WILL SPEAK WITH DR [place]. Patient Notified 06/10/2021 [facility] [address] [id number] [phone] Keyshawn Ramsey MD CONSULT FOR SCREENING COLONOSCOPY Patien t Notified 04/09/[address] [place], [place] [address] [phone]
--- OUTSIDE RECORDS SUMMARY | 2021-10-03 12:39 | CCD | Continuity of Care Document ---
Author Author Cori Resendez M.D. Organization Unknown Address [address] [facility] [address] [place] [address] Phone [phone] Care Team Providers Care Toll Line Inspector Name Role Phone [facility] AUTM Gabriella Resendez MD AUTM [phone] Gabbie Ny MD AUTM [phone] Deann Perez AUTM Unavailable Keyshawn Ramsey MD AUTM [phone] CoryYuliya Mt - Med Recs Fax # [facility] AUTM [phone] [facility] AUTM [phone] Bandar Caro MD AUTM [phone] Problems Active Problems Provider Date Coronary arteriosclerosis [...] CPT Code Status Date Vaccine Lot # [id number] Given 10/01/2020 Influenza Vaccin e Quadrivalent Preser/Antibiotic Free Im Use [id number] 99894 Given 09/08/2019 Influenza Vaccin e Quadrivalent Preser/Antibiotic Free Im Use 955497 22779 Given 09/30/2018 Influenza Virus Vaccine, Quadrivalent (Cciiv4), Derived From 7 Given 09/24/2017 Influenza Vaccin e Quadrivalent Preser/Antibiotic Free Im Use [id number] Q2037 Given 08/20/2016 Fluvirin Virus Vaccine 99639 01 Q2037 Given 10/01/2015 Fluvirin Virus Vaccine 82730 01 Q2037 Given 09/05/2014 Fluvirin Virus Vaccine 64283 21 Q2037 Given 09/22/2013 Fluvirin Virus Vaccine Q2037 Given 08/11/2011 Fluvirin Virus Vaccine 56883 Given 08/22/2010 Influenza Virus Vaccine 88311 Given 08/15/2009 Influenza Virus Vaccine 51315 Given 09/07/2008 Influenza Virus Vaccine 58610 Given 11/19/2006 Influenza Virus Vaccine 74950 Given 10/29/2004 Influenza Virus Vaccine Vital Signs [...] H/L Range Note Laboratory test finding 07/18/2021 [place] [employer]ive Evaluation Manager ists, pc Canvas Shrinker: [place] [address] [phone] Magnesium 1.7 mg/dL Low 1.8 - 2.4 Basic Metabolic Panel 07/18/2021 [facility] Canvas Shrinker: [place] [address] [phone] Glucose 203 mg/dL High 74 - 99 [...] Low >60 2 Complete Blood Count 07/18/2021 [place] [employer]owcase Cutter [facility], pc Canvas Shrinker: [place] [address] [phone] WBC 10.9 x10*3/UL 4.1 - 10.9 3 [...] 2.0 - 7.8 Laboratory test finding 07/15/2021 [facility] [address] [address] [phone] Ferritin <pending> Comprehensive Chem Profile 07/15/2021 [place] [facility] j[facility] cabrera Canvas Shrinker: [place] [address] [phone] Glucose 154 mg/dL High 74 - 99 [...] Low >60 6 Laboratory test finding 07/15/2021 [place] Non Destructive Evaluation Manager erwin, pc Canvas Shrinker: [place] [address] [phone] Magnesium 1.6 mg/dL Low 1.8 - 2.4 A1c 07/15/2021 [facility] Canvas Shrinker: [place] [address] [phone] Hba1c 8.9 % High <5.7 7 Est Avg Glucose 209 mg/dL High 60 - 110 Complete Blood Count 07/15/2021 [place] [employer] [facility], pc Canvas Shrinker: [place] [address] [phone] WBC 13.9 x10*3/UL High 4.1 - 10.9 [...] 2.0 - 7.8 Laboratory test finding 07/15/[address] [address] [phone] Ferritin 33 NG/ML Normal 8-252 Total Iron Binding Capacit 07/15/[address] [address] [phone] Iron (Fe) 27 g/dL Low 50-170 Total Iron Binding Capacity 394 g/dL Normal 250-450 Percent Saturation 6.9 % Low 13.2-45.0 Laboratory test finding 07/15/[address] [place], [place] [address] [phone] Digoxin Level 1.2 NG/ML Normal 0.5-2.0 Basic Metabolic Panel 05/13/2021 [place] [facility] Canvas Shrinker: Dr Chung Smith [place] [address] [phone] Glucose 168 mg/dL High 74 - 99 [...] Low >60 10 Laboratory test finding 04/24/2021 [address] [place] [address] [phone] Bedside Glucose 198 mg/dL High 80-115 Complete Blood Count 04/08/2021 [place] [employer] [facility] Canvas Shrinker: [place] [address] [phone] WBC 12.4 x10*3/UL High 4.1 - 10.9 [...] x10*3/UL High 2.0 - 7.8 A1c 04/08/2021 [facility] , Canvas Shrinker: [place] [address] [phone] Hba1c 8.4 % High <5.7 11 Est Avg Glucose 194 mg/dL High 60 - 110 Laboratory test finding 04/08/2021 [place] Non Destructive Evaluation Manager ispatrice, pc Canvas Shrinker: [place] [address] [phone] Magnesium 1.9 mg/dL 1.8 - 2.4 Comprehensive Chem Profile 04/08/2021 [place] [facility], Canvas Shrinker: [place] [address] [phone] Glucose 234 mg/dL High 74 - 99 [...] Low >60 13 Laboratory test finding 04/08/2021 [place] Non Destructive Evaluation Manager ispatrice, Canvas Shrinker: [place] [address] [phone] Thyroid Stimulating Hormone 1.09 uIU/mL 0.3 6 - 3.74 1 100-125 mg/dL PRE-DIABET ES/FASTING >126 mg/dL DIABETES/FASTING 2 CHRONIC KIDNEY DISEASE STAGI NG PER NKF STAGE I & II GFR >= 60 NORMAL TO MILDLY DECREASED STAGE III GFR 30-59 MODERATELY DECREASED STAGE IV GFR 15-29 SEVERELY DECREASED STAGE V GFR <15 VERY LITTLE GFR LEFT ESRD GFR <15 ON VEHICLE MODIFICATION TECHNICIAN 3 NOTE: CBC VERIFIED 4 100-125 mg/dL PRE-DIABET ES/FASTING >126 mg/dL DIABETES/FASTING 5 CRITICAL: DR RESEDNEZ NOTIFIED NOTE: RESULT VERIFIED. NO VISIBLE HEMOLYSIS. 6 CHRONIC KIDNEY DISEASE STAGI NG PER NKF STAGE I & II GFR >= 60 NORMAL TO MILDLY DECREASED STAGE III GFR 30-59 MODERATELY DECREASED STAGE IV GFR 15-29 SEVERELY DECREASED STAGE V GFR <15 VERY LITTLE GFR LEFT ESRD GFR <15 ON VEHICLE MODIFICATION TECHNICIAN 7 Lab Result Notes: Pre-Diabetes 5.7 - [...] LITTLE GFR LEFT ESRD GFR <15 ON VEHICLE MODIFICATION TECHNICIAN 11 Lab Result Notes: Pre-Diabetes 5.7 - [...] LITTLE GFR LEFT ESRD GFR <15 ON VEHICLE MODIFICATION TECHNICIAN Procedures Date Code Description Status 07/15/2021 19206 Angela Cre SRV W/I 7 Days Of DC, C omm W/I 2 Dys Med Rec Completed 04/24/2021 [id number] Colonoscopy Completed 04/08/2021 13203 Office/Outpatient Established Mo d MDM 30-39 Min Completed 03/04/2021 [id number] Mammogram Completed 08/09/2019 [id number] Mammogram Completed 06/29/2018 [id number] Diabetic Retinal Eye Exam Comple [facility] 05/03/2018 [id number] Mammogram Completed 02/20/2017 [id number] Mammogram Completed 04/29/2016 [id number] Diabetic Retinal Eye Exam Comple [facility] 02/26/2016 [id number] Diabetic Retinal Eye Exam Comple [facility] 12/14/2015 [id number] Mammogram Completed 06/09/2012 [id number] Mammogram Completed 05/16/2008 [id number] Mammogram Completed 10/27/2007 [id number] Colonoscopy Completed Medical Devices Description No Information Available Encounters Type Date Location Provider Dx Diagnosis Office Visit 07/15/2021 8:00a [place] Intern[facility]rystal hood M.D. 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 E11.65 Type 2 diabetes [...] 07/18/2021 I25.10 Atherosclerotic hear t disease of [place] coronary artery without angina pectoris Gabriella Resendez M.D. 07/18/2021 I48.0 Paroxysmal atrial fibrillation Codi Resendez M.D. 07/18/2021 Z79.01 shelter (current) use of antic oagulanpatrice Resendez M.D. 07/18/2021 E87.5 Hyperkalemia Gabriella hassan M.D. 07/15/2021 I63.9 Cerebral infarction, unspecified Gabriella Resendez M.D. 07/15/2021 I48.0 Paroxysmal atrial fibrillation Codi Resendez M.D. 07/15/2021 Z79.01 shelter (current) use of antic oagulants Gabriella Resendez M.D. 07/15/2021 D64.9 Anemia, unspecified Gabriella young M.D. 07/15/2021 I25.10 Atherosclerotic hear t disease of [place] coronary artery without angina pectoris Gabriella Resendez M.D. 07/15/2021 E78.00 Pure hypercholesterolemia, unspe cimallory Resendez M.D. 07/15/2021 E11.65 Type 2 diabetes mellitus with hy perglycemia Gabriella Resendez M.D. 07/15/2021 E11.22 Type 2 diabetes mellitus with di abetic chronic kidney disease Gabriella Resendez M.D. 07/15/2021 N87.9 Dysplasia of cervix uteri, unspe cimallory Resendez M.D. 07/15/2021 N85.00 Endometrial hyperplasia, unspeci fied Gabriella Resendez M.D. 07/15/2021 E66.01 Morbid (severe) obesity due to e xcess calories Gabriella Resendez M.D. 07/15/2021 E87.5 Hyperkalemia Gabriella hassan M.D. 07/15/2021 I50.42 Chronic combined sys tolic [...] Resendez M.D. 04/08/2021 N95.0 Postmenopausal bleeding Gabriella Resnedez M.D. 04/08/2021 I87.2 Venous insufficiency (chronic) ( peripheral) Gabriella Resendez M.D. 04/08/2021 M06.4 Inflammatory polyarthropathy Sarwat Resendez M.D. 04/08/2021 E78.00 Pure hypercholesterolemia, unspe cified Gabriella Resendez M.D. 04/08/2021 E03.9 Hypothyroidism, unspecified Annie Resendez M.D. 04/08/2021 I48.0 Paroxysmal atrial fibrillation Codi Resendez M.D. 04/08/2021 I25.10 Atherosclerotic hear t disease of [place] coronary artery without angina pectoris Gabriella Resendez M.D. 04/08/2021 E83.42 Hypomagnesemia Gabriella hassan M.D. Plan of Treatment Future Appointment(s):* 08/20/2021 1:45 pm - Gabriella [facility] M.D. at [facility] 07/18/2021 - Gabriella Resendez M.D.* I63.9 Cerebral infarction, unspecified * I50.42 Chronic combined systolic (congestive) and diastolic (congestive) heart failure * N18.32 Chronic kidney disease, stage 3b * E11.65 Type 2 diabetes mellitus with hyperglycemia * D50.9 Iron deficiency anemia, unspecified * N85.00 Endometrial hyperplasia, unspecified * E78.00 Pure hypercholesterolemia, unspecified * I25.10 Atherosclerotic heart disease of [place] coronary artery without angina pectoris * I48.0 Paroxysmal atrial fibrillation * Z79.01 shelter (current) use of anticoagulants * E87.5 Hyperkalemia * All * New Medication:* Ferrous Sulfate 324(65 Fe) mg - 1 by mouth every other day * Omeprazole 20 mg - 1 by mouth every day Functional Status Description No Information Available Mental Status Description No Information Available Referrals Refer to Reason for Referral Status Appt Gabbie Ny MD CONSULT FOR ABNORMAL PELVIC U/S PT SCHEDULED FOR PELVIC MRI AT [facility] ON 06/03/21 06/06/21- PLEASE MOVE UP APPT SAMANTHA DUE TO ABNORMAL PELVIC MRI- SUSPICIOUS FOR OVARIAN CANCER PLEASE LET OFFICE KNOW. DR RESENDEZ WILL SPEAK WITH DR [place]. Patient Notified 06/10/2021 [facility] [address] [place], [place] [id number] [phone] Keyshawn [place] MD CONSULT FOR SCREENING COLONOSCOPY Patien t Notified 04/09/2021 [address] [facility] [address] [phone]
--- OUTSIDE RECORDS SUMMARY | 2021-10-03 12:39 | CCD | Continuity of Care Document ---
Author Author Cori JEFFERS MD Organization Unknown Address [address] [address] Phone [phone] Care Team Providers Care Construction Skills Teacher Name Role Phone Gabriella Schaefer MD [facility] [phone] Problems Description No Information Available Social History Type Date Description Comments Sex Unknown Allergies, Adverse Reactions, Alerts Description No Information Available Medications Description No Information Available Immunizations Description No Information Available Vital Signs Description No Information Available Results Description No Information Available Procedures Date Code Description Status 07/08/2021 75582 Hospital Subsequent Care Level 1 Completed 07/06/2021 72476 Hospital Subsequent Care Level 2 Completed 07/05/2021 52554 Hospital Subsequent Care Level 2 Completed 07/05/2021 60547 Hospital Subsequent Care Level 1 Completed 07/05/2021 63458 Catheter Placement In Coronary A rtery Completed 07/04/2021 29096 Hospital Subsequent Care Level 2 Completed 07/04/2021 28958 Hospital Subsequent Care Level 2 Completed 07/03/2021 41585 Hospital Initial Care Level 3 Co mpleted 07/03/2021 83228 Hospital Initial Care Level 1 Co mpleted 07/03/2021 48378 Echocardiography, Tranthoracic R eal-Time Image Documentation Completed 07/03/2021 64568 Electrocardiogram Interpretation & Report Only Completed Medical Devices Description No Information Available Encounters Type Date Location Provider Dx Diagnosis Office Visit 07/08/2021 2:16a [facility] Cardiology [facility] Za Argueta I42.9 Cardiomyopathy, unspecified I63.9 Cerebral infarction, unspeci fied R77.8 Other specified abnormalitie s of plasma proteins I48.91 Unspecified atrial fibrillat ion Z79.01 FPC (current) use of a nticoagulants Office Visit 07/06/2021 2:00a [facility] Edil Jeffers MD I63.9 Cerebral infarction, unspecified R77.8 Other specified abnormalitie s of plasma proteins I42.9 Cardiomyopathy, unspecified I48.91 Unspecified atrial fibrillat ion D64.9 Anemia, unspecified Z79.01 terminal make up operator (current) use of a nticoagulants Office Visit 07/05/2021 2:11a [facility] Za Argueta I63.9 Cerebral infarction, unspecified R77.8 Other specified abnormalitie s of plasma proteins I42.9 Cardiomyopathy, unspecified I48.0 Paroxysmal atrial fibrillati on Office Visit 07/05/2021 2:11a [facility] Neu[facility] ERIN Shin I63.9 Cerebral infarction, unspecified R53.1 Weakness Z79.82 FPC (current) use of a spirin Office Visit 07/04/2021 2:12a [facility] Neurology ERIN Shin I63.9 Cerebral infarction, unspecified R29.701 Nihss score 1 R53.1 Weakness Office Visit 07/04/2021 2:09a [facility] Za Argueta I63.9 Cerebral infarction, unspecified R77.8 Other specified abnormalitie s of plasma proteins I42.9 Cardiomyopathy, unspecified Office Visit 07/03/2021 6:56p [facility] Za Argueta R77.8 Other specified abnormalities of plasma proteins I42.9 Cardiomyopathy, unspecified R29.818 Other symptoms and signs inv olving the nervous system Office Visit 07/03/2021 2:08a [facility] Neurology Sb Mullen MD I63 .9 Cerebral infarction, unspecified R29.701 Nihss score 1 R53.81 Other malaise I10 Essential (primary) hyperten felix R77.8 Other specified abnormalitie s of plasma proteins E11.9 Type 2 diabetes mellitus wit hout complications I48.91 Unspecified atrial fibrillat ion R53.1 Weakness Assessments Date Code Description Provider 07/08/2021 I42.9 Cardiomyopathy, unspecified Banadr Caro MD 07/08/2021 I63.9 Cerebral infarction, unspecified Bandar Caro MD 07/08/2021 R77.8 Other specified abnormalities of plasma proteins Bandar Caro MD 07/08/2021 I48.91 Unspecified atrial fibrillation Bandar Caro MD 07/08/2021 Z79.01 terminal make up operator (current) use of antic oagulants Bandar Caro MD 07/06/2021 I63.9 Cerebral infarction, unspecified Edil Jeffers MD 07/06/2021 R77.8 Other specified abnormalities of plasma proteins Edil Jeffers MD 07/06/2021 I42.9 Cardiomyopathy, unspecified Francy donnie Jeffers MD 07/06/2021 I48.91 Unspecified atrial fibrillation Edil Jeffers MD 07/06/2021 D64.9 Anemia, unspecified Edil parisi MD 07/06/2021 Z79.01 terminal make up operator (current) use of antic oagulants Edil Jeffers MD 07/05/2021 I25.10 Atherosclerotic hear t disease of [place] coronary artery without angina pectoris Ap Porter MD 07/05/2021 I63.9 Cerebral infarction, unspecified ERIN Shin 07/05/2021 I11.0 Hypertensive heart disease with heart failure Ap Porter MD 07/05/2021 R53.1 Weakness ERIN Baeza 07/05/2021 E78.00 Pure hypercholesterolemia, unspe cified Ap Porter MD 07/05/2021 Z79.82 terminal make up operator (current) use of aspir in ERIN Shin 07/05/2021 E11.9 Type 2 diabetes mellitus without complications Ap Porter MD 07/05/2021 I63.9 Cerebral infarction, unspecified Bandar Caro MD 07/05/2021 Z82.49 Family history of is chemic heart disease and other diseases of the circulatory system Ap Porter MD 07/05/2021 R77.8 Other specified abnormalities of plasma proteins Bandar aCro MD 07/05/2021 Z95.0 Presence of cardiac pacemaker Mara Porter MD 07/05/2021 I42.9 Cardiomyopathy, unspecified Bandar Caro MD 07/05/2021 Z95.5 Presence of coronary angioplasty implant and graft Ap Porter MD 07/05/2021 I48.0 Paroxysmal atrial fibrillation Marquise Caro MD 07/05/2021 Z79.82 FPC (current) use of aspir in LarryZa Porter MD 07/04/2021 I63.9 Cerebral infarction, unspecified ERIN Shin 07/04/2021 R29.701 Nihss score 1 ERIN Baeza 07/04/2021 R53.1 Weakness ERIN Baeza 07/04/2021 I63.9 Cerebral infarction, unspecified Bandar Caro MD 07/04/2021 R77.8 Other specified abnormalities of plasma proteins Bandar Caro MD 07/04/2021 I42.9 Cardiomyopathy, unspecified Bandar Caro MD 07/03/2021 I63.9 Cerebral infarction, unspecified Wood Li MD 07/03/2021 I63.9 Cerebral infarction, unspecified Sb Mullen MD 07/03/2021 R29.701 Nihss score 1 Sb Mullen MD 07/03/2021 R53.81 Other malaise Sb Mullen MD 07/03/2021 I10 Essential (primary) hypertension Sb Mullen MD 07/03/2021 R77.8 Other specified abnormalities of plasma proteins Sb Adame MD 07/03/2021 E11.9 Type 2 diabetes mellitus without complications Sb Adame MD 07/03/2021 I48.91 Unspecified atrial fibrillation Sb Mullen MD 07/03/2021 R53.1 Weakness Sb Mullen MD 07/03/2021 R77.8 Other specified abnormalities of plasma proteins Bandar Caro MD 07/03/2021 I42.9 Cardiomyopathy, unspecified Bandar Caro MD 07/03/2021 R29.818 Other symptoms and signs involvi ng the nervous system Bandar Caro MD 07/03/2021 I63.9 Cerebral infarction, unspecified Edil Jeffers MD 07/03/2021 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 Edil Jeffers MD 07/03/2021 I50.22 Chronic systolic (congestive) he art failure Edil Jeffers MD 07/03/2021 N17.9 Acute kidney failure, unspecifie d Edil Jeffers MD 07/03/2021 R56.9 Unspecified convulsions Edil Jeffers MD 07/03/2021 R29.810 Facial weakness Edil Jeffers MD 07/03/2021 I25.10 Atherosclerotic hear t disease of [place] coronary artery without angina pectoris Edil Jeffers MD 07/03/2021 I48.0 Paroxysmal atrial fibrillation C marco antonio Jeffers MD Plan of Treatment Future Appointment(s):* 07/23/2021 9:45 am - Jewels Estevez NP at [facility] [place] Functional Status Description No Information Available Mental Status Description No Information Available Referrals Description No Information Available
--- OUTSIDE RECORDS SUMMARY | 2021-10-03 12:39 | CCD | Continuity of Care Document ---
Author Organization Unknown Address Unknown Phone Unavailable Care Team Providers Care Four Roll Calender Operator Name Role Phone Gabriella Schaefer MD [facility] [phone] Bay Small MD [facility] [phone] Leanne Lyon RN ANP [facility] [phone] Nuvia Guzman RN ANP [facility] [phone] Gabbie Carrasco MD [facility] [phone] Problems Active Problems Provider Date Coronary arteriosclerosis [...] Arreola-C Onset: 06/26/2014 Obstructive sleep apnea syndrome Deann Perez PA-C Onset: 06/26/2014 Patient post percutaneous transluminal coronary angiop lasty ERIN Arreola-C Onset: 06/26/2014 Disorder of pericardium Deann Perez [...] LITTLE GFR LEFT ESRD GFR <15 ON QUALITY CONTROLLER 5 NOTE: CBC VERIFIED Procedures Date Code Description Status 05/02/2021 55462 Office/Outpatient Established Mo d MDM 30-39 Min Completed 05/02/2021 38950 ECG 12-Lead Completed Medical Devices Description No Information Available Encounters Type Date Location Provider Dx Diagnosis Office Visit 05/02/2021 1:00p Main Office Deann Perez PA-C I25.1 0 Athscl heart disease of [place] coronary artery w/o ang pctrs Z95.5 Presence [...] Provider 05/02/2021 I25.10 Atherosclerotic heart disease of [place] coronary artery with Deann Gomezw, PA-C 05/02/2021 Z95.5 Presence of coronary angioplasty implant and graft Deann Perez, PA-C 05/02/2021 I50.32 Chronic diastolic (congestive) h eart failure Deann Perez, PA-C 05/02/2021 I11.0 Hypertensive heart disease with heart failure Deann Perez, PA-C 05/02/2021 I48.0 Paroxysmal atrial fibrillation K ate E Symenow, PA-C 05/02/2021 I35.0 Nonrheumatic aortic (valve) sten osis Deann Wong Symelainew, PA-C 05/02/2021 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 Deann E Symelainew, PA-C 05/02/2021 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 Deann Wong Symcy, PA-C 05/02/2021 I77.810 Thoracic aortic ectasia Deann Wong S ymenow, PA-C 05/02/2021 R94.31 Abnormal electrocardiogram [ECG] [EKG] Deann E Symenow, PA-C 05/02/2021 I45.0 Right fascicular block Deann thompson, PA-C 05/02/2021 E78.00 Pure hypercholesterolemia, unspe cified Deann E Symenow, PA-C 05/02/2021 G47.33 Obstructive sleep apnea (adult) (pediatric) Deann Wong Symcy, PA-C 05/02/2021 Z71.3 Dietary counseling and surveilla nce Deann Perez PA-C Plan of Treatment Future Appointment(s):* 08/07/2021 8:00 am - Deann Perez PA-C at Main Office * 07/24/2021 8:00 am - ECHO at Main Office * 11/04/2021 1:00 pm - Deann Perez PA-C at Main Office 05/02/2021 - Deann Perez PA-C* I25.10 Atherosclerotic heart disease of [place] coronary artery with* Recommendations:* Discuss SGLT-2 inhibitor [...]
--- OUTSIDE RECORDS SUMMARY | 2021-10-03 12:39 | CCD | Continuity of Care Document ---
Author Author Cori Resendez M.D. Organization Unknown Address [address] [facility] [address] [place] [address] Phone [phone] Care Team Providers Care Skip Hoist Engineer Name Role Phone [facility] [phone] Gabriella Resendez MD [facility] [phone] Gabbie Ny MD [facility] [phone] Deann Perez AUT[facility] Unavailable Keyshawn Ramsey MD [facility] [phone] CoryYuliya Mn - Med Recs Fax # [facility] [phone] [facility] AUT[facility] [phone] Bandar Caro MD [facility] [phone] Problems Active Problems Provider Date Coronary arteriosclerosis [...] Capsules 1 by mouth every day 90caps Gbariella Resendez M.D. 07/18/20 21 Ferrous Sulfate 324(65Fe) [...] 5 mm Misc 1 po qd 300units Gabrilela Resendez M.D. 03/2013 Metformin HCL 1000mg Tablets [...] CPT Code Status Date Vaccine Lot # 46263 Given 10/01/2020 Influenza Vaccin e Quadrivalent Preser/Antibiotic Free Im Use [id number] 45039 Given 09/08/2019 Influenza Vaccin e Quadrivalent Preser/Antibiotic Free Im Use 101679 97705 Given 09/30/2018 Influenza Virus Vaccine, Quadrivalent (Cciiv4), Derived From 0 Given 09/24/2017 Influenza Vaccin e Quadrivalent Preser/Antibiotic Free Im Use 353151 Q2037 Given 08/20/2016 Fluvirin Virus Vaccine 99639 01 Q2037 Given 10/01/2015 Fluvirin Virus Vaccine 66944 01 Q2037 Given 09/05/2014 Fluvirin Virus Vaccine 12662 21 Q2037 Given 09/22/2013 Fluvirin Virus Vaccine Q2037 Given 08/11/2011 Fluvirin Virus Vaccine 09641 Given 08/22/2010 Influenza Virus Vaccine 85648 Given 08/15/2009 Influenza Virus Vaccine 66929 Given 09/07/2008 Influenza Virus Vaccine 31975 Given 11/19/2006 Influenza Virus Vaccine 82973 Given 10/29/2004 Influenza Virus Vaccine Vital Signs [...] H/L Range Note Laboratory test finding 07/18/2021 [facility] jt hood Multi Purpose Machine Operator: [place] [address] [phone] Magnesium, Serum <pending> Laboratory test finding 07/15/2021 [facility] [address] [place], [place] [id number] [phone] Ferritin <pending> Comprehensive Chem Profile 07/15/2021 [facility] Multi Purpose Machine Operator: [place] [address] [phone] Glucose 154 mg/dL High 74 - 99 1 BUN 23 mg/dL High 7 - 18 Creatinine 1.4 mg/dL High 0.6 - 1.3 Sodium 140 mEq/L 136 - 145 Potassium 6.3 mEq/L Critical high 3.5 - 5.1 2 Chloride 106 mEq/L 98 - 107 Carbon [...] Low >60 GFR 46 mL/min Low >60 3 Laboratory test finding 07/15/2021 [facility] Multi Purpose Machine Operator: [place] [address] [phone] Magnesium 1.6 mg/dL Low 1.8 - 2.4 A1c 07/15/2021 [facility] Multi Purpose Machine Operator: [place] [address] [phone] Hba1c 8.9 % High <5.7 4 Est Avg Glucose 209 mg/dL High 60 - 110 Complete Blood Count 07/15/2021 [facility] Multi Purpose Machine Operator: Dr Chung Smith [place] [id number] [phone] WBC 13.9 x10*3/UL High 4.1 - 10.9 5 RBC 3.69 x10*6/UL Low 4.20 - 6.30 [...] 2.0 - 7.8 Laboratory test finding 07/15/2021 [place] [address] [place] [address] [phone] Ferritin 33 NG/ML Normal 8-252 Total Iron Binding Capacit 07/15/[address] [facility] [address] [place] [id number] [phone] Iron (Fe) 27 g/dL Low 50-170 Total Iron Binding Capacity 394 g/dL Normal 250-450 Percent Saturation 6.9 % Low 13.2-45.0 Laboratory test finding 07/15/2021 [facility] [address] [place] [address] [phone] Digoxin Level 1.2 NG/ML Normal 0.5-2.0 Basic Metabolic Panel 05/13/2021 [facility] Multi Purpose Machine Operator: [place] [address] [phone] Glucose 168 mg/dL High 74 - 99 6 BUN 20 mg/dL High 7 - 18 Creatinine 1.2 mg/dL 0.6 - 1.3 Sodium 140 mEq/L 136 - 145 Potassium 5.0 mEq/L 3.5 - 5.1 Chloride 102 mEq/L 98 - 107 Carbon Dioxide 28 mEq/L 21 - 32 Calcium 9.0 mg/dL 8.5 - 10.1 GFR 45 mL/min Low >60 GFR 55 mL/min Low >60 7 Laboratory test finding 04/24/2021 [address] [place] [address] [phone] Bedside Glucose 198 mg/dL High 80-115 Complete Blood Count 04/08/2021 [facility] Multi Purpose Machine Operator: [place] [address] [phone] WBC 12.4 x10*3/UL High 4.1 - 10.9 [...] x10*3/UL High 2.0 - 7.8 A1c 04/08/2021 [facility] , Multi Purpose Machine Operator: Dr Chung [place] [id number] [phone] Hba1c 8.4 % High <5.7 8 Est Avg Glucose 194 mg/dL High 60 - 110 Laboratory test finding 04/08/2021 [facility] [employer] [facility], Multi Purpose Machine Operator: [place] [address] [phone] Magnesium 1.9 mg/dL 1.8 - 2.4 Comprehensive Chem Profile 04/08/2021 [facility], Multi Purpose Machine Operator: Dr Chung [place] [id number] [phone] Glucose 234 mg/dL High 74 - 99 9 BUN [...] Low >60 GFR 50 mL/min Low >60 10 Laboratory test finding 04/08/2021 [facility] [employer] [facility], Multi Purpose Machine Operator: [place] [address] [phone] Thyroid Stimulating Hormone 1.09 uIU/mL 0.3 6 - 3.74 1 100-125 mg/dL PRE-DIABET ES/FASTING >126 mg/dL DIABETES/FASTING 2 CRITICAL: DR RESENDEZ NOTIFIED NOTE: RESULT VERIFIED. NO VISIBLE HEMOLYSIS. 3 CHRONIC KIDNEY DISEASE STAGI NG PER NKF STAGE I & II GFR >= 60 NORMAL TO MILDLY DECREASED STAGE III GFR 30-59 MODERATELY DECREASED STAGE IV GFR 15-29 SEVERELY DECREASED STAGE V GFR <15 VERY LITTLE GFR LEFT ESRD GFR <15 ON SALES CORRESPONDENCE CLERK 4 Lab Result Notes: Pre-Diabetes 5.7 - 6.4 % Diabetes = or > 6.5% 5 NOTE: CBC VERIFIED 6 100-125 mg/dL PRE-DIABET ES/FASTING >126 mg/dL DIABETES/FASTING 7 CHRONIC KIDNEY DISEASE STAGI NG PER NKF STAGE I & II GFR >= 60 NORMAL TO MILDLY DECREASED STAGE III GFR 30-59 MODERATELY DECREASED STAGE IV GFR 15-29 SEVERELY DECREASED STAGE V GFR <15 VERY LITTLE GFR LEFT ESRD GFR <15 ON SALES CORRESPONDENCE CLERK 8 Lab Result Notes: Pre-Diabetes 5.7 - 6.4 % Diabetes = or > 6.5% 9 100-125 mg/dL PRE-DIABET ES/FASTING >126 mg/dL DIABETES/FASTING 10 CHRONIC KIDNEY DISEASE STAGI NG PER NKF STAGE I & II GFR >= 60 NORMAL TO MILDLY DECREASED STAGE III GFR 30-59 MODERATELY DECREASED STAGE IV GFR 15-29 SEVERELY DECREASED STAGE V GFR <15 VERY LITTLE GFR LEFT ESRD GFR <15 ON SALES CORRESPONDENCE CLERK Procedures Date Code Description Status 07/15/2021 27997 Angela Cre SRV W/I 7 Days Of DC, C omm W/I 2 Dys Med Rec Completed 04/24/2021 [id number] Colonoscopy Completed 04/08/2021 71210 Office/Outpatient Established Mo d MDM 30-39 Min Completed 03/04/2021 [id number] Mammogram Completed 08/09/2019 [id number] Mammogram Completed 06/29/2018 [id number] Diabetic [facility]inal [facility] 05/03/2018 [id number] Mammogram Completed 02/20/2017 [id number] Mammogram Completed 04/29/2016 [id number] Diabetic Retinal Eye Exam [facility] 02/26/2016 [id number] Diabetic [facility]inal [facility] 12/14/2015 [id number] Mammogram Completed 06/09/2012 [id number] Mammogram Completed 05/16/2008 [id number] Mammogram Completed 10/27/2007 [id number] Colonoscopy Completed Medical Devices Description No Information Available Encounters Type Date Location Provider Dx Diagnosis Office Visit 07/15/2021 8:00a [facility] M.[facility]. I63.9 Cerebral infarction, unspeci fied I48.0 Paroxysmal atrial fibrillati on Z79.01 intermodal dispatcher (current) use of a nticoagulants D64.9 Anemia, [...] diastolic hrt fail Office Visit 04/08/2021 10:45a [facility] M.D. E11.65 Type 2 diabetes [...] 07/18/2021 I25.10 Atherosclerotic hear t disease of [place] coronary artery without angina pectoris Gabriella Resendez M.D. 07/18/2021 I48.0 Paroxysmal atrial fibrillation Codi Resendez M.D. 07/18/2021 Z79.01 snf (current) use of antic oagulants Gabriella Resendez M.D. 07/18/2021 E87.5 Hyperkalemia Gabriella hassan M.D. 07/15/2021 I63.9 Cerebral infarction, unspecified Gabriella Resendez M.D. 07/15/2021 I48.0 Paroxysmal atrial fibrillation Codi Resendez M.D. 07/15/2021 Z79.01 intermodal dispatcher (current) use of antic oagulants Gabriella Resendez M.D. 07/15/2021 D64.9 Anemia, radhaified Gabriella young M.D. 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 04/08/2021 E83.42 Hypomagnesemia Gabriella hassan M.D. Plan of Treatment Future Appointment(s):* 08/20/2021 1:45 pm - Gabriella Resendez M.D. at [facility] 07/18/2021 - Gabriella Resendez M.D.* I63.9 Cerebral infarction, unspecified * I50.42 Chronic combined systolic (congestive) and diastolic (congestive) heart failure * N18.32 Chronic kidney disease, stage 3b * E11.65 Type 2 diabetes mellitus with hyperglycemia * D50.9 Iron deficiency anemia, unspecified * N85.00 Endometrial hyperplasia, unspecified * E78.00 Pure hypercholesterolemia, unspecified * I25.10 Atherosclerotic heart disease of [place] coronary artery without angina pectoris * I48.0 Paroxysmal atrial fibrillation * Z79.01 intermodal dispatcher (current) use of anticoagulants * E87.5 Hyperkalemia [...] U/S PT SCHEDULED FOR PELVIC MRI AT [facility] ON 06/03/21 06/06/21- PLEASE MOVE UP APPT SAMANTHA DUE TO ABNORMAL PELVIC MRI- SUSPICIOUS FOR OVARIAN CANCER PLEASE LET OFFICE KNOW. DR RESENDEZ WILL SPEAK WITH DR [place]. Patient Notified 06/10/2021 [facility] [address] [place], [place] [address] [phone] Keyshawn Ramsey MD CONSULT FOR SCREENING COLONOSCOPY Patien t Notified 04/09/2021 [address] [facility] [address] [phone]
--- OUTSIDE RECORDS SUMMARY | 2021-10-03 12:42 | CCD ---
Author Author [facility] Organization [facility] Address Unknown Phone Unavailable Care Team Providers Care Timber Feller Name Role Phone Jessica Ramsey MD Unavailable Unavailable Jessica Ramsey MD Unavailable Unavailable Jessica Ramsey MD Unavailable Unavailable Jessica Ramsey MD Unavailable Unavailable Jessica Ramsey MD Unavailable Unavailable Jessica Ramsey MD Unavailable Unavailable Jessica Ramsey MD Unavailable Unavailable Jessica Ramsey MD Unavailable Unavailable Jessica Ramsey MD Unavailable Unavailable Jessica Ramsey MD Unavailable Unavailable Jessica Ramsey MD Unavailable Unavailable Jessica Ramsey MD Unavailable Unavailable Jessica Ramsey MD Unavailable Unavailable Jessica Ramsey MD Unavailable Unavailable Jessica Ramsey MD Unavailable Unavailable Jessica Ramsey MD Unavailable Unavailable Jessica Ramsey MD Unavailable Unavailable Jessica Ramsey MD Unavailable Unavailable Jessica Ramsey MD Unavailable Unavailable Jessica Ramsey MD Unavailable Unavailable Jessica Ramsey MD Unavailable Unavailable Jessica Ramsey MD Unavailable Unavailable Jessica Ramsey MD Unavailable Unavailable Jessica Ramsey MD Unavailable Unavailable Jessica Ramsey MD Unavailable Unavailable Jessica Ramsey MD Unavailable Unavailable Jessica Ramsey MD Unavailable Unavailable Jessica Ramsey MD Unavailable Unavailable Jessica Ramsey MD Unavailable Unavailable Jessica Ramsey MD Unavailable Unavailable Braulio S Keyshawn OJEDA Unavailable Unavailable Braulio S Keyshawn OJEDA Unavailable Unavailable Braulio S Keyshawn OJEDA Unavailable Unavailable Braulio S Keyshawn OJEDA Unavailable Unavailable Braulio, S Keyshawn OJEDA Unavailable Unavailable Braulio, S Keyshawn OJEDA Unavailable Unavailable Braulio, S Keyshawn MD Unavailable Unavailable Braulio, S Keyshawn MD Unavailable Unavailable Braulio, S Keyshawn MD Unavailable Unavailable Braulio, S Keyshawn OJEDA Unavailable Unavailable Braulio, S Keyshawn MD Unavailable Unavailable Braulio, S Keyshawn MD Unavailable Unavailable Braulio, S Keyshawn MD Unavailable Unavailable Braulio, S Keyshawn MD Unavailable Unavailable Braulio, S Keyshawn OJEDA Unavailable Unavailable Braulio, S Keyshawn OJEDA Unavailable Unavailable Braulio S Keyshawn OJEDA Unavailable Unavailable Braulio S Keyshawn OJEDA Unavailable Unavailable Braulio S Keyshawn OJEDA Unavailable Unavailable Braulio S Keyshawn OJEDA Unavailable Unavailable Braulio S Keyshawn OJEDA Unavailable Unavailable YANELY, Latia FRANKEL MD Unavailable Unavailable [place], Latia FRANKEL MD Unavailable Unavailable [place], Latia FRANKEL MD Unavailable Unavailable NYLatia MD Unavailable Unavailable [place], Latia FRANKEL MD Unavailable Unavailable NYLatia MD Unavailable Unavailable Latia [place] MD Unavailable Unavailable Latia NY MD Unavailable Unavailable Latia [place] MD Unavailable Unavailable [place], Latia FRANKEL MD Unavailable Unavailable [place], Latia FRANKEL MD Unavailable Unavailable [place], Latia FRANKEL MD Unavailable Unavailable NYLatia MD Unavailable Unavailable Latia NY MD Unavailable Unavailable Latia NY MD Unavailable Unavailable Latia NY MD Unavailable Unavailable Latia NY MD Unavailable Unavailable Latia NY MD Unavailable Unavailable NYLatia MD Unavailable Unavailable Latia NY MD Unavailable Unavailable Latia NY MD Unavailable Unavailable Latia NY MD Unavailable Unavailable Latia NY MD Unavailable Unavailable Latia NY MD Unavailable Unavailable Latia NY MD Unavailable Unavailable NYLatia MD Unavailable Unavailable [place], Latia FRANKEL MD Unavailable Unavailable Latia NY MD Unavailable Unavailable Latia [place] MD Unavailable Unavailable NYLatia MD Unavailable Unavailable NYLatia MD Unavailable Unavailable NYLatia MD Unavailable Unavailable NYLatia MD Unavailable Unavailable NYLatia DURAN MD Unavailable Unavailable Latia [place] MD Unavailable Unavailable Latia [place] MD Unavailable Unavailable Latia [place] MD Unavailable Unavailable Latia NY MD Unavailable Unavailable Latia NY MD Unavailable Unavailable Latia NY MD Unavailable Unavailable Latia NY MD Unavailable Unavailable Latia NY MD Unavailable Unavailable Latia NY MD Unavailable Unavailable Latia [place] MD Unavailable Unavailable Latia [place] MD Unavailable Unavailable KAYLEY CHARLES MD Unavailable Unavailable PCP, PT Does Not have, OUT OF AREA Unavailable Unav ailable JIM TORO MD Unavailable Unavailable JIM TORO MD Unavailable Unavailable JIM TORO MD Unavailable Unavailable JIM TORO MD Unavailable Unavailable JIM TORO MD Unavailable Unavailable JIM TORO MD Unavailable Unavailable JIM TORO MD Unavailable Unavailable PARVIN JEFFERS MD Unavailable Unavailable PARVIN JEFFERS MD Unavailable Unavailable PARVIN JEFFERS MD Unavailable Unavailable PARVIN JEFFERS MD Unavailable Unavailable PARVIN JEFFERS MD Unavailable Unavailable PARVIN JEFFERS MD Unavailable Unavailable PARVIN JEFFERS MD Unavailable Unavailable PARVIN JEFFERS MD Unavailable Unavailable PARVIN JEFFERS MD Unavailable Unavailable PARVIN JEFFERS MD Unavailable Unavailable PARVIN JEFFERS MD Unavailable Unavailable PARVIN JEFFERS MD Unavailable Unavailable PARVIN JEFFERS MD Unavailable Unavailable PARVIN JEFFERS MD Unavailable Unavailable PARVIN JEFFERS MD Unavailable Unavailable PARVIN JEFFERS MD Unavailable Unavailable PARVIN JEFFERS MD Unavailable Unavailable PARVIN JEFFERS MD Unavailable Unavailable PARVIN JEFFERS MD Unavailable Unavailable PARVIN JEFFERS MD Unavailable Unavailable PARVIN JEFFERS MD Unavailable Unavailable PARVIN JEFFERS MD Unavailable Unavailable PARVIN JEFFERS MD Unavailable Unavailable PARVIN JEFFERS MD Unavailable Unavailable PARVIN JEFFERS MD Unavailable Unavailable PARVIN JEFFERS MD Unavailable Unavailable PARVIN JEFFERS MD Unavailable Unavailable PARVIN JEFFERS MD Unavailable Unavailable Marquise Mullen MD Unavailable Unavailable Marquise Mullen MD Unavailable Unavailable Marquise Mullen MD Unavailable Unavailable Marquise Mullen MD Unavailable Unavailable Marquise Mullen MD Unavailable Unavailable Marquise Mullen MD Unavailable Unavailable Marquise Mullen MD Unavailable Unavailable Marco-Malak, A Sb MD Unavailable Unavailable Marco-Malak, A Sb MD Unavailable Unavailable Marco-Malak, A Sb MD Unavailable Unavailable Marco-Malak, A Sb MD Unavailable Unavailable Marco-Malak, A Sb MD Unavailable Unavailable Marco-Malak, A Sb MD Unavailable Unavailable Marco-Malak, A Sb MD Unavailable Unavailable Marco-Malak, A Sb MD Unavailable Unavailable Marco-Malak, A Sb MD Unavailable Unavailable Marco-Malak, A Sb MD Unavailable Unavailable Marco-Malak, A Sb MD Unavailable Unavailable Marco-Malak, A Sb MD Unavailable Unavailable Marco-Malak, A Sb MD Unavailable Unavailable Marco-Malak, A Sb MD Unavailable Unavailable Marco-Malak, A Sb MD Unavailable Unavailable Marco-Malak, A Sb MD Unavailable Unavailable Marco-Malak, A Sb MD Unavailable Unavailable Marco-Malak, A Sb MD Unavailable Unavailable Marco-Malak, A Sb MD Unavailable Unavailable Marco-Malak, A Sb MD Unavailable Unavailable Marco-Malak, A Sb MD Unavailable Unavailable Marco-Malak, A Sb MD Unavailable Unavailable Marco-Malak, A Sb MD Unavailable Unavailable Marco-Malak, A Sb MD Unavailable Unavailable Marco-Malak, A Sb MD Unavailable Unavailable Marco-Malak, A Sb MD Unavailable Unavailable Marco-Malak, A Sb MD Unavailable Unavailable Marco-Malak, A Sb MD Unavailable Unavailable Marco-Malak, A Sb MD Unavailable Unavailable Marco-Malak, A Sb MD Unavailable Unavailable Marco-Malak, A Sb MD Unavailable Unavailable Marco-Malak, A Sb MD Unavailable Unavailable Marco-Malak, A Sb MD Unavailable Unavailable Marco-Malak, A Sb MD Unavailable Unavailable Marco-Malak, A Sb MD Unavailable Unavailable Marco-Malak, A Sb MD Unavailable Unavailable Marco-Malak, A Sb MD Unavailable Unavailable Marco-Malak, A Sb MD Unavailable Unavailable Marco-Malak, A Sb MD Unavailable Unavailable Marco-Malak, A Sb MD Unavailable Unavailable Marco-Malak, A Sb MD Unavailable Unavailable Marco-Malak, A Sb MD Unavailable Unavailable Marco-Malak, A Sb MD Unavailable Unavailable Marco-Malak, A Sb MD Unavailable Unavailable Marco-Malak, A Sb MD Unavailable Unavailable Marco-Malak, A Sb MD Unavailable Unavailable Marco-Malak, A Sb MD Unavailable Unavailable Marco-Malak, A Sb MD Unavailable Unavailable Marco-Malak, A Sb MD Unavailable Unavailable Marco-Malak, A Sb MD Unavailable Unavailable Marco-Malak, A Sb MD Unavailable Unavailable Marco-Malak, A Sb MD Unavailable Unavailable Marco-Malak, A Sb MD Unavailable Unavailable Marco-Malak, A Sb MD Unavailable Unavailable Marco-Malak, A Sb MD Unavailable Unavailable Marco-Malak, A Sb MD Unavailable Unavailable Marco-Malak, A Sb MD Unavailable Unavailable Marco-Malak, A Sb MD Unavailable Unavailable Marco-Malak, A Sb MD Unavailable Unavailable Marco-Malak, A Sb MD Unavailable Unavailable Marco-Malak, A Sb MD Unavailable Unavailable Marco-Malak, A Sb Unavailable Unavailable English Goodson, Marquise Vázquez MD, FACS Unavailable Unavailable English Goodson, Marquise Vázquez MD, FACS Unavailable Unavailable English Goodson, Marquise Vázquez MD, FACS Unavailable Unavailable English Goodson, Marquise Vázquez MD, FACS Unavailable Unavailable English Goodson, Marquise Vázquez MD, FACS Unavailable Unavailable English Goodson, Marquise Vázquez MD, FACS Unavailable Unavailable English Goodson, Marquise Vázquez MD, FACS Unavailable Unavailable English Goodson, Marquise Vázquez MD, FACS Unavailable Unavailable English Goodson, Marquise Vázquez MD, FACS Unavailable Unavailable English Goodson, Marquise Vázquez MD, FACS Unavailable Unavailable English Goodson, Marquise Vázquez MD, FACS Unavailable Unavailable English Goodson, Marquise Vázquez MD, FACS Unavailable Unavailable English Goodson, Marquise Vázquez MD, FACS Unavailable Unavailable English Goodson, Marquise Vázquez MD, FACS Unavailable Unavailable English Goodson, Marquise Vázquez MD, FACS Unavailable Unavailable English Goodson, Marquise Vázquez MD, FACS Unavailable Unavailable English Goodson, Marquise Vázquez MD, FACS Unavailable Unavailable English Goodson, Marquise Vázquez MD, FACS Unavailable Unavailable English Goodson, Marquise Vázquez MD, FACS Unavailable Unavailable English Goodson, Marquise Vázquez MD, FACS Unavailable Unavailable English Goodson, Marquise Vázquez MD, FACS Unavailable Unavailable English Goodson, Marquise Vázquez MD, FACS Unavailable Unavailable English Goodson, Marquise Vázquez MD, FACS Unavailable Unavailable English Goodson, Marquise Vázquez MD, FACS Unavailable Unavailable English Goodson, Marquise Vázquez MD, FACS Unavailable Unavailable English Goodson, Marquise Vázquez MD, FACS Unavailable Unavailable English Goodson, Marquise Vázquez MD, FACS Unavailable Unavailable English Goodson, Marquise Vázquez MD, FACS Unavailable Unavailable English Goodson, Marquise Vázquez MD, FACS Unavailable Unavailable English Goodson, Marquise Vázquez MD, FACS Unavailable Unavailable English Goodson, Marquise Vázquez MD, FACS Unavailable Unavailable English Goodson, Marquise Vázquez MD, FACS Unavailable Unavailable English Goodson, Marquise Vázquez MD, FACS Unavailable Unavailable English Goodson, Marquise Vázquez MD, FACS Unavailable Unavailable English Goodson, Marquise Vázquez MD, FACS Unavailable Unavailable English Goodson, Marquise Vázquez MD, FACS Unavailable Unavailable English Goodson, Marquise Vázquez MD, FACS Unavailable Unavailable English Goodson, Marquise Vázquez MD, FACS Unavailable Unavailable English Goodson, Marquise Vázquez MD, FACS Unavailable Unavailable CORTEZJIM MD Unavailable Unavailable CORTEZJIM MD Unavailable Unavailable CORTEZJIM MD Unavailable Unavailable CORTEZJIM MD Unavailable Unavailable CORTEZ, JIM OJEDA Unavailable Unavailable CORTEZ, JIM OJEDA Unavailable Unavailable CORTEZJIM MD Unavailable Unavailable REBECA, L MEAGAN OLIVIA PA-C Unavailable Unavailable REBECA, L MEAGAN OLIVIA PA-C Unavailable Unavailable Symenow, Radha Deann PA Unavailable Unavailable Symenow, Radha Deann PA Unavailable Unavailable Symenow, Radha Deann PA Unavailable Unavailable Symenow, Radha Deann PA Unavailable Unavailable Symenow, Radha Deann PA Unavailable Unavailable Symenow, Radha Deann PA Unavailable Unavailable Symenow, Radha Deann PA Unavailable Unavailable Symenow, Radha Deann PA Unavailable Unavailable Symenow, Radha Deann PA Unavailable Unavailable Symenow, Radha Deann PA Unavailable Unavailable Symenow, Radha Deann PA Unavailable Unavailable Symenow, Radha Deann PA Unavailable Unavailable Symenow, Radha Deann PA Unavailable Unavailable Symenow, Radha Deann PA Unavailable Unavailable Symenow, Radha Deann PA Unavailable Unavailable Symenow, Radha Deann PA Unavailable Unavailable Symenow, Radha Deann PA Unavailable Unavailable Symenow, Radha Deann PA Unavailable Unavailable Symenow, Radha Deann PA Unavailable Unavailable Symenow, Radha Deann PA Unavailable Unavailable Symenow, Radha Deann PA Unavailable Unavailable Symenow, Radha Deann PA Unavailable Unavailable Symenow, Radha Deann PA Unavailable Unavailable Symenow, Radha Deann PA Unavailable Unavailable Symenow, Radha Deann PA Unavailable Unavailable Symenow, Radha Deann PA Unavailable Unavailable Symenow, Radha Deann PA Unavailable Unavailable Symenow, Radha Deann PA Unavailable Unavailable Symenow, Radha Deann PA Unavailable Unavailable Symenow, Radha Deann PA Unavailable Unavailable Symenow, Radha Deann PA Unavailable Unavailable Symenow, Radha Deann PA Unavailable Unavailable Symenow, Radha Deann PA Unavailable Unavailable Symenow, Radha Deann PA Unavailable Unavailable [place] soto MD Unavailable Unavailable [place] soto MD Unavailable Unavailable [place] soto MD Unavailable Unavailable [place] soto MD Unavailable Unavailable [place] soto MD Unavailable Unavailable [place] soto MD Unavailable Unavailable [place] soto MD Unavailable Unavailable [place] soto MD Unavailable Unavailable [place] soto MD Unavailable Unavailable [place] soto MD Unavailable Unavailable [place] soto MD Unavailable Unavailable [place] soto MD Unavailable Unavailable [place] soot MD Unavailable Unavailable [place] soto MD Unavailable Unavailable [place] soto MD Unavailable Unavailable [place] soto MD Unavailable Unavailable [place] soto MD Unavailable Unavailable [place]ta[place] melo MD Unavailable Unavailable [place]ta[place] melo MD Unavailable Unavailable [place]ta[place] melo MD Unavailable Unavailable [place]ta[place] melo MD Unavailable Unavailable [place] soto MD Unavailable Unavailable [place] melo MD Unavailable Unavailable [place] soto MD Unavailable Unavailable [place] soto MD Unavailable Unavailable [place] soto MD Unavailable Unavailable [place] soto MD Unavailable Unavailable [place] melo MD Unavailable Unavailable Mta[place] melo MD Unavailable Unavailable [place] soto MD Unavailable Unavailable [place] soto MD Unavailable Unavailable MtanosGordo MD Unavailable Unavailable Mtanos[place]ordo MD Unavailable Unavailable [place] soto MD Unavailable Unavailable [place] soto MD Unavailable Unavailable [place] soto MD Unavailable Unavailable [place] soto MD Unavailable Unavailable [place] soto MD Unavailable Unavailable [place] soto MD Unavailable Unavailable [place] soto MD Unavailable Unavailable MtanosGordo MD Unavailable Unavailable MtanosGordo MD Unavailable Unavailable MtanosGordo MD Unavailable Unavailable MtanosGordo MD Unavailable Unavailable MtanosGordo MD Unavailable Unavailable MtanosGordo MD Unavailable Unavailable MtanosGordo MD Unavailable Unavailable MtanosGordo MD Unavailable Unavailable MtanosGordo MD Unavailable Unavailable MtanosGordo MD Unavailable Unavailable MtanosGordo MD Unavailable Unavailable MtanosGordo MD Unavailable Unavailable MtanosGordo MD Unavailable Unavailable MtanosGordo MD Unavailable Unavailable MtanosGordo MD Unavailable Unavailable Mtanos, Gordo OJEDA Unavailable Unavailable MtanosGordo MD Unavailable Unavailable MtanosGordo MD Unavailable Unavailable MtanosGordo MD Unavailable Unavailable MtanosGordo MD Unavailable Unavailable MtanosGordo MD Unavailable Unavailable MtanosGordo MD Unavailable Unavailable MtanosGordo MD Unavailable Unavailable MtanosoGrdo MD Unavailable Unavailable MtanosGordo MD Unavailable Unavailable MtanosGordo MD Unavailable Unavailable MtanosGordo MD Unavailable Unavailable MtanosGordo MD Unavailable Unavailable MtanosGordo MD Unavailable Unavailable MtanosGordo MD Unavailable Unavailable MtanosGordo MD Unavailable Unavailable MtanosGordo MD Unavailable Unavailable MtanosGordo MD Unavailable Unavailable MtanosGordo MD Unavailable Unavailable MtanosGordo MD Unavailable Unavailable MtanosGordo MD Unavailable Unavailable MtanosGordo MD Unavailable Unavailable MtanosGordo MD Unavailable Unavailable MtanosGordo MD Unavailable Unavailable MtanosGordo MD Unavailable Unavailable MtanosGordo MD Unavailable Unavailable MtanosGordo MD Unavailable Unavailable [place] soto MD Unavailable Unavailable MtanosGordo MD Unavailable Unavailable MtanosGordo MD Unavailable Unavailable MtanosGordo MD Unavailable Unavailable MtanosGordo MD Unavailable Unavailable MtanosGordo MD Unavailable Unavailable MtanosGordo MD Unavailable Unavailable MtanosGordo MD Unavailable Unavailable MtanosGordo MD Unavailable Unavailable MtanosGordo MD Unavailable Unavailable MtanosGordo MD Unavailable Unavailable MtanosGordo MD Unavailable Unavailable MtanosGordo MD Unavailable Unavailable MtanosGordo MD Unavailable Unavailable MtanosGordo MD Unavailable Unavailable MtanosGordo MD Unavailable Unavailable MtanosGordo MD Unavailable Unavailable MtanosGordo MD Unavailable Unavailable MtanosGordo MD Unavailable Unavailable MtanosGordo MD Unavailable Unavailable MtanosGordo MD Unavailable Unavailable MtanosGordo MD Unavailable Unavailable MtanosGordo MD Unavailable Unavailable Mtanos, Gordo MD Unavailable Unavailable MARTINA, ABU Unavailable Unavailable OliveZa MD Unavailable Unavailable OliveZa MD Unavailable Unavailable OliveZa MD Unavailable Unavailable OliveZa MD Unavailable Unavailable OliveZa MD Unavailable Unavailable OliveZa MD Unavailable Unavailable OliveZa MD Unavailable Unavailable OliveZa young MD Unavailable Unavailable OliveZa MD Unavailable Unavailable OliveZa MD Unavailable Unavailable OliveZa MD Unavailable Unavailable OliveZa MD Unavailable Unavailable OliveZa MD Unavailable Unavailable OliveZa MD Unavailable Unavailable OliveZa MD Unavailable Unavailable OliveZa MD Unavailable Unavailable OliveZa MD Unavailable Unavailable OliveZa young MD Unavailable Unavailable Za Resendez MD Unavailable Unavailable Za Resendez MD Unavailable Unavailable Za Resendez MD Unavailable Unavailable Za Resendez MD Unavailable Unavailable Za Resendez MD Unavailable Unavailable Za Resendez MD Unavailable Unavailable Za Resendez MD Unavailable Unavailable Za Resendez MD Unavailable Unavailable Za Resendez MD Unavailable Unavailable Za Resendez MD Unavailable Unavailable Za Resendez MD Unavailable Unavailable Za Resendez MD Unavailable Unavailable Za Resendez MD Unavailable Unavailable Za Resendez MD Unavailable Unavailable Za Resendez MD Unavailable Unavailable Za Resendez MD Unavailable Unavailable Za Resendez MD Unavailable Unavailable Za Resendez MD Unavailable Unavailable Za Resendez MD Unavailable Unavailable Za Resendez MD Unavailable Unavailable Za Resendez MD Unavailable Unavailable Za Resendez MD Unavailable Unavailable Za Resendez MD Unavailable Unavailable Za Resendez MD Unavailable Unavailable Za Resendez MD Unavailable Unavailable Za Resendez MD Unavailable Unavailable Za Resendez MD Unavailable Unavailable Za Resendez MD Unavailable Unavailable Za Resendez MD Unavailable Unavailable OliveZa young MD Unavailable Unavailable OliveZa MD Unavailable Unavailable Za Resendez MD Unavailable Unavailable Za Resendez MD Unavailable Unavailable Za Resendez MD Unavailable Unavailable Za Resendez MD Unavailable Unavailable Za Resendez MD Unavailable Unavailable Za Resendez MD Unavailable Unavailable Za Resendez MD Unavailable Unavailable Za Resendez MD Unavailable Unavailable Za Resendez MD Unavailable Unavailable Za Resendez MD Unavailable Unavailable Za Resendez MD Unavailable Unavailable Za Resendez MD Unavailable Unavailable Za Resendez MD Unavailable Unavailable Za Resendez MD Unavailable Unavailable Za Resendez MD Unavailable Unavailable Za Resendez MD Unavailable Unavailable Za Resendez MD Unavailable Unavailable Za Resendez MD Unavailable Unavailable Za Resendez MD Unavailable Unavailable Za Resendez MD Unavailable Unavailable Za Resendez MD Unavailable Unavailable Za Resendez MD Unavailable Unavailable Za Resendez MD Unavailable Unavailable Za Resendez MD Unavailable Unavailable Za Resendez MD Unavailable Unavailable Za Resendez MD Unavailable Unavailable Za Resendez MD Unavailable Unavailable Za Resendez MD Unavailable Unavailable Za Resendez MD Unavailable Unavailable Za Resendez MD Unavailable Unavailable Za Resendez MD Unavailable Unavailable Za Resendez MD Unavailable Unavailable Za Resendez MD Unavailable Unavailable Za Resendez MD Unavailable Unavailable Za Resendez MD Unavailable Unavailable PHYSICIAN, PHYSICIAN ER Unavailable Unavailable BARRACO, KAYLEY Unavailable Unavailable BARRACO, KAYLEY Unavailable Unavailable Buster Zheng MD Unavailable Unavailable Buster Zheng MD Unavailable Unavailable Buster Zheng MD Unavailable Unavailable Buster Zheng MD Unavailable Unavailable Buster Zheng MD Unavailable Unavailable Buster Zheng MD Unavailable Unavailable Buster Zheng MD Unavailable Unavailable Buster Zheng MD Unavailable Unavailable Buster Zheng MD Unavailable Unavailable Buster Zheng MD Unavailable Unavailable Buster Zheng MD Unavailable Unavailable Buster Zheng MD Unavailable Unavailable Buster Zhneg MD Unavailable Unavailable Buster Zheng MD Unavailable Unavailable Gordo, K Yoanna MD Unavailable Unavailable Gordo, K Yoanna MD Unavailable Unavailable Buster Zheng Yoanna MD Unavailable Unavailable Buster Zheng Yoanna MD Unavailable Unavailable Buster Zheng Yoanna MD Unavailable Unavailable Buster Zheng Yoanna MD Unavailable Unavailable Buster Zheng Yoanna MD Unavailable Unavailable GordoBuster Yoanna MD Unavailable Unavailable Gordo K Yoanna MD Unavailable Unavailable Gordo K Yoanna MD Unavailable Unavailable GordoBuster Yoanna MD Unavailable Unavailable GordoBuster Yoanna MD Unavailable Unavailable GordoBuster Yoanna MD Unavailable Unavailable GordoBuster Yoanna MD Unavailable Unavailable Gordo K Yoanna MD Unavailable Unavailable Gordo K Yoanna MD Unavailable Unavailable Gordo K Yoanna MD Unavailable Unavailable Gordo K Yoanna MD Unavailable Unavailable Gordo K Yoanna MD Unavailable Unavailable Buster Zheng Yoanna MD Unavailable Unavailable Buster Zheng Yoanna MD Unavailable Unavailable Buster Zheng Yoanna MD Unavailable Unavailable Buster Zheng Yoanna MD Unavailable Unavailable Buster Zheng Yoanna MD Unavailable Unavailable Buster Zheng Yoanna MD Unavailable Unavailable Buster Zheng Yoanna MD Unavailable Unavailable Buster Zheng Yoanna MD Unavailable Unavailable Buster Zheng Yoanna MD Unavailable Unavailable Buster Zheng Yoanna MD Unavailable Unavailable Buster Zheng Yoanna MD Unavailable Unavailable Buster Zheng Yoanna MD Unavailable Unavailable Buster Zheng Yoanna MD Unavailable Unavailable Buster Zheng Yoanna MD Unavailable Unavailable Buster Zheng Yoanna MD Unavailable Unavailable Buster Zheng Yoanna MD Unavailable Unavailable Buster Zheng Yoanna MD Unavailable Unavailable Buster Zheng Yoanna MD Unavailable Unavailable Buster Zheng Yoanna MD Unavailable Unavailable Buster Zheng Yoanna MD Unavailable Unavailable Buster Zheng Yoanna MD Unavailable Unavailable Buster Zheng Yoanna MD Unavailable Unavailable Buster Zheng Yoanna MD Unavailable Unavailable Buster Zheng Yoanna MD Unavailable Unavailable Buster Zheng Yoanna MD Unavailable Unavailable Buster Zheng Yoanna MD Unavailable Unavailable Buster Zheng Yoanna MD Unavailable Unavailable Buster Zheng Yoanna MD Unavailable Unavailable Buster Zheng Yoanna MD Unavailable Unavailable Buster Zheng Yoanna MD Unavailable Unavailable Bustre Zheng Yoanna MD Unavailable Unavailable Buster Zheng Yoanna MD Unavailable Unavailable Buster Zheng Yoanna MD Unavailable Unavailable Buster Zheng Yoanna MD Unavailable Unavailable Buster Zheng Yoanna MD Unavailable Unavailable GordoBuster Yoanna MD Unavailable Unavailable GordoBuster Yoanna MD Unavailable Unavailable Gordo K Yoanna MD Unavailable Unavailable GordoBuster Yoanna MD Unavailable Unavailable Buster Zheng Yoanna MD Unavailable Unavailable Buster Zheng Yoanna MD Unavailable Unavailable Buster Zheng Yoanna MD Unavailable Unavailable Buster Zheng Yoanna MD Unavailable Unavailable Buster Zheng Yoanna MD Unavailable Unavailable Gordo, K Yoanna MD Unavailable Unavailable Buster Zheng MD Unavailable Unavailable Buster Zheng Yoanna Unavailable Unavailable Gordo K Yoanna Unavailable Unavailable Gordo K Yoanna Unavailable Unavailable Gordo K Yoanna Unavailable Unavailable Gordo K Yoanna MD Unavailable Unavailable Gordo K Yoanna MD Unavailable Unavailable Gordo K Yoanna Unavailable Unavailable Gordo K Yoanna MD Unavailable Unavailable Buster Zheng Yoanna Unavailable Unavailable NIKO MACK MD Unavailable Unavailable PHYSICIAN, ER Unavailable Unavailable Re-disclosure Warning The records that you are about to access may contain information from federally-assisted alcohol or drug abuse programs. If such information is present, then the following federally mandated warning applies: This information has been disclosed to you from records protected by federal confidentiality rules (42 CFR part 2). The federal rules prohibit you from making any further disclosure of this information unless further disclosure is expressly permitted by the written consent of the person to whom it pertains or as otherwise permitted by 42 CFR part 2. A general authorization for the release of medical or other information is NOT sufficient for this purpose. The Federal rules restrict any use of the information to criminally investigate or prosecute any alcohol or drug abuse patient.The records that you are about to access may contain highly sensitive health information, the redisclosure of which is protected by Article 27-F of the [facility] Public Health law. If you continue you may have access to information: Regarding HIV / AIDS; Provided by facilities licensed or operated by the [facility] Office of Mental Health; or Provided by the [facility] Office for People With Developmental Disabilities. If such information is present, then the following [facility] mandated warning applies: This information has been disclosed to you from confidential records which are protected by state law. State law prohibits you from making any further disclosure of this information without the specific written consent of the person to whom it pertains, or as otherwise permitted by law. Any unauthorized further disclosure in violation of state law may result in a fine or long-term sentence or both. A general authorization for the release of medical or other information is NOT sufficient authorization for further disc losure. Allergies and Adverse Reactions Type Description Substance Reaction Status Data Source(s ) Allergy to substance No Known Allergies No known allergies (situation ) RENE (Gurpreet Goodson MD [facility]) Allergy to substance No Known Allergies No known allergies (situation ) RENE (Gurpreet Goodson MD [facility]) Family History Family Member Name Family Member Gender Family Member Status Date o f Status Description Data Source(s) Unknown Female Problem (finding) 06/12/2016 12:00:00 AM EDT [facility] ([facility]) Unknown Female Problem (finding) 06/12/2016 12:00:00 AM EDT [facility] ([facility]) Unknown Female Problem (finding) 04/12/2013 12:00:00 AM EDT [facility] ([facility]) Encounters Encounter Providers Location Date Indications Data Source(s ) Outpatient Attender: JOSTIN [place] MD [facility] 09:15:00 AM EDT [facility] ([facility]) Outpatient Attender: Gabriella Cardenas 01:45:00 PM EDT [facility] ([facility] ) Outpatient Attender: Deann KHAN Main Office 08/07/2021 08:00:00 AM EDT [facility] ([facility]) Outpatient Attender: Gabriella Cardenas 09:00:00 AM EDT [facility] ([facility] ) Outpatient Attender: Gabriella Cardenas 08:00:00 AM EDT [facility] ([facility] ) Outpatient Attender: Yoanna Zheng MD [facility] [place] 07/08/2021 02:16:00 AM EDT [facility] ([facility]) Outpatient Attender: BRITTON JEFFERS MD [facility] [place] 07/06/2021 02:00:00 AM EDT [facility] ([facility]) Outpatient Attender: MEAGAN JOSE PA-C [facility] [place] 07/05/2021 02:11:00 AM EDT [facility] ([facility] Outpatient Attender: Yoanna Zheng MD [facility] [place] 07/05/2021 02:11:00 AM EDT [facility] ([facility]) Outpatient Attender: MEAGAN JOSE PA-C [facility] at [place] 07/04/2021 02:12:00 AM EDT [facility] ([facility]) Outpatient Attender: Yoanna Zheng MD [facility] Internal Med at [facility] 07/04/2021 02:09:00 AM EDT [facility] ([facility]) Outpatient Attender: Yoanna Zheng MD [facility] Internal Med at [facility] 07/03/2021 06:56:00 PM EDT [facility] ([facility]) Inpatient Attender: KAYLEY Gonzalez: VIANNEY Horvath nder: ER PHYSICIAN 07/03/2021 06:03:00 AM EDT [facility] ( in Healthcare facility) Attender: YADIRA BONNERdmitter: JIM TORO MDConsultant: OUT OF AREA PCP, PT Does Not have 07/03/2021 06:03:00 AM EDT [facility] Inpatient Attender: KAYLEY CHARLES MD Attender: VIANNEY MACK MDAttender: ER PHYSICIANAdmitter: JIM TORO MD 07/03/2021 03:48:46 AM EDT [facility] [place] [facility] Inpatient Attender: KAYLEY James jeana: VIANNEY Diaz: JIM TORO MDAttender: ER PHYSICIANAdmitter: JIM TORO MD 02:52:00 AM EDT - 07/09/2021 01:09:00 PM EDT LEFT SIDED WEAKNESS WITH FACIAL DROOP LI KEYSHAWN CEREBRALVASCULA [facility] LEFT SIDED WEAKNESS WITH FACIAL DROOP LI KEYSHAWN CEREBRALVASCULA Patient discharged. Outpatient Attender: Sb Mullen MD [facility] Internal Med a [place] 07/03/2021 02:08:00 AM EDT [facility] ([facility]) Outpatient<td ID="encounterTypeDescripti onID0">VISUAL FIELD 10-2</td><td>Gurpreet Chao MD, FACS</td><td>Gurpreet Chao MD [facility]</td><td>06/12/2021</td><td>2:11PM</td><td>3:09PM</td><td><content ID="encounterDiagnosisID0-0">Rheumatoid Arthritis Rf Negative</content>, <content ID="encounterDiagnosisID0-1">Technical Fellow Use of Other Medications</content></td> Attender: Gurpreet Goodson MD, FACS Gurpreet Chao MD [facility] 06/12/2021 02:11:00 PM EDT - 06/12/2021 03:09:00 PM ED T Technical Fellow Use of Other MedicationsRheumatoid Arthritis Rf NegativeLong Term Use of Other MedicationsRheumatoid Arthritis Rf Negative [facility]ENE (Gurpreet Goodson MD [facility]) Technical Fellow Use of Other Medications Rheumatoid Arthritis Rf Negative Technical Fellow Use of Other Medications Rheumatoid Arthritis Rf Negative Outpatient Attender: JOSTIN [place] MD [facility] 08:30:00 AM EDT [facility] ([facility]) Outpatient Attender: Deann KHAN Main Office 05/02/2021 01:00:00 PM EDT [facility] ([facility]) Outpatient Attender: Keyshawn Ramsey MD Main Office 04/09/2021 10:30:00 AM EDT [facility] ([facility]) Outpatient Attender: Gabriella Whalenlogg [facility] 10:45:00 AM EDT [facility] ([facility] ) Outpatient Attender: Gabriella Resendez MD [facility] 03/04/2021 03:17:00 AM EDT [facility] OutpatientOFFICE/OUTPATIENT VISIT, EST Attender: Gordo cartagena MD [facility] 02/27/2021 03:20:00 PM EDT - 02/27/2021 03:20:00 PM ED T Pain in left shoulderPain in rt shoulderOther residential (current) drug therapyRheumatoid arthritis without rheumatoid factor, multiple sites [facility] ([facility]) Pain in left shoulder Pain in rt shoulder Other exterminator (current) drug therapy Rheumatoid arthritis without rheumatoid factor, multiple sites Outpatient<td ID="encounterTypeDescripti onID1">NEW PATIENT WITH REFERRAL</td><td>Gurpreet Chao MD, FACS</td><td>Gurpreet Chao MD [facility]</td><td>02/20/2021</td><td>9:32AM</td><td>12:50PM</td><td><content ID="encounterDiagnosisID1-0">Taking Medication For Diabetes Long-term Use of Insulin</content>, <content ID="encounterDiagnosisID1-1">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</content>, <content ID="encounterDiagnosisID1-2">Cataract Senile Posterior Subcapsular Polar</content>, <content ID="encounterDiagnosisID1-3">Cataract Senile Cortical</content>, <content ID="encounterDiagnosisID1-4">Cataract Senile Nuclear</content>, <content ID="encounterDiagnosisID1-5">Retinopathy Hypertensive Both Eyes</content>, <content ID="encounterDiagnosisID1-6">Ischemic Optic Neuropathy Arteritic</content>, <content ID="encounterDiagnosisID1- 7">Vitreous Disorders Degeneration</content>, <content ID="encounterDiagnosisID1-8">Rheumatoid Arthritis Rf Negative</content>, <content ID="encounterDiagnosisID1-9">Technical Fellow Use of Other Medications</content>, <content ID="encounterDiagnosisID1-10">Macular Degeneration Nonexudative Bilateral Early Dry Stage</content>, <content ID="encounterDiagnosisID1-11">Essential Hypertension</content></td> Attender: Gurpreet Goodson MD, FACS Gurpreet Chao MD [facility] 02/20/2021 09:32:00 AM EDT - 02/20/2021 12:50:00 PM EDT Essential HypertensionMacular Degenerati on Nonexudative Bilateral Early Dry StageLong Term Use of Other MedicationsRheumatoid Arthritis Rf NegativeVitreous Disorders DegenerationIschemic Optic Neuropathy ArteriticRetinopathy Hypertensive Both EyesCataract Senile NuclearCataract Senile CorticalCataract Senile Posterior Subcapsular Polar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Taking Medication For Diabetes Long-term Use of InsulinEssential HypertensionMacular Degeneration Nonexudative Bilateral Early Dry StageLong Term Use of Other MedicationsRheumatoid Arthritis Rf NegativeVitreous Disorders DegenerationIschemic Optic Neuropathy ArteriticRetinopathy Hypertensive Both EyesCataract Senile NuclearCataract Senile CorticalCataract Senile Posterior Subcapsular Polar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Taking Medication For Diabetes Long-term Use of Insulin [facility] (Gurpreet Goodson MD [facility]) Essential Hypertension Macular Degeneration Nonexudative Bilate ral Early Dry Stage Technical Fellow Use of Other Medications Rheumatoid Arthritis Rf Negative Vitreous Disorders Degeneration 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 Cataract Senile Nuclear Cataract Senile Cortical Cataract Senile Posterior Subcapsular Po lar Type 2 Diabetes with Diabetic Retinopath y Mild Nonproliferative Taking Medication For Diabetes Long-term Use of Insulin Essential Hypertension Macular Degeneration Nonexudative Bilate ral Early Dry Stage Technical Fellow Use of Other Medications Rheumatoid Arthritis Rf Negative Vitreous Disorders Degeneration 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 Cataract Senile Nuclear Cataract Senile Cortical Cataract Senile Posterior Subcapsular Po lar Type 2 Diabetes with Diabetic Retinopath y Mild Nonproliferative Taking Medication For Diabetes Long-term Use of Insulin Attender: Gordo Rascon MD [facility] 02/05/2021 12:10:00 PM EDT - 02/05/2021 12:10:00 PM EDT [facility] ( [facility]) Attender: Gordo Rascon MD [facility] 02/04/2021 04:30:00 PM EDT - 02/04/2021 04:30:00 PM EDT [facility] ( [facility]) Attender: Gordo Rascon MD [facility] 01/30/2021 03:23:00 PM EDT - 01/30/2021 03:23:00 PM EDT [facility] ( [facility]) Outpatient Attender: Gabriella Cardenas 09:45:00 AM EST [facility] ([facility] ) Attender: Gordo Rascon MD [facility] 12/14/2020 02:32:00 PM EST - 12/14/2020 02:32:00 PM EST [facility] ( [facility]) Attender: Gordo Rascon MD [facility] 11/15/2020 03:35:00 PM EST - 11/15/2020 03:35:00 PM EST [facility] ( [facility]) Outpatient Attender: Deann KHAN Main Office 11/01/2020 08:45:00 AM EST [facility] ([facility]) Attender: Gordo Rascon [facility] 10/09/2020 04:00:00 PM EST - 10/09/2020 04:00:00 PM EST [facility] ( [facility]) Outpatient Attender: Gabriella Cardenas 10:00:00 AM EST [facility] ([facility] ) Immunizations Vaccine Date Status Description Data Source(s) Influenza, injectable, MDCK, preservative free, aura valent 08/20/2021 02:08:00 PM EDT completed [facility]) COVID-19 VACCINE Moderna 01/22/2021 12:00:00 AM EST completed [facility] Vaccine Series Complete: YESThis Data wa s Submitted to [facility] [employer]. COVID-19 VACCINE Moderna 12/25/2020 12:00:00 AM EST completed [facility] Vaccine Series Complete: NOThis Data was Submitted to [facility] [employer]. Influenza, injectable, MDCK, preservative free, aura valent 10/01/2020 10:47:00 AM EST completed [facility] Medications Medication Brand Name Start Date Product Form Dose Route Admi nistrative Instructions Pharmacy Instructions Status Indications Reaction Description Data Source(s) rivaroxaban 15 MG Oral Tablet [Xarelto] Xarelto 09/25/2021 12:00:0 0 AM EST ORAL active [facility] ([facility]) tramadol hydrochloride 50 MG Oral Tablet Tramadol HCL 09/25/2021 12:00:00 AM EST ORAL active [facility] ([facility]) rivaroxaban 20 MG Oral Tablet [Xarelto] Xarelto 09/25/2021 12:00:0 0 AM EST ORAL completed [facility] ([facility]) Hydroxychloroquine Sulfate 200 MG Oral Tablet HYDROXYCHLOROQ UINE SULFATE 09/17/2021 12:00:00 AM EDT tablet 30 TAKE ONE TABLE T BY MOUTH EVERY DAY TAKE ONE TABLET BY MOUTH EVERY DAY SOLD: 09/19/2021 [facility] 40 mg 09/12/2021 12:00:00 AM EDT tablet 60 TAKE ONE TABLET BY MOUTH TWICE A DAY TAKE ONE TABLET BY MOUTH TWICE A DAY SOLD: 09/15/2021 [facility] Flu Vaccine 08/20/2021 12:00:00 AM EDT completed [facility] ([facility]) Medication administered onsite 50 mg 08/17/2021 12:00:00 AM EDT tablet 180 TAKE TWO TABLETS BY MOUTH THREE TIMES A DAY NEEDED FOR PAIN MAXIMUM DAILY DOSE = 6 TABLETS TAKE TWO TABLETS BY MOUTH THREE TIMES A DAY NEEDED FOR PAIN MAXIMUM DAILY DOSE = 6 TABLETS SOLD: 08/18/2021 [facility] carvedilol 25 MG Oral Tablet CARVEDILOL 08/13/2021 12:00:00 AM EDT tab let 180 TAKE ONE TABLET BY MOUTH TWICE A DAY TAKE ONE TABLET BY MOUTH TWICE A DAY SOLD: 08/14/2021 [facility] Omeprazole 20 MG Delayed Release Oral Capsule Omeprazole 08/06/2021 12:00:00 AM EDT ORAL active [facility] Furosemide 40 MG Oral Tablet Furosemide 08/06/2021 12:00:00 AM EDT ORAL active [facility] ([facility] Rosuvastatin calcium 10 MG Oral Tablet Rosuvastatin Calcium 08/06/2021 12:00:00 AM EDT ORAL active [facility] ([facility] Shingrix Shingrix 08/06/2021 12:00:00 AM EDT activ e [facility] ([facility]) Loratadine 10 MG Oral Capsule Loratadine 08/06/2021 12:00:00 AM EDT ORAL active [facility] ([facility]) apixaban 5 MG Oral Tablet [Eliquis] Eliquis 08/06/2021 12:00:00 AM E DT ORAL active [facility] ([facility] 1,000 mg 2021 12:00:00 AM EDT tablet 180 TAKE ONE TABLET BY MOUTH TWICE A DAY TAKE ONE TABLET BY MOUTH TWICE A DAY SOLD: 08/10/2021 [facility] Rosuvastatin calcium 10 MG Oral Tablet ROSUVASTATIN CALCIUM 07/21/2021 12:00:00 AM EDT tablet 30 TAKE ONE TABLET BY MOUTH YANY RY DAY TAKE ONE TABLET BY MOUTH EVERY DAY SOLD: 07/21/2021 [facility] 20 mg 07/19/2021 12:00:00 AM EDT capsule,delayed release (DR/EC) 90 TAKE ONE CAPSULE BY MOUTH EVERY DAY TAKE ONE CAPSULE BY MOUTH EVERY DAY SOLD: 07/21/2021 [facility] Omeprazole 20 MG Delayed Release Oral Capsule Omeprazole 07/18/2021 12:00:00 AM EDT ORAL completed [facility] ([facility]) ferrous sulfate 325 MG Delayed Release Oral Tablet Ferrous S ulfate 07/18/2021 12:00:00 AM EDT ORAL active M [facility] ([facility]) 0.4 mg 07/15/2021 12:00:00 AM EDT tablet, sublingual 25 PLACE 1 TABLET UNDER THE TONGUE EVERY 5 MINUTES UP TO 3 DOSES NEEDED FOR CHEST PAIN PLACE 1 TABLET UNDER THE TONGUE EVERY 5 MINUTES UP TO 3 DOSES NEEDED FOR CHEST PAIN SOLD: 07/15/2021 [facility] 40 mg 07/15/2021 12:00:00 AM EDT tablet 60 TAKE ONE TABLET BY MOUTH TWICE A DAY TAKE ONE TABLET BY MOUTH TWICE A DAY SOLD: 07/15/2021 [facility] BLOOD SUGAR DIAGNOSTIC 07/15/2021 12:00:00 AM EDT strip 200 TEST FOUR TIMES A DAY AND NEEDED TEST FOUR TIMES A DAY AND NEEDED SOLD: 07/15/2021 [facility] Furosemide 40 MG Oral Tablet Furosemide 07/15/2021 12:00:00 AM EDT ORAL active [facility] ([facility]) Rosuvastatin calcium 10 MG Oral Tablet Rosuvastatin Calcium 07/15/2021 12:00:00 AM EDT ORAL active [facility] ([facility]) 40 mg 07/15/2021 12:00:00 AM EDT tablet 60 TAKE ONE TABLET BY MOUTH TWICE A DAY TAKE ONE TABLET BY MOUTH TWICE A DAY SOLD: 08/14/2021 [facility] Freestyle Lite Test Strips 07/15/2021 12:00:00 AM EDT completed [facility] ([facility]) Freestyle Lite Test 07/15/2021 12:00:00 AM EDT active [facility] ([facility]) Aspirin 81 MG Delayed Release Oral Tablet Aspirin 81 2020 12:00:00 AM EDT active [facility] ( [facility]) apixaban 5 MG Oral Tablet [Eliquis] Eliquis 07/11/2021 12:00:00 AM E DT ORAL active [facility] ([facility]) 5 mg 07/09/2021 12:00:00 AM EDT tablet 60 TAKE ONE TABLET BY MOUTH TWICE A DAY TAKE ONE TABLET BY MOUTH TWICE A DAY SOLD: 07/10/2021 [facility] Fluconazole 150 MG Oral Tablet [Diflucan] Diflucan 06/10/2021 1 2:00:00 AM EDT ORAL active [facility] ([facility]) 150 mg 06/10/2021 12:00:00 AM EDT tablet 2 TAKE ONE TABLET BY MOUTH ONCE A DAY FOR 2 DAYS TAKE ONE TABLET BY MOUTH ONCE A DAY FOR 2 DAYS SOLD: [facility] 50 mg 06/07/2021 12:00:00 AM EDT tablet 180 TAKE TWO TABLETS BY MOUTH THREE TIMES A DAY NEEDED FOR PAIN, MAXIMUM DAILY DOSE = 6 TABLETS TAKE TWO TABLETS BY MOUTH THREE TIMES A DAY NEEDED FOR PAIN, MAXIMUM DAILY DOSE = 6 TABLETS SOLD: 06/14/2021 [facility] 25 mg 06/05/2021 12:00:00 AM EDT tablet 90 TAKE ONE TABLET BY MOUTH EVERY DAY TAKE ONE TABLET BY MOUTH EVERY DAY SOLD: 06/07/2021 [facility] carvedilol 25 MG Oral Tablet CARVEDILOL 05/03/2021 12:00:00 AM EDT tab let 180 TAKE ONE TABLET BY MOUTH TWICE A DAY TAKE ONE TABLET BY MOUTH TWICE A DAY SOLD: 05/04/2021 [facility] 1.479-0.188 gram 04/09/2021 12:00:00 AM EDT tablet 24 USE DIRECTED USE DIRECTED SOLD: 04/14/2021 [facility] Sutab Sutab 04/09/2021 12:00:00 AM EDT active [facility] ([facility]) 25 mg 04/08/2021 12:00:00 AM EDT tablet 45 TAKE ONE-HALF TABLET BY MOUTH EVERY MORNING TAKE ONE-HALF TABLET BY MOUTH EVERY MORNING SOLD: 04/10/2021 [facility] 25 mg 04/08/2021 12:00:00 AM EDT tablet 45 TAKE ONE-HALF TABLET BY MOUTH EVERY MORNING TAKE ONE-HALF TABLET BY MOUTH EVERY MORNING SOLD: 07/10/2021 [facility] 50 mg 04/05/2021 12:00:00 AM EDT tablet 180 TAKE TWO TABLETS BY MOUTH THREE TIMES A DAY NEEDED FOR PAIN MAXIMUM DAILY DOSE = 6 TAKE TWO TABLETS BY MOUTH THREE TIMES A DAY NEEDED FOR PAIN MAXIMUM DAILY DOSE = 6 SOLD: 04/10/2021 [facility] Hydroxychloroquine Sulfate 200 MG Oral Tablet HYDROXYCHLOROQ UINE SULFATE 02/27/2021 12:00:00 AM EDT tablet 30 TAKE ONE TABLE T BY MOUTH EVERY DAY TAKE ONE TABLET BY MOUTH EVERY DAY SOLD: 06/07/2021 [facility] Hydroxychloroquine Sulfate 200 MG Oral Tablet HYDROXYCHLOROQ UINE SULFATE 02/27/2021 12:00:00 AM EDT tablet 30 TAKE ONE TABLE T BY MOUTH EVERY DAY TAKE ONE TABLET BY MOUTH EVERY DAY SOLD: 05/10/2021 [facility] Hydroxychloroquine Sulfate 200 MG Oral T ablet [Plaquenil] Plaquenil 200 mg tablet Plaquenil 200 mg tablet 02/27/2021 12:00:00 AM EDT 1 {tbl} ORAL active hydroxychloroquine sulfate 200 M G Oral Tablet [facility]Plaquenil] [facility] M06.09 Hydroxychloroquine Sulfate 200 MG Oral Tablet HYDROXYCHLOROQ UINE SULFATE 02/27/2021 12:00:00 AM EDT tablet 30 TAKE ONE TABLE T BY MOUTH EVERY DAY TAKE ONE TABLET BY MOUTH EVERY DAY SOLD: 04/10/2021 [facility] Hydroxychloroquine Sulfate 200 MG Oral Tablet HYDROXYCHLOROQ UINE SULFATE 02/27/2021 12:00:00 AM EDT tablet 30 TAKE ONE TABLE T BY MOUTH EVERY DAY TAKE ONE TABLET BY MOUTH EVERY DAY SOLD: 03/07/2021 [facility] Hydroxychloroquine Sulfate 200 MG Oral Tablet HYDROXYCHLOROQ UINE SULFATE 02/27/2021 12:00:00 AM EDT tablet 30 TAKE ONE TABLE T BY MOUTH EVERY DAY TAKE ONE TABLET BY MOUTH EVERY DAY SOLD: 08/10/2021 [facility] Hydroxychloroquine Sulfate 200 MG Oral Tablet HYDROXYCHLOROQ UINE SULFATE 02/27/2021 12:00:00 AM EDT tablet 30 TAKE ONE TABLE T BY MOUTH EVERY DAY TAKE ONE TABLET BY MOUTH EVERY DAY SOLD: 07/15/2021 [facility] Hydroxychloroquine Sulfate 200 MG Oral T ablet [Plaquenil] Plaquenil 200 MG Oral Tablet Plaquenil 200 MG Oral Tablet 02/20/2021 12:00:00 AM EDT 1 active hydroxychloroquine sulfate 200 MG Oral T ablet [Plaquenil] [facility] ([facility]) Magnesium 500 MG Oral Tablet Magnesium 500 MG Oral Tablet 12:00:00 AM EDT 1 active Magnesium [place] ([facility]) Tylenol 500 MG Oral Capsule Tylenol 500 MG Oral Capsule 05/2021 12:00:00 AM EDT 1 active Tylenol [facility] (Gurpreet [facility]son [facility]) Diclofenac Sodium 0.01 MG/MG Topical Gel [Voltaren] Vo ltaren 1% External Gel Voltaren 1% External Gel 02/20/2021 12:00:00 AM EDT 1 active diclofenac sodium 0.01 MG/MG Topical Gel [Voltaren] [facility] (Gurpreet [facility]son [facility]) Iron 325 (65 Fe) MG Oral Tablet Iron 325 (65 Fe) MG Oral Tab let 02/20/2021 12:00:00 AM EDT 1 active Iron G REENWAY (Gurpreet [facility]son [facility]) Senna-Plus 8.6-50 MG Oral Tablet Senna-Plus 8.6-50 MG Oral T ablet 02/20/2021 12:00:00 AM EDT 1 active Senna-Pl us RENE (Gurpreet Goodson [facility]) Folic Acid 0.4 MG Oral Tablet Folic Acid 400 MCG Oral Tablet Folic Acid 400 MCG Oral Tablet 02/20/2021 12:00:00 AM EDT 1 active folic acid 0.4 MG Oral Tablet [facility] ([facility]urp[facility]) Metformin hydrochloride 1000 MG Oral Tablet metFORMIN HCl 1000 MG Oral Tablet metFORMIN HCl 1000 MG Oral Tablet 02/20/2021 12:00:00 AM EDT 1 active metformin hydrochloride 1000 MG Oral Tablet [facility] ( Gur[facility]) Tramadol HCI 50 MG Oral Tablet Tramadol HCI 50 MG Oral Table t 02/20/2021 12:00:00 AM EDT 1 active Tramadol HCI [facility] ([facility]urp[facility]) Losartan Potassium 50 MG Oral Tablet Losartan Potassium 50 M G Oral Tablet 02/20/2021 12:00:00 AM EDT 1 active losartan potassium 50 MG Oral Tablet [facility] ([facility]urp[facility]) Levothyroxine Sodium 0.112 MG Oral Table t Levothyroxine Sodium 112 MCG Oral Tablet Levothyroxine Sodium 112 MCG Oral Tablet 02/20/2021 12:00:00 AM EDT 1 active levothyroxine sodium 0.112 MG Oral Tablet [facility] ([facility]) Aspirin 325 MG Oral Tablet Aspirin 325 MG Oral Tablet 2020 12:00:00 AM EDT 1 active aspirin 325 MG Or al Tablet [facility] ([facility]) Chlorthalidone 25 MG Oral Tablet Chlorthalidone 25 MG Oral T ablet 02/20/2021 12:00:00 AM EDT 1 active chlortha lidone 25 MG Oral Tablet [facility] (Gurpreet Goodson MD [facility]) carvedilol 25 MG Oral Tablet Carvedilol 25 MG Oral Tab let Carvedilol 25 MG Oral Tablet 02/20/2021 12:00:00 AM EDT 1 active carvedilol 25 MG Oral Tablet RENE (Gurpreet Goodson MD [facility]) Insulin Lispro 25 UNT/ML / Insulin, Prot amine Lispro, Human 75 UNT/ML Injectable Suspension [Humalog Mix] HumaLOG Mix 75/25 (75-25) 100 UNIT/ML Subcutaneous Suspension HumaLOG Mix 75/25 (75-25) 100 UNIT/ML Subcutaneous Amena pension 02/20/2021 12:00:00 AM EDT active insulin lispro 25 UNT/ML / insulin lispro protamine, human 75 UNT/ML Injectable Suspension [Humalog Mix] RENE (Gurpreet Goodson MD [facility]) Insulin, Aspart Protamine, Human 70 UNT/ ML / Insulin, Aspart, Human 30 UNT/ML Injectable Suspension [NovoLog Mix] NovoLOG Mix 70/30 (70-30) 100 UNIT/ML Subcutaneous Suspension NovoLOG Mix 70/30 (70-30) 100 UNIT/ML Ba bcutaneous Suspension 02/20/2021 12:00:00 AM EDT active insulin aspart protamine, human 70 UNT/ML / insulin aspart, human 30 UNT/ML Injectable Suspension [NovoLog Mix] RENE (Gurpreet Goodson MD [facility]) Nitroglycerin 0.4 MG Sublingual Tablet [ Nitrostat] Nitrostat 0.4 MG Sublingual Tablet Sublingual Nitrostat 0.4 MG Sublingual Tablet Sublingual 02/21/20 12:00:00 AM EDT 1 active nitroglycerin 0.4 MG Sublingual Tablet [Nitrostat] RENE (Gurpreet Goodson MD [facility]) Spironolactone 25 MG Oral Tablet Spironolactone 25 MG Oral T ablet 02/20/2021 12:00:00 AM EDT 1 active spironol actone 25 MG Oral Tablet RENE (Gurpreet Goodson MD [facility]) Simvastatin 20 MG Oral Tablet Simvastatin 20 MG Oral Tablet 02/20/2021 12:00:00 AM EDT 1 active simvastatin 20 MG Oral Tablet RENE (Gurpreet Goodson MD [facility]) Amoxicillin 500 MG Oral Capsule Amoxicillin 500 MG Oral Caps ule 02/20/2021 12:00:00 AM EDT 1 active amoxicil atiya 500 MG Oral Capsule RENE (Gurpreet Goodson MD [facility]) Digoxin 0.25 MG Oral Tablet Digoxin 250 MCG Oral Table t Digoxin 250 MCG Oral Tablet 02/20/2021 12:00:00 AM EDT 1 active digoxin 0.25 MG Oral Tablet RENE (Gurpreet Goosdon MD [facility]) Hydroxychloroquine Sulfate 200 MG Oral Tablet HYDROXYCHLOROQ UINE SULFATE 01/31/2021 12:00:00 AM EDT tablet 30 TAKE ONE TABLE T BY MOUTH EVERY DAY TAKE ONE TABLET BY MOUTH EVERY DAY SOLD: 02/03/2021 [facility] Hydroxychloroquine Sulfate 200 MG Oral T ablet [Plaquenil] Plaquenil 200 mg tablet Plaquenil 200 mg tablet 01/30/2021 12:00:00 AM EDT 1 {tbl} ORAL completed hydroxychloroquine sulfate 200 M G Oral Tablet [Plaquenil] [facility] ([facility]) M06.09 carvedilol 25 MG Oral Tablet CARVEDILOL 01/25/2021 12:00:00 AM EST tab let 180 TAKE ONE TABLET BY MOUTH TWO TIMES A DAY TAKE ONE TABLET BY MOUTH TWO TIMES A DAY SOLD: 01/29/2021 [facility] 50 mg 01/25/2021 12:00:00 AM EST tablet 180 TAKE 2 TABLETS BY MOUTH THREE TIMES A DAY NEEDED FOR PAIN MAXIMUM DAILY DOSE = 6 TABLETS TAKE 2 TABLETS BY MOUTH THREE TIMES A DAY NEEDED FOR PAIN MAXIMUM DAILY DOSE = 6 TABLETS SOLD: 01/29/2021 [facility] Hydroxychloroquine Sulfate 200 MG Oral Tablet HYDROXYCHLOROQ UINE SULFATE 12/14/2020 12:00:00 AM EST tablet 30 TAKE ONE TABLE T BY MOUTH EVERY DAY TAKE ONE TABLET BY MOUTH EVERY DAY SOLD: 12/17/2020 [facility] Hydroxychloroquine Sulfate 200 MG Oral T ablet [Plaquenil] Plaquenil 200 mg tablet Plaquenil 200 mg tablet 12/14/2020 12:00:00 AM EST 1 {tbl} ORAL completed hydroxychloroquine sulfate 200 M G Oral Tablet [Plaquenil] [facility] ([facility]) M06.09 50 mg 12/04/2020 12:00:00 AM EST tablet 180 TAKE TWO TABLETS BY MOUTH THREE TIMES A DAY NEEDED FOR PAIN MAXIMUM DAILY DOSE = 6 TAKE TWO TABLETS BY MOUTH THREE TIMES A DAY NEEDED FOR PAIN MAXIMUM DAILY DOSE = 6 SOLD: 12/07/2020 [facility] 100 unit/mL (70-30) 12/03/2020 12:00:00 AM EST suspension 40 INJECT 74 UNITS UNDER THE SKIN TWO TIMES A DAY INJECT 74 UNITS UNDER THE SKIN TWO TIMES A DAY SOLD: 12/07/2020 [facility] insulin human, isophane 70 UNT/ML / Regu lar Insulin, Human 30 UNT/ML Injectable Suspension [Novolin] 100 unit/mL (70-30) INSULIN NPH HUM/REG INSULIN 12/03/2020 12:00:00 AM EST suspension 40 INJEC T 74 UNITS UNDER THE SKIN TWO TIMES A DAY INJECT 74 UNITS UNDER THE SKIN TWO TIMES A DAY SOLD: 06/14/2021 [facility] 100 unit/mL (70-30) 12/03/2020 12:00:00 AM EST suspension 40 INJECT 74 UNITS UNDER THE SKIN TWO TIMES A DAY INJECT 74 UNITS UNDER THE SKIN TWO TIMES A DAY SOLD: 01/29/2021 [facility] insulin human, isophane 70 UNT/ML / Regu lar Insulin, Human 30 UNT/ML Injectable Suspension [Novolin] 100 unit/mL (70-30) INSULIN NPH HUM/REG INSULIN 12/03/2020 12:00:00 AM EST suspension 40 INJEC T 74 UNITS UNDER THE SKIN TWO TIMES A DAY INJECT 74 UNITS UNDER THE SKIN TWO TIMES A DAY SOLD: 04/14/2021 [facility] insulin human, isophane 70 UNT/ML / Regu lar Insulin, Human 30 UNT/ML Injectable Suspension [Novolin] 100 unit/mL (70-30) INSULIN NPH HUM/REG INSULIN HM 12/03/2020 12:00:00 AM EST suspension 40 INJEC T 74 UNITS UNDER THE SKIN TWO TIMES A DAY INJECT 74 UNITS UNDER THE SKIN TWO TIMES A DAY SOLD: 08/10/2021 [facility] Hydroxychloroquine Sulfate 200 MG Oral T ablet [Plaquenil] Plaquenil 200 mg tablet Plaquenil 200 mg tablet 11/15/2020 12:00:00 AM EST 1 {tbl} ORAL completed hydroxychloroquine sulfate 200 M G Oral Tablet [Plaquenil] [facility] M06.09 Hydroxychloroquine Sulfate 200 MG Oral Tablet HYDROXYCHLOROQ UINE SULFATE 11/15/2020 12:00:00 AM EST tablet 30 TAKE ONE TABLE T BY MOUTH EVERY DAY TAKE ONE TABLET BY MOUTH EVERY DAY SOLD: 11/16/2020 [facility] 50 mg 10/22/2020 12:00:00 AM EST tablet 180 TAKE ONE TABLET BY MOUTH TWICE A DAY TAKE ONE TABLET BY MOUTH TWICE A DAY SOLD: 08/18/2021 [facility] 50 mg 10/22/2020 12:00:00 AM EST tablet 180 TAKE ONE TABLET BY MOUTH TWICE A DAY TAKE ONE TABLET BY MOUTH TWICE A DAY SOLD: 01/29/2021 [facility] 50 mg 10/22/2020 12:00:00 AM EST tablet 180 TAKE ONE TABLET BY MOUTH TWICE A DAY TAKE ONE TABLET BY MOUTH TWICE A DAY SOLD: 10/26/2020 [facility] 50 mg 10/22/2020 12:00:00 AM EST tablet 180 TAKE ONE TABLET BY MOUTH TWICE A DAY TAKE ONE TABLET BY MOUTH TWICE A DAY SOLD: 05/10/2021 [facility] Hydroxychloroquine Sulfate 200 MG Oral Tablet HYDROXYCHLOROQ UINE SULFATE 10/09/2020 12:00:00 AM EST tablet 30 TAKE ONE TABLE T BY MOUTH ONCE DAILY TAKE ONE TABLET BY MOUTH ONCE DAILY SOLD: 10/13/2020 [facility] Hydroxychloroquine Sulfate 200 MG Oral T ablet [Plaquenil] Plaquenil 200 mg tablet Plaquenil 200 mg tablet 10/09/2020 12:00:00 AM EST 1 {tbl} ORAL completed hydroxychloroquine sulfate 200 M G Oral Tablet [Plaquenil] [facility] ([facility]) M06.09 Metformin hydrochloride 1000 MG Oral Tablet 1,000 mg METFORM IN HCL 10/04/2020 12:00:00 AM EST tablet 180 TAKE ONE TABLET BY MOUTH TWICE A DAY TAKE ONE TABLET BY MOUTH TWICE A DAY SOLD: 10/04/2020 [facility] Metformin hydrochloride 1000 MG Oral Tablet 1,000 mg METFORM IN HCL 10/04/2020 12:00:00 AM EST tablet 180 TAKE ONE TABLET BY MOUTH TWICE A DAY TAKE ONE TABLET BY MOUTH TWICE A DAY SOLD: 01/08/2021 [facility] 25 mg 10/04/2020 12:00:00 AM EST tablet 15 TAKE 1/2 TABLET BY MOUTH ONCE DAILY IN THE MORNING TAKE 1/2 TABLET BY MOUTH ONCE DAILY IN THE MORNING LISA [facility] 1,000 mg 10/04/2020 12:00:00 AM EST tablet 180 TAKE ONE TABLET BY MOUTH TWICE A DAY TAKE ONE TABLET BY MOUTH TWICE A DAY SOLD: 04/14/2021 [facility] 25 mg 10/04/2020 12:00:00 AM EST tablet 15 TAKE 1/2 TABLET BY MOUTH ONCE DAILY IN THE MORNING TAKE 1/2 TABLET BY MOUTH ONCE DAILY IN THE MORNING LISA [facility] 25 mg 10/04/2020 12:00:00 AM EST tablet 15 TAKE 1/2 TABLET BY MOUTH ONCE DAILY IN THE MORNING TAKE 1/2 TABLET BY MOUTH ONCE DAILY IN THE MORNING L[facility] 25 mg 10/04/2020 12:00:00 AM EST tablet 15 TAKE 1/2 TABLET BY MOUTH ONCE DAILY IN THE MORNING TAKE 1/2 TABLET BY MOUTH ONCE DAILY IN THE MORNING LISA [facility] 25 mg 10/04/2020 12:00:00 AM EST tablet 15 TAKE 1/2 TABLET BY MOUTH ONCE DAILY IN THE MORNING TAKE 1/2 TABLET BY MOUTH ONCE DAILY IN THE MORNING LISA [facility] 25 mg 10/04/2020 12:00:00 AM EST tablet 15 TAKE 1/2 TABLET BY MOUTH ONCE DAILY IN THE MORNING TAKE 1/2 TABLET BY MOUTH ONCE DAILY IN THE MORNING LISA [facility] 112 mcg 10/01/2020 12:00:00 AM EST tablet 90 TAKE ONE TABLET BY MOUTH EVERY DAY TAKE ONE TABLET BY MOUTH EVERY DAY SOLD: 01/08/2021 [facility] Diclofenac Sodium 0.01 MG/MG Topical Gel [Voltaren] Voltaren 10/01/2020 12:00:00 AM EST active [facility] ([facility]) 112 mcg 10/01/2020 12:00:00 AM EST tablet 90 TAKE ONE TABLET BY MOUTH EVERY DAY TAKE ONE TABLET BY MOUTH EVERY DAY SOLD: 08/10/2021 [facility] Chlorthalidone 25 MG Oral Tablet Chlorthalidone 10/01/2020 12:00:00 A M EST ORAL active [facility] ([facility]) Administration Of Flu Vaccine 10/01/2020 12:00:00 AM EST completed [facility] Medication administered onsite 112 mcg 10/01/2020 12:00:00 AM EST tablet 90 TAKE ONE TABLET BY MOUTH EVERY DAY TAKE ONE TABLET BY MOUTH EVERY DAY SOLD: 10/04/2020 [facility] 112 mcg 10/01/2020 12:00:00 AM EST tablet 90 TAKE ONE TABLET BY MOUTH EVERY DAY TAKE ONE TABLET BY MOUTH EVERY DAY SOLD: 04/29/2021 [facility] Digoxin 0.25 MG Oral Tablet 250 mcg (0.25 mg) DIGOXIN 09/19/2020 12:00:00 AM EST tablet 30 TAKE ONE TABLET BY MOUTH YANY DAY TAKE ONE TABLET BY MOUTH EVERY DAY SOLD: 04/14/2021 [facility] Digoxin 0.25 MG Oral Tablet 250 mcg (0.25 mg) DIGOXIN 09/19/2020 12:00:00 AM EST tablet 30 TAKE ONE TABLET BY MOUTH YANY DAY TAKE ONE TABLET BY MOUTH EVERY DAY SOLD: 09/19/2021 [facility] 250 mcg (0.25 mg) 09/19/2020 12:00:00 AM EST tablet 30 TAKE ONE TABLET BY MOUTH EVERY DAY TAKE ONE TABLET BY MOUTH EVERY DAY SOLD: 01/08/2021 [facility] Digoxin 0.25 MG Oral Tablet 250 mcg (0.25 mg) DIGOXIN 09/19/2020 12:00:00 AM EST tablet 30 TAKE ONE TABLET BY MOUTH YANY RY DAY TAKE ONE TABLET BY MOUTH EVERY DAY SOLD: 03/13/2021 [facility] Digoxin 0.25 MG Oral Tablet 250 mcg (0.25 mg) DIGOXIN 09/19/2020 12:00:00 AM EST tablet 30 TAKE ONE TABLET BY MOUTH YANY RY DAY TAKE ONE TABLET BY MOUTH EVERY DAY SOLD: 08/18/2021 [facility] Digoxin 0.25 MG Oral Tablet 250 mcg (0.25 mg) DIGOXIN 09/19/2020 12:00:00 AM EST tablet 30 TAKE ONE TABLET BY MOUTH YANY DAY TAKE ONE TABLET BY MOUTH EVERY DAY SOLD: 07/15/2021 [facility] Digoxin 0.25 MG Oral Tablet 250 mcg (0.25 mg) DIGOXIN 09/19/2020 12:00:00 AM EST tablet 30 TAKE ONE TABLET BY MOUTH YANY RY DAY TAKE ONE TABLET BY MOUTH EVERY DAY SOLD: 06/14/2021 [facility] Digoxin 0.25 MG Oral Tablet 250 mcg (0.25 mg) DIGOXIN 09/19/2020 12:00:00 AM EST tablet 30 TAKE ONE TABLET BY MOUTH YANY DAY TAKE ONE TABLET BY MOUTH EVERY DAY SOLD: 05/16/2021 [facility] 250 mcg (0.25 mg) 09/19/2020 12:00:00 AM EST tablet 90 TAKE ONE TABLET BY MOUTH EVERY DAY TAKE ONE TABLET BY MOUTH EVERY DAY SOLD: 09/21/2020 [facility] 250 mcg (0.25 mg) 09/19/2020 12:00:00 AM EST tablet 30 TAKE ONE TABLET BY MOUTH EVERY DAY TAKE ONE TABLET BY MOUTH EVERY DAY SOLD: 02/09/2021 [facility] 50 mg 09/04/2020 12:00:00 AM EDT tablet 180 TAKE 2 TABLETS BY MOUTH THREE TIMES A DAY NEEDED FOR PAIN MAXIMUM DAILY DOSE = 6 TABLETS TAKE 2 TABLETS BY MOUTH THREE TIMES A DAY NEEDED FOR PAIN MAXIMUM DAILY DOSE = 6 TABLETS SOLD: 09/12/2020 [facility] 500 mg 08/06/2020 12:00:00 AM EDT capsule 8 TAKE 4 CAPSULES BY MOUTH PRIOR TO PROCEDURE TAKE 4 CAPSULES BY MOUTH PRIOR TO PROCEDURE SOLD: 04/29/2021 [facility] 500 mg 08/06/2020 12:00:00 AM EDT capsule 8 TAKE 4 CAPSULES BY MOUTH PRIOR TO PROCEDURE TAKE 4 CAPSULES BY MOUTH PRIOR TO PROCEDURE SOLD: 08/07/2020 [facility] Amoxicillin 500 MG Oral Tablet Amoxicillin 08/06/2020 12:00:00 AM EDT ORAL active [facility] ([facility] [employer]) 20 mg 07/30/2020 12:00:00 AM EDT tablet 90 TAKE ONE TABLET BY MOUTH AT BEDTIME TAKE ONE TABLET BY MOUTH AT BEDTIME SOLD: 02/26/2021 [facility] 20 mg 07/30/2020 12:00:00 AM EDT tablet 90 TAKE ONE TABLET BY MOUTH AT BEDTIME TAKE ONE TABLET BY MOUTH AT BEDTIME SOLD: 11/13/2020 [facility] 20 mg 07/30/2020 12:00:00 AM EDT tablet 90 TAKE ONE TABLET BY MOUTH AT BEDTIME TAKE ONE TABLET BY MOUTH AT BEDTIME SOLD: 06/07/2021 [facility] carvedilol 25 MG Oral Tablet CARVEDILOL 07/10/2020 12:00:00 AM EDT tab let 180 TAKE ONE TABLET BY MOUTH TWICE A DAY TAKE ONE TABLET BY MOUTH TWICE A DAY SOLD: 10/20/2020 [facility] 25 mg 06/27/2020 12:00:00 AM EDT tablet 30 TAKE ONE TABLET BY MOUTH EVERY DAY TAKE ONE TABLET BY MOUTH EVERY DAY SOLD: 08/21/2020 [facility] 25 mg 06/27/2020 12:00:00 AM EDT tablet 30 TAKE ONE TABLET BY MOUTH EVERY DAY TAKE ONE TABLET BY MOUTH EVERY DAY SOLD: 09/12/2020 [facility] Hydrochlorothiazide 25 MG Oral Tablet Hydrochlorothiazide 12:00:00 AM EDT ORAL completed [facility] ([facility]) 25 mg 05/14/2020 12:00:00 AM EDT tablet 90 TAKE ONE TABLET BY MOUTH EVERY DAY TAKE ONE TABLET BY MOUTH EVERY DAY SOLD: 02/26/2021 [facility] 25 mg 05/14/2020 12:00:00 AM EDT tablet 90 TAKE ONE TABLET BY MOUTH EVERY DAY TAKE ONE TABLET BY MOUTH EVERY DAY SOLD: 08/21/2020 [facility] 25 mg 05/14/2020 12:00:00 AM EDT tablet 90 TAKE ONE TABLET BY MOUTH EVERY DAY TAKE ONE TABLET BY MOUTH EVERY DAY SOLD: 11/26/2020 [facility] 100 unit/mL (70-30) 11/26/2019 12:00:00 AM EST suspension 40 INJECT 74 UNITS UNDER THE SKIN TWO TIMES A DAY INJECT 74 UNITS UNDER THE SKIN TWO TIMES A DAY SOLD: 10/16/2020 [facility] Insurance Providers Payer name Policy type / Coverage type Policy ID Covered republican ID Covered republican's relationship to amador Policy Amador Plan Information [facility] [id number] Family Dependent [id number] [facility] Part B [id number] Family Dependent BC/BS Of [facility] [id number] Self SA [id number] [place] [facility] [id number] Self [id number] BC/BS Of [facility] [id number] 2.16.840.1.443922.3.227.99.572.7615.0 Self SA [id number] BC/BS Of [facility] [id number] 2.16.840.1.005997.3.227.99.572.7615.0 Self SA [id number] BC/BS [facility] [id number] 2.16.840.1.329194.3.227.99.572.7615.0 Self SA [id number] BC/BS Of [facility] [id number] 2.16.840.1.036225.3.227.99.572.7615.0 Self SA [id number] BC/BS Of [facility] B [id number] Self BC/BS Of [facility] [id number] 2.16.840.1.647852.3.227.99.572.7615.0 Self SA [id number] [place] [id number] Self [id number] BC/BS Of [facility] [id number] 2.16.840.1.239641.3.227.99.572.7615.0 Self SA [id number] BC/BS Of [employer] B [id number] 2.16.840.1.597794.3.227.99.572.7615.0 Self SA [id number] [facility] B [id number] 2.16.840.1.925065.3.227.99.572.7615.0 Self SA [id number] [facility] Part B [id number] 2.16.840.1.203162.3.227.99.572.7615.0 Self SA [id number] [facility] Part B [id number] 2.16.840.1.183775.3.227.99.572.7615.0 Self SA [id number] BC[facility]BS [facility] [id number] 2.16.840.1.303526.3.227.99.572.7615.0 Self SA [id number] [employer] Part B [id number] 2.16.840.1.217924.3.227.99.4595.8118.0 Self 2 [id number] [employer] Part B [id number] 2.16.840.1.128752.3.227.99.4595.8118.0 Self 2 [id number] [employer] Part B [id number] 2.16.840.1.570556.3.227.99.4595.8118.0 Self 2 [id number] [employer] Part B [id number] Self [id number] [employer] Part B [id number] 2.16.840.1.689842.3.227.99.4595.8118.0 Self 2 [id number] [employer] Part B [id number] 2.16.840.1.105019.3.227.99.4595.8118.0 Self 2 [id number] [employer] Part B Self [employer] Part B [id number] 2.16840.1.907133.3.227.99.4595.8118.0 Self 2 [id number] [employer] Part B [id number] 2.16840.1.617896.3.227.99.4595.8118.0 Self 2 [id number] [employer] Part B [id number] 2.16840.1.371251.3.227.99.4595.8118.0 Self 2 [id number] BC[facility] Part B [id number] 2.840.1.488153.3.227.99.572.7615.0 Self SA [id number] BC[facility]BS [facility] Part B [id number] 2.840.1.598271.3.227.99.572.7615.0 Self SA [id number] [facility] Part B [id number] 2.840.1.999264.3.227.99.572.7615.0 Self SA [id number] [facility] Part B [id number] 2.16840.1.722184.3.227.99.572.7615.0 Self SA [id number] [facility]BS [facility] Part B [id number] 2.16840.1.341702.3.227.99.572.7615.0 Self SA [id number] BC[facility]BS [facility] Part B [id number] 2.16840.1.066382.3.227.99.572.7615.0 Self SA [id number] BC[facility] Part B [id number] 2.16840.1.520406.3.227.99.572.7615.0 Self SA [id number] BC/BS Of [facility] [id number] 2.16.840.1.452190.3.227.99.572.7615.0 Self SA [id number] BC/BS Of [facility] [id number] 2.16.840.1.357563.3.227.99.572.7615.0 Self SA [id number] BC/BS Of [facility] [id number] 2.16.840.1.357312.3.227.99.572.7615.0 Self SA [id number] BC/BS [facility] [id number] Self BC/BS [facility] [id number] 2.16.840.1.239832.3.227.99.572.7615.0 Self SA [id number] BC/BS [facility] [id number] 2.16840.1.154425.3.227.99.572.7615.0 Self SA [id number] [employer] [id number] Self [employer] Commercial [id number] 2.16.840.1.279120.3.227.99.572.7615.0 Self [id number] [employer] High Deductible Epo [id number] Self High Deductible Epo [employer] [id number] Self [id number] Medicare (Part B) Medicare Primary [id number] 2.16840.1.587907.3.227.99.572.7615.0 Self [id number] [facility] Part B [id number] 2.16.840.1.742904.3.227.99.572.7615.0 Self [id number] Medicare (Part B) Medicare Primary [id number] 2.16.840.1.389082.3.227.99.572.7615.0 Self [id number] MEDICARE A [id number] Self [id number] [facility] Med[employer] Part B [id number] Self [id number] Medicare Natl Govt Servic Medicare Primary [id number] Self [id number] [facility] Medig[employer] Part B [id number] 2.16.840.1.320376.3.227.99.572.7615.0 Self [id number] Medicare (Part B) Medicare Primary [id number] 2.16.840.1.328939.3.227.99.572.7615.0 Self [id number] [facility] [employer] Part B [id number] 2.16.840.1.372767.3.227.99.4595.8118.0 Self 3 [id number] Medicare Natl Govt Servic Medicare Primary [id number] 2.16.840.1.523711.3.227.99.4595.8118.0 Self 5 [id number] [facility] [employer] Part B [id number] 2.16.840.1.109947.3.227.99.4595.8118.0 Self 3 [id number] Medicare Natl Govt Servic Medicare Primary [id number] 2.16.840.1.902320.3.227.99.4595.8118.0 Self 5 [id number] [facility] Medig[employer] Part B [id number] 2.16.840.1.401561.3.227.99.572.7615.0 Self [id number] Medicare (Part B) Medicare Primary [id number] 2.16.840.1.651976.3.227.99.572.7615.0 Self [id number] [facility] Medig[employer] Part B [id number] 2.16.840.1.643661.3.227.99.572.7615.0 Self [id number] Medicare (Part B) Medicare Primary [id number] 2.16.840.1.906452.3.227.99.572.7615.0 Self [id number] [facility] Medig[employer] Part B [id number] 2.16.840.1.464500.3.227.99.572.7615.0 Self [id number] Medicare (Part B) Medicare Primary [id number] 2.16.840.1.041529.3.227.99.572.7615.0 Self [id number] [facility] Med[employer] Part B [id number] 2.16.840.1.326959.3.227.99.572.7615.0 Self [id number] Medicare (Part B) Medicare Primary [id number] 2.16.840.1.286965.3.227.99.572.7615.0 Self [id number] [facility] Med[employer] Part B [id number] 2.16.840.1.385959.3.227.99.572.7615.0 Self [id number] Medicare (Part B) Medicare Primary [id number] 2.16.840.1.408726.3.227.99.572.7615.0 Self [id number] [facility] Med[employer] Part B [id number] 2.16.840.1.812807.3.227.99.572.7615.0 Self [id number] Medicare (Part B) Medicare Primary [id number] 2.16.840.1.299648.3.227.99.572.7615.0 Self [id number] [facility] Med[employer] Part B [id number] 2.16.840.1.980272.3.227.99.572.7615.0 Self [id number] Medicare (Part B) Medicare Primary [id number] 2.16.840.1.552281.3.227.99.572.7615.0 Self [id number] [facility] Med[employer] Part B [id number] 2.16.840.1.565514.3.227.99.572.7615.0 Self 31 [id number] Medicare (Part B) Medicare Primary [id number] 2.16.840.1.218707.3.227.99.572.7615.0 Self [id number] MEDICARE [id number] SP [id number] [facility] Medigap Part B [id number] 2.16.840.1.729979.3.227.99.4595.8118.0 Self 3 [id number] Medicare Natl Govt Servic Medicare Primary [id number] 2.16.840.1.047233.3.227.99.4595.8118.0 Self 5 [id number] [facility] Medigap Part B [id number] 2.16.840.1.625633.3.227.99.4595.8118.0 Self 3 [id number] 12 Medicare Natl Govt Servic Medicare Primary [id number] 2.16.840.1.586256.3.227.99.4595.8118.0 Self 0 [id number] [facility] Part B [id number] 2.16.840.1.403478.3.227.99.572.7615.0 Self 31 [id number] Medicare (Part B) Medicare Primary [id number] 2.16.840.1.662570.3.227.99.572.7615.0 Self 05 [id number] [facility] Part B [id number] 12 2.16.840.1.644837.3.227.99.4595.8118.0 Self 3 [id number] 12 Medicare Natl Govt Servic Medicare Primary [id number] 2.16.840.1.881755.3.227.99.4595.8118.0 Self 0 [id number] [facility] Part B [id number] 12 2.16.840.1.208527.3.227.99.4595.8118.0 Self 3 [id number] 12 Medicare Natl Govt Servic Medicare Primary [id number] 2.16.840.1.221172.3.227.99.4595.8118.0 Self 0 [id number] [facility] Part B [id number] 2.16.840.1.333725.3.227.99.572.7615.0 Self 31 [id number] MEDICARE [id number] [facility] Part B [id number] 12 2.16.840.1.682106.3.227.99.4595.8118.0 Self 3 [id number] 12 Medicare Natl Govt Servic Medicare Primary [id number] 2.16.840.1.020396.3.227.99.4595.8118.0 Self 0 [id number] [facility] Part B [id number] 12 2.16.840.1.743396.3.227.99.4595.8118.0 Self 3 [id number] 12 Medicare Natl Govt Servic Medicare Primary [id number] 2.16.840.1.117452.3.227.99.4595.8118.0 Self 0 [id number] MEDICARE [id number] [place] [id number] A [facility] Part B Plan F [id number] Self Plan F Medicare Natl Govt Servic Medicare Primary [id number] Self [facility] Part B Plan F [id number] Self Plan F Medicare (Part B) Medicare Primary [id number] Self [facility] OPTIONS [id number] SP [id number] [facility] [id number] [place] [id number] AARP U [id number] Self [id number] MEDICARE - [place] MCR [id number] S [id number] [facility] PHY [id number] SP [id number] [facility] OPTIONS [id number] S [id number] SELF PAY ON CONTRACT UNAVAILABLE S UNAVAILABLE [facility] PHYSICIAN [id number] S [id number] SELF PAY 2 UNAVAILABLE 1 UNAVAILA BLE MEDICARE [id number] S [id number] Medicare Part B [facility] Other 0 [id number] Self 0 MEDICARE MCA [id number] S [id number] MCRB [id number] S [id number] W58 MVP 7 [id number] 1 [id number] MEDICARE C [id number] S [id number] A [facility] Part B [id number] 01.01.840.1.555611.3.227.99.6619.4968.0 Self 3 [id number] [place] [id number] 2.840.1.936432.3.227.99.6619.4968.0 Self 0 [id number] MCRB [id number] S [id number] A [facility] Med[facility] Part B 25050 Self Medicare Natl Gov't Servi Medicare Primary [id number] Self MCRB [id number] S [id number] A MEDICARE [id number] S [id number] A MEDICARE MCA [id number] S [id number] AARP HEA [id number] S [id number] MCRB [id number] S [id number] W58 Medicare Part B [facility] Other 0 [id number] Self 0 MVP HEALTHCARE COMM HMO [id number] S [id number] AARP O [id number] S [id number] MEDICARE C UNAVAILABLE [id number] S UNAVAILA BLE MEDICARE C [id number] S [id number] [id number] MEDICARE [id number] S [id number] MEDICARE [id number] S [id number] W58 Problems, Conditions, and Diagnoses Code Display Name Description Problem Type Effective Dates Data Source(s) Z12.31 Encounter for screening mammogram for ma lignant neoplasm of breast ENCNTR SCREEN MAMMOGRAM FOR MALIGNANT NEOPLASM OF BREAST Diagnosis 03:17:00 AM EDT [facility] 379.21 Vitreous Disorders Degeneration Vitreous Disorders Deg eneration Problem 02/20/2021 12:00:00 AM EDT RENE (Gurpreet Goodson MD [facility]) 366.16 Cataract Senile Nuclear Cataract Senile Nuclear Proble m 02/20/2021 12:00:00 AM EDT RENE (Gurpreet Goodson MD [facility]) 714.0 Rheumatoid Arthritis Rf Negative Rheumatoid Arthritis Rf Negative Problem 02/20/2021 12:00:00 AM EDT RENE (Gurpreet Goodson MD [facility]) 366.14 Cataract Senile Posterior Subcapsular Po lar Cataract Senile Posterior Subcapsular Polar Problem 02/20/2021 12:00:00 AM EDT RENE (Arturo Goodson MD [facility]) [id number] Long-term current use of insulin (situat ion) Taking Medication For Diabetes Long-term Use of Insulin Problem 02/20/2021 12:00:00 AM EDT RENE (Gurpreet Goodson MD [facility]) 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 Use of Other Medications Problem 02/20/2021 12:00:00 AM EDT RENE (Gurpreet bishop MD [facility]) 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 Arteritic Problem 02/20/2021 12:00:00 AM EDT RENE (Dionte Goodson MD [facility]) 52035479 Retinopathy Hypertensive Both Eyes Retinopathy H ypertensive Both Eyes Problem 02/20/2021 12:00:00 AM EDT RENE (Gurpreet bishop MD [facility]) 401.9 Essential Hypertension Essential Hypertension Problem 02/20/2021 12:00:00 AM EDT RENE (Gurpreet Goodson MD [facility]) 366.15 Cataract Senile Cortical Cataract Senile Cortical Prob timi 02/20/2021 12:00:00 AM EDT RENE (Gurpreet Goodson MD [facility]) [id number] 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 Bilateral Early Dry Stage Problem 12:00:00 AM EDT RENE (Gurpreet Goodson MD [facility]) [id number] 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 Problem 02/20/2021 12:00:00 AM EDT RENE (Arturo Goodson MD [facility]) 379.21 Vitreous Disorders Degeneration Vitreous Disorders Deg eneration Problem 02/20/2021 12:00:00 AM EDT RENE (Gurpreet Goodson MD [facility]) 366.16 Cataract Senile Nuclear Cataract Senile Nuclear Proble m 02/20/2021 12:00:00 AM EDT RENE (Gurpreet Goodson MD [facility]) 714.0 Rheumatoid Arthritis Rf Negative Rheumatoid Arthritis Rf Negative Problem 02/20/2021 12:00:00 AM EDT RENE (Gurpreet Goodson MD [facility]) 366.14 Cataract Senile Posterior Subcapsular Po lar Cataract Senile Posterior Subcapsular Polar Problem 02/20/2021 12:00:00 AM EDT RENE (Arturo Goodson MD [facility]) 944255776 Long-term current use of insulin (situat ion) Taking Medication For Diabetes Long-term Use of Insulin Problem 02/20/2021 12:00:00 AM EDT RENE (Gurpreet Goodson MD [facility]) 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 Use of Other Medications Problem 02/20/2021 12:00:00 AM EDT RENE (Gurpreet bishop MD [facility]) [id number] Arteritic ischemic optic neuropathy (dis order) Ischemic Optic Neuropathy Arteritic Problem 02/20/2021 12:00:00 AM EDT RENE (Dionte Goodson MD [facility]) 54528622 Retinopathy Hypertensive Both Eyes Retinopathy H ypertensive Both Eyes Problem 02/20/2021 12:00:00 AM EDT RENE (Gurpreet bishop MD [facility]) 401.9 Essential Hypertension Essential Hypertension Problem 02/20/2021 12:00:00 AM EDT RENE (Gurpreet Goodson MD [facility]) 366.15 Cataract Senile Cortical Cataract Senile Cortical Prob timi 02/20/2021 12:00:00 AM EDT RENE (Gurpreet Goodson MD [facility]) 966882580 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) Surgeries/Procedures Procedure Description Date Indications Data Source(s) OFFICE OUTPATIENT VISIT 15 MINUTES 09/09/2021 12:00:00 AM EDT [facility] ([facility] [employer] [facility]) OFFICE OUTPATIENT VISIT 25 MINUTES 08/20/2021 12:00:00 AM EDT MED[facility] ([facility]) OFFICE OUTPATIENT VISIT 15 MINUTES 08/07/2021 12:00:00 AM EDT [facility] ([facility]) Hysteroscopy, With Biopsy With/Or Without D&C 08/01/20 21 12:00:00 AM EDT [facility] ([facility] [employer]) ECHO TTHRC R-T 2D W/WOM-MODE COMPL SPEC&COLR DOP 07/24 12:00:00 AM EDT [facility] ([facility]) OFFICE OUTPATIENT VISIT 25 MINUTES 07/18/2021 12:00:00 AM EDT [facility] ([facility]) Angela Cre SRV W/I 7 Days Of DC, Comm W/I 2 Dys Med Rec 07/15/2021 12:00:00 AM EDT [facility] ([facility] ) [facility] HOSPITAL CARE/DAY 15 MINUTES 07/08/2021 12:00:00 AM EDT [facility] ([facility]) [facility] H[facility]PITAL CARE/DAY 25 MINUTES 07/06/2021 12:00:00 AM EDT [facility] ([facility]) Catheter Placement In Coronary Artery 07/05/2021 12:00 :00 AM EDT [facility] ([facility]) [facility] H[facility]PITAL CARE/DAY 15 MINUTES 07/05/2021 12:00:00 AM EDT [facility] ([facility]) [facility] HOSPITAL CARE/DAY 25 MINUTES 07/05/2021 12:00:00 AM EDT [facility] ([facility]) [facility] HOSPITAL CARE/DAY 25 MINUTES 07/04/2021 12:00:00 AM EDT [facility] ([facility]) [facility] H[facility]PITAL CARE/DAY 25 MINUTES 07/04/2021 12:00:00 AM EDT [facility] ([facility]) Electrocardiogram Interpretation & Report Only 021 12:00:00 AM EDT [facility] ([facility]) Echocardiography, Tranthoracic Real-Time Image Documentation 07/03/2021 12:00:00 AM EDT [facility] ([facility]) INITIAL HOSPITAL CARE/DAY 30 MINUTES 07/03/2021 12:00: 00 AM EDT [facility] ([facility]) INITIAL HOSPITAL CARE/DAY 70 MINUTES 07/03/2021 12:00: 00 AM EDT [facility] ([facility]) Curettage Endocervical 06/10/2021 12:00:00 AM EDT [facility] ([facility] [employer] [facility]) OFFICE OUTPATIENT VISIT 25 MINUTES 06/10/2021 12:00:00 AM EDT [facility] ([facility] [facility] [employer] [facility]) ECG ROUTINE ECG W/LEAST 12 LDS W/I&R 05/02/2021 12:00: 00 AM EDT [facility] ([facility]) OFFICE OUTPATIENT VISIT 25 MINUTES 05/02/2021 12:00:00 AM EDT [facility] ([facility]) Colonoscopy 04/24/2021 12:00:00 AM EDT M EDENT ([facility]) COLSC FLX PROX SPLENIC FLXR RMVL LES SNARE TQ 04/24/20 12:00:00 AM EDT [facility] ([facility]) OFFICE OUTPATIENT VISIT 15 MINUTES 04/09/2021 12:00:00 AM EDT [facility] ([facility]) OFFICE OUTPATIENT VISIT 25 MINUTES 04/08/2021 12:00:00 AM EDT MIKE ([facility]) Mammogram 03/04/2021 12:00:00 AM EDT Za CHAUDHARY ([facility]) OFFICE/OUTPATIENT VISIT, EST 02/27/2021 12:00:00 AM EDT - 02/27/2021 12:00:00 AM EDT [facility] ([facility]) Surgical / procedural history Aortic Va lve Replacement 2013, 2 heart stents 2013, Gall Bladder 2000, Hernia 2000, Optic Nerve Damage OS 2019 Surgical / procedural history Aortic Valve Replacement 2013, 2 heart stents 2013, Gall Bladder 2000, Hernia 2000, Optic Nerve Damage OS 2019 02/20/2021 12:00:00 AM EDT RENE (Gurpreet Goodson MD [facility]) Comprehensive Eye Exam (Signi/Sep Eval. & Man.) Compre hensive Eye Exam (Signi/Sep Eval. & Man.) 02/20/2021 12:00:00 AM EDT RENE (Gurpreet Goodson MD [facility]) Scodi Retina, with interpretation and re port (WAIVER OF LIABILITY ON FILE (ABN)) Scodi Retina, with interpretation and re port (WAIVER OF LIABILITY ON FILE (ABN)) 02/20/2021 12:00:00 AM EDT RENE (Arturo Goodson MD [facility]) OFFICE OUTPATIENT VISIT 25 MINUTES 01/03/2021 12:00:00 AM EST MIKE ([facility]) ECG ROUTINE ECG W/LEAST 12 LDS W/I&R 11/01/2020 12:00: 00 AM EST MIKE ([facility]) ECHO TTHRC R-T 2D W/WOM-MODE COMPL SPEC&COLR DOP 08/16 12:00:00 AM EDT MIKE ([facility]) Results ID Date Data Source [id number] 09/28/2021 10:30:00 AM EST MIKE ([facility]) Name Value Range Interpretation Code Description Data Arminda rce(s) Supporting Document(s) Coronavirus 2019 [facility]arygeal Laboratory [facility]) ASSAY INFORMATION: Real Time RT-PCR NOTE: The COVID-19 assay has been cleared by the U.S. Food and Drug Administration under the Emergency Use Authorization (EUA). [facility] [employer] [facility] are designated as high complexity laboratories by the Clinical Laboratory Improvement Amendments of 1988(CLIA) and are qualified to perform this test. Not Detected ID Date Data Source [id number] 09/25/2021 08:52:00 AM EST [facility] ([facility]) Name Value Range Interpretation Code Description Data Arminda rce(s) Supporting Document(s) Digoxin [Mass/volume] in Serum or Plasma 1.5 ng/mL 0.5-2.0 [facility] ([facility]) ID Date Data Source [id number] 09/25/2021 08:49:00 AM EST [facility] ([facility]) Name Value Range Interpretation Code Description Data Arminda rce(s) Supporting Document(s) Thyrotropin [Units/volume] in Serum or Plasma by Detec tion limit <= 0.05 mIU/L 1.80 uIU/mL 0.36-3.74 [facility] ([facility] ) ID Date Data Source [id number] 09/25/2021 08:49:00 AM EST [facility] ([facility]) Name Value Range Interpretation Code Description Data Arminda rce(s) Supporting Document(s) Urea nitrogen [Mass/volume] in Serum or Plasma 29 mg/dL 7-18 [facility] ([facility]) Glucose [Mass/volume] in Serum or Plasma 158 mg/dL 74-99 [facility] ([facility]) 100-125 mg/dL PRE-DIABETES/FASTING >126 mg/dL DIABETES/FASTING Sodium [Moles/volume] in Serum or Plasma 141 meq/L 136-145 [facility] ([facility]) Creatinine 1.5 mg/dL 0.6-1.3 [facility] Carbon dioxide, total [Moles/volume] in Serum or Plasma 32 meq/L 21 -32 [facility] ([facility]) Potassium [Moles/volume] in Serum or Plasma 4.4 meq/L 3.5-5.1 [facility] ([facility]) Chloride [Moles/volume] in Serum or Plasma 101 meq/L 98-107 [facility] ([facility]) Calcium [Mass/volume] in Serum or Plasma 9.3 mg/dL 8.5-10.1 [facility] ([facility]) Alkaline phosphatase isoenzyme [Units/volume] in Serum or Pl asma 81 mg/dL 46-116 [facility] ([facility]) Total Bilirubin 0.3 mg/dL 0.2-1.0 [facility] ([facility]) Aspartate aminotransferase [Enzymatic activity/volume] in Serum or Plasma 13 U/L 15-37 [facility] ([facility] ) Proteinase 3 Ab [Units/volume] in Serum 6.6 g/dL 6.4-8.2 [facility] ([facility]) Alanine aminotransferase [Enzymatic activity/volume] in Seru m or Plasma 20 U/L 12-78 [facility] ([facility]) Albumin [Mass/volume] in Serum or Plasma 3.7 g/dL 3.4-5.0 [facility] A/G Ratio 1.28 CALC 1.00-1.90 [facility]) Glomerular filtration rate/1.73 sq M pre dicted among non-blacks [Volume Rate/Area] in Serum or Plasma by Creatinine-based formula (MDRD) 35 mL/min [facility] ([facility]) Glomerular filtration rate/1.73 sq M pre dicted among blacks [Volume Rate/Area] in Serum or Plasma by Creatinine-based formula (MDRD) 42 mL/min [facility] <content>CHRONIC KIDNEY DISEASE STAGING PER NKF</content>
<content></content>
<content>STAGE I & II GFR >= 60 NORMAL TO MILDLY DECREASED</content>
<content>STAGE III GFR 30-59 MODERATELY DECREASED</content>
<content>STAGE IV GFR 15-29 SEVERELY DECREASED</content>
<content>STAGE V GFR <15 VERY LITTLE GFR LEFT</content>
<content>ESRD GFR <15 ON SOLID WASTE DISPOSAL MANAGER</content>
<content></content> ID Date Data Source [id number] 09/25/2021 08:49:00 AM EST [facility] ([facility]) Name Value Range Interpretation Code Description Data Arminda rce(s) Supporting Document(s) Magnesium 1.9 mg/dL 1.8-2.4 [facility] ([facility]) ID Date Data Source [id number] 09/25/2021 08:49:00 AM EST [facility] Name Value Range Interpretation Code Description Data Arminda rce(s) Supporting Document(s) Hemoglobin A1c/Hemoglobin.total in Blood 8.3 % [facility] Lab Result Notes: Pre-Diabetes 5.7 - 6.4 % Diabetes = or > 6.5% Glucose mean value [Mass/volume] in Blood Estimated fr om glycated hemoglobin 192 mg/dL 60-110 [facility] ([facility] ID Date Data Source [id number] 09/25/2021 08:49:00 AM EST [facility] Name Value Range Interpretation Code Description Data Arminda rce(s) Supporting Document(s) Erythrocytes [#/volume] in Blood by Automated count 3.97 x10*6/UL 4.2 0-6.30 [facility] Leukocytes [#/volume] in Blood by Automated count 14.4 x10*3/UL 4.1-1 0.9 [facility] Hematocrit [Volume Fraction] of Blood by Automated count 31.2 % 3 7.0-51.0 [facility] ([facility] Hemoglobin [Mass/volume] in Blood 11.1 g/dL 12.0-18.0 [facility] ([facility]) MCH 27.9 pg 26.0-32.0 [facility] [facility]) MCV 78.6 fL 80.0-97.0 [facility] [facility]) MCHC 35.5 g/dL 31.0-38.0 [facility] ([facility]) Platelets [#/volume] in Blood by Automated count 276 x10*3/UL 140-440 [facility] ([facility] Erythrocyte distribution width [Ratio] by Automated count 13.9 % 11.6-13.7 [facility] ([facility]) MPV 7.4 FL 7.8-11.0 [facility]) Lymph % 14.2 % 10.0-58.5 [facility] [facility] Mid % 4.5 % 1.7-9.3 [facility] [facility]) Neut % 81.3 % 37.0-92.0 [facility] [facility] Mid # 0.7 x10*3/UL 0.1-0.6 [facility] ([facility]) Neut # 11.7 x10*3/UL 2.0-7.8 [facility] ([facility]) Lymph # 2.0 x10*3/UL 0.6-4.1 [facility] ([facility]) ID Date Data Source [id number] 08/20/2021 02:41:00 PM EDT [facility] ([facility]) Name Value Range Interpretation Code Description Data Arminda rce(s) Supporting Document(s) Digoxin [Mass/volume] in Serum or Plasma 2.2 ng/mL 0.5-2.0 [facility] ([facility]) ID Date Data Source [id number] 08/20/2021 02:41:00 PM EDT [facility] ([facility]) Name Value Range Interpretation Code Description Data Arminda rce(s) Supporting Document(s) Digoxin [Mass/volume] in Serum or Plasma 2.2 ng/mL 0.5-2.0 [facility] ([facility]) ID Date Data Source [id number] 08/20/2021 02:39:00 PM EDT [facility] ([facility]) Name Value Range Interpretation Code Description Data Arminda rce(s) Supporting Document(s) Thyrotropin [Units/volume] in Serum or Plasma by Detec tion limit <= 0.05 mIU/L 1.02 uIU/mL 0.36-3.74 [facility] ([facility] ) ID Date Data Source [id number] 08/20/2021 02:39:00 PM EDT [facility] ([facility]) Name Value Range Interpretation Code Description Data Arminda rce(s) Supporting Document(s) Glucose [Mass/volume] in Serum or Plasma 312 mg/dL 74-99 [facility] ([facility]) 100-125 mg/dL PRE-DIABETES/FASTING >126 mg/dL DIABETES/FASTING Urea nitrogen [Mass/volume] in Serum or Plasma 24 mg/dL 7-18 [facility] ([facility]) Creatinine 1.5 mg/dL 0.6-1.3 [facility] Potassium [Moles/volume] in Serum or Plasma 4.8 meq/L 3.5-5.1 [facility] ([facility]) Sodium [Moles/volume] in Serum or Plasma 139 meq/L 136-145 [facility] ([facility]) Chloride [Moles/volume] in Serum or Plasma 100 meq/L 98-107 [facility] ([facility]) Carbon dioxide, total [Moles/volume] in Serum or Plasma 31 meq/L 21 -32 [facility] ([facility]) Calcium [Mass/volume] in Serum or Plasma 9.4 mg/dL 8.5-10.1 [facility] ([facility]) Glomerular filtration rate/1.73 sq M pre dicted among blacks [Volume Rate/Area] in Serum or Plasma by Creatinine-based formula (MDRD) 42 mL/min [facility] [facility] <content>CHRONIC KIDNEY DISEASE STAGING PER NKF</content>
<content></content>
<content>STAGE I & II GFR >= 60 NORMAL TO MILDLY DECREASED</content>
<content>STAGE III GFR 30-59 MODERATELY DECREASED</content>
<content>STAGE IV GFR 15-29 SEVERELY DECREASED</content>
<content>STAGE V GFR <15 VERY LITTLE GFR LEFT</content>
<content>ESRD GFR <15 ON SOLID WASTE DISPOSAL MANAGER</content>
<content></content> Glomerular filtration rate/1.73 sq M pre dicted among non-blacks [Volume Rate/Area] in Serum or Plasma by Creatinine-based formula (MDRD) 35 mL/min [facility] [facility] ID Date Data Source [id number] 08/20/2021 02:39:00 PM EDT [facility] ([facility]) Name Value Range Interpretation Code Description Data Arminda rce(s) Supporting Document(s) Magnesium 2.0 mg/dL 1.8-2.4 [facility] ([facility]) ID Date Data Source [id number] 08/20/2021 02:39:00 PM EDT [facility] ([facility]) Name Value Range Interpretation Code Description Data Arminda rce(s) Supporting Document(s) Erythrocytes [#/volume] in Blood by Automated count 4.22 x10*6/UL 4.2 0-6.30 [facility] ([facility]) Leukocytes [#/volume] in Blood by Automated count 10.9 x10*3/UL 4.1-1 0.9 [facility] ([facility]) Hemoglobin [Mass/volume] in Blood 11.2 g/dL 12.0-18.0 [facility] ([facility]) NOTE: RESULT VERIFIED. Hematocrit [Volume Fraction] of Blood by Automated count 34.0 % 3 7.0-51.0 [facility] ([facility]) MCH 26.6 pg 26.0-32.0 [facility] ([place] [facility]) MCV 80.5 fL 80.0-97.0 [facility] ([place] [facility]) MCHC 33.0 g/dL 31.0-38.0 [facility] ([facility]) Erythrocyte distribution width [Ratio] by Automated count 14.1 % 11.6-13.7 [facility] ([facility]) MPV 8.2 FL 7.8-11.0 [facility] ([place] [facility]) Platelets [#/volume] in Blood by Automated count 270 x10*3/UL 140-440 [facility] ([facility]) Lymph % 16.2 % 10.0-58.5 [facility] ([place] [facility]) Mid % 4.3 % 1.7-9.3 [facility] [facility] Neut % 79.5 % 37.0-92.0 [facility] ([place] [facility]) Lymph # 1.7 x10*3/UL 0.6-4.1 [facility] ([facility]) Mid # 0.6 x10*3/UL 0.1-0.6 [facility] ([facility]) Neut # 8.6 x10*3/UL 2.0-7.8 [facility] ([facility]) ID Date Data Source [id number] 08/20/2021 02:39:00 PM EDT [facility] ([facility]) Name Value Range Interpretation Code Description Data Arminda rce(s) Supporting Document(s) Glucose [Mass/volume] in Serum or Plasma 312 mg/dL 74-99 [facility] ([facility]) 100-125 mg/dL PRE-DIABETES/FASTING >126 mg/dL DIABETES/FASTING Urea nitrogen [Mass/volume] in Serum or Plasma 24 mg/dL 7-18 [facility] ([facility]) Creatinine 1.5 mg/dL 0.6-1.3 [facility] ([facility]) Sodium [Moles/volume] in Serum or Plasma 139 meq/L 136-145 [facility] ([facility]) Potassium [Moles/volume] in Serum or Plasma 4.8 meq/L 3.5-5.1 [facility] ([facility]) Chloride [Moles/volume] in Serum or Plasma 100 meq/L 98-107 [facility] ([facility]) Carbon dioxide, total [Moles/volume] in Serum or Plasma 31 meq/L 21 -32 [facility] ([facility]) Calcium [Mass/volume] in Serum or Plasma 9.4 mg/dL 8.5-10.1 [facility] ([facility]) Glomerular filtration rate/1.73 sq M pre dicted among non-blacks [Volume Rate/Area] in Serum or Plasma by Creatinine-based formula (MDRD) 35 mL/min [facility] ([facility]) Glomerular filtration rate/1.73 sq M pre dicted among blacks [Volume Rate/Area] in Serum or Plasma by Creatinine-based formula (MDRD) 42 mL/min [facility] ([facility]) <content>CHRONIC KIDNEY DISEASE STAGING PER NKF</content>
<content></content>
<content>STAGE I & II GFR >= 60 NORMAL TO MILDLY DECREASED</content>
<content>STAGE III GFR 30-59 MODERATELY DECREASED</content>
<content>STAGE IV GFR 15-29 SEVERELY DECREASED</content>
<content>STAGE V GFR <15 VERY LITTLE GFR LEFT</content>
<content>ESRD GFR <15 ON SOLID WASTE DISPOSAL MANAGER</content>
<content></content>
<content></content> ID Date Data Source [id number] 08/20/2021 02:39:00 PM EDT [facility] Name Value Range Interpretation Code Description Data Arminda rce(s) Supporting Document(s) Magnesium 2.0 mg/dL 1.8-2.4 [facility] ID Date Data Source [id number] 08/20/2021 02:39:00 PM EDT [facility] Name Value Range Interpretation Code Description Data Arminda rce(s) Supporting Document(s) Thyrotropin [Units/volume] in Serum or Plasma by Detec tion limit <= 0.05 mIU/L 1.02 uIU/mL 0.36-3.74 [facility] ([facility]) ID Date Data Source [id number] 07/25/2021 12:58:00 PM EDT [facility] ([facility]) Name Value Range Interpretation Code Description Data Arminda rce(s) Supporting Document(s) Glucose [Mass/volume] in Serum or Plasma 240 mg/dL 74-99 [facility] ([facility]) 100-125 mg/dL PRE-DIABETES/FASTING >126 mg/dL DIABETES/FASTING Urea nitrogen [Mass/volume] in Serum or Plasma 30 mg/dL 7-18 [facility] ([facility]) Creatinine 1.5 mg/dL 0.6-1.3 [facility] ([facility]) Potassium [Moles/volume] in Serum or Plasma 4.7 meq/L 3.5-5.1 [facility] ([facility]) Sodium [Moles/volume] in Serum or Plasma 141 meq/L 136-145 [facility] ([facility]) Chloride [Moles/volume] in Serum or Plasma 100 meq/L 98-107 [facility] Carbon dioxide, total [Moles/volume] in Serum or Plasma 35 meq/L 21 -32 [facility] ([place] [facility] Calcium [Mass/volume] in Serum or Plasma 9.1 mg/dL 8.5-10.1 [facility] [facility] Glomerular filtration rate/1.73 sq M pre dicted among non-blacks [Volume Rate/Area] in Serum or Plasma by Creatinine-based formula (MDRD) 35 mL/min [facility] [facility] Glomerular filtration rate/1.73 sq M pre dicted among blacks [Volume Rate/Area] in Serum or Plasma by Creatinine-based formula (MDRD) 42 mL/min [facility] [facility] <content>CHRONIC KIDNEY DISEASE STAGING PER NKF</content>
<content></content>
<content>STAGE I & II GFR >= 60 NORMAL TO MILDLY DECREASED</content>
<content>STAGE III GFR 30-59 MODERATELY DECREASED</content>
<content>STAGE IV GFR 15-29 SEVERELY DECREASED</content>
<content>STAGE V GFR <15 VERY LITTLE GFR LEFT</content>
<content>ESRD GFR <15 ON SOLID WASTE DISPOSAL MANAGER</content>
<content></content> ID Date Data Source [id number] 07/25/2021 12:58:00 PM EDT [facility] Name Value Range Interpretation Code Description Data Arminda rce(s) Supporting Document(s) Leukocytes [#/volume] in Blood by Automated count 11.2 x10*3/UL 4.1-1 0.9 [facility] ([place] [facility] NOTE: CBC VERIFIED Erythrocytes [#/volume] in Blood by Automated count 4.03 x10*6/UL 4.2 0-6.30 [facility] ([place] [facility] Hemoglobin [Mass/volume] in Blood 10.9 g/dL 12.0-18.0 [facility] ([place] [facility] Hematocrit [Volume Fraction] of Blood by Automated count 32.2 % 3 7.0-51.0 [facility] ([facility]) MCV 80.0 fL 80.0-97.0 [facility] [facility]) MCH 27.0 pg 26.0-32.0 [facility] ([place] [facility]) MCHC 33.8 g/dL 31.0-38.0 [facility] ([place] [facility]) Erythrocyte distribution width [Ratio] by Automated count 13.6 % 11.6-13.7 [facility] ([facility]) Platelets [#/volume] in Blood by Automated count 284 x10*3/UL 140-440 [facility] ([facility]) MPV 7.9 FL 7.8-11.0 [facility] ([place] [facility]) Lymph % 18.0 % 10.0-58.5 [facility] ([place] [facility]) Mid % 5.4 % 1.7-9.3 [facility] ([place] [facility]) Neut % 76.6 % 37.0-92.0 [facility] ([place] [facility]) Lymph # 2.0 x10*3/UL 0.6-4.1 [facility] ([facility]) Mid # 0.7 x10*3/UL 0.1-0.6 [facility] ([facility]) Neut # 8.5 x10*3/UL 2.0-7.8 [facility] ([facility]) ID Date Data Source [id number] 07/25/2021 12:58:00 PM EDT [facility] ([facility]) Name Value Range Interpretation Code Description Data Arminda rce(s) Supporting Document(s) Leukocytes [#/volume] in Blood by Automated count 11.2 x10*3/UL 4.1-1 0.9 [facility] ([facility]) NOTE: CBC VERIFIED Erythrocytes [#/volume] in Blood by Automated count 4.03 x10*6/UL 4.2 0-6.30 [facility] ([facility]) Hemoglobin [Mass/volume] in Blood 10.9 g/dL 12.0-18.0 [facility] ([facility]) Hematocrit [Volume Fraction] of Blood by Automated count 32.2 % 3 7.0-51.0 [facility] ([facility]) MCV 80.0 fL 80.0-97.0 [facility] ([facility]) MCHC 33.8 g/dL 31.0-38.0 [facility] ([facility]) MCH 27.0 pg 26.0-32.0 [facility] ([facility]) Erythrocyte distribution width [Ratio] by Automated count 13.6 % 11.6-13.7 [facility] ([facility]) Platelets [#/volume] in Blood by Automated count 284 x10*3/UL 140-440 [facility] ([facility]) Platelet mean volume [Entitic volume] in Blood by Manuelker 7.9 FL 7.8-11.0 [facility] ([facility]) Lymphocytes/100 leukocytes in Blood by Automated count 18.0 % 10. 0-58.5 [facility] ([facility]) Lymph # 2.0 x10*3/UL 0.6-4.1 [facility] ([facility]) Neut % 76.6 % 37.0-92.0 [facility] ([facility]) Mid % 5.4 % 1.7-9.3 [facility] ([facility]) Mid # 0.7 x10*3/UL 0.1-0.6 [facility] ([facility]) Neutrophils [#/volume] in Semen by Manual count 8.5 x10*3/UL 2.0-7.8 [facility] ([facility]) ID Date Data Source [id number] 07/18/2021 09:08:00 AM EDT [facility] ([facility]) Name Value Range Interpretation Code Description Data Arminda rce(s) Supporting Document(s) Magnesium 1.7 mg/dL 1.8-2.4 [facility] [facility]) ID Date Data Source [id number] 07/18/2021 09:08:00 AM EDT [facility] ([facility]) Name Value Range Interpretation Code Description Data Arminda rce(s) Supporting Document(s) Leukocytes [#/volume] in Blood by Automated count 10.9 x10*3/UL 4.1-1 0.9 [facility] ([facility]) NOTE: CBC VERIFIED Erythrocytes [#/volume] in Blood by Automated count 3.91 x10*6/UL 4.2 0-6.30 [facility] ([place] [facility] Hematocrit [Volume Fraction] of Blood by Automated count 31.1 % 3 7.0-51.0 [facility] ([place] [facility] Hemoglobin [Mass/volume] in Blood 10.3 g/dL 12.0-18.0 [facility] ([facility]) MCH 26.4 pg 26.0-32.0 [facility] ([place] [facility]) MCV 79.5 fL 80.0-97.0 [facility] ([facility]) Platelets [#/volume] in Blood by Automated count 316 x10*3/UL 140-440 [facility] ([place] [facility] MCHC 33.2 g/dL 31.0-38.0 [facility] ([place] [facility]) Erythrocyte distribution width [Ratio] by Automated count 13.6 % 11.6-13.7 [facility] ([facility]) Lymph % 20.4 % 10.0-58.5 [facility] ([place] [facility]) MPV 8.4 FL 7.8-11.0 [facility] ([facility]) Neut % 74.3 % 37.0-92.0 [facility] ([facility]) Mid % 5.3 % 1.7-9.3 [facility] ([place] [facility]) Neut # 8.1 x10*3/UL 2.0-7.8 [facility] ([facility]) Lymph # 2.2 x10*3/UL 0.6-4.1 [facility] ([facility]) Mid # 0.6 x10*3/UL 0.1-0.6 [facility] ([facility]) ID Date Data Source [id number] 07/18/2021 09:08:00 AM EDT [facility] ([facility] Name Value Range Interpretation Code Description Data Arminda rce(s) Supporting Document(s) Glucose [Mass/volume] in Serum or Plasma 203 mg/dL 74-99 [facility] ([facility]) 100-125 mg/dL PRE-DIABETES/FASTING >126 mg/dL DIABETES/FASTING Urea nitrogen [Mass/volume] in Serum or Plasma 26 mg/dL 7-18 [facility] ([facility]) Creatinine 1.6 mg/dL 0.6-1.3 [facility] ([facility]) Potassium [Moles/volume] in Serum or Plasma 5.0 meq/L 3.5-5.1 [facility] ([facility]) Sodium [Moles/volume] in Serum or Plasma 141 meq/L 136-145 [facility] ([facility]) Chloride [Moles/volume] in Serum or Plasma 103 meq/L 98-107 [facility] ([facility]) Carbon dioxide, total [Moles/volume] in Serum or Plasma 33 meq/L 21 -32 [facility] ([facility]) Glomerular filtration rate/1.73 sq M pre dicted among non-blacks [Volume Rate/Area] in Serum or Plasma by Creatinine-based formula (MDRD) 32 mL/min [facility] ([facility]) Calcium [Mass/volume] in Serum or Plasma 9.4 mg/dL 8.5-10.1 [facility] ([facility]) Glomerular filtration rate/1.73 sq M pre dicted among blacks [Volume Rate/Area] in Serum or Plasma by Creatinine-based formula (MDRD) 39 mL/min [facility] ([facility]) <content>CHRONIC KIDNEY DISEASE STAGING PER NKF</content>
<content></content>
<content>STAGE I & II GFR >= 60 NORMAL TO MILDLY DECREASED</content>
<content>STAGE III GFR 30-59 MODERATELY DECREASED</content>
<content>STAGE IV GFR 15-29 SEVERELY DECREASED</content>
<content>STAGE V GFR <15 VERY LITTLE GFR LEFT</content>
<content>ESRD GFR <15 ON SOLID WASTE DISPOSAL MANAGER</content>
<content></content> ID Date Data Source [id number] 07/18/2021 09:08:00 AM EDT [facility] ([facility]) Name Value Range Interpretation Code Description Data Arminda rce(s) Supporting Document(s) Erythrocytes [#/volume] in Blood by Automated count 3.91 x10*6/UL 4.2 0-6.30 [facility] ([facility]) Leukocytes [#/volume] in Blood by Automated count 10.9 x10*3/UL 4.1-1 0.9 [facility] ([facility]) NOTE: CBC VERIFIED Hematocrit [Volume Fraction] of Blood by Automated count 31.1 % 3 7.0-51.0 [facility] ([facility]) Hemoglobin [Mass/volume] in Blood 10.3 g/dL 12.0-18.0 [facility] ([facility]) MCH 26.4 pg 26.0-32.0 [facility] ([facility]) MCHC 33.2 g/dL 31.0-38.0 [facility] ([facility] MCV 79.5 fL 80.0-97.0 [facility] ([facility]) Platelet mean volume [Entitic volume] in Blood by Manuelker 8.4 FL 7.8-11.0 [facility] ([facility]) Platelets [#/volume] in Blood by Automated count 316 x10*3/UL 140-440 [facility] ([facility]) Erythrocyte distribution width [Ratio] by Automated count 13.6 % 11.6-13.7 [facility] ([facility]) Lymphocytes/100 leukocytes in Blood by Automated count 20.4 % 10. 0-58.5 [facility] ([facility]) Mid % 5.3 % 1.7-9.3 [facility] ([facility] Neut % 74.3 % 37.0-92.0 [facility] ([facility] Lymph # 2.2 x10*3/UL 0.6-4.1 [facility] ([facility]) Mid # 0.6 x10*3/UL 0.1-0.6 [facility] ([facility]) Neutrophils [#/volume] in Semen by Manual count 8.1 x10*3/UL 2.0-7.8 [facility] ([facility]) ID Date Data Source [id number] 07/18/2021 09:08:00 AM EDT [facility] ([facility]) Name Value Range Interpretation Code Description Data Arminda rce(s) Supporting Document(s) Glucose [Mass/volume] in Serum or Plasma 203 mg/dL 74-99 [facility] ([facility]) 100-125 mg/dL PRE-DIABETES/FASTING >126 mg/dL DIABETES/FASTING Sodium [Moles/volume] in Serum or Plasma 141 meq/L 136-145 [facility] ([facility]) Urea nitrogen [Mass/volume] in Serum or Plasma 26 mg/dL 7-18 [facility] ([facility]) Creatinine 1.6 mg/dL 0.6-1.3 [facility] ([facility]) Potassium [Moles/volume] in Serum or Plasma 5.0 meq/L 3.5-5.1 [facility] ([facility] Chloride [Moles/volume] in Serum or Plasma 103 meq/L 98-107 [facility] ([facility] Carbon dioxide, total [Moles/volume] in Serum or Plasma 33 meq/L 21 -32 [facility] ([facility]) Glomerular filtration rate/1.73 sq M pre dicted among non-blacks [Volume Rate/Area] in Serum or Plasma by Creatinine-based formula (MDRD) 32 mL/min [facility] ([facility] Calcium [Mass/volume] in Serum or Plasma 9.4 mg/dL 8.5-10.1 [facility] ([facility]) Glomerular filtration rate/1.73 sq M pre dicted among blacks [Volume Rate/Area] in Serum or Plasma by Creatinine-based formula (MDRD) 39 mL/min [facility] ([facility]) <content>CHRONIC KIDNEY DISEASE STAGING PER NKF</content>
<content></content>
<content>STAGE I & II GFR >= 60 NORMAL TO MILDLY DECREASED</content>
<content>STAGE III GFR 30-59 MODERATELY DECREASED</content>
<content>STAGE IV GFR 15-29 SEVERELY DECREASED</content>
<content>STAGE V GFR <15 VERY LITTLE GFR LEFT</content>
<content>ESRD GFR <15 ON SOLID WASTE DISPOSAL MANAGER</content>
<content></content>
<content></content> ID Date Data Source [id number] 07/18/2021 09:08:00 AM EDT [facility]) Name Value Range Interpretation Code Description Data Arminda rce(s) Supporting Document(s) Magnesium 1.7 mg/dL 1.8-2.4 [facility] ([facility]) ID Date Data Source [id number] 07/15/2021 08:47:00 AM EDT [facility] ([facility]) Name Value Range Interpretation Code Description Data Arminda rce(s) Supporting Document(s) Ferritin [Mass/volume] in Serum or Plasma 33 ng/mL 8-252 [facility] ([facility]) ID Date Data Source [id number] 07/15/2021 08:47:00 AM EDT [facility] ([facility]) Name Value Range Interpretation Code Description Data Arminda rce(s) Supporting Document(s) Iron (Fe) 27 ug/dL 50-170 [facility] ([place] [facility]) Total Iron Binding Capacity 394 ug/dL 250-450 [facility] ([facility]) Percent Saturation 6.9 % 13.2-45.0 [facility] ([facility]) ID Date Data Source [id number] 07/15/2021 08:47:00 AM EDT [facility] ([facility]) Name Value Range Interpretation Code Description Data Arminda rce(s) Supporting Document(s) Digoxin [Mass/volume] in Serum or Plasma 1.2 ng/mL 0.5-2.0 [facility] ([facility]) ID Date Data Source [id number] 07/15/2021 08:47:00 AM EDT [facility] ([facility]) Name Value Range Interpretation Code Description Data Arminda rce(s) Supporting Document(s) Digoxin [Mass/volume] in Serum or Plasma 1.2 ng/mL 0.5-2.0 [facility] ([facility]) ID Date Data Source [id number] 07/15/2021 08:45:00 AM EDT [facility] ([facility]) Name Value Range Interpretation Code Description Data Arminda rce(s) Supporting Document(s) Glucose [Mass/volume] in Serum or Plasma 154 mg/dL 74-99 [facility] ([facility]) 100-125 mg/dL PRE-DIABETES/FASTING >126 mg/dL DIABETES/FASTING Urea nitrogen [Mass/volume] in Serum or Plasma 23 mg/dL 7-18 [facility] ([facility]) Creatinine 1.4 mg/dL 0.6-1.3 [facility] ([facility]) Chloride [Moles/volume] in Serum or Plasma 106 meq/L 98-107 [facility] ([facility]) Potassium [Moles/volume] in Serum or Plasma 6.3 meq/L 3.5- 5.1 Above upper panic limits [facility] ([facility]) CRITICAL: DR RESENDEZ NOTIFIED NOTE: RESULT VERIFIED. NO VISIBLE HEMOLYSIS. Sodium [Moles/volume] in Serum or Plasma 140 meq/L 136-145 [facility] ([facility]) Calcium [Mass/volume] in Serum or Plasma 8.9 mg/dL 8.5-10.1 [facility] ([facility]) Carbon dioxide, total [Moles/volume] in Serum or Plasma 25 meq/L 21 -32 [facility] ([facility]) Alkaline phosphatase isoenzyme [Units/volume] in Serum or Pl asma 93 mg/dL 46-116 [facility] ([facility]) Total Bilirubin 0.4 mg/dL 0.2-1.0 [facility] ([facility]) Alanine aminotransferase [Enzymatic activity/volume] in Seru m or Plasma 21 U/L 12-78 [facility] ([facility]) Aspartate aminotransferase [Enzymatic activity/volume] in Se rum or Plasma 9 U/L 15-37 [facility] ([facility]) Proteinase 3 Ab [Units/volume] in Serum 6.1 g/dL 6.4-8.2 [facility] ([facility]) Albumin [Mass/volume] in Serum or Plasma 3.4 g/dL 3.4-5.0 [facility] ([facility]) Glomerular filtration rate/1.73 sq M pre dicted among non-blacks [Volume Rate/Area] in Serum or Plasma by Creatinine-based formula (MDRD) 38 mL/min [facility] [facility] A/G Ratio 1.26 CALC 1.00-1.90 [facility] ([facility]) Glomerular filtration rate/1.73 sq M pre dicted among blacks [Volume Rate/Area] in Serum or Plasma by Creatinine-based formula (MDRD) 46 mL/min [facility] ([place] [facility] <content>CHRONIC KIDNEY DISEASE STAGING PER NKF</content>
<content></content>
<content>STAGE I & II GFR >= 60 NORMAL TO MILDLY DECREASED</content>
<content>STAGE III GFR 30-59 MODERATELY DECREASED</content>
<content>STAGE IV GFR 15-29 SEVERELY DECREASED</content>
<content>STAGE V GFR <15 VERY LITTLE GFR LEFT</content>
<content>ESRD GFR <15 ON SOLID WASTE DISPOSAL MANAGER</content>
<content></content> ID Date Data Source [id number] 07/15/2021 08:45:00 AM EDT [facility] Name Value Range Interpretation Code Description Data Arminda rce(s) Supporting Document(s) Magnesium 1.6 mg/dL 1.8-2.4 [facility] ([facility]) ID Date Data Source [id number] 07/15/2021 08:45:00 AM EDT [facility] Name Value Range Interpretation Code Description Data Arminda rce(s) Supporting Document(s) Hemoglobin A1c/Hemoglobin.total in Blood 8.9 % [facility] ([facility]) Lab Result Notes: Pre-Diabetes 5.7 - 6.4 % Diabetes = or > 6.5% Glucose mean value [Mass/volume] in Blood Estimated fr om glycated hemoglobin 209 mg/dL 60-110 [facility] ([facility] ) ID Date Data Source [id number] 07/15/2021 08:45:00 AM EDT [facility] Name Value Range Interpretation Code Description Data Amrinda rce(s) Supporting Document(s) Leukocytes [#/volume] in Blood by Automated count 13.9 x10*3/UL 4.1-1 0.9 [facility] ([facility]) NOTE: CBC VERIFIED Erythrocytes [#/volume] in Blood by Automated count 3.69 x10*6/UL 4.2 0-6.30 [facility] ([facility]) Hematocrit [Volume Fraction] of Blood by Automated count 29.6 % 3 7.0-51.0 [facility] ([facility]) Hemoglobin [Mass/volume] in Blood 9.9 g/dL 12.0-18.0 [facility] ([facility]) MCV 80.3 fL 80.0-97.0 [facility] [facility] MCHC 33.5 g/dL 31.0-38.0 [facility] [facility] MCH 26.9 pg 26.0-32.0 [facility] [facility] Erythrocyte distribution width [Ratio] by Automated count 14.1 % 11.6-13.7 [facility] ([facility]) Lymph % 15.8 % 10.0-58.5 [facility] [facility] MPV 8.6 FL 7.8-11.0 [facility] [facility] Platelets [#/volume] in Blood by Automated count 285 x10*3/UL 140-440 [facility] ([facility]) Mid % 5.4 % 1.7-9.3 [facility] [facility] Neut % 78.8 % 37.0-92.0 [facility] [facility] Mid # 0.7 x10*3/UL 0.1-0.6 [facility] ([facility]) Lymph # 2.2 x10*3/UL 0.6-4.1 [facility] ([facility]) Neut # 11.0 x10*3/UL 2.0-7.8 [facility] ([facility]) ID Date Data Source [id number] 07/15/2021 08:45:00 AM EDT [facility] ([facility]) Name Value Range Interpretation Code Description Data Arminda rce(s) Supporting Document(s) Erythrocytes [#/volume] in Blood by Automated count 3.69 x10*6/UL 4.2 0-6.30 [facility] ([facility]) Hemoglobin [Mass/volume] in Blood 9.9 g/dL 12.0-18.0 [facility] ([facility]) Leukocytes [#/volume] in Blood by Automated count 13.9 x10*3/UL 4.1-1 0.9 [facility] ([facility]) NOTE: CBC VERIFIED Hematocrit [Volume Fraction] of Blood by Automated count 29.6 % 3 7.0-51.0 [facility] ([facility]) MCV 80.3 fL 80.0-97.0 [facility] Erythrocyte distribution width [Ratio] by Automated count 14.1 % 11.6-13.7 [facility] ([facility]) MCHC 33.5 g/dL 31.0-38.0 [facility] ([facility]) MCH 26.9 pg 26.0-32.0 [facility] ([facility]) Lymphocytes/100 leukocytes in Blood by Automated count 15.8 % 10. 0-58.5 [facility] ([facility]) Platelets [#/volume] in Blood by Automated count 285 x10*3/UL 140-440 [facility] ([facility]) Platelet mean volume [Entitic volume] in Blood by Prudence 8.6 FL 7.8-11.0 [facility] ([facility]) Neut % 78.8 % 37.0-92.0 [facility] ([facility]) Lymph # 2.2 x10*3/UL 0.6-4.1 [facility] ([facility]) Mid % 5.4 % 1.7-9.3 [facility] Mid # 0.7 x10*3/UL 0.1-0.6 [facility] ([facility]iolog y [facility]) Neutrophils [#/volume] in Semen by Manual count 11.0 x10*3/UL 2.0-7.8 [facility] ([facility]) ID Date Data Source [id number] 07/15/2021 08:45:00 AM EDT [facility] ([facility]) Name Value Range Interpretation Code Description Data Arminda rce(s) Supporting Document(s) Glucose [Mass/volume] in Serum or Plasma 154 mg/dL 74-99 [facility] ([facility]) 100-125 mg/dL PRE-DIABETES/FASTING >126 mg/dL DIABETES/FASTING Urea nitrogen [Mass/volume] in Serum or Plasma 23 mg/dL 7-18 [facility] ([facility]) Creatinine 1.4 mg/dL 0.6-1.3 [facility] ([facility]) Sodium [Moles/volume] in Serum or Plasma 140 meq/L 136-145 [facility] ([facility]) Potassium [Moles/volume] in Serum or Plasma 6.3 meq/L 3.5- 5.1 Above upper panic limits [facility] ([facility]) CRITICAL: DR RESENDEZ NOTIFIED NOTE: RESULT VERIFIED. NO VISIBLE HEMOLYSIS. Carbon dioxide, total [Moles/volume] in Serum or Plasma 25 meq/L 21 -32 [facility] ([facility]) Chloride [Moles/volume] in Serum or Plasma 106 meq/L 98-107 [facility] ([facility]) Calcium [Mass/volume] in Serum or Plasma 8.9 mg/dL 8.5-10.1 [facility] ([facility]) Alkaline phosphatase isoenzyme [Units/volume] in Serum or Pl asma 93 mg/dL 46-116 [facility] ([facility]) Total Bilirubin 0.4 mg/dL 0.2-1.0 [facility] ([facility]) Aspartate aminotransferase [Enzymatic activity/volume] in Se rum or Plasma 9 U/L 15-37 [facility] ([facility]) Albumin [Mass/volume] in Serum or Plasma 3.4 g/dL 3.4-5.0 [facility] ([facility]) Alanine aminotransferase [Enzymatic activity/volume] in Seru m or Plasma 21 U/L 12-78 [facility] ([facility]) Proteinase 3 Ab [Units/volume] in Serum 6.1 g/dL 6.4-8.2 [facility] ([facility]) A/G Ratio 1.26 CALC 1.00-1.90 [facility] ([facility]) Glomerular filtration rate/1.73 sq M pre dicted among non-blacks [Volume Rate/Area] in Serum or Plasma by Creatinine-based formula (MDRD) 38 mL/min [facility] ([facility]) Glomerular filtration rate/1.73 sq M pre dicted among blacks [Volume Rate/Area] in Serum or Plasma by Creatinine-based formula (MDRD) 46 mL/min [facility] ([facility]) <content>CHRONIC KIDNEY DISEASE STAGING PER NKF</content>
<content></content>
<content>STAGE I & II GFR >= 60 NORMAL TO MILDLY DECREASED</content>
<content>STAGE III GFR 30-59 MODERATELY DECREASED</content>
<content>STAGE IV GFR 15-29 SEVERELY DECREASED</content>
<content>STAGE V GFR <15 VERY LITTLE GFR LEFT</content>
<content>ESRD GFR <15 ON SOLID WASTE DISPOSAL MANAGER</content>
<content></content>
<content></content> ID Date Data Source [id number] 07/15/2021 08:45:00 AM EDT [facility] ([facility]) Name Value Range Interpretation Code Description Data Arminda rce(s) Supporting Document(s) Magnesium 1.6 mg/dL 1.8-2.4 [facility] ([facility]) ID Date Data Source [id number] 07/15/2021 08:45:00 AM EDT [facility] ([facility]) Name Value Range Interpretation Code Description Data Arminda rce(s) Supporting Document(s) Hemoglobin A1c/Hemoglobin.total in Blood 8.9 % [facility] Lab Result Notes: Pre-Diabetes 5.7 - 6.4 % Diabetes = or > 6.5% Glucose mean value [Mass/volume] in Blood Estimated fr om glycated hemoglobin 209 mg/dL 60-110 [facility] ([facility]) ID Date Data Source [id number] 07/15/2021 08:45:00 AM EDT [facility] ([facility]) Name Value Range Interpretation Code Description Data Arminda rce(s) Supporting Document(s) Ferritin [Mass/volume] in Serum or Plasma Laboratory test result [facility] ([facility]) ID Date Data Source [id number] 07/09/2021 08:05:14 AM EDT [facility] Name Value Range Interpretation Code Description Data Arminda rce(s) Supporting Document(s) POC GLUCOSE 143 mg/dL (70-99) H [facility] PERFORMED BY CLINICAL STAFF ID Date Data Source [id number] 07/09/2021 02:41:55 AM EDT [facility] Name Value Range Interpretation Code Description Data Arminda rce(s) Supporting Document(s) POC GLUCOSE 138 mg/dL (70-99) H [facility] PERFORMED BY CLINICAL STAFF ID Date Data Source [id number] 07/08/2021 09:40:33 PM EDT [facility] Name Value Range Interpretation Code Description Data Arminda rce(s) Supporting Document(s) POC GLUCOSE 145 mg/dL (70-99) H [facility] PERFORMED BY CLINICAL STAFF ID Date Data Source [id number] 07/08/2021 05:50:58 PM EDT [facility] Name Value Range Interpretation Code Description Data Arminda rce(s) Supporting Document(s) POC GLUCOSE 149 mg/dL (70-99) H [facility] PERFORMED BY CLINICAL STAFF ID Date Data Source [id number] 07/08/2021 04:04:42 PM EDT [facility] Name Value Range Interpretation Code Description Data Arminda rce(s) Supporting Document(s) SODIUM 140 mmol/L (136-145) [facility] POTASSIUM 5.0 mmol/L (3.6-5.2) [facility] CHLORIDE 109 mmol/L (100-108) H [facility] CO2 22 mmol/L (22-31) [facility] ANION GAP 9 mmol/L (7-16) [facility] UREA NITROGEN 52 mg/dL (7-24) H [facility] CREATININE 1.44 mg/dL (0.60-1.00) H [facility] BUN/CREAT RATIO 36.1 RATIO (10.0-20.0) H [facility] GLUCOSE 243 mg/dL (70-99) H [facility] CALCIUM 8.4 mg/dL (8.4-10.2) [facility] GFR 37 ml/min/1.73m2 (>59) L [facility] GFR ( AMER) 44 ml/min/1.73m2 (>59) L [facility] GFR INTERPRETATION [facility] --NORMAL KIDNEY FUNCTION OR MILD DISEASE - GFR >OR= 60CHRONIC KIDNEY DISEASE - GFR 15 - 59RENAL FAILURE - GFR <15 Est. GFR calculation based on the MDRDstudy equation, which assumes a steadystate for creatinine. Est. GFR should notbe used for medication dosing. ID Date Data Source [id number] 07/08/2021 12:58:07 PM EDT [facility] Name Value Range Interpretation Code Description Data Arminda rce(s) Supporting Document(s) POC GLUCOSE 217 mg/dL (70-99) H [facility] NOTIFIED NURSEPERFORMED BY CLINICAL S TAFF ID Date Data Source [id number] 07/08/2021 08:29:10 AM EDT [facility] Name Value Range Interpretation Code Description Data Arminda rce(s) Supporting Document(s) POC GLUCOSE 180 mg/dL (70-99) H [facility] NOTIFIED NURSEPERFORMED BY CLINICAL S TAFF ID Date Data Source [id number] 07/08/2021 04:38:44 AM EDT [facility] Name Value Range Interpretation Code Description Data Arminda rce(s) Supporting Document(s) POC GLUCOSE 190 mg/dL (70-99) H [facility] NOTIFIED PROVIDERNOTIFIED NURSEPERFORMED BY CLINICAL STAFF ID Date Data Source [id number] 07/07/2021 10:03:33 PM EDT [facility] Name Value Range Interpretation Code Description Data Arminda rce(s) Supporting Document(s) POC GLUCOSE 181 mg/dL (70-99) H [facility] NOTIFIED NURSEPERFORMED BY CLINICAL S TAFF ID Date Data Source [id number] 07/07/2021 05:35:24 PM EDT [facility] Name Value Range Interpretation Code Description Data Arminda rce(s) Supporting Document(s) POC GLUCOSE 206 mg/dL (70-99) H [facility] NOTIFIED NURSEPERFORMED BY CLINICAL S TAFF ID Date Data Source [id number] 07/07/2021 01:06:09 PM EDT [facility] Name Value Range Interpretation Code Description Data Arminda rce(s) Supporting Document(s) POC GLUCOSE 232 mg/dL (70-99) H [facility] NOTIFIED NURSEPERFORMED BY CLINICAL S TAFF ID Date Data Source [id number] 07/07/2021 12:18:00 PM EDT [facility] DATE OF EXAM: 07/07/2021ETROPERITONEAL ULTRASOUND INDICATION: Elevated BUN/creatinine COMPARISON:None TECHNIQUE: Multiple grayscale and Color Doppler sonographic images of the kidneys and bladder were obtained. FINDINGS: The kidneys are normal in echotexture and size. The right kidney measures 10.7 cm in maximal length with an approximate cortical thickness of 1.6 cm. The left kidney measures 10.6 cm in maximal length with an approximate cortical thickness of 1.8 cm. No calculi or hydronephrosis is seen. No suspicious renal mass or cyst is identified on this exam. No abnormal perirenal fluid collections are demonstrated. The urinary bladder is unremarkable. The visualized portion of the aorta/IVC are grossly unremarkable. The liver is slightly echogenic, which may be seen with hepatic steatosis. IMPRESSION: Unremarkable appearance of the kidneys. K6End of diagnostic report for accession: [id number] Interpreted: Vega Dailey MDTranscribed: 07/07/2021 12:16 PMSigned: 07/07/2021 12:18 PM Vega Dailey MD [facility] # [id number] [facility] # [id number] Name Value Range Interpretation Code Description Data Arminda rce(s) Supporting Document(s) ID Date Data Source [id number] 07/07/2021 11:20:21 AM EDT [facility] Name Value Range Interpretation Code Description Data Arminda rce(s) Supporting Document(s) RANDOM URINE UREA 544 mg/dL [facility] ID Date Data Source [id number] 07/07/2021 11:20:21 AM EDT [facility] Name Value Range Interpretation Code Description Data Arminda rce(s) Supporting Document(s) RANDOM URINE CREAT 60.60 mg/dL [facility] ID Date Data Source [id number] 07/07/2021 11:19:46 AM EDT [facility] Name Value Range Interpretation Code Description Data Arminda rce(s) Supporting Document(s) RANDOM URINE SODIUM 26 mmol/L [facility] ID Date Data Source [id number] 07/07/2021 11:09:10 AM EDT [facility] Name Value Range Interpretation Code Description Data Arminda rce(s) Supporting Document(s) COLOR [facility] APPEARANCE [facility] SPEC GRAV URINE 1.011 (1.003-1.030) [facility] PH URINE 5.5 (5.0-7.5) [facility] LEUK ESTERASE (NEG) [facility] NITRITE URINE (NEG) [facility] PROTEIN URINE (NEG) [facility] GLUCOSE URINE (NEG) [facility] KETONE URINE (NEG) [facility] UROBILINOGEN 0.2 mg/dL (0-1.0) [facility] BILIRUBIN URINE (NEG) [facility] BLOOD/HGB URINE (NEG) [facility] URINE WBC (0-5) [facility] URINE RBC (0-2) [facility] EPITHELIAL CELLS 1+ [HPF] [facility] BACTERIA 1+ [HPF] [facility] HYALINE CASTS [facility] ID Date Data Source [id number] 07/07/2021 08:30:09 AM EDT [facility] Name Value Range Interpretation Code Description Data Arminda rce(s) Supporting Document(s) POC GLUCOSE 221 mg/dL (70-99) H [facility] PERFORMED BY CLINICAL STAFF ID Date Data Source [id number] 07/07/2021 07:57:34 AM EDT [facility] Name Value Range Interpretation Code Description Data Arminda rce(s) Supporting Document(s) SODIUM 135 mmol/L (136-145) L [facility] POTASSIUM 5.1 mmol/L (3.6-5.2) [facility] CHLORIDE 104 mmol/L (100-108) [facility] CO2 20 mmol/L (22-31) L [facility] ANION GAP 11 mmol/L (7-16) [facility] UREA NITROGEN 59 mg/dL (7-24) H [facility] CREATININE 1.83 mg/dL (0.60-1.00) H [facility] BUN/CREAT RATIO 32.2 RATIO (10.0-20.0) H [facility] GLUCOSE 204 mg/dL (70-99) H [facility] CALCIUM 8.3 mg/dL (8.4-10.2) L [facility] GFR 28 ml/min/1.73m2 (>59) L [facility] GFR ( AMER) 34 ml/min/1.73m2 (>59) L [facility] GFR INTERPRETATION [facility] --NORMAL KIDNEY FUNCTION OR MILD DISEASE - GFR >OR= 60CHRONIC KIDNEY DISEASE - GFR 15 - 59RENAL FAILURE - GFR <15 Est. GFR calculation based on the MDRDstudy equation, which assumes a steadystate for creatinine. Est. GFR should notbe used for medication dosing. ID Date Data Source [id number] 07/07/2021 03:35:42 AM EDT [facility] Name Value Range Interpretation Code Description Data Arminda rce(s) Supporting Document(s) POC GLUCOSE 228 mg/dL (70-99) H [facility] NOTIFIED PROVIDERNOTIFIED NURSEPERFORMED BY CLINICAL STAFF ID Date Data Source [id number] 07/06/2021 10:00:15 PM EDT [facility] Name Value Range Interpretation Code Description Data Arminda rce(s) Supporting Document(s) POC GLUCOSE 234 mg/dL (70-99) H [facility] NOTIFIED NURSEPERFORMED BY CLINICAL S TAFF ID Date Data Source [id number] 07/06/2021 06:00:07 PM EDT [facility] Name Value Range Interpretation Code Description Data Arminda rce(s) Supporting Document(s) POC GLUCOSE 233 mg/dL (70-99) H [facility] PERFORMED BY CLINICAL STAFF ID Date Data Source [id number] 07/06/2021 01:18:23 PM EDT [facility] Name Value Range Interpretation Code Description Data Arminda rce(s) Supporting Document(s) POC GLUCOSE 283 mg/dL (70-99) H [facility] PERFORMED BY CLINICAL STAFF ID Date Data Source [id number] 07/06/2021 11:45:53 AM EDT [facility] Name Value Range Interpretation Code Description Data Arminda rce(s) Supporting Document(s) POC GLUCOSE 301 mg/dL (70-99) H [facility] NOTIFIED NURSEPERFORMED BY CLINICAL S TAFF ID Date Data Source [id number] 07/06/2021 08:00:03 AM EDT [facility] Name Value Range Interpretation Code Description Data Arminda rce(s) Supporting Document(s) SODIUM 134 mmol/L (136-145) L [facility] POTASSIUM 5.1 mmol/L (3.6-5.2) [facility] CHLORIDE 104 mmol/L (100-108) [facility] CO2 22 mmol/L (22-31) [facility] ANION GAP 8 mmol/L (7-16) [facility] UREA NITROGEN 48 mg/dL (7-24) H [facility] CREATININE 1.66 mg/dL (0.60-1.00) H [facility] BUN/CREAT RATIO 28.9 RATIO (10.0-20.0) H [facility] GLUCOSE 262 mg/dL (70-99) H [facility] CALCIUM 8.2 mg/dL (8.4-10.2) L [facility] GFR 31 ml/min/1.73m2 (>59) L [facility] GFR ( AMER) 38 ml/min/1.73m2 (>59) L [facility] GFR INTERPRETATION [facility] --NORMAL KIDNEY FUNCTION OR MILD DISEASE - GFR >OR= 60CHRONIC KIDNEY DISEASE - GFR 15 - 59RENAL FAILURE - GFR <15 Est. GFR calculation based on the MDRDstudy equation, which assumes a steadystate for creatinine. Est. GFR should notbe used for medication dosing. ID Date Data Source [id number] 07/06/2021 07:35:55 AM EDT [facility] Name Value Range Interpretation Code Description Data Arminda rce(s) Supporting Document(s) WBC 11.9 10*3/uL (4.1-11.0) H [facility] RBC 3.72 10*6/uL (4.00-5.40) L [facility] HGB 9.7 g/dL (12.0-16.0) L [facility] HCT 30.7 % (36.0-47.0) L [facility] MCV 82.5 fL (80.0-95.0) [facility] MCH 26.1 pg (27.0-32.0) L [facility] MCHC 31.6 g/dL (32.0-36.0) L [facility] RDW 15.9 % (10.5-14.5) H [facility] PLT 221 10*3/uL (150-450) [facility] MPV 9.1 fL (7.1-10.7) [facility] ID Date Data Source [id number] 07/06/2021 02:40:41 AM EDT [facility] Name Value Range Interpretation Code Description Data Arminda rce(s) Supporting Document(s) POC GLUCOSE 254 mg/dL (70-99) H [facility] PERFORMED BY CLINICAL STAFF ID Date Data Source [id number] 07/05/2021 10:16:17 PM EDT [facility] Name Value Range Interpretation Code Description Data Arminda rce(s) Supporting Document(s) POC GLUCOSE 239 mg/dL (70-99) H [facility] NOTIFIED NURSEPERFORMED BY CLINICAL S TAFF ID Date Data Source [id number] 07/05/2021 06:21:06 PM EDT [facility] Name Value Range Interpretation Code Description Data Arminda rce(s) Supporting Document(s) POC GLUCOSE 270 mg/dL (70-99) H [facility] NOTIFIED NURSEPERFORMED BY CLINICAL S TAFF ID Date Data Source [id number] 07/05/2021 01:56:41 PM EDT [facility] Name Value Range Interpretation Code Description Data Arminda rce(s) Supporting Document(s) POC GLUCOSE 282 mg/dL (70-99) H [facility] NOTIFIED NURSEPERFORMED BY CLINICAL S TAFF ID Date Data Source [id number] 07/05/2021 08:37:26 AM EDT [facility] Name Value Range Interpretation Code Description Data Arminda rce(s) Supporting Document(s) SODIUM 135 mmol/L (136-145) L [facility] POTASSIUM 4.9 mmol/L (3.6-5.2) [facility] CHLORIDE 102 mmol/L (100-108) [facility] CO2 21 mmol/L (22-31) L [facility] ANION GAP 12 mmol/L (7-16) [facility] UREA NITROGEN 36 mg/dL (7-24) H [facility] CREATININE 1.47 mg/dL (0.60-1.00) H [facility] BUN/CREAT RATIO 24.5 RATIO (10.0-20.0) H [facility] GLUCOSE 274 mg/dL (70-99) H [facility] CALCIUM 8.6 mg/dL (8.4-10.2) [facility] GFR 36 ml/min/1.73m2 (>59) L [facility] GFR ( AMER) 43 ml/min/1.73m2 (>59) L [facility] GFR INTERPRETATION [facility] --NORMAL KIDNEY FUNCTION OR MILD DISEASE - GFR >OR= 60CHRONIC KIDNEY DISEASE - GFR 15 - 59RENAL FAILURE - GFR <15 Est. GFR calculation based on the MDRDstudy equation, which assumes a steadystate for creatinine. Est. GFR should notbe used for medication dosing. ID Date Data Source [id number] 07/05/2021 08:07:02 AM EDT [facility] Name Value Range Interpretation Code Description Data Arminda rce(s) Supporting Document(s) WBC 11.0 10*3/uL (4.1-11.0) [facility] RBC 3.97 10*6/uL (4.00-5.40) L [facility] HGB 10.3 g/dL (12.0-16.0) L [facility] HCT 32.7 % (36.0-47.0) L [facility] MCV 82.4 fL (80.0-95.0) [facility] MCH 26.0 pg (27.0-32.0) L [facility] MCHC 31.5 g/dL (32.0-36.0) L [facility] RDW 15.9 % (10.5-14.5) H [facility] PLT 206 10*3/uL (150-450) [facility] MPV 8.8 fL (7.1-10.7) [facility] ID Date Data Source [id number] 07/05/2021 05:16:14 AM EDT [facility] Name Value Range Interpretation Code Description Data Arminda rce(s) Supporting Document(s) POC GLUCOSE 296 mg/dL (70-99) H [facility] PERFORMED BY CLINICAL STAFF ID Date Data Source [id number] 07/05/2021 12:27:15 AM EDT [facility] Name Value Range Interpretation Code Description Data Arminda rce(s) Supporting Document(s) POC GLUCOSE 291 mg/dL (70-99) H [facility] NOTIFIED NURSEPERFORMED BY CH CLINICAL S TAFF ID Date Data Source [id number] 07/04/2021 06:29:06 PM EDT [facility] Name Value Range Interpretation Code Description Data Arminda rce(s) Supporting Document(s) POC GLUCOSE 260 mg/dL (70-99) H [facility] NOTIFIED NURSEPERFORMED BY CLINICAL S TAFF ID Date Data Source [id number] 07/04/2021 04:02:00 PM EDT [facility] DATE OF EXAM: 07/04/2021 BILATERAL CAROT ID DOPPLER SONOGRAPHY INDICATION: CVA. PRIOR EXAM: None. TECHNIQUE: Duplex imaging with color Doppler and spectral analysis were used to study the carotid arteries in the neck. FINDINGS: Right ICA: Peak systolic velocity: 76 cm/sec, end diastolic velocity 13 cm/sec.Right CCA: Peak systolic velocity: 83 cm/sec, end diastolic velocity 11.5 cm/sec.Right ICA/CCA systolic ratio: 0.93 Left ICA: Peak systolic velocity: 93 cm/sec, end diastolic velocity 28 cm/sec.Left CCA: Peak systolic velocity: 92 cm/sec, end diastolic velocity 14 cm/sec.Left ICA/CCA systolic ratio: 1.0 Scattered atherosclerotic disease Antegrade flow is seen in the external carotid and vertebral arteries bilaterally. Velocity measurements have been correlated to angiographic stenosis calculation based on distal internal carotid diameter as defined by the Society of Radiologists in Ultrasound, Consensus Conference. Radiology 2003; 229; 340-346. IMPRESSION: Less than 50% stenosis of the i nternal carotid arteries bilaterally. Professional interpretation performed at [facility] .End of diagnostic report for accession: [id number] Interpreted: Jerrell Overton MDTranscribed: 07/04/2021 04:01 PMSigned: 07/04/2021 04:02 PM Jerrell Overton MD [facility] # [id number] BILL # [id number] Name Value Range Interpretation Code Description Data Arminda rce(s) Supporting Document(s) ID Date Data Source [id number] 07/04/2021 12:02:35 PM EDT [facility] Name Value Range Interpretation Code Description Data Arminda rce(s) Supporting Document(s) POC GLUCOSE 286 mg/dL (70-99) H [facility] NOTIFIED NURSEPERFORMED BY CLINICAL S TAFF ID Date Data Source [id number] 07/04/2021 09:05:52 AM EDT [facility] Name Value Range Interpretation Code Description Data Arminda rce(s) Supporting Document(s) TSH,ULTRASENSITIVE @ 0.568 mIU/L (0.360-4.170) [facility] PERFORMED AT [address] [place] [address] ID Date Data Source [id number] 07/04/2021 09:05:52 AM EDT [facility] Name Value Range Interpretation Code Description Data Arminda rce(s) Supporting Document(s) SODIUM 137 mmol/L (136-145) [facility] POTASSIUM 4.7 mmol/L (3.6-5.2) [facility] CHLORIDE 106 mmol/L (100-108) [facility] CO2 23 mmol/L (22-31) [facility] ANION GAP 8 mmol/L (7-16) [facility] UREA NITROGEN 21 mg/dL (7-24) [facility] CREATININE 1.07 mg/dL (0.60-1.00) H [facility] BUN/CREAT RATIO 19.6 RATIO (10.0-20.0) [facility] GLUCOSE 188 mg/dL (70-99) H [facility] CALCIUM 8.4 mg/dL (8.4-10.2) [facility] GFR 51 ml/min/1.73m2 (>59) L [facility] GFR ( AMER) >60 ml/min/1.73m2 (>59) [facility] GFR INTERPRETATION [facility] --NORMAL KIDNEY FUNCTION OR MILD DISEASE - GFR >OR= 60CHRONIC KIDNEY DISEASE - GFR 15 - 59RENAL FAILURE - GFR <15 Est. GFR calculation based on the MDRDstudy equation, which assumes a steadystate for creatinine. Est. GFR should notbe used for medication dosing. ID Date Data Source [id number] 07/04/2021 08:39:26 AM EDT [facility] Name Value Range Interpretation Code Description Data Arminda rce(s) Supporting Document(s) HEMOGLOBIN A1C @ 8.4 % (4.0-6.0) H [facility] Performed using Siemens [employer] immunoassa y.Care must be taken when interpreting [id number] in patients with a hemoglobin variantor decreased erythrocyte lifespan. Values 5.7 - 6.4% suggest prediabetes.Values >=6.5% are diagnostic for diabetes.REFERENCE: DIABETES CARE 2018: 41(S13-S27).PERFORMED AT [address] [place] [address] EST AVERAGE GLUCOSE 194 mg/dL [facility] ID Date Data Source [id number] 07/04/2021 08:11:57 AM EDT [facility] Name Value Range Interpretation Code Description Data Arminda rce(s) Supporting Document(s) WBC 15.6 10*3/uL (4.1-11.0) H [facility] RBC 4.43 10*6/uL (4.00-5.40) [facility] HGB 11.4 g/dL (12.0-16.0) L [facility] HCT 36.6 % (36.0-47.0) [facility] MCV 82.7 fL (80.0-95.0) [facility] MCH 25.7 pg (27.0-32.0) L [facility] MCHC 31.1 g/dL (32.0-36.0) L [facility] RDW 15.8 % (10.5-14.5) H [facility] PLT 261 10*3/uL (150-450) [facility] MPV 9.1 fL (7.1-10.7) [facility] ID Date Data Source [id number] 07/04/2021 05:58:55 AM EDT [facility] Name Value Range Interpretation Code Description Data Arminda rce(s) Supporting Document(s) POC GLUCOSE 201 mg/dL (70-99) H [facility] NOTIFIED NURSEPERFORMED BY CLINICAL S TAFF ID Date Data Source [id number] 07/04/2021 12:58:35 AM EDT [facility] Name Value Range Interpretation Code Description Data Arminda rce(s) Supporting Document(s) POC GLUCOSE 252 mg/dL (70-99) H [facility] NOTIFIED NURSEPERFORMED BY CLINICAL S TAFF ID Date Data Source [id number] 07/03/2021 07:38:04 PM EDT [facility] Name Value Range Interpretation Code Description Data Arminda rce(s) Supporting Document(s) POC GLUCOSE 205 mg/dL (70-99) H [facility] NOTIFIED NURSEPERFORMED BY CLINICAL S TAFF ID Date Data Source [id number] 07/03/2021 04:56:55 PM EDT [facility] Name Value Range Interpretation Code Description Data Arminda rce(s) Supporting Document(s) TROPONIN I 0.86 ng/mL (<0.05) H [facility] Less than 0.05: Myocardial injury unlike lyGreater than or equal to 0.05: Highly suggestive of myocardial injuryCorrelation with rise and/or fall ofserial troponins, clinical symptomsand ECG changes is necessary. ID Date Data Source [id number] 07/04/2021 06:46:00 PM EDT [facility] [address]hengJ[id number] [place], [place] [address]LEQNN NAME: ESTHELA HO OF : 1955REPORT: CONSULTATIONPATIENT NUMBER: [id number] STATUS: ERMEDICAL RECORD NUMBER: [id number]: 00DATE OF CONSULTATION:REFERRING PHYSICIAN: JESSICA Caban FOR EVALUATION: Urgent consult for elevated troponin, AFib andischemic cardiomyopathy.Ms. Ho is a 65-year-old female with a history of ischemiccardiomyopathy as well as atrial fibrillation and she is status post aorticvalve replacement. She also has history of coronary artery disease. Shefollows with Dr. Bailey in [place] and reports having her AVR done by . She also describes having a PCI at [facility] in the past. Shewas in her usual state of health until the day of presentation. Presentedto the ER with her son with acute onset of left-sided weakness anddysarthria. She was extremely weak and could not ambulate. She also hadleft-sided facial droop. Workup is pending at this time. Cardiology isconsulted originally for an elevated troponin and echo showed an LVdysfunction. The patient denies any chest pain, breathing complaints orcardiac-related complaints. She also denies any heart failure symptomsincluding PND or orthopnea or increasing lower extremity edema. She doesfeel that her neurologic symptom deficits are improving.PAST MEDICAL HISTORY:1. Hypertension.2. Dyslipidemia.3. Coronary artery disease, prior PCI x2, detail is not available at the time of this dictation.4. History of AVR.5. Heart failure with reduced ejection fraction.6. Diabetes.7. Hypothyroidism.8. Rheumatoid arthritis.9. Heart failure with reduced ejection fraction.10. Atrial fibrillation, not on anticoagulation due to vaginal bleeding in the past.11. Chronic right rotator cuff injury.PAST SURGICAL HISTORY: AVR, PCI, cholecystectomy.ALLERGIES: No known drug allergies.MEDICATIONS:aspirin 325 mg tablet,delayed release (DR/EC) 1 tablet oral dailyMedication Status: activeLast Taken Date/Time: 07/03carvedilol 25 mg Tablet 1 tablet oral twice a dayMedication Status: activeLast Taken Date/Time: 07/03chlorpheniramine maleate 4 mg Tablet 1 tablet oral every four hours PRNPRN Reason: allergiesMedication Status: activeLast Taken Date/Time: unknownchlorthalidone 25 mg Tablet 0.5 tablet oral daily every morningMedication Status: activeLast Taken Date/Time: 07/03digoxin 250 mcg (0.25 mg) Tablet 1 tablet oral dailyMedication Status: activeLast Taken Date/Time: oLIC Acid 0.4 mg Tablet 1 tablet oral dailyMedication Status: activeLast Taken Date/Time: 07/03hydroxychloroquine 200 mg Tablet 1 tablet oral dailyMedication Status: activeLast Taken Date/Time: 07/03insulin NPH and regular human (NovoLIN 70/30 U- 100 Insulin) 100 unit/mL(70-30) Suspension subcutaneous twice a dayMedication Status: activelevothyroxine 112 mcg Tablet 1 tablet oral dailyMedication Status: activeLast Taken Date/Time: 07/03losartan 50 mg Tablet 1 tablet oral twice a dayMedication Status: activeLast Taken Date/Time: 07/03metFORMIN 1,000 mg Tablet 1 tablet oral twice a dayMedication Status: activeLast Taken Date/Time: 07/03nitroglycerin 0.4 mg Tablet, Sublingual 1 tablet sublingual PRNPRN Reason: chest painMedication Status: activeLast Taken Date/Time: unknownsimvastatin 20 mg Tablet 1 tablet oral dailyMedication Status: activeLast Taken Date/Time: pironolactone 25 mg Tablet 1 tablet oral dailyMedication Status: activeLast Taken Date/Time: 07/03traMADol 50 mg Tablet 2 tablet oral twice a day PRNPRN Reason: painMedication Status: activeLast Taken Date/Time: 07/03 after she got hereTylenol extra strengthSOCIAL HISTORY: Negative for tobacco abuse.FAMILY HISTORY: Positive for coronary artery disease in both her parents.REVIEW OF SYSTEMS: A 10-point review of systems was negative.PHYSICAL EXAMINATION: On physical examination, she is lying in bed. Sheis in no acute distress. She is afebrile. Blood pressure 144/92, heartrate 86, respirations 18. HEENT: Conjunctivae pink. Oral mucosa ismoist. Neck is supple without JVD or carotid bruits. Heart: S1, F1uyyskxo murmurs, rubs, or gallops. Lungs are clear. Abdomen is soft,nontender. Positive bowel sounds. Extremities reveal trace to mild edema.Neurologic: She is alert and oriented x3. She has a left-sided facialdroop and mild weakness left-sided weakness *------*.Laboratory and diagnostic findings have been reviewed. Echocardiogram readby one of my partners shows EF 15 to 20 percent with global hypokinesisseverely. The posterolateral wall moves reasonably well. She does haveglobal diastolic dysfunction, severe right ventricular dysfunction. Nosignificant valvular abnormalities are noted. EKG shows sinus tachycardia,first-degree AV block. There is poor R-wave progression. Of note,anteroseptal infarct cannot be excluded.Blood work shows initial troponin of 0.31, repeat is 1.04. BUN andcreatinine are 29 and 1.3. Hemoglobin and hematocrit are 11.6 and 36.2respectively. White count is elevated at 19.9. Chest x-rays shows noacute abnormality.ASSESSMENT: Ms. Ho is a 65-year-old female with history of coronaryartery disease and aortic valve replacement who present with acuteneurologic deficits. Troponin was checked which is elevated. Echo showsLV dysfunction.PLAN:1. Elevated troponin: The patient has no cardiac-related symptoms. Troponin was checked for unclear etiology. These findings are likely supply demand related insult. Further troponin or workup is not necessary at this time. We will try to get some records from Dr. Bailey's office. If it has been sometime since the last ischemic workup, I think a stress test done electively as an outpatient is reasonable.2. Cardiomyopathy: The patient has history of cardiomyopathy. Once again, I think records are important. She has severe LV dysfunction. I would recommend continued aggressive medical treatment as she is on Aldactone, Coreg, and digoxin, as well as an angiotensin receptor corin. The patient can be considered for Entresto when she follows up with Dr. Bailey instead of the irbesartan. In regard to the atrial fibrillation, the patient has a reported history of AFib. She is not on anticoagulation. Based on records, due to vaginal bleeding in the past, aspirin is not adequate given her elevated CHADS-VASc score. Ideally, she should be on full anticoagulation if this is indeed the case. I will defer further workup in regard to the vaginal bleeding to Dr. Hooker. This may have to be addressed as an outpatient. For unclear reasons, the patient was not placed on telemetry. I will add her on telemetry to see if she has any evidence of AFib. The patient likely has sleep apnea. I would strongly recommend referring her for a sleep study post discharge. We will try to get records from Dr. Bailey's office. Please call us with questions or concerns. The patient should followup with Dr. Bailey post discharge.DICTATED BY: Yoanna Zheng MDDictated: 07/03/2021 12:03DT: 07/03/2021 14:11Job #: [id number]: Dr. BaileyNOTE: [facility] computer generated reports are notconfirmed or authenticated unless they are signed by the providerElectronically Authenticated by:YOANNA ZHENG MD On 07/04/2021 06:46 PM EDT Name Value Range Interpretation Code Description Data Arminda rce(s) Supporting Document(s) ID Date Data Source [id number] 07/03/2021 12:06:06 PM EDT [facility] Name Value Range Interpretation Code Description Data Arminda rce(s) Supporting Document(s) POC GLUCOSE 207 mg/dL (70-99) H [facility] NOTIFIED PROVIDERNOTIFIED NURSEPERFORMED BY CLINICAL STAFF ID Date Data Source [id number] 07/03/2021 11:01:34 AM EDT [facility] Name Value Range Interpretation Code Description Data Arminda rce(s) Supporting Document(s) MAGNESIUM 1.7 mg/dL (1.7-2.4) [facility] ID Date Data Source [id number] 07/03/2021 09:45:03 AM EDT [facility] Name Value Range Interpretation Code Description Data Arminda rce(s) Supporting Document(s) TROPONIN I 1.04 ng/mL (<0.05) H [facility] Less than 0.05: Myocardial injury unlike lyGreater than or equal to 0.05: Highly suggestive of myocardial injuryCorrelation with rise and/or fall ofserial troponins, clinical symptomsand ECG changes is necessary.RESULT(S) CALLED TO AND READ BACK DAYANA Burgos ON 07/03/21 AT 0921 [place] [id number] ID Date Data Source [id number] 07/03/2021 08:27:00 AM EDT [facility] DATE OF EXAM: 07/03/2021MR ANGIOGRAM HEA D WITHOUT CONTRAST CLINICAL STATEMENT: Neurologic deficit, suspicion for cerebrovascular accident TECHNIQUE: MR angiogram of the head was performed without intravenous contrast, utilizing 3-D time of flight technique. Comparison: None FINDINGS: Images from this examination are slightly degraded secondary to patient motion artifact. Bilateral distal cervical, petrous, cavernous, and supraclinoid internal carotid artery segments are visualized and patent. Bilateral middle cerebral arteries, including the bifurcation and distal branches are patent. Bilateral anterior communicating arteries, including the anterior communicating artery complex are patent. The right A1 segment is hypoplastic, normal variant. Both intracranial vertebral arteries are visualized and patent. The basilar artery is normal in size and caliber. Both superior cerebellar and posterior cerebral arteries are patent. No definite hemodynamically significant stenosis, major vessel occlusio n, or intracranial aneurysm is seen. IMPRESSION: No definite hemodynamically significant stenosis, major vessel occlusion, or intracranial aneurysm is seen. Professional interpretation performed at [facility] .End of diagnostic report for accession: [id number] Interpreted: Vega Dailey MDTranscribed: 07/03/2021 08:25 AMSigned: 07/03/2021 08:27 AM Vega Dailey MD [facility] # [id number] BILL # [id number] Name Value Range Interpretation Code Description Data Arminda rce(s) Supporting Document(s) ID Date Data Source [id number] 07/03/2021 08:25:00 AM EDT [facility] DATE OF EXAM: 07/03/2021MRI BRAIN WITHOU T CONTRAST CLINICAL STATEMENT: Neurologic deficit, suspicion for cerebrovascular accident TECHNIQUE: Multiplanar, multisequential imaging of the brain was performed without the administration of intravenous contrast. COMPARISON: CT brain 07/03/2021 FINDINGS: Very small areas of diffusion abnormality are seen in the right insular region, involving the posterior aspect of the basal ganglia and tran radiata. These findings are suspicious for very small acute/subacute infarcts. Mild FLAIR signal abnormality is seen within the periventricular and subcortical white matter, nonspecific however most likely sequela of chronic small vessel ischemic disease. No intra or extra-axial fluid collections are seen. The ventricles and sulci are prominent, compatible with diffuse cerebral volume loss. Visualized orbits, paranasal sinuses and mastoid air cells are unremarkable. IMPRESSION: Very small acute/subacute infarcts involving the right insular region, posterior basal ganglia and tran radiata. Diffuse cerebral volume loss and mild sequela of chronic small vessel ischemic disease. Professional interpretation performed at [facility] .End of diagnostic report for accession: [id number] Interpreted: Vega Dailey MDTranscribed: 07/03/2021 08:22 AMSigned: 07/03/2021 08:25 AM Vega Dailey MD [facility] # [id number] BILL # [id number] Name Value Range Interpretation Code Description Data Arminda rce(s) Supporting Document(s) ID Date Data Source [id number] 07/03/2021 12:02:00 PM EDT [facility] [place] [address] [address] [place], [place] [id number] NAME: ESTHELA HO OF : 1955REPORT: ADMISSION NOTEPATIENT NUMBER: [id number] STATUS: OF ADMISSION: 07/03/2021OOM:PRIMARY CARE PHYSICIAN: Unknown.CHIEF COMPLAINT: Slipped from a chair with left-sided weakness and facialdroop.HISTORY OF PRESENT ILLNESS: 65-year-old female with history of hypertension, hyperlipidemia, CAD status post stents and aortic valve replacement, type 2 diabetes, CHF, hypothyroidism and rheumatoid arthritis; pre sented to the ED with her son with reports of acute onset of left-sided weakness that occurred around 11:00 p.m. last night. She reports at baseline she ambulate without any assistance and around 11:00 p.m. was trying to get up and slipped from her chair, resulting in difficulty getting up. could not assist her in getting up, so son was called and she was noted to have a left facial droop and left- sided weakness and was sent to the ED for further evaluation. Upon arrival she was noted to be quite hypertensive and CT of the brain did not show any acute findings. Lab work showed increased troponin with mild hyperglycemia, slight increased creatinine and moderate leukocytosis. COVID, RSV, flu were negative, UA was negative and chest x-ray was negative. Blanca Ward. was called and was seen by Neurology and apparently not a candidate for tPA due to low stroke scale and will need further imaging for further evaluation.PAST MEDICAL HISTORY: 1. Hypertension.2. Hyperlipidemia.3. CAD status post stent x2.4. Aortic valve replacement.5. AFib, not on anticoagulation due to reports of vaginal bleeding but on aspirin.6. Diabetes.7. Hypothyroidism.8. Rheumatoid arthritis.9. CHF.10. Chronic right shoulder rotator cuff injury.PAST SURGICAL HISTORY: Includes;1. Aortic valve replacement.2. Cardiac stent placements.3. Cholecystectomy.SOCIAL HISTORY: No smoking, alcohol use or recreational drug use. Livesat home with . Her son lives close by currently at bedside.ALLERGIES: No known drug allergies.MEDICATIONS:aspirin 325 mg tablet,delayed release (DR/EC) 1 tablet or al dailyMedication Status: activeLast Taken Date/Time: 07/03carvedilol 25 mg Tablet 1 tablet oral twice a dayMedication Status: activeLast Taken Date/Time: 07/03chlorpheniramine maleate 4 mg Tablet 1 tablet oral every four hours PRNPRN Reason: allergiesMedication Status: activeLast Taken Date/Time: unknownchlorthalidone 25 mg Tablet 0.5 tablet oral daily every morningMedication Status: activeLast Taken Date/Time: 07/03digoxin 250 mcg (0.25 mg) Tablet 1 tablet oral dailyMedication Status: activeLast Taken Date/Time: oLIC Acid 0.4 mg Tablet 1 tablet oral dailyMedication Status: activeLast Taken Date/Time: 07/03hydroxychloroquine 200 mg Tablet 1 tablet oral dailyMedication Status: activeLast Taken Date/Time: 07/03insulin NPH and regular human (NovoLIN 70/30 U- 100 Insulin) 100 unit/mL(70-30) Suspension subcutaneous twice a dayMedication Status: activelevothyroxine 112 mcg Tablet 1 tablet oral dailyMedication Status: activeLast Taken Date/Time: 07/03losartan 50 mg Tablet 1 tablet oral twice a dayMedication Status: activeLast Taken Date/Time: 07/03metFORMIN 1,000 mg Tablet 1 tablet oral twice a dayMedication Status: activeLast Taken Date/Time: 07/03nitroglycerin 0.4 mg Tablet, Sublingual 1 tablet sublingual PRNPRN Reason: chest painMedication Status: activeLast Taken Date/Time: unknownsimvastatin 20 mg Tablet 1 tablet oral dailyMedication Status: activeLast Taken Date/Time: pironolactone 25 mg Tablet 1 tablet oral dailyMedication Status: activeLast Taken Date/Time: 07/03traMADol 50 mg Tablet 2 tablet oral twice a day PRNPRN Reason: painMedication Status: activeLast Taken Date/Time: 07/03 after she got hereTylenol extra strengthFAMILY HISTORY: Mother had CAD. Father did not have any major medicalproblems.REVIEW OF SYSTEMS: All 14 systems were reviewed and were negative with the exception of as per HPI.PHYSICAL EXAMINATION: Vitals on admission: Temperature 37.6, pulse of104, respiratory rate of 18, blood pressure was 192/108, currently in 160systolic, saturating 97 percent on room. Denies any pain. General: Obesefemale of stated age lying in bed, in mild distress; otherwise alert andoriented x3. HEENT: Normocephalic, atraumatic. Pupils are equal, roundand reactive to light. Extraocular muscles are intact. Anicteric. Neck:Supple. Cardiovascular: Normal S1, S2. No murmurs, rubs or gallopsnoted. Lungs: Clear to auscultation bilaterally. No wheezing, rhonchi,or crackles. Abdomen: Obese, soft, nontender, nondistended. Normal bowelsounds. Extremities: No clubbing, no cyanosis, no edema. Neuro Exam:Strength is about 3/5 to 4/5 at the left upper extremity and about 3/5 in the left lower extremity with a positive left facial droop noted. Sensation is grossly intact. Speech is mildly slurred. Ambulation deferred at this time. Skin: Dry and intact. No rashes noted. Psych: Affect is normal. Cooperative with history and exam.LABS AND IMAGING: Chemistry showed creatinine of 1.3, serum glucose of212, rest were normal. LFTs were normal. Troponin was 0.3. PT/INR, PTTnormal. WBC of 20, H and H of 12/36, with platelets of 270. COVID, RSVand flu negative. UA negative.Chest x-ray negative. CT of the brain was negative. noted in sinus rythm on tele.ASSESSMENT/PLAN: 65-year-old female with history of hypertension, hyperlipidemia, CAD status post stents, aortic valve replacement, paroxysmal AFib not on anticoagulation but aspirin due to bleeding episodes, rheumatoid arthritis, hypothyroidism, CHF and diabetes; presents with acute onset of left-sided weakness and left facial droop with mild slurred speech, noted to be hypertensive with no acute findings on the CT of the brain with elevated troponin and acute kidney injury with moderate leukocytosis with negative UA and chest x-ray likely symptoms due to acute CVA and will follow up MRI of the brain and MRAS for further evaluation with moderate leukocytosis likely due to dehydration; however, we will follow up cultures for possible bacteremia.1. Left-sided weakness and facial droop, concerning for acute CVA. Willfollow up MRI of the brain as well as MRA of the brain and neck in the morning. Continue atorvastatin and aspirin if able to swallow, follow up echocardiogram and Neurology recommendations in the morning.. She reports of not being on anticoagulation due to bleeding and will likely need herantiplatelets to be upgraded. 2. Elevated troponin likely due to acute CVA. Continue to trend and will follow up echocardiogram for any wall motion abnormalities. 3. Acute kidney injury likely due to dehydration and use of diuretics. I will hold her diuretics for now and complete minimal IV fluids from the ED and ncourage adequate oral fluid intake and monitor improvement in renal function in the morning. 4. Hypertension. Allow permisive hypertension over the next 24 hours with use of Coreg and losartan later with improved renal function.5. Leukocytosis. Likely due to dehydration. Will complete IV fluids, encourage adequate fluid intake orally and will repeat CBC in the morning for improvement and follow up cultures for any possible bacteremia. 6. CHF, stable. Hold diuretics for now. Continue Coreg and restart on diuretics in the next 24 hours with a possible improvement in renal function. 7. Hypothyroid. Continue Synthroid. Check thyroid cascade. 8. CAD, stable. Continue aspirin with sublingual nitro and atorvastatin. 9. Diabetes. Continue Humalog coverage every 6 hours for now. If she passes swallow screen and able to tolerate oral intake, we will add Lantus to her regimen. 10. DVT prophylaxis with heparin subcu.Per my assessment, the patient will likely need more than two midnight s'stay. We will admit to inpatient service.DICTATED BY: ARIELLA Marieeictated: 07/03/2021 6:39DT: 07/03/2021 6:46Job #: [id number]: [facility] computer generated reports are notconfirmed or authenticated unless they are signed by the providerElectronically Authenticated and Edited by:JIM TORO MD On 07/03/2021 12:02 PM EDT Name Value Range Interpretation Code Description Data Arminda rce(s) Supporting Document(s) ID Date Data Source [id number] 07/08/2021 10:16:54 AM EDT [facility] SPECIMEN DESCRIPTION PERIPHERALSP ECIAL REQUESTS NONECULTURE RESULTS NO GROWTH 5 DAYSREPORT STATUS FINAL 07/08/2021 Name Value Range Interpretation Code Description Data Arminda rce(s) Supporting Document(s) ID Date Data Source [id number] 07/08/2021 10:16:54 AM EDT [facility] SPECIMEN DESCRIPTION PERIPHERALSP ECIAL REQUESTS NONECULTURE RESULTS NO GROWTH 5 DAYSREPORT STATUS FINAL 07/08/2021 Name Value Range Interpretation Code Description Data Arminda rce(s) Supporting Document(s) ID Date Data Source [id number] 07/03/2021 08:01:00 AM EDT [facility] DATE OF EXAM: 07/03/2021HEST CLINICAL STATEMENT: Chest pain. TECHNIQUE: PA and lateral views of the chest. COMPARISON: None. FINDINGS: The lungs are clear. The cardiomediastinal structures are within normal limits. Sternotomy wires are present. The visualized osseous structures appear unremarkable. IMPRESSION: No evidence of acute cardiopulmonary pathology. D7End of diagnostic report for accession: [id number] Interpreted: Francesco Rosales MDTranscribed: 07/03/2021 08:00 AMSigned: 07/03/2021 08:01 AM Francesco Rosales MD [facility] # [id number] BILL # [id number] Name Value Range Interpretation Code Description Data Arminda rce(s) Supporting Document(s) ID Date Data Source [id number] 07/03/2021 08:06:00 AM EDT [facility] DATE OF EXAM: 07/03/2021T BRAIN WITHOUT CONTRAST CLINICAL STATEMENT: Change in mental status, leg weakness TECHNIQUE: Multiple noncontrast images were obtained through the brain from the base of skull to the vertex without intravenous contrast. COMPARISON: None FINDINGS: No acute major vascular territory infarct or intracranial hemorrhage is seen. Mild low-attenuation is seen within the periventricular and subcortical white matter, nonspecific however most likely sequela of chronic small vessel ischemic disease. No midline shift or mass effect is seen. The ventricles and sulci are mildly prominent, compatible with diffuse cerebral volume loss. There is no intra or extra-axial fluid collection. The calvarium is intact. The visualized paranasal sinuses and orbits appear unremarkable. Mastoid air cells are clear. IMPRESSION: No acute intracranial abnormality is seen. Diffuse cerebral volume loss and probable mild sequela of chronic small vessel ischemic disease. A contemporaneous report was provided by [facility] at the time of this examination, reporting similar findings. Professional interpretation performed at [facility] .End of diagnostic report for accession: [id number] Interpreted: Vega Dailey MDTranscribed: 07/03/2021 08:04 AMSigned: 07/03/2021 08:06 AM Vega Dailey MD [facility] # [id number] BILL # [id number] Name Value Range Interpretation Code Description Data Arminda rce(s) Supporting Document(s) ID Date Data Source [id number] 07/03/2021 03:48:45 AM EDT [facility] Name Value Range Interpretation Code Description Data Arminda rce(s) Supporting Document(s) COLOR [facility] PERFORMED AT [address] [facility] [id number] APPEARANCE [facility] SPEC GRAV URINE 1.016 (1.003-1.030) [facility] PH URINE 5.5 (5.0-7.5) [facility] LEUK ESTERASE (NEG) [facility] CRITERIA FOR CULTURE NOT MET.CULTURE CAN BE ADDED WITHIN 36 HOURS OFCOLLECTION. NITRITE URINE (NEG) [facility] PROTEIN URINE (NEG) [facility] GLUCOSE URINE (NEG) A [facility] KETONE URINE (NEG) [facility] [place] [place] [facility] [place] UROBILINOGEN 0.2 mg/dL (0-1.0) [facility] [place] [facility] [place] BILIRUBIN URINE (NEG) [facility] [place] [facility] BLOOD/HGB URINE (NEG) [facility] [place] [facility] ID Date Data Source [id number] 07/03/2021 08:17:07 AM EDT [facility] Name Value Range Interpretation Code Description Data Arminda rce(s) Supporting Document(s) CHOLESTEROL @ 148 mg/dL (0-200) [facility] TRIGLYCERIDE @ 281 mg/dL (30-200) H [facility] HDL CHOLESTEROL @ 63 mg/dL (>40) [facility] PER NCEP ATP III GUIDELINES:RESULTS LOWE R THAN 40 MG/DL ARE SUGGESTIVEOF INCREASED RISK FOR CORONARY ARTERYDISEASE. RESULTS > OR = TO 60 MG/DL ARECONSIDERED A NEGATIVE RISK FACTOR. CHOL/HDL RATIO 2.3 RATIO [facility] INTERPRETATION OF CHOL-HDL RATIO CHD RISK FEMALE MALEVERY HIGH >8.3 >14.3HIGH 5.6- 8.3 6.7- 14.3AVERAGE 3.7- 5.6 4.0- 6.7BELOW AVERAGE 2.5- 3.7 2.7- 4.0PROTECTED <2.5 <2.7 LDL CHOL (CALC) 29 mg/dL (<130) [facility] [place] [facility] PER NCEP ATP III GUIDELINES: OPTIMAL < 100 NEAR OPTIMAL 100 - 129BORDERLINE HIGH 130 - 159 HIGH 160 - 189 VERY HIGH > 189 ID Date Data Source [id number] 07/03/2021 04:50:48 AM EDT [facility] [place] [facility] Name Value Range Interpretation Code Description Data Arminda rce(s) Supporting Document(s) WBC 19.9 10*3/uL (4.1-11.0) H [facility] [place] [facility] RBC 4.42 10*6/uL (4.00-5.40) [facility] [place] [facility] HGB 11.6 g/dL (12.0-16.0) L [facility] [place] [facility] HCT 36.2 % (36.0-47.0) [facility] [place] [facility] MCV 81.9 fL (80.0-95.0) [facility] [place] [facility] MCH 26.3 pg (27.0-32.0) L [facility] [place] [facility] MCHC 32.1 g/dL (32.0-36.0) [facility] [place] [facility] RDW 15.3 % (10.5-14.5) H [facility] [place] [facility] PLT 270 10*3/uL (150-450) [facility] [place] [facility] MPV 8.8 fL (7.1-10.7) [facility] [place] [facility] NEUT % 81.0 % (35.0-75.0) H [facility] [place] [facility] BAND % 1.0 % (0.0-11.0) [facility] [place] [facility] LYMPH % 11.0 % (16.0-52.0) L [facility] [place] [facility] MONO % 6.0 % (0.0-8.0) [facility] [place] [facility] BASO % 1.0 % (0.0-4.0) [facility] [place] [facility] [place] NEUT # 16.1 10*3/uL (1.8-7.7) H [facility] [place] [facility] [place] BAND # 0.2 10*3/uL [facility] [place] [facility] LYMPH # 2.2 10*3/uL (1.2-4.8) [facility] [place] [facility] MONO # 1.2 10*3/uL (0.0-0.8) H [facility] [place] [facility] BASO # 0.2 10*3/uL (0.0-0.2) [facility] [place] [facility] ANISO 1+ [facility] [place] [facility] [place] ID Date Data Source [id number] 07/03/2021 04:21:58 AM EDT [facility] [place] [facility] [place] Name Value Range Interpretation Code Description Data Arminda rce(s) Supporting Document(s) SPECIMEN DESCRIPTION [facility] [place] INFLUENZA A (NEG) [facility] [place] [facility] [place] INFLUENZA B (NEG) [facility] [place] [facility] [place] [facility] RSV (NEG) [facility] [place] [facility] [place] COMMENT [facility] [place] [facility] [place] THE [place] FDA HAS MADE THIS TEST AVAILABL EUNDER AN EMERGENCY USE AUTHORIZATION(EUA) FOR THE DETECTION AND/OR DIAGNOSISOF THE VIRUS THAT CAUSES COVID-19.PERFORMED AT [address] [facility] [address] COVID19 RESULT (NDET) [facility] [place] [facility] [place] THIS ASSAY AMPLIFIES AND DETECTSTHE TARG ET RNA USING REAL-TIME PCR.TESTING PERFORMED ON markedupID GENEXPERTNEGATIVE 2019_NCOV RT-PCR RESULTS DONOT PRECLUDE 2019_NCOV INFECTION ANDSHOULD NOT BE USED THE SOLE BASISFOR PATIENT MANAGEMENT DECISIONS. FIRST TEST [facility] [place] [facility] [place] EMPLOYED IN HLTHCARE [facility] [place] SYMPTOMATIC [facility] [place] [facility] [place] DATE OF SYMPT ONSET [facility] HOSPITALIZED [facility] [place] [facility] [place] [facility] [place] [facility] [place] CONGREGATE CARE SET [facility] [place] [facility] [place] ID Date Data Source [id number] 07/03/2021 04:06:52 AM EDT [facility] [place] [facility] [place] Name Value Range Interpretation Code Description Data Arminda rce(s) Supporting Document(s) TROPONIN I 0.31 ng/mL (<0.05) H [facility] [place] [facility] Less than 0.05: Myocardial injury unlike lyGreater than or equal to 0.05: Highly suggestive of myocardial injuryCorrelation with rise and/or fall ofserial troponins, clinical symptomsand ECG changes is necessary. ID Date Data Source [id number] 07/03/2021 04:06:52 AM EDT [facility] [place] [facility] Name Value Range Interpretation Code Description Data Arminda rce(s) Supporting Document(s) TOTAL PROTEIN 7.3 g/dL (6.4-8.2) [facility] [place] [facility] ALBUMIN 3.7 g/dL (3.2-4.5) [facility] [place] [facility] GLOBULIN 3.6 g/dL (2.7-4.3) [facility] [place] [facility] ALB/GLOB RATIO 1.0 RATIO [facility] [place] [facility] BILIRUBIN,TOTAL 0.4 mg/dL (0.0-1.0) [facility] [place] [facility] PLEASE NOTE:Total bilirubin results may be falselyelevated in patients taking Eltrombopag. BILIRUBIN,CONJUGATED <0.1 mg/dL (0.0-0.3) [facility] BILIRUBIN,UNCONJ. (0.0-0.7) [facility] [place] [facility] ALKALINE PHOSPHATASE 91 U/L (45-117) [facility] AST (SGOT) 12 U/L (11-39) [facility] [place] [facility] ALT (SGPT) 19 U/L (12-78) [facility] [place] [facility] ID Date Data Source [id number] 07/03/2021 04:06:52 AM EDT [facility] [place] [facility] Name Value Range Interpretation Code Description Data Arminda rce(s) Supporting Document(s) SODIUM 137 mmol/L (136-145) [facility] [place] [facility] POTASSIUM 5.1 mmol/L (3.6-5.2) [facility] [place] [facility] CHLORIDE 107 mmol/L (100-108) [facility] [place] [facility] CO2 25 mmol/L (22-31) [facility] [place] [facility] ANION GAP 5 mmol/L (7-16) L [facility] [place] [facility] UREA NITROGEN 29 mg/dL (7-24) H [facility] [place] [facility] CREATININE 1.30 mg/dL (0.60-1.00) H [facility] [place] [facility] BUN/CREAT RATIO 22.3 RATIO (10.0-20.0) H [facility] GLUCOSE 212 mg/dL (70-99) H [facility] [place] [facility] CALCIUM 9.1 mg/dL (8.4-10.2) [facility] [place] [facility] GFR 41 ml/min/1.73m2 (>59) L [facility] [place] [facility] GFR ( AMER) 50 ml/min/1.73m2 (>59) L [facility] [place] [facility] GFR INTERPRETATION [facility] --NORMAL KIDNEY FUNCTION OR MILD DISEASE - GFR >OR= 60CHRONIC KIDNEY DISEASE - GFR 15 - 59RENAL FAILURE - GFR <15 Est. GFR calculation based on the MDRDstudy equation, which assumes a steadystate for creatinine. Est. GFR should notbe used for medication dosing. ID Date Data Source [id number] 07/03/2021 04:06:37 AM EDT [facility] [place] [facility] Name Value Range Interpretation Code Description Data Arminda rce(s) Supporting Document(s) HOLD TUBE PINK [facility] [place] [facility] ID Date Data Source [id number] 07/03/2021 03:58:50 AM EDT [facility] [place] [facility] Name Value Range Interpretation Code Description Data Arminda rce(s) Supporting Document(s) APTT 24.5 s (22.0-34.3) [facility] [place] [facility] PERFORMED AT [address] [place] [address] ID Date Data Source [id number] 07/03/2021 03:58:50 AM EDT [facility] [place] [facility] Name Value Range Interpretation Code Description Data Arminda rce(s) Supporting Document(s) PT 10.6 s (9.2-11.9) [facility] [place] [facility] PERFORMED AT [address] [place] [address] INR 1.01 [facility] [place] [facility] SUGGESTED THERAPEUTIC RANGES USING INR F ORSTABILIZED ANTICOAGULATED PATIENTS:STANDARD DOSE THERAPY INR 2.0-3.0 DVT, PE, PREVENT DVT OR EMBOLISMHIGH DOSE THERAPY INR 2.5-3.5 PREVENT EMBOLISM FROM MECHANICAL HEART VALVE ID Date Data Source [id number] 06/10/2021 12:00:00 PM EDT [facility] ([facility] [employer]) Name Value Range Interpretation Code Description Data Arminda rce(s) Supporting Document(s) Gynecologic Biopsy Laboratory test result [facility] ([facility] [employer]) Gynecologic Biopsy Laboratory test result [facility] ([facility] STUDIO SET UP WORK[facility]) SPECIMEN PART------ A. Cervical CLINICAL HX-------- D39.0 Neoplasm of [...] The specimen is submitted entirely as (A1). ID Date Data Source [id number] 05/13/2021 01:07:00 PM EDT [facility] ([facility]) Name Value Range Interpretation Code Description Data Arminda rce(s) Supporting Document(s) Glucose [Mass/volume] in Serum or Plasma 168 mg/dL 74-99 [facility] ([facility]) 100-125 mg/dL PRE-DIABETES/FASTING >126 mg/dL DIABETES/FASTING Urea nitrogen [Mass/volume] in Serum or Plasma 20 mg/dL 7-18 [facility] ([facility]) Creatinine 1.2 mg/dL 0.6-1.3 [facility] ([facility]) Sodium [Moles/volume] in Serum or Plasma 140 meq/L 136-145 [facility] ([facility]) Chloride [Moles/volume] in Serum or Plasma 102 meq/L 98-107 [facility] ([facility]) Potassium [Moles/volume] in Serum or Plasma 5.0 meq/L 3.5-5.1 [facility] ([facility]) Calcium [Mass/volume] in Serum or Plasma 9.0 mg/dL 8.5-10.1 [facility] ([facility]) Carbon dioxide, total [Moles/volume] in Serum or Plasma 28 meq/L 21 -32 [facility] ([facility]) Glomerular filtration rate/1.73 sq M pre dicted among blacks [Volume Rate/Area] in Serum or Plasma by Creatinine-based formula (MDRD) 55 mL/min [facility] ([facility]) <content>CHRONIC KIDNEY DISEASE STAGING PER NKF</content>
<content></content>
<content>STAGE I & II GFR >= 60 NORMAL TO MILDLY DECREASED</content>
<content>STAGE III GFR 30-59 MODERATELY DECREASED</content>
<content>STAGE IV GFR 15-29 SEVERELY DECREASED</content>
<content>STAGE V GFR <15 VERY LITTLE GFR LEFT</content>
<content>ESRD GFR <15 ON SOLID WASTE DISPOSAL MANAGER</content>
<content></content> Glomerular filtration rate/1.73 sq M pre dicted among non-blacks [Volume Rate/Area] in Serum or Plasma by Creatinine-based formula (MDRD) 45 mL/min [facility] ([facility]) ID Date Data Source [id number] 04/24/2021 01:42:00 PM EDT [facility] ([facility]) Name Value Range Interpretation Code Description Data Arminda rce(s) Supporting Document(s) Surgical pathology study Laboratory test result [facility] ([facility]) FINAL DIAGNOSIS Cecal polyp, biopsy: Multiple fragments of tubular adenoma. 04/26/2021 - 1040 CLINICAL DIAGNOSIS Screening 04/25/2021 - 130 GROSS DIAGNOSIS Received in formalin labeled "cecal polyp" and consists of multiple fragments of hale tissue 0.4 x 0.3 x 0.2 cm. in aggregate. All in one. -ENEIDA 04/25/2021 - 1304 Signed PETER ROSALES MD 04/26/2021 1319 ID Date Data Source [id number] 04/24/2021 12:25:00 PM EDT [facility] ([facility]) Name Value Range Interpretation Code Description Data Arminda rce(s) Supporting Document(s) Bedside Glucose 198 mg/dL 80-115 [facility] ID Date Data Source [id number] 04/24/2021 12:25:00 PM EDT [facility] ([facility]) Name Value Range Interpretation Code Description Data Arminda rce(s) Supporting Document(s) Glucose [Mass/volume] in Capillary blood by Glucometer 198 mg/dL 80- 115 [facility] ([facility]) ID Date Data Source [id number] 04/19/2021 12:40:00 PM EDT [facility] Name Value Range Interpretation Code Description Data Arminda rce(s) Supporting Document(s) SARS-CoV-2 (COVID-19) RNA [Presence] in Respiratory specimen by SOL with probe detection Not Detected [facility] This lab was ordered by [facility] and reported by [employer] ID Date Data Source [id number] 04/08/2021 11:35:00 AM EDT [facility] ([facility]) Name Value Range Interpretation Code Description Data Arminda rce(s) Supporting Document(s) Thyrotropin [Units/volume] in Serum or Plasma by Detec tion limit <= 0.05 mIU/L 1.09 uIU/mL 0.36-3.74 [facility] ([facility] ) ID Date Data Source [id number] 04/08/2021 11:35:00 AM EDT [facility] ([facility]) Name Value Range Interpretation Code Description Data Arminda rce(s) Supporting Document(s) Glucose [Mass/volume] in Serum or Plasma 234 mg/dL 74-99 [facility] ([facility]) 100-125 mg/dL PRE-DIABETES/FASTING >126 mg/dL DIABETES/FASTING Creatinine 1.3 mg/dL 0.6-1.3 [facility] ([facility] Urea nitrogen [Mass/volume] in Serum or Plasma 20 mg/dL 7-18 [facility] ([facility]) Chloride [Moles/volume] in Serum or Plasma 101 meq/L 98-107 [facility] ([facility]) Sodium [Moles/volume] in Serum or Plasma 138 meq/L 136-145 [facility] ([facility]) Potassium [Moles/volume] in Serum or Plasma 5.0 meq/L 3.5-5.1 [facility] ([facility]) Calcium [Mass/volume] in Serum or Plasma 9.0 mg/dL 8.5-10.1 [facility] ([facility]) Carbon dioxide, total [Moles/volume] in Serum or Plasma 30 meq/L 21 -32 [facility] ([facility]) Total Bilirubin 0.3 mg/dL 0.2-1.0 [facility] ([facility]) Alkaline phosphatase isoenzyme [Units/volume] in Serum or Pl asma 89 mg/dL 46-116 [facility] ([facility]) Alanine aminotransferase [Enzymatic activity/volume] in Seru m or Plasma 18 U/L 12-78 [facility] ([facility]) Albumin [Mass/volume] in Serum or Plasma 4.0 g/dL 3.4-5.0 [facility] ([facility]) Aspartate aminotransferase [Enzymatic activity/volume] in Serum or Plasma 15 U/L 15-37 [facility] ([facility] ) Proteinase 3 Ab [Units/volume] in Serum 6.5 g/dL 6.4-8.2 [facility] ([facility]) A/G Ratio 1.60 CALC 1.00-1.90 [facility] ([place] [facility]) Glomerular filtration rate/1.73 sq M pre dicted among blacks [Volume Rate/Area] in Serum or Plasma by Creatinine-based formula (MDRD) 50 mL/min [facility] [facility] <content>CHRONIC KIDNEY DISEASE STAGING PER NKF</content>
<content></content>
<content>STAGE I & II GFR >= 60 NORMAL TO MILDLY DECREASED</content>
<content>STAGE III GFR 30-59 MODERATELY DECREASED</content>
<content>STAGE IV GFR 15-29 SEVERELY DECREASED</content>
<content>STAGE V GFR <15 VERY LITTLE GFR LEFT</content>
<content>ESRD GFR <15 ON SOLID WASTE DISPOSAL MANAGER</content>
<content></content> Glomerular filtration rate/1.73 sq M pre dicted among non-blacks [Volume Rate/Area] in Serum or Plasma by Creatinine-based formula (MDRD) 41 mL/min [facility] ([place] [facility] ID Date Data Source [id number] 04/08/2021 11:35:00 AM EDT [facility] ([facility]) Name Value Range Interpretation Code Description Data Arminda rce(s) Supporting Document(s) Magnesium 1.9 mg/dL 1.8-2.4 [facility] [facility]) ID Date Data Source [id number] 04/08/2021 11:35:00 AM EDT [facility] ([facility]) Name Value Range Interpretation Code Description Data Arminda rce(s) Supporting Document(s) Glucose mean value [Mass/volume] in Blood Estimated fr om glycated hemoglobin 194 mg/dL 60-110 [facility] ([place] [facility] Hemoglobin A1c/Hemoglobin.total in Blood 8.4 % [facility] ([place] [facility] Lab Result Notes: Pre-Diabetes 5.7 - 6.4 % Diabetes = or > 6.5% ID Date Data Source [id number] 04/08/2021 11:35:00 AM EDT [facility] Name Value Range Interpretation Code Description Data Arminda rce(s) Supporting Document(s) Erythrocytes [#/volume] in Blood by Automated count 4.18 x10*6/UL 4.2 0-6.30 [facility] ([place] [facility] Leukocytes [#/volume] in Blood by Automated count 12.4 x10*3/UL 4.1-1 0.9 [facility] ([facility]) Hemoglobin [Mass/volume] in Blood 11.4 g/dL 12.0-18.0 [facility] ([facility]) Hematocrit [Volume Fraction] of Blood by Automated count 33.5 % 3 7.0-51.0 [facility] ([facility]) MCH 27.4 pg 26.0-32.0 [facility] [facility]) MCHC 34.2 g/dL 31.0-38.0 [facility] [facility] MCV 80.3 fL 80.0-97.0 [facility] ([place] [facility] Platelets [#/volume] in Blood by Automated count 254 x10*3/UL 140-440 [facility] ([facility]) Erythrocyte distribution width [Ratio] by Automated count 13.5 % 11.6-13.7 [facility] ([facility]) Lymph % 17.5 % 10.0-58.5 [facility] [facility] MPV 8.8 FL 7.8-11.0 [facility] [facility] Neut % 77.4 % 37.0-92.0 [facility] [facility] Lymph # 2.1 x10*3/UL 0.6-4.1 [facility] ([facility]) Mid % 5.1 % 1.7-9.3 [facility] [facility] Mid # 0.7 x10*3/UL 0.1-0.6 [facility] ([facility]) Neut # 9.6 x10*3/UL 2.0-7.8 [facility] ([facility]) ID Date Data Source [id number] 04/08/2021 10:32:00 AM EDT [facility] Name Value Range Interpretation Code Description Data Arminda rce(s) Supporting Document(s) Thyroid Stimulating Hormone 1.09 [facility] ([facility]) ID Date Data Source [id number] 04/08/2021 10:32:00 AM EDT [facility] Name Value Range Interpretation Code Description Data Arminda rce(s) Supporting Document(s) Albumin [Mass/volume] in Serum or Plasma 4.0 [facility] ([facility]) Alanine aminotransferase [Enzymatic activity/volume] in Serum or Pl asma 18 [facility] ([facility]) Calcium [Mass/volume] in Serum or Plasma 9.0 [facility] ([facility]) Chloride [Moles/volume] in Serum or Plasma 101 [facility]) Carbon dioxide, total [Moles/volume] in Serum or Plasma 30 [facility]) Alkaline phosphatase [Enzymatic activity/volume] in Serum or Plasma 8 9 [facility] ([facility]) Potassium [Moles/volume] in Serum or Plasma 5.0 [facility] ([facility]) Aspartate aminotransferase [Enzymatic activity/volume] in Serum or Plasma 15 [facility] ([facility]) Sodium 138 [facility] ([facility]) Protein [Mass/volume] in Serum or Plasma 6.5 [facility] ([facility]) Urea nitrogen [Mass/volume] in Serum or Plasma 20 [facility] ([facility]) Glucose 234 70-100 [facility] ([facility]) Creatinine For GFR 1.3 [facility] ID Date Data Source [id number] 04/08/2021 10:32:00 AM EDT [facility] Name Value Range Interpretation Code Description Data Arminda rce(s) Supporting Document(s) Hemoglobin A1c/Hemoglobin.total in Blood 8.4 [facility] ([facility]) ID Date Data Source [id number] 04/08/2021 10:32:00 AM EDT [facility]) Name Value Range Interpretation Code Description Data Arminda rce(s) Supporting Document(s) Red Blood Count 4.18 4.70-6.20 [facility] ([facility]) White Blood Count 12.4 4.3-10.9 [facility] ([facility]) Platelets 254 140-440 [facility] Hemoglobin 11.4 12.0-18.0 [facility] ([facility]) Hematocrit 33.5 37.0-51.0 [facility] ([facility]) ID Date Data Source [id number] 03/04/2021 02:24:00 PM EDT [place] Exam Number: [id number] OF EXAMINATIO N: 03/04/2021 6:54 EDTDIGITAL MAMMO SHANTA ROUTINEHISTORY: ScreeningFINDINGS:Not providedComparison is made to prior study dated 08/09/2019.2-D bilateral digital mammogram in the CC and MLO planes wereperformed with supplemental 3-D tomosynthesis of both breasts.The images were analyzed through the latest version of the [employer] computer aided diagnosis system.The patient states that her last clinical breast examination was lastyear.Craniocaudal and oblique lateral views of the breasts were obtained.(B) There are scattered areas of fibroglandular density. There is nodominant mass, suspicious clustered calcification, or non surgicalarchitectural distortion.IMPRESSION:No mammographic evidence of malignancy.Final assessment of breast composition BIRAD classification (B) Thereare scattered areas of fibroglandular density.BIRAD CATEGORY 2 - BENIGN FINDINGS, ROUTINE YEARLY MAMMOGRAPHICFOLLOW-UP RECOMMENDED.10-15% of cancers are not identified by mammography. This usuallyoccurs when the mass is of the same radiographic density as thesurrounding breast tissue, emphasizing the importance of breast selfexamination (BSE) and physical examination. A normal mammogram shouldnot delay biopsy if a suspicious mass or abnormal findings are presentupon physical examination.Electronically signed in [id number] by: Percy Roblero M.D. 114:12 EDT Reported By: - Peng ROBLERO M.D. Signed By: Peng ROBLERO M.D. Name Value Range Interpretation Code Description Data Arminda rce(s) Supporting Document(s) ID Date Data Source [id number] 01/03/2021 10:34:00 AM EST [facility] ([facility]) Name Value Range Interpretation Code Description Data Arminda rce(s) Supporting Document(s) Digoxin [Mass/volume] in Serum or Plasma 1.0 ng/mL 0.5-2.0 [facility] ([facility]) ID Date Data Source [id number] 01/03/2021 10:32:00 AM EST [facility] ([facility]) Name Value Range Interpretation Code Description Data Arminda rce(s) Supporting Document(s) Urea nitrogen [Mass/volume] in Serum or Plasma 17 mg/dL 7-18 [facility] ([facility]) Creatinine 1.2 mg/dL 0.6-1.3 [facility] ([facility] Glucose [Mass/volume] in Serum or Plasma 176 mg/dL 74-99 [facility] ([facility]) 100-125 mg/dL PRE-DIABETES/FASTING >126 mg/dL DIABETES/FASTING Potassium [Moles/volume] in Serum or Plasma 5.1 meq/L 3.5-5.1 [facility] ([facility]) Sodium [Moles/volume] in Serum or Plasma 143 meq/L 136-145 [facility] ([facility]) Calcium [Mass/volume] in Serum or Plasma 8.6 mg/dL 8.5-10.1 [facility] ([facility]) Chloride [Moles/volume] in Serum or Plasma 106 meq/L 98-107 [facility] ([facility]) Carbon dioxide, total [Moles/volume] in Serum or Plasma 28 meq/L 21 -32 [facility] [facility] Total Bilirubin 0.3 mg/dL 0.2-1.0 [facility] ([facility]) Alkaline phosphatase isoenzyme [Units/volume] in Serum or Pl asma 93 mg/dL 46-116 [facility] ([facility]) Aspartate aminotransferase [Enzymatic activity/volume] in Se rum or Plasma 9 U/L 15-37 [facility] ([facility]) Alanine aminotransferase [Enzymatic activity/volume] in Seru m or Plasma 16 U/L 12-78 [facility] ([facility]) Proteinase 3 Ab [Units/volume] in Serum 6.5 g/dL 6.4-8.2 [facility] ([facility]) A/G Ratio 1.24 CALC 1.00-1.90 [facility] [facility]) Albumin [Mass/volume] in Serum or Plasma 3.6 g/dL 3.4-5.0 [facility] [facility] Glomerular filtration rate/1.73 sq M pre dicted among blacks [Volume Rate/Area] in Serum or Plasma by Creatinine-based formula (MDRD) 55 mL/min [facility] ([place] [facility] <content>CHRONIC KIDNEY DISEASE STAGING PER NKF</content>
<content></content>
<content>STAGE I & II GFR >= 60 NORMAL TO MILDLY DECREASED</content>
<content>STAGE III GFR 30-59 MODERATELY DECREASED</content>
<content>STAGE IV GFR 15-29 SEVERELY DECREASED</content>
<content>STAGE V GFR <15 VERY LITTLE GFR LEFT</content>
<content>ESRD GFR <15 ON SOLID WASTE DISPOSAL MANAGER</content>
<content></content> Glomerular filtration rate/1.73 sq M pre dicted among non-blacks [Volume Rate/Area] in Serum or Plasma by Creatinine-based formula (MDRD) 45 mL/min [facility] ([facility]) ID Date Data Source [id number] 01/03/2021 10:32:00 AM EST [facility] ([facility]) Name Value Range Interpretation Code Description Data Arminda rce(s) Supporting Document(s) Magnesium 1.6 mg/dL 1.8-2.4 [facility] ([facility]) ID Date Data Source [id number] 01/03/2021 10:32:00 AM EST [facility] Name Value Range Interpretation Code Description Data Arminda rce(s) Supporting Document(s) Glucose mean value [Mass/volume] in Blood Estimated fr om glycated hemoglobin 189 mg/dL 60-110 [facility] ([place] [facility] Hemoglobin A1c/Hemoglobin.total in Blood 8.2 % [facility] ([facility]) Lab Result Notes: Pre-Diabetes 5.7 - 6.4 % Diabetes = or > 6.5% ID Date Data Source [id number] 01/03/2021 10:32:00 AM EST [facility] Name Value Range Interpretation Code Description Data Arminda rce(s) Supporting Document(s) Creatine kinase [Enzymatic activity/volume] in Serum or Plasma 56 U /L 26-192 [facility] ([facility]) ID Date Data Source [id number] 01/03/2021 10:32:00 AM EST [facility] ([facility]) Name Value Range Interpretation Code Description Data Arminda rce(s) Supporting Document(s) Leukocytes [#/volume] in Blood by Automated count 11.3 x10*3/UL 4.1-1 0.9 [facility] ([facility]) NOTE: cbc verified Hemoglobin [Mass/volume] in Blood 11.8 g/dL 12.0-18.0 [facility] ([facility]) Erythrocytes [#/volume] in Blood by Automated count 4.27 x10*6/UL 4.2 0-6.30 [facility] ([place] [facility] Hematocrit [Volume Fraction] of Blood by Automated count 34.4 % 3 7.0-51.0 [facility] ([facility]) MCV 80.6 fL 80.0-97.0 [facility] ([place] [facility]) Erythrocyte distribution width [Ratio] by Automated count 13.0 % 11.6-13.7 [facility] ([facility]) MCH 27.7 pg 26.0-32.0 [facility] [facility] MCHC 34.4 g/dL 31.0-38.0 [facility] ([place] [facility]) Platelets [#/volume] in Blood by Automated count 250 x10*3/UL 140-440 [facility] ([facility]) MPV 8.8 FL 7.8-11.0 [facility] ([place] [facility] Lymph % 20.1 % 10.0-58.5 [facility] ([place] [facility] Neut % 74.4 % 37.0-92.0 [facility] ([place] [facility] Mid % 5.5 % 1.7-9.3 [facility] ([place] [facility] Lymph # 2.2 x10*3/UL 0.6-4.1 [facility] ([facility]) Mid # 0.7 x10*3/UL 0.1-0.6 [facility] ([facility]) Neut # 8.4 x10*3/UL 2.0-7.8 [facility] ([facility]) ID Date Data Source [id number] 01/03/2021 10:32:00 AM EST [facility] ([facility]) Name Value Range Interpretation Code Description Data Arminda rce(s) Supporting Document(s) Triglyceride [Mass/volume] in Serum or Plasma 168 mg/dL 30-150 [facility] ([facility]) Cholesterol in HDL [Mass/volume] in Serum or Plasma 64 mg/dL 35-60 [facility] ([facility]) Cholesterol [Mass/volume] in Serum or Plasma 156 mg/dL 131-200 [facility] ([facility]) Cholesterol in LDL [Mass/volume] in Serum or Plasma by calcu lation 58 CALC 50-159 [facility] ([facility]) ID Date Data Source [id number] 10/01/2020 03:50:00 PM EST [facility] Name Value Range Interpretation Code Description Data Arminda rce(s) Supporting Document(s) Calcium [Mass/volume] in Serum or Plasma 8.9 [facility] ([facility]) Sodium 139 [facility] ([facility] Carbon dioxide, total [Moles/volume] in Serum or Plasma 28 [facility] ([facility]) Chloride [Moles/volume] in Serum or Plasma 103 [facility] ([facility]) Potassium [Moles/volume] in Serum or Plasma 4.9 [facility] ([facility]) Blood Urea Nitrogen 20 7-18 [facility] ([facility]) Creatinine 1.2 0.6-1.3 [facility] ([facility]) Glucose 165 74-99 [facility] ([facility]) Glomerular filtration rate/1.73 sq M.pre dicted [Volume Rate/Area] in Serum or Plasma by Creatinine-based formula (MDRD) 45 [facility] ([facility]) ID Date Data Source [id number] 10/01/2020 03:50:00 PM EST [facility] ([facility] Name Value Range Interpretation Code Description Data Arminda rce(s) Supporting Document(s) Hemoglobin A1c/Hemoglobin.total in Blood 8.5 [facility] ([facility]) ID Date Data Source [id number] 10/01/2020 10:56:00 AM EST [facility] ([facility]) Name Value Range Interpretation Code Description Data Arminda rce(s) Supporting Document(s) Glucose [Mass/volume] in Serum or Plasma 165 mg/dL 74-99 [facility] ([facility]) 100-125 mg/dL PRE-DIABETES/FASTING >126 mg/dL DIABETES/FASTING Urea nitrogen [Mass/volume] in Serum or Plasma 20 mg/dL 7-18 [facility] ([facility]) Creatinine 1.2 mg/dL 0.6-1.3 [facility] Potassium [Moles/volume] in Serum or Plasma 4.9 meq/L 3.5-5.1 [facility] ([facility]) Sodium [Moles/volume] in Serum or Plasma 139 meq/L 136-145 [facility] ([facility]) Calcium [Mass/volume] in Serum or Plasma 8.9 mg/dL 8.5-10.1 [facility] ([facility]) Chloride [Moles/volume] in Serum or Plasma 103 meq/L 98-107 [facility] ([facility]) Carbon dioxide, total [Moles/volume] in Serum or Plasma 28 meq/L 21 -32 [facility] ([facility]) Glomerular filtration rate/1.73 sq M pre dicted among non-blacks [Volume Rate/Area] in Serum or Plasma by Creatinine-based formula (MDRD) 45 mL/min [facility] ([facility]) Glomerular filtration rate/1.73 sq M pre dicted among blacks [Volume Rate/Area] in Serum or Plasma by Creatinine-based formula (MDRD) 55 mL/min [facility] ([facility]) <content>CHRONIC KIDNEY DISEASE STAGING PER NKF</content>
<content></content>
<content>STAGE I & II GFR >= 60 NORMAL TO MILDLY DECREASED</content>
<content>STAGE III GFR 30-59 MODERATELY DECREASED</content>
<content>STAGE IV GFR 15-29 SEVERELY DECREASED</content>
<content>STAGE V GFR <15 VERY LITTLE GFR LEFT</content>
<content>ESRD GFR <15 ON SOLID WASTE DISPOSAL MANAGER</content>
<content></content> ID Date Data Source [id number] 10/01/2020 10:56:00 AM EST [facility] Name Value Range Interpretation Code Description Data Arminda rce(s) Supporting Document(s) Hemoglobin A1c/Hemoglobin.total in Blood 8.5 % [facility] ([facility]) Lab Result Notes: Pre-Diabetes 5.7 - 6.4 % Diabetes = or > 6.5% Glucose mean value [Mass/volume] in Blood Estimated fr om glycated hemoglobin 197 mg/dL 60-110 [facility] ([place] [facility] ) ID Date Data Source [id number] 10/01/2020 10:56:00 AM EST [facility] ([facility] Name Value Range Interpretation Code Description Data Arminda rce(s) Supporting Document(s) Leukocytes [#/volume] in Blood by Automated count 11.9 x10*3/UL 4.1-1 0.9 [facility] ([place] [facility]) NOTE: RESULT VERIFIED. Erythrocytes [#/volume] in Blood by Automated count 4.37 x10*6/UL 4.2 0-6.30 [facility] ([place] [facility]) MCV 79.7 fL 80.0-97.0 [facility] ([facility]) Hemoglobin [Mass/volume] in Blood 12.1 g/dL 12.0-18.0 [facility] ([place] [facility]) Hematocrit [Volume Fraction] of Blood by Automated count 34.9 % 3 7.0-51.0 [facility] ([place] [facility]) MCH 27.6 pg 26.0-32.0 [facility] ([facility]) MCHC 34.7 g/dL 31.0-38.0 [facility] ([facility]) Erythrocyte distribution width [Ratio] by Automated count 13.3 % 11.6-13.7 [facility] ([place] [facility]) Platelets [#/volume] in Blood by Automated count 225 x10*3/UL 140-440 [facility] ([facility]) MPV 8.8 FL 7.8-11.0 [facility] ([place] [facility]) Neut % 77.6 % 37.0-92.0 [facility] ([place] [facility] Mid % 4.0 % 1.7-9.3 [facility] ([place] [facility]) Lymph % 18.4 % 10.0-58.5 [facility] [facility] Mid # 0.4 x10*3/UL 0.1-0.6 [facility] ([facility]) Lymph # 2.2 x10*3/UL 0.6-4.1 [facility] ([facility]) Neut # 9.3 x10*3/UL 2.0-7.8 [facility] ([facility]) ID Date Data Source [id number] 10/01/2020 10:56:00 AM EST [facility] ([facility]) Name Value Range Interpretation Code Description Data Arminda rce(s) Supporting Document(s) Hemoglobin A1c/Hemoglobin.total in Blood Laboratory test result [facility] ([facility]) Procedure Social History Code Duration Value Status Description Data Source(s ) Smoking 09/09/2021 12:00:00 AM EDT Patient has never smoked co mpleted Patient has never smoked [facility] ([facility] [employer]) Smoking 08/07/2021 12:00:00 AM EDT Patient has never smoked co mpleted Patient has never smoked [facility] ([facility]) Smoking 07/24/2021 09:06:47 AM EDT Never smoked tobacco (findi ng) completed Never smoked tobacco (finding) RENE (Gurpreet Goodson MD [facility]) Smoking 07/05/2021 03:50:00 PM EDT Denies Ever Smoked complete d Denies Ever Smoked [facility] Caffeine Use Details 02/27/2021 12:00:00 AM EDT coffee, 2 cups comp leted coffee, 2 cups [facility] ([facility]) 02/27/2021 12:00:00 AM EDT Never smoked tobacco comple laci Never smoked tobacco [facility] ([facility]) Smoking 02/27/2021 12:00:00 AM EDT Never smoker completed Never s tyrone Lawson ([facility]) Vital Signs ID Date Data Source UNK Name Value Range Interpretation Code Description Data Source(s) Systolic blood pressure 104 mm[Hg] 104 [facility]Hg] [facility] RT Arm Body weight 242.12 [lb_av] 242.12 [lb_av] [facility] T ([facility]) Oxygen saturation in Arterial blood by Pulse oximetry 96 % 96 % [facility]) Body mass index (BMI) [Ratio] 42.9 kg/m2 42.9 k g/m2 [facility] ([facility]) Body height 63 [in_i] 63 [in_i] [facility] ([facility]) 5'3" Diastolic blood pressure 60 mm[Hg] 60 mm[Hg] [facility] RT Arm Heart rate 50 /min 50 /min [facility] ([facility]) ekg Body weight 247.00 [lb_av] 247.00 [lb_av] [facility] T ([facility] [employer] WORK[employer]) Heart rate 48 /min 48 /min [facility] ([facility]) Body height 63 [in_i] 63 [in_i] [facility] ([facility]) 5'3" Body weight 239.50 [lb_av] 239.50 [lb_av] [facility] T ([facility]) Body mass index (BMI) [Ratio] 42.4 kg/m2 42.4 k g/m2 [facility] ([facility]) Diastolic blood pressure 52 mm[Hg] 52 mm[Hg] [facility] ([facility]) RT Arm Systolic blood pressure 122 mm[Hg] 122 mm[Hg] [facility] ([facility]) RT Arm Body weight 236.00 [lb_av] 236.00 [lb_av] [facility] ([facility]) Body height 63 [in_i] 63 [in_i] [facility] ([facility]) 5'3" Body mass index (BMI) [Ratio] 41.8 kg/m2 41.8 k g/m2 [facility] ([facility]) Heart rate 72 /min 72 /min [facility] ([facility]) Regular Respiratory rate 16 /min 16 /min [facility] ( [facility]) Systolic blood pressure 136 mm[Hg] 136 mm[Hg] M [facility] ([facility]) sitting, large cuff Diastolic blood pressure 76 mm[Hg] 76 mm[Hg] [facility] ([facility]) sitting, large cuff Heart rate 52 /min 52 /min [facility] ([facility]) Body weight 244.25 [lb_av] 244.25 [lb_av] [facility] T ([facility]) Body height 63 [in_i] 63 [in_i] [facility] ([facility]) 5'3" Oxygen saturation in Arterial blood by Pulse oximetry --post exerci se 89 % 89 % [facility] ([facility]) RM Air Body mass index (BMI) [Ratio] 43.3 kg/m2 43.3 k g/m2 [facility] ([facility]) Systolic blood pressure 116 mm[Hg] 116 mm[Hg] [facility] ([facility]) RT Arm Diastolic blood pressure 64 mm[Hg] 64 mm[Hg] [facility] ([facility]) RT Arm Diastolic blood pressure 70 mm[Hg] 70 mm[Hg] [facility] ([facility]) RT Arm Body weight 257.38 [lb_av] 257.38 [lb_av] [facility]) Oxygen saturation in Arterial blood by Pulse oximetry --post exerci se 97 % 97 % [facility] ([facility]) RM Air Systolic blood pressure 142 mm[Hg] 142 mm[Hg] [facility] ([facility]) RT Arm Body mass index (BMI) [Ratio] 45.6 kg/m2 45.6 k g/m2 [facility] ([facility]) Heart rate 64 /min 64 /min [facility] ([facility]) Body height 63 [in_i] 63 [in_i] [facility] ([facility]) 5'3" Deprecated Oxygen saturation in Capillary blood by Oximetry 100 % Normal (applies to non-numeric results) 100 % [facility] Systolic blood pressure 137 mm[Hg] Normal (applies t o non-numeric results) 137 mm[Hg] [facility] Diastolic blood pressure 64 mm[Hg] Normal (applies to non-numeric results) 64 mm[Hg] [facility] Heart rate 60 min Normal (applies to non-numeric resul ts) 60 min [facility] Respiratory rate 18 min Normal (applies to non-numeric results) 18 min [facility] Body temperature 36.5 shekhar Normal (applies to non-numeric results) 36.5 shekhar [facility] Body height 159.7152 cm Normal (applies to non-numeric res ults) 159.7152 cm [facility] Body mass index (BMI) [Ratio] 43.93 kg/m2 No rmal (applies to non-numeric results) 43.93 kg/m2 [facility] Body weight Measured 112.5 kg Normal (applies to n on-numeric results) 112.5 kg [facility] Body weight 245.00 [lb_av] 245.00 [lb_av] [facility] ([facility]) Body mass index (BMI) [Ratio] 43.4 kg/m2 43.4 k g/m2 [facility] ([facility]) Diastolic blood pressure 86 mm[Hg] 86 mm[Hg] [facility] ([facility]) sitting Body height 63 [in_i] 63 [in_i] [facility] ([facility]) 5'3" Heart rate 76 /min 76 /min [facility] ([facility]) Irregular Respiratory rate 16 /min 16 /min [facility] ( [facility]) Systolic blood pressure 136 mm[Hg] 136 mm[Hg] M [facility] ([facility]) sitting, large cuff Diastolic blood pressure 88 mm[Hg] 88 mm[Hg] [facility] ([facility]) sitting, large cuff Systolic blood pressure 136 mm[Hg] 136 mm[Hg] M [facility] ([facility]) sitting Body temperature 97.7 [degF] 97.7 [degF] [facility] ([facility]) Systolic blood pressure 132 mm[Hg] 132 mm[Hg] M [facility] ([facility]) Diastolic blood pressure 82 mm[Hg] 82 mm[Hg] [facility] ([facility]) Heart rate 41 /min 41 /min [facility] ([facility]) Body mass index (BMI) [Ratio] 43.7 kg/m2 43.7 k g/m2 [facility] ([facility]) Body weight 112.039 kg 112.039 kg [facility] ([facility]) Body height 63 [in_i] 63 [in_i] [facility] ([facility]) 5'3" Body weight 247.00 [lb_av] 247.00 [lb_av] [facility] T ([facility]) Body height 63 [in_i] 63 [in_i] [facility] ([facility]) 5'3" Systolic blood pressure 142 mm[Hg] 142 mm[Hg] M [facility] ([facility]) RT Arm Diastolic blood pressure 82 mm[Hg] 82 mm[Hg] [facility] ([facility]) RT Arm Heart rate 68 /min 68 /min [facility] ([facility]) Body weight 247.25 [lb_av] 247.25 [lb_av] [facility] T ([facility]) Body mass index (BMI) [Ratio] 43.8 kg/m2 43.8 k g/m2 [facility] ([facility]) Systolic blood pressure 138 mm[Hg] 138 mm[Hg] N [facility] ([facility]) Body height 160.02 cm 160.02 cm [facility] ([facility]) Body weight 112.037 kg 112.037 kg [facility] ([facility]) Diastolic blood pressure 88 mm[Hg] 88 mm[Hg] [facility] ([facility]) Body mass index (BMI) [Ratio] 43.75 kg/m2 Overweight 43.75 kg/m2 [facility] ([facility]) Systolic blood pressure 132 mm[Hg] 132 mm[facility]Hg] [facility] RT Arm Body height 63 [in_i] 63 [in_i] [facility] ([facility]) 5'3" Body weight 244.12 [lb_av] 244.12 [lb_av] [facility] T ([facility]) Body mass index (BMI) [Ratio] 43.2 kg/m2 43.2 k g/m2 [facility] ([facility]) Diastolic blood pressure 72 mm[Hg] 72 mm[Hg] [facility] ([facility]) RT Arm Heart rate 60 /min 60 /min [facility] ([facility]) Respiratory rate 16 /min 16 /min [facility] ( [facility]) Heart rate 76 /min 76 /min [facility] ([facility]) Regular Body weight 245.00 [lb_av] 245.00 [lb_av] [facility] ([facility]) Body height 63 [in_i] 63 [in_i] [facility] 5'3" Body mass index (BMI) [Ratio] 43.4 kg/m2 43.4 k g/m2 [facility] ([facility]) Systolic blood pressure 136 mm[Hg] 136 mm[Hg] M [facility] ([facility]) sitting, large cuff Diastolic blood pressure 80 mm[Hg] 80 mm[Hg] [facility] ([facility]) sitting, large cuff Systolic blood pressure 136 mm[Hg] 136 mm[Hg] M [facility] ([facility]) sitting Diastolic blood pressure 84 mm[Hg] 84 mm[Hg] [facility] ([facility]) sitting Systolic blood pressure 146 mm[Hg] 146 mm[Hg] M [facility] ([facility]) RT Arm Diastolic blood pressure 90 mm[Hg] 90 mm[Hg] [facility] ([facility]) RT Arm Heart rate 80 /min 80 /min [facility] ([facility]) Body height 63 [in_i] 63 [in_i] [facility] ([facility]) 5'3" Body weight 236.25 [lb_av] 236.25 [lb_av] [facility] T ([facility]) Body mass index (BMI) [Ratio] 41.8 kg/m2 41.8 k g/m2 [facility] ([facility]) Patient Treatment Plan of Care Planned Activity Planned Date Details Description Data Source (s) Hydroxychloroquine Sulfate 200 MG Oral Tablet [[place]] 02/27/2021 12:00:00 AM EDT [facility] ([facility]) Hydroxychloroquine Sulfate 200 MG Oral Tablet [[place]] 01/30/2021 12:00:00 AM EDT [facility] ([facility]) Hydroxychloroquine Sulfate 200 MG Oral Tablet [[place]] 12/14/2020 12:00:00 AM EST [facility] ([facility]) Hydroxychloroquine Sulfate 200 MG Oral Tablet [[place]] 11/15/2020 12:00:00 AM EST [facility] ([facility]) Hydroxychloroquine Sulfate 200 MG Oral Tablet [[place]] 10/09/2020 12:00:00 AM EST [facility] ([facility])
[2021-10-03] MEDS ORDERED: HumaLOG INSULIN (NovoLOG) PER UNIT SC ONE ×2 (14:05→14:25)
[2021-10-03] MEDS ORDERED: fentaNYL 100 MCG/2 ML INJECTION (J3010) As Ordered ONE (14:12)
[2021-10-03] MEDS ORDERED: LIDOCAINE 2% 100MG/5ML SDV (FOR ANES.) As Ordered ONE (14:12)
[2021-10-03] MEDS ORDERED: propofoL 200 MG/20 ML VIAL As Ordered ONE ×2 (14:12→15:18)
[2021-10-03] MEDS ORDERED: MIDAZOLAM INJ 2MG/2ML VIAL (J2250 PER 1MG) As Ordered ONE (14:13)
[2021-10-03] MEDS ORDERED: IODINE STRONG SOLN 15 ML BTL As Ordered ONE (14:15)
[2021-10-03] MEDS ORDERED: LIDOCAINE 1% SDV 30ML VIAL As Ordered ONE (14:51)
[2021-10-03] MEDS ORDERED: ACETAMINOPHEN 1000MG 100ML IV BTL (OFIRMEV) (J0131 PER 10MG) As Ordered ONE (15:27)
[2021-10-03 16:30] VITALS: BP 175/72
--- NOTE | 2021-10-03 17:29 | RO ---
OPERATIVE NOTE DATE OF OPERATION: 10/03/2021 PREOPERATIVE DIAGNOSIS AND INDICATIONS FOR SURGERY: Post-menopausal bleeding, abnormal sonogram, and the radiologist really felt that there was an endocervical abnormality. POSTOPERATIVE DIAGNOSIS: Post-menopausal bleeding, abnormal sonogram, and the radiologist really felt that there was an endocervical abnormality. FINDINGS: We had polyps of the endometrium, but not of the cervix. PROCEDURE: Dilatation and curettage with hysteroscopy, MyoSure, as well as paracervical block, and colposcopy with LEEP conization of the cervix. The colposcopy was really reassuring, but given the ultrasound appearance and the distinct impression of cervical lesion, the patient wanted cautious approach, which at 66 is certainly not unreasonable. SURGEON: Gabbie Carrasco MD SQL BI DEVELOPER: None. ANESTHESIA: MAC with local. BRIEF DESCRIPTION OF PROCEDURE AND FINDINGS: Tello was brought to the operating room, where sufficient sedation was given. She was prepped and positioned in the usual fashion, and then a paracervical block done with 20 cc in total with 1% lidocaine without. It was 5 cc in each site at 2:00 o'clock, 4:00 o'clock, 8:00 o'clock, and 10:00 o'clock on the cervix. Then, the cervix was carefully dilated in order to allow the introduction of the hysteroscope. As noted in the operative photos, there were multiple polyps noted within the endometrial cavity. These were then resected using the MyoSure resectoscope and removed in their entirety with curettage undertaken and then the pathology sent for pathologic evaluation. But, they did not appear hypervascular or anything like that and they were completely resected for this patient. She did not have any cervical polyps. We did, of course, check and following the completion of the dilatation and curettage with hysteroscopy, MyoSure, and of course the paracervical block still being in place, acetic acid was placed in the cervix and left in place while we set up for the colposcopy and LEEP conization. Using the colposcope, as expected, we did not really see a lot of abnormality. There was no acetowhite. It was only adequate with some effort, but it was adequate. Then, a LEEP conization was carried out as planned using the loop electrode for the excision and then the ball cautery for the base. We had some equipment difficulty, but no other difficulty, and the procedure was then ended. ESTIMATED BLOOD LOSS: It was really on a few cc, like 2 cc, less than typical for younger patients. FLUID REPLACEMENT: Crystalloid. COMPLICATIONS: None. CONDITION AND DISPOSITION: Cori tolerated the procedure well and was recovering in the recovery room in good condition.
[2021-10-03] MEDS ORDERED: HumaLOG INSULIN (NovoLOG) PER UNIT SC SCH (17:30)
== END 2021-10-03 16:30 | disposition home or self-care (01) ==
LOC: M SDC 12:29
PROVIDERS: ATTEND Obstetrics & Gynecology
DX: N84.0 Polyp of corpus uteri (principal); I48.91 Unspecified atrial fibrillation; I25.2 Old myocardial infarction; I50.9 Heart failure, unspecified; Z98.61 Coronary angioplasty status; E11.9 Type 2 diabetes mellitus without complications; E03.9 Hypothyroidism, unspecified; G47.30 Sleep apnea, unspecified; Z79.4 Long term (current) use of insulin; I73.9 Peripheral vascular disease, unspecified; I10 Essential (primary) hypertension; F41.9 Anxiety disorder, unspecified; F32.9 Major depressive disorder, single episode, unspecified; Z79.82 Long term (current) use of aspirin; Z79.899 Other long term (current) drug therapy
CPT/HCPCS: 57522; 88305; 88307; J0131; J0690; J2250; J3010

== ENCOUNTER → 2021-10-24 | Outpatient (REF) | payer MEDICARE ==
[~2021-10-24] MED LIST changes: -LR 1,000 ML IV ONE; -ceFAZolin SOD 2 GM in IV 1 EA IV ONE
== END ==
LOC: M LAB REF 12:12
PROVIDERS: ATTEND Internal Medicine
DX: I48.0 Paroxysmal atrial fibrillation (principal)

== ENCOUNTER 2021-10-25 17:01 | Outpatient (CLI) | payer MEDICARE ==
[2021-10-25] VITALS (8 sets, daily range): BP systolic 106–149; BP diastolic 37–59
[~2021-10-25 17:01] MED LIST changes: +LOSA50TA28 PO; -LOSA50TA88 PO
[2021-10-25 17:43] LABS: HEMATOCRIT 24.3 % (36.0-47.0); HEMOGLOBIN 7.6 g/dl (12.0-15.5); MEAN CORPUSCULAR HEMOGLOBIN 26.5 pg (27.0-33.0); MEAN CORPUSCULAR HGB CONC 31.3 g/dl (32.0-36.5); MEAN CORPUSCULAR VOLUME 84.7 fl (80.0-96.0); PLATELET COUNT, AUTOMATED 264 10^3/uL (150-450); RED BLOOD COUNT 2.87 10^6/uL (4.00-5.40); WHITE BLOOD COUNT 14.7 10^3/uL (4.0-10.0)
[2021-10-25] MEDS ORDERED: LR 1,000 ML IV SCH (17:55)
[2021-10-26 00:10] VITALS: BP 142/53
== END 2021-10-26 00:54 | disposition home or self-care (01) ==
LOC: M INFU 17:01 → M MSPAV 17:15 → M INFU 10-26 00:54
PROVIDERS: ATTEND Obstetrics & Gynecology
DX: D64.9 Anemia, unspecified (principal)
CPT/HCPCS: 36415; 85027; 86850; 86900; 86901; 86920; P9016

== ENCOUNTER → 2021-12-31 | Outpatient (REF) | payer MEDICARE | LOC: M LAB REF 16:22 | PROVIDERS: ATTEND Internal Medicine | DX: I48.0 Paroxysmal atrial fibrillation (principal) ==

== ENCOUNTER → 2022-02-06 | Outpatient (REF) | payer MEDICARE ==
[2022-02-08 14:08] LABS: HERPES ZOSTER, VARICELLA IgM <0.91 index (0.00-0.90)
[2022-02-11 11:11] LABS: HERPES ZOSTER, VARICELLA IgG 162 index (Immune >165)
== END ==
LOC: M LAB REF 14:51
PROVIDERS: ATTEND Internal Medicine
DX: Z11.59 Encounter for screening for other viral diseases (principal)

== ENCOUNTER → 2022-11-05 | Outpatient (CLI) | payer MEDICARE ==
[~2022-11-05] MED LIST changes: +SIMV-253 PO; -ZOCO20TA PO
[2022-11-05 18:41] LABS: MEAN CORPUSCULAR HEMOGLOBIN 25.6 pg (27.0-33.0); MEAN CORPUSCULAR HGB CONC 29.7 g/dl (32.0-36.5); MEAN CORPUSCULAR VOLUME 86.2 fl (80.0-96.0); PLATELET COUNT, AUTOMATED 230 10^3/uL (150-450); RED BLOOD COUNT 4.29 10^6/uL (4.00-5.40); WHITE BLOOD COUNT 10.2 10^3/uL (4.0-10.0)
[2022-11-05 19:15] LABS: MAGNESIUM LEVEL 1.7 MG/DL (1.8-2.4)
[2022-11-05 19:17] LABS: CALCIUM LEVEL 9.4 MG/DL (8.3-10.6); CREATININE FOR GFR 1.07 MG/DL (0.55-1.30); DIGOXIN LEVEL 0.7 NG/ML (0.8-2.0); GLOMERULAR FILTRATION RATE 54.5 (>45); POTASSIUM SERUM 5.4 MMOL/L (3.5-5.1)
== END ==
LOC: M LABDRWAD 13:45
PROVIDERS: ATTEND Physician Assistant
DX: I50.32 Chronic diastolic (congestive) heart failure (principal); I48.0 Paroxysmal atrial fibrillation

== ENCOUNTER → 2023-02-26 | Outpatient (REF) | payer MEDICARE | LOC: M LAB REF 12:29 | PROVIDERS: ATTEND Internal Medicine | DX: I48.0 Paroxysmal atrial fibrillation (principal) ==

== ENCOUNTER → 2023-05-25 | Outpatient (REF) | payer MEDICARE ==
[~2023-05-25] MED LIST changes: -HYDR200T3 PO; +HYDR200T46 PO
[2023-05-27 13:08] LABS: DIGOXIN LEVEL 1.1 NG/ML (0.8-2.0)
[2023-05-27 13:10] LABS: FERRITIN 33.3 NG/ML (7.3-270.7)
== END ==
LOC: M LAB REF 12:15
PROVIDERS: ATTEND Internal Medicine
DX: D50.9 Iron deficiency anemia, unspecified (principal); I48.0 Paroxysmal atrial fibrillation

== ENCOUNTER → 2023-08-21 | Outpatient (REF) | payer MEDICARE ==
[2023-08-21 14:55] LABS: DIGOXIN LEVEL 0.8 NG/ML (0.8-2.0)
[2023-08-21 14:59] LABS: FERRITIN 29.8 NG/ML (7.3-270.7)
== END ==
LOC: M LAB REF 12:24
PROVIDERS: ATTEND Internal Medicine
DX: I48.0 Paroxysmal atrial fibrillation (principal); D50.9 Iron deficiency anemia, unspecified

== ENCOUNTER → 2024-01-12 | Outpatient (REF) | payer MEDICARE ==
[2024-01-12 17:59] LABS: PERCENT SATURATION 10.1 % (13.2-45.0)
== END ==
LOC: M LAB REF 17:08
PROVIDERS: ATTEND Internal Medicine Nephrology
DX: E61.1 Iron deficiency (principal)

== ENCOUNTER → 2024-02-04 | Outpatient (CLI) | payer MEDICARE ==
[~2024-02-04] MED LIST changes: +AMOX875T2 PO; +BIOT10009 PO; +DIGO0.123 PO; +FOLI1TAB11 PO; +TORS20TA2 PO
== END ==
LOC: M RAD 13:11
PROVIDERS: ATTEND Nurse Practitioner
DX: N95.0 Postmenopausal bleeding (principal)

== ENCOUNTER 2024-02-17 13:38 | Outpatient (CLI) | payer MEDICARE ==
[~2024-02-17 13:38] MED LIST changes: +ALBUTEROL SULFATE 2.5MG/0.5ML INH NEB SOLN INH PRN; +EPINEPHrine INJ 1 MG/ML 1ML AMP IM PRN; +NS 1,000 ML IV SCH; +diphenhydrAMINE 50MG/ML VIAL IV PRN; +methylPREDNISolone 125MG 2ML VIAL IV PRN
[2024-02-17 14:35] VITALS: BP 160/80; TEMP 99; O2SAT 94
[2024-02-17 14:40] VITALS: BP 160/80; O2SAT 94
[2024-02-17] MEDS: IRON SUCROSE 300 MG in NS 250 ML OVER 90 MIN. IV ONE (14:40)
[2024-02-17 16:15] VITALS: BP 160/80; O2SAT 95
[2024-02-17 16:40] VITALS: BP 180/90; O2SAT 94
== END 2024-02-17 16:30 ==
LOC: M INFU 13:38
PROVIDERS: ATTEND Internal Medicine Nephrology
DX: E61.1 Iron deficiency (principal)
CPT/HCPCS: 96365; 96366; J1756

== ENCOUNTER → 2024-03-02 | Outpatient (CLI) | payer MEDICARE ==
[2024-03-02 13:00] VITALS: BP 162/64; O2SAT 96
[2024-03-02] MEDS: IRON SUCROSE 300 MG in NS 250 ML OVER 90 MIN. IV ONE (13:05)
[2024-03-02 14:45] VITALS: BP 162/72; O2SAT 94
== END ==
LOC: M INFU 12:32
PROVIDERS: ATTEND Internal Medicine Nephrology
DX: E61.1 Iron deficiency (principal)
CPT/HCPCS: 96365; 96366; J1756

== ENCOUNTER 2024-03-16 12:45 | Outpatient (CLI) | payer MEDICARE ==
[~2024-03-16] VITALS: Ht 160 cm; Wt 109.6 kg
[2024-03-16 12:45] VITALS: BP 152/92; O2SAT 99
[~2024-03-16 12:45] MED LIST changes: -NS 1,000 ML IV SCH; -ROSU10TA6 PO; +ROSU10TA61 PO
[2024-03-16] MEDS ORDERED: NS 1,000 ML IV SCH (13:00)
[2024-03-16] MEDS: IRON SUCROSE 300 MG in NS 250 ML OVER 90 MIN. IV ONE (13:03)
[2024-03-16 14:44] VITALS: BP 162/78; O2SAT 95
== END 2024-03-16 14:52 | disposition home or self-care (01) ==
LOC: M INFU 12:45
PROVIDERS: ATTEND Internal Medicine Nephrology
DX: E61.1 Iron deficiency (principal)
CPT/HCPCS: 96365; 96366; J1756

== ENCOUNTER → 2024-03-25 | Outpatient (CLI) | payer MEDICARE ==
[~2024-03-25] MED LIST changes: -ALBUTEROL SULFATE 2.5MG/0.5ML INH NEB SOLN INH PRN; -EPINEPHrine INJ 1 MG/ML 1ML AMP IM PRN; -diphenhydrAMINE 50MG/ML VIAL IV PRN; -methylPREDNISolone 125MG 2ML VIAL IV PRN
== END ==
LOC: M RAD 11:45
PROVIDERS: ATTEND Nurse Practitioner
DX: N95.0 Postmenopausal bleeding (principal)

== ENCOUNTER → 2024-04-14 | Outpatient (REF) | payer MEDICARE ==
[2024-04-14 17:34] LABS: DIGOXIN LEVEL 0.9 NG/ML (0.8-2.0)
== END ==
LOC: M LAB REF 16:38
PROVIDERS: ATTEND Internal Medicine
DX: E66.01 Morbid (severe) obesity due to excess calories (principal); I50.32 Chronic diastolic (congestive) heart failure

== ENCOUNTER → 2024-09-02 | Outpatient (REF) | payer MEDICARE | LOC: M LAB REF 16:08 | PROVIDERS: ATTEND Nurse Practitioner Family | DX: L03.115 Cellulitis of right lower limb (principal) ==

== ENCOUNTER → 2024-09-09 | Outpatient (CLI) | payer MEDICARE | LOC: M PLAIMG 13:47 | PROVIDERS: ATTEND Physician Assistant | DX: I50.32 Chronic diastolic (congestive) heart failure (principal); I27.29 Other secondary pulmonary hypertension; I35.0 Nonrheumatic aortic (valve) stenosis ==

== ENCOUNTER → 2024-09-14 | Outpatient (CLI) | payer MEDICARE ==
[2024-09-14 16:45] LABS: HEMATOCRIT 38.8 % (36.0-47.0); HEMOGLOBIN 11.8 g/dl (12.0-15.5); MEAN CORPUSCULAR HEMOGLOBIN 25.3 pg (27.0-33.0); MEAN CORPUSCULAR HGB CONC 30.4 g/dl (32.0-36.5); MEAN CORPUSCULAR VOLUME 83.1 fl (80.0-96.0); PLATELET COUNT, AUTOMATED 215 10^3/uL (150-450); RED BLOOD COUNT 4.67 10^6/uL (4.00-5.40); WHITE BLOOD COUNT 8.4 10^3/uL (4.0-10.0)
[2024-09-14 18:04] LABS: CALCIUM LEVEL 9.5 MG/DL (8.3-10.6); CREATININE FOR GFR 1.31 MG/DL (0.55-1.30); GLOMERULAR FILTRATION RATE 42.9 (>45)
== END ==
LOC: M LAB 16:01
PROVIDERS: ATTEND Physician Assistant
DX: I50.32 Chronic diastolic (congestive) heart failure (principal); I25.10 Atherosclerotic heart disease of native coronary artery without angina pectoris; I35.0 Nonrheumatic aortic (valve) stenosis

== ENCOUNTER → 2024-10-11 | Outpatient (CLI) | payer MEDICARE ==
[2024-10-11 14:18] LABS: CALCIUM LEVEL 10.2 MG/DL (8.3-10.6); CREATININE FOR GFR 1.33 MG/DL (0.55-1.30); GLOMERULAR FILTRATION RATE 42.1 (>45); POTASSIUM SERUM 4.4 MMOL/L (3.5-5.1)
== END ==
LOC: M LAB 12:20
PROVIDERS: ATTEND Physician Assistant
DX: I50.32 Chronic diastolic (congestive) heart failure (principal)

== ENCOUNTER → 2024-11-04 | Outpatient (CLI) | payer MEDICARE ==
[2024-11-04 11:48] LABS: CALCIUM LEVEL 8.6 MG/DL (8.3-10.6); CREATININE FOR GFR 2.02 MG/DL (0.55-1.30); POTASSIUM SERUM 4.5 MMOL/L (3.5-5.1)
== END ==
LOC: M LAB 10:53
PROVIDERS: ATTEND Physician Assistant
DX: I50.32 Chronic diastolic (congestive) heart failure (principal)

== ENCOUNTER → 2025-01-23 | Outpatient (REF) | payer MEDICARE ==
[2025-01-24 14:30] LABS: PERCENT SATURATION 14.3 % (13.2-45.0)
[2025-01-24 14:31] LABS: FERRITIN 290.2 NG/ML (7.3-270.7)
== END ==
LOC: M LAB REF 12:21
PROVIDERS: ATTEND Internal Medicine
DX: N18.32 Chronic kidney disease, stage 3b (principal); D50.9 Iron deficiency anemia, unspecified

== ENCOUNTER → 2025-03-01 | Outpatient (REF) | payer MEDICARE ==
[2025-03-01 16:08] LABS: HEMATOCRIT 41.5 % (36.0-47.0); HEMOGLOBIN 12.6 g/dl (12.0-15.5); MEAN CORPUSCULAR HEMOGLOBIN 29.7 pg (27.0-33.0); MEAN CORPUSCULAR HGB CONC 30.4 g/dl (32.0-36.5); MEAN CORPUSCULAR VOLUME 97.9 fl (80.0-96.0); PLATELET COUNT, AUTOMATED 175 10^3/uL (150-450); RED BLOOD COUNT 4.24 10^6/uL (4.00-5.40); WHITE BLOOD COUNT 7.9 10^3/uL (4.0-10.0)
[2025-03-01 16:37] LABS: ALBUMIN 3.8 G/DL (3.2-5.2); BILIRUBIN,TOTAL 0.6 MG/DL (0.3-1.2); CREATININE FOR GFR 1.34 MG/DL (0.55-1.30); GLOMERULAR FILTRATION RATE 42.9 (>45); MAGNESIUM LEVEL 2.1 MG/DL (1.8-2.4); POTASSIUM SERUM 4.4 MMOL/L (3.5-5.1); TOTAL PROTEIN 6.4 G/DL (5.7-8.2)
== END ==
LOC: M SHH 15:43
PROVIDERS: ATTEND Physician Assistant
DX: I48.0 Paroxysmal atrial fibrillation (principal); I50.42 Chronic combined systolic (congestive) and diastolic (congestive) heart failure

== ENCOUNTER → 2025-03-15 | Outpatient (REF) | payer MEDICARE ==
[2025-03-15 16:01] LABS: CALCIUM LEVEL 8.7 MG/DL (8.3-10.6); CREATININE FOR GFR 1.24 MG/DL (0.55-1.30); GLOMERULAR FILTRATION RATE 47.1 (>45); POTASSIUM SERUM 3.9 MMOL/L (3.5-5.1)
== END ==
LOC: M SHH 14:47
PROVIDERS: ATTEND Physician Assistant
DX: I50.42 Chronic combined systolic (congestive) and diastolic (congestive) heart failure (principal); I48.0 Paroxysmal atrial fibrillation

== ENCOUNTER → 2025-06-23 | Outpatient (CLI) | payer MEDICARE ==
[~2025-06-23] MED LIST changes: +ALDA25TA2 PO; +APAP500T10 PO; +CLOP75TA2 PO; +DIGO62.5 PO; +ENTR1TAB PO; +FARX1TAB3 PO; +FOLI400T13 PO; +INSUR INJ; +LANTINJ4 SC; +MAGN500T2 PO; +METO1TAB32 PO; +POTA-298 PO; +TORS10TA3 PO; +XARE15TA PO
== END ==
LOC: M PLAIMG 14:25
PROVIDERS: ATTEND Physician Assistant
DX: Z95.3 Presence of xenogenic heart valve (principal); I08.1 Rheumatic disorders of both mitral and tricuspid valves